=== PATIENT | female | born 1940 | race Caucasian/White ===

== ENCOUNTER 2016-07-08 16:58 | Emergency (ER) | payer MEDICARE, BC ==
[2016-07-08 18:43] LABS: Basophils # (A) 0.2 k/uL (0-0.2); Basophils % (A) 2 %; CH 32.5; CHCM 32.8; Eosinophils # (A) 0.1 k/uL (0-0.7); Eosinophils % (A) 1 %; HCT 39.7 % (34.0-46.0); HDW 2.32; Luc # (Auto) 0.27; Luc % (Auto) 2; Lymphocytes # (A) 1.9 k/uL (1.0-4.8); Lymphocytes % (A) 15 %; MCH 32.5 pg (25.0-35.0); MCHC 32.6 g/dL (31.0-37.0); MCV 99.7 fL (80.0-100.0); Mean Platelet Volume 8.4; Monocytes % (A) 7 %; Neutrophils # (A) 9.7 k/uL (1.3-7.7); Neutrophils % (A) 74 %; RBC 3.98 m/uL (3.80-5.40); WBC 13.2 k/uL (3.8-10.6); WBC (Perox) 13.94
[2016-07-08 18:53] LABS: ALT 42 U/L (9-52); AST 22 U/L (14-36); Alkaline Phosphatase 77 U/L (38-126); Anion Gap 4 mmol/L; Blood Urea Nitrogen 14 mg/dL (7-17); Calcium 8.6 mg/dL (8.4-10.2); Carbon Dioxide 32 mmol/L (22-30); Chloride 102 mmol/L (98-107); Glucose 116 mg/dL (74-99); Non-African American GFR(MDRD) >60 (>60 ml/min/1.73 sqM); Potassium 3.8 mmol/L (3.5-5.1); Sodium 138 mmol/L (137-145); Total Bilirubin 0.5 mg/dL (0.2-1.3); Total Protein 5.4 g/dL (6.3-8.2)
[2016-07-08 19:01] LABS: Partial Thromboplastin Time 59.9 sec (22.0-30.0); Prothrombin Time >130.0 sec (9.0-12.0)
[2016-07-08 19:05] LABS: INR >10.0 (<1.1)
[2016-07-08] MEDS ORDERED: PHYTONADIONE ORAL 5 MG/5 ML ORAL.SYRG PO STA (19:07)
[2016-07-08 19:34] VITALS: RESP 18
--- NOTE | 2016-07-08 20:03 | ED ---
Recheck HPI - General Chief Complaint: Recheck/Abnormal Lab/Rx Stated Complaint: Abnormal Labs-Sent By Time Seen by Provider: 07/08/16 18:37 Source: patient, RN notes reviewed Mode of arrival: wheelchair Limitations: no limitations - History of Present Illness Initial Comments: This patient is a 75-year-old woman who is taking Coumadin for having had a mechanical valve replacement. She presents to have her INR level rechecked. The patient states that she had seen her physician, Dr. Thomson earlier today to have her Coumadin level rechecked. She states she received a phone call that the level was above 8, and that she was take some vitamin K. The patient had prescription for this, she also had prescription provided to have her INR level rechecked. The patient states that she is due to travel tomorrow by airplane to [place] to see her son. The patient states that it is still her intention to travel, to have her INR rechecked in [place] and to have the Coumadin level adjusted there. The patient does have some ecchymosis to the right side of her trunk, but is denying any other symptoms of bleeding. She denies headache, epistaxis, hemoptysis, chest or abdominal pain, hematemesis or passing bloody or tarry stools. Complaint: abnormal lab -: hour(s) Returns Today for: Called Because of Abnormal Lab/Test Context: called for abnormal lab result Associated Symptoms: none - Related Data Home Medications Medication Instructions Recorded Confirmed Citalopram Hydrobromide [CeleXA] 30 mg PO QAM 05/20/14 07/08/16 Furosemide [Lasix] 20 mg PO Q48H 05/20/14 07/08/16 LORazepam [Ativan] 1 mg PO BID@1400,2100 05/20/14 07/08/16 Levothyroxine Sodium [Synthroid] 75 mcg PO QAM 05/20/14 07/08/16 Metolazone [Zaroxolyn] 2.5 mg PO TH 05/20/14 07/08/16 Nitroglycerin Sl Tabs [Nitrostat] 0.4 mg SUBLINGUAL Q5M PRN 05/20/14 07/08/16 Omeprazole [PriLOSEC] 20 mg PO HS 05/20/14 07/08/16 Simvastatin [Zocor] 40 mg PO TUFR 05/20/14 07/08/16 Warfarin [Coumadin] 5 mg PO SUTUTHSA 05/20/14 07/08/16 Ergocalciferol [Vitamin D2 50,000 unit PO SA 12/19/15 07/08/16 (DRISDOL)] Ferrous Sulfate [Iron (65 MG 325 mg PO PC-LUNCH 12/19/15 07/08/16 Elemental)] Furosemide 40 mg PO Q48H 12/19/15 07/08/16 Gabapentin 400 mg PO HS 12/19/15 07/08/16 Warfarin [Coumadin] 2.5 mg PO MOWEFR 12/19/15 07/08/16 Budesonide/Formoterol Fumarate 2 puff INHALATION RT-BID PRN 02/12/16 07/08/16 [Symbicort 160-4.5 Mcg Inhaler] HYDROcodone/APAP 7.5-325MG [[place] 1 tab PO Q6HR PRN 02/12/16 07/08/16 7.5-325] Potassium Chloride ER [K-Dur 20] 40 meq PO BID 02/12/16 07/08/16 Umeclidinium Dante [Incruse 62.5 mcg INHALATION RT-HS 02/12/16 07/08/16 Ellipta] Acetaminophen Tab [Tylenol Tab] 1,000 mg PO Q6HR PRN 07/08/16 07/08/16 Gabapentin [Neurontin] 300 mg PO DAILY 07/08/16 07/08/16 amLODIPine [Norvasc] 5 mg PO BID 07/08/16 07/08/16 predniSONE 10 mg PO DAILY 07/08/16 07/08/16 Allergies Allergy/AdvReac Type Severity Reaction Status Date / Time adhesive Allergy tears skin Verified 07/08/16 19:04 Iodinated Contrast Media - Allergy Unknown Verified 07/08/16 19:04 Oral and [Iodinated Contrast Media - IV Dye] iodine Allergy Unknown Verified 07/08/16 19:04 Latex, Natural Rubber Allergy Unknown Verified 07/08/16 19:04 venom-honey bee Allergy Anaphylaxis Verified 07/08/16 19:04 [bee venom (honey bee)] Review of Systems ROS Statement: Those systems with pertinent positive or pertinent negative responses have been documented in the HPI. ROS Other: All systems not noted in ROS Statement are negative. Constitutional: Denies: fever, chills, weakness Respiratory: Denies: cough, dyspnea, hemoptysis Cardiovascular: Denies: chest pain, palpitations, edema, syncope Gastrointestinal: Denies: abdominal pain, nausea, vomiting, melena, hematochezia Genitourinary: Denies: dysuria, hematuria Musculoskeletal: Denies: back pain Skin: Denies: rash Neurological: Denies: headache, weakness, numbness Hematological/Lymphatic: Reports: as per HPI, easy bruising Past Medical History Past Medical History: Heart Failure, Fibromyalgia, GERD/Reflux, Hyperlipidemia, Hypertension, Pneumonia, Thyroid Disorder Additional Past Medical History / Comment(s): osteoporosis, neuropathy, rheumatic fever as child, home o2 2 liters n/c at hs,diverticular disease,pt stated had some paralysis after neck sx -resolved,"occ nose bleeds" and "i take iron supplement that turns my stool black", cyst on one of her kidneys, shingles approx 2009. History of Any Multi-Drug Resistant Organisms: None Reported Past Surgical History: Back Surgery, Section, Orthopedic Surgery, Tonsillectomy Additional Past Surgical History / Comment(s): bruna mastectomy, bottom of right lung removed, breast implants then removed d/t "bad implants",mechanical aortic valve replacement.neck sx had titanium plate, lt carotid endarterectomy, rt lung nodule removed(benign), bruna cataracts. Past Anesthesia/Blood Transfusion Reactions: No Reported Reaction Additional Past Anesthesia/Blood Transfusion Reaction / Comment(s): clausterphobia. past blood transfusion-no reactions to it. Past Psychological History: No Psychological Hx Reported Smoking Status: Current every day smoker Past Alcohol Use History: None Reported, Rare Additional Past Alcohol Use History / Comment(s): started smoking at age 18- smokes 1 ppd. Past Drug Use History: None Reported - Past Family History Father Family Medical History: Unable to Obtain Additional Family Medical History / Comment(s): dad in accident when pt young -did'nt know his hx. Mother Family Medical History: COPD Additional Family Medical History / Comment(s): age 73 Sister(s) Family Medical History: Cancer Additional Family Medical History / Comment(s): 1 sister- thyroid & breast Ca, brain aneurysm-still alive, #2 breast ca,dementia- 83 age,#3 blood cancer- 50's age. General Exam Limitations: no limitations General appearance: alert, in no apparent distress Head exam: Present: atraumatic, normocephalic Eye exam: Present: normal appearance. Absent: scleral icterus, conjunctival injection Neck exam: Present: normal inspection, full ROM Respiratory exam: Present: wheezes (There is a trace expiratory wheeze.). Absent: respiratory distress, rales, rhonchi, stridor, chest wall tenderness Cardiovascular Exam: Present: regular rate, normal rhythm, systolic murmur ( Systolic ejection murmur), clicks (Mechanical click). Absent: diastolic murmur , rubs, gallop GI/Abdominal exam: Present: soft. Absent: distended, tenderness, guarding, rebound, mass, pulsatile mass, hernia Extremities exam: Present: normal inspection, normal capillary refill. Absent: pedal edema, calf tenderness Back exam: Absent: CVA tenderness (R), CVA tenderness (L) Neurological exam: Present: alert, oriented X3 Skin exam: Present: warm, dry, intact, other (Patient has some ecchymosis to the right side of the trunk) Course Vital Signs 07/08/16 07/08/16 17:10 19:33 Temperature 99.0 F 98.2 F Pulse Rate 90 77 Respiratory 20 18 Rate Blood Pressure 110/53 144/62 O2 Sat by Pulse 98 95 Oximetry Medical Decision Making - Medical Decision Making Patient is a 75-year-old woman with elevated INR level. She had been given prescription to obtain vitamin K but states she was unable to have the prescription filled as an outpatient due to it costing over $600. She is given a oral dose of vitamin K here, and I did discuss admission for observation. The patient is declining to have that. I did contact her physician Dr. Thomson who states that he has established a plan for her to follow up and also to be contacted with her INR results and manage her Coumadin level. The patient realizes that she is definitely at risk for having a bleeding episode, and it possibly resulting in or disability. It was recommended to her both by Dr. Thomson myself that travel is not ideal under this circumstance. The patient does express understanding of the risks and states that she is going anyways. - Lab Data Result diagrams: 07/08/16 18:09 02/20/17 18:09 Lab Results 07/08/16 07/08/16 07/08/16 Range/Units 18:09 18:09 18:09 WBC 13.2 H (3.8-10.6) k/uL RBC 3.98 (3.80-5.40) m/uL Hgb 13.0 (11.4-16.0) gm/dL Hct 39.7 (34.0-46.0) % MCV 99.7 (80.0-100.0) fL MCH 32.5 (25.0-35.0) pg MCHC 32.6 (31.0-37.0) g/dL RDW 14.0 (11.5-15.5) % Plt Count 208 (150-450) k/uL Neutrophils % 74 % Lymphocytes % 15 % Monocytes % 7 % Eosinophils % 1 % Basophils % 2 % Neutrophils # 9.7 H (1.3-7.7) k/uL Lymphocytes # 1.9 (1.0-4.8) k/uL Monocytes # 1.0 (0-1.0) k/uL Eosinophils # 0.1 (0-0.7) k/uL Basophils # 0.2 (0-0.2) k/uL PT >130.0 H (9.0-12.0) sec INR >10.0 H* (<1.1) APTT 59.9 H (22.0-30.0) sec Sodium 138 (137-145) mmol/L Potassium 3.8 (3.5-5.1) mmol/L Chloride 102 (98-107) mmol/L Carbon Dioxide 32 H (22-30) mmol/L Anion Gap 4 mmol/L BUN 14 (7-17) mg/dL Creatinine 0.71 (0.52-1.04) mg/dL Est GFR (MDRD) Af Amer >60 (>60 ml/min/1.73 sqM) Est GFR (MDRD) Non-Af >60 (>60 ml/min/1.73 sqM) Glucose 116 H (74-99) mg/dL Calcium 8.6 (8.4-10.2) mg/dL Total Bilirubin 0.5 (0.2-1.3) mg/dL AST 22 (14-36) U/L ALT 42 (9-52) U/L Alkaline Phosphatase 77 (38-126) U/L Total Protein 5.4 L (6.3-8.2) g/dL Albumin 3.1 L (3.5-5.0) g/dL Disposition Clinical Impression: Warfarin-induced coagulopathy Disposition: HOME SELF-CARE Condition: Fair Instructions: Warfarin Toxicity (ED) Referrals: Sandrita Thomson DO [Primary Care Provider] - 1-2 days
[2016-07-08 20:15] VITALS: BP 140/66; PULSE 69; TEMP 97.5
== END 2016-07-08 20:15 | disposition home or self-care (01) ==
LOC: EC 16:58
DX: D68.9 Coagulation defect, unspecified (principal); R23.3 Spontaneous ecchymoses; I11.0 Hypertensive heart disease with heart failure; I50.9 Heart failure, unspecified; M79.7 Fibromyalgia; K21.9 Gastro-esophageal reflux disease without esophagitis; E78.5 Hyperlipidemia, unspecified; M81.0 Age-related osteoporosis without current pathological fracture; F17.200 Nicotine dependence, unspecified, uncomplicated; Z79.01 Long term (current) use of anticoagulants; Z79.52 Long term (current) use of systemic steroids; Z79.899 Other long term (current) drug therapy; Z91.040 Latex allergy status; Z91.041 Radiographic dye allergy status; Z91.030 Bee allergy status; Z91.048 Other nonmedicinal substance allergy status
CPT/HCPCS: 36415; 80053; 85025; 85610; 85730; 99283

== ENCOUNTER → 2017-01-07 | Outpatient (CLI) | payer MEDICARE, BC ==
--- NOTE | 2017-01-07 15:54 | CT ---
EXAMINATION TYPE: CT abdomen pelvis wo con DATE OF EXAM: 01/07/2017 COMPARISON: NONE INDICATION: Lt flank pain DLP: 264.9 mGycm, Automated exposure control for dose reduction was used. CONTRAST: 0 mL of Omnipaque 300. Study performed without Oral Contrast TECHNIQUE: Axial images were obtained from above the diaphragm to the pubic rami in the axial plane a t 5 mm thick sections. Reconstructed images are reviewed on the computer in the coronal plane. FINDINGS: Limited CT sections are obtained the lung bases. Some compressive atelectasis is within the dependen t right lung base.. Coronary artery calcifications present. Vascular calcifications within the desce nding thoracic aorta. Borderline prominent lymph nodes in the retrocrural space measuring 0.5 cm in t ransverse dimension. CT ABDOMEN: Liver: Normal Spleen: Normal Pancreas: Normal Adrenal glands: Left adrenal gland is normal. There is some mild thickening which is stable within th e inferior lateral right adrenal gland measuring 0.9 cm. Gallbladder: Surgically absent Kidneys: No masses are evident. No hydronephrosis is present. No cysts are present. Vascular calci fications are noted on the left. Aorta: Vascular calcification is within the aorta. Inferior vena cava: Normal. CT PELVIS: Loops of bowel within the abdomen and pelvis are normal. Study is performed without oral contrast limiting the evaluation. Appendix: Normal as visualized. Urinary bladder: Decompressed with limited evaluation. Genitourinary structures: Uterus is normal. Adnexal regions are clear. Osseous structures: No suspicious lytic or sclerotic lesions. Degenerative changes are within the lum bar spine. IMPRESSIONS: 1. No suspicious abnormality to account for left flank pain. 2. Stable right adrenal thickening. 3. Borderline sized retrocrural lymph node
== END | disposition home or self-care (01) ==
LOC: RADCTMAIN 13:44
PROVIDERS: ATTEND Family Medicine
DX: E27.8 Other specified disorders of adrenal gland (principal); R10.9 Unspecified abdominal pain; R59.0 Localized enlarged lymph nodes
CPT/HCPCS: 74176

== ENCOUNTER → 2017-02-07 | Outpatient (CLI) | payer MEDICARE, BC ==
--- NOTE | 2017-02-07 12:55 | US ---
EXAMINATION TYPE: US venous doppler duplex LE LT DATE OF EXAM: 02/07/2017 12:21 PM COMPARISON: NONE CLINICAL HISTORY: I82.4Y2 Deep vein thrombosis. Left ankle swelling x few days, left lateral thigh pa in x 5 days; on Coumadin for heart mechanical valve SIDE PERFORMED: TECHNIQUE: The lower extremity deep venous system is examined utilizing real time linear array sonog jo with graded compression, doppler sonography and color-flow sonography. VESSELS IMAGED: Common Femoral Vein Deep Femoral Vein Greater Saphenous Vein * Femoral Vein Popliteal Vein Small Saphenous Vein * Proximal Calf Veins (* superficial vessels) Tech findings called to Irma at Dr Ramirez's Office at exam's end. Left Leg: Negative for DVT IMPRESSION: 1. No deep venous thrombosis by ultrasound left lower extremity.
== END | disposition home or self-care (01) ==
LOC: RADUSWWP 11:58
PROVIDERS: ATTEND Family Medicine
DX: I82.4Y2 Acute embolism and thrombosis of unspecified deep veins of left proximal lower extremity (principal)

== ENCOUNTER → 2017-11-24 | Outpatient (CLI) | payer MEDICARE, BC ==
[2017-11-24 08:36] LABS: INR 1.3 (<1.2); Partial Thromboplastin Time 24.9 sec (22.0-30.0); Prothrombin Time 12.4 sec (9.0-12.0)
== END | disposition home or self-care (01) ==
LOC: LABWHC1 07:41
PROVIDERS: ATTEND Physical Medicine & Rehabilitation
DX: Z01.812 Encounter for preprocedural laboratory examination (principal); Z79.01 Long term (current) use of anticoagulants
CPT/HCPCS: 36415; 85610; 85730

== ENCOUNTER → 2018-01-13 | Outpatient (CLI) | payer MEDICARE, BC ==
[2018-01-13 12:44] LABS: INR 1.8 (<1.2); Partial Thromboplastin Time 33.8 sec (22.0-30.0); Prothrombin Time 16.3 sec (9.0-12.0)
== END | disposition home or self-care (01) ==
LOC: LABWHC1 12:12
PROVIDERS: ATTEND Physical Medicine & Rehabilitation
DX: Z51.81 Encounter for therapeutic drug level monitoring (principal); Z79.01 Long term (current) use of anticoagulants
CPT/HCPCS: 36415; 85610; 85730

== ENCOUNTER → 2018-01-14 | Outpatient (CLI) | payer MEDICARE, BC ==
[2018-01-14 09:19] LABS: INR 1.3 (<1.2); Partial Thromboplastin Time 25.2 sec (22.0-30.0); Prothrombin Time 12.1 sec (9.0-12.0)
== END | disposition home or self-care (01) ==
LOC: LABWHC1 08:50
PROVIDERS: ATTEND Physical Medicine & Rehabilitation
DX: M19.041 Primary osteoarthritis, right hand (principal); M19.042 Primary osteoarthritis, left hand; M54.81 Occipital neuralgia; R51 Headache; R20.2 Paresthesia of skin; G89.29 Other chronic pain; R53.1 Weakness; M51.36 Other intervertebral disc degeneration, lumbar region; M47.816 Spondylosis without myelopathy or radiculopathy, lumbar region; M47.12 Other spondylosis with myelopathy, cervical region; F17.218 Nicotine dependence, cigarettes, with other nicotine-induced disorders
CPT/HCPCS: 36415; 85610; 85730

== ENCOUNTER → 2018-06-25 | Outpatient (CLI) | payer MEDICARE, BC ==
[~2018-06-25] MED LIST: DENOSUMAB 60 MG/ML 1 ML SYRINGE SQ ONE
== END ==
LOC: PROCWHC3 14:08
PROVIDERS: ATTEND Family Medicine
DX: M81.0 Age-related osteoporosis without current pathological fracture (principal)
CPT/HCPCS: 96372; J0897

== ENCOUNTER → 2019-03-11 | Outpatient (CLI) | payer MEDICARE, BC ==
[2019-03-11 14:05] VITALS: BP 145/75; PULSE 74; RESP 18; TEMP 98.8
== END | disposition home or self-care (01) ==
LOC: PROCWHC3 13:43
PROVIDERS: ATTEND Family Medicine
DX: M81.0 Age-related osteoporosis without current pathological fracture (principal)
CPT/HCPCS: 96372; J0897

== ENCOUNTER 2019-10-30 00:19 | Inpatient (IN) | payer MEDICARE, BC ==
--- NOTE | 2019-10-30 01:09 | ED ---
General Adult HPI - General Chief complaint: Weakness Stated complaint: Neuro systems, weakness Time Seen by Provider: 10/30/19 00:44 Source: patient, family Mode of arrival: wheelchair Limitations: physical limitation - History of Present Illness Initial comments: Julianne is a 78-year-old female who is brought to the ER today for further evaluation of worsening weakness, multiple falls over the past week. The patient has been seen by her primary care physician she did have a urinalysis to assess for urinary tract infection, those results are not returned. She also had head CT outpatient today and was told the results were fine and she was allowed to leave the hospital did not need to be seen in the ER. Hasn't reports that despite these tests the patient continues to be very weak and not herself. She is followed 3 times she does have some bruising on her buttocks but no other complaints or injuries. He is concerned about her weakness a brother ER for evaluation. - Related Data Home Medications Medication Instructions Recorded Confirmed Citalopram Hydrobromide [CeleXA] 20 mg PO QAM 05/20/14 03/11/19 LORazepam [Ativan] 1 mg PO BID@1400,2100 05/20/14 03/11/19 Levothyroxine Sodium [Synthroid] 75 mcg PO QAM 05/20/14 03/11/19 Metolazone [Zaroxolyn] 2.5 mg PO TH 05/20/14 03/11/19 Nitroglycerin Sl Tabs [Nitrostat] 0.4 mg SUBLINGUAL Q5M PRN 05/20/14 03/11/19 Omeprazole [PriLOSEC] 20 mg PO HS 05/20/14 03/11/19 Simvastatin [Zocor] 40 mg PO TUFR 05/20/14 03/11/19 Warfarin [Coumadin] 5 mg PO 05/20/14 06/25/18 Ergocalciferol [Vitamin D2 50,000 unit PO SA 12/19/15 03/11/19 (DRISDOL)] Furosemide 40 mg PO DAILY 12/19/15 03/11/19 Gabapentin 400 mg PO BID 12/19/15 03/11/19 Warfarin [Coumadin] 2.5 mg PO 12/19/15 06/25/18 Budesonide/Formoterol Fumarate 2 puff INHALATION RT-BID PRN 02/12/16 03/11/19 [Symbicort 160-4.5 Mcg Inhaler] Potassium Chloride ER [K-Dur 20] 40 meq PO TID 02/12/16 03/11/19 Acetaminophen Tab [Tylenol Tab] 1,000 mg PO Q6HR PRN 07/08/16 03/11/19 amLODIPine [Norvasc] 5 mg PO DAILY 07/08/16 03/11/19 Allergies Allergy/AdvReac Type Severity Reaction Status Date / Time adhesive Allergy tears skin Verified 10/30/19 00:33 Iodinated Contrast Media Allergy Unknown Verified 10/30/19 00:33 [Iodinated Contrast Media - IV Dye] iodine Allergy Unknown Verified 10/30/19 00:33 Latex, Natural Rubber Allergy Unknown Verified 10/30/19 00:33 venom-honey bee Allergy Anaphylaxis Verified 10/30/19 00:33 [bee venom (honey bee)] Review of Systems ROS Statement: Those systems with pertinent positive or pertinent negative responses have been documented in the HPI. ROS Other: All systems not noted in ROS Statement are negative. Past Medical History Past Medical History: Heart Failure, Fibromyalgia, GERD/Reflux, Hyperlipidemia, Hypertension, Pneumonia, Thyroid Disorder Additional Past Medical History / Comment(s): osteoporosis, neuropathy,rheumatic fever as child, home o2 2 liters n/c at hs,diverticular disease,pt stated had some paralysis after neck sx -resolved,"occ nose bleeds" and "i take iron supplement that turns my stool black", cyst on one of her kidneys, shingles approx 2009. History of Any Multi-Drug Resistant Organisms: None Reported Past Surgical History: Back Surgery, Section, Orthopedic Surgery, Tonsillectomy Additional Past Surgical History / Comment(s): burna mastectomy, bottom of right lung removed, breast implants then removed d/t "bad implants",mechanical aortic valve replacement.neck sx had titanium plate, lt carotid endarterectomy, rt lung nodule removed(benign), bruna cataracts. Past Anesthesia/Blood Transfusion Reactions: No Reported Reaction Additional Past Anesthesia/Blood Transfusion Reaction / Comment(s): clausterphobia. past blood transfusion-no reactions to it. Past Psychological History: No Psychological Hx Reported Smoking Status: Current every day smoker Past Alcohol Use History: None Reported, Rare Past Drug Use History: None Reported - Past Family History Father Family Medical History: Unable to Obtain Additional Family Medical History / Comment(s): dad in accident when pt young -did'nt know his hx. Mother Family Medical History: COPD Additional Family Medical History / Comment(s): age 73 Sister(s) Family Medical History: Cancer Additional Family Medical History / Comment(s): 1 sister- thyroid & breast Ca, brain aneurysm-still alive, #2 breast ca,dementia- 83 age,#3 blood cancer- 50's age. General Exam - General Exam Comments Initial Comments: Physical Exam GENERAL: Elderly, debilitated HENT: Normocephalic, Atraumatic. EYES: PERRL, EOMI PULMONARY: Unlabored respirations CARDIOVASCULAR: There is a regular rate and rhythm without any murmurs gallops or rubs. ABDOMEN: Soft and nontender with normal bowel sounds. SKIN: Bruising on buttocks, no sacral decub : Normal external genitalia NEUROLOGIC: Patient is alert and oriented x3. Moving all extremities spontaneously MUSCULOSKELETAL: Generalized weakness PSYCHIATRIC: Normal psychiatric evaluation. Limitations: physical limitation Course Vital Signs 10/30/19 10/30/19 10/30/19 00:23 00:32 02:00 Temperature 98.7 F 98.1 F Pulse Rate 83 82 Pulse Rate [ 75 Pulse Oximetery ] Respiratory 16 18 16 Rate Blood Pressure 186/73 189/87 Blood Pressure 191/69 [Left Arm] O2 Sat by Pulse 92 L 94 L 93 L Oximetry 10/30/19 10/30/19 10/30/19 03:00 03:37 03:43 Temperature 97.0 F L 97.0 F L Pulse Rate 82 82 Pulse Rate [ Pulse Oximetery ] Respiratory 16 16 16 Rate Blood Pressure 184/83 184/83 Blood Pressure [Left Arm] O2 Sat by Pulse 96 94 L 94 L Oximetry 10/30/19 04:00 Temperature Pulse Rate Pulse Rate [ 75 Pulse Oximetery ] Respiratory Rate Blood Pressure Blood Pressure [Left Arm] O2 Sat by Pulse Oximetry Medical Decision Making - Medical Decision Making The patient was seen and evaluated, history was obtained from and patient 78-year-old female multiple medical comorbidities worsening weakness over the past week Apparently a normal outpatient head CT, outpatient urinalysis pending Full workup was initiated - Lab Data Result diagrams: 10/30/19 01:26 10/30/19 01:26 Lab Results 10/30/19 10/30/19 10/30/19 Range/Units 01:26 01:26 01:26 WBC 18.3 H (3.8-10.6) k/uL RBC 4.88 (3.80-5.40) m/uL Hgb 14.8 (11.4-16.0) gm/dL Hct 46.5 H (34.0-46.0) % MCV 95.3 (80.0-100.0) fL MCH 30.4 (25.0-35.0) pg MCHC 31.9 (31.0-37.0) g/dL RDW 13.6 (11.5-15.5) % Plt Count 333 (150-450) k/uL Neutrophils % 82 % Lymphocytes % 9 % Monocytes % 7 % Eosinophils % 1 % Basophils % 0 % Neutrophils # 15.0 H (1.3-7.7) k/uL Lymphocytes # 1.7 (1.0-4.8) k/uL Monocytes # 1.2 H (0-1.0) k/uL Eosinophils # 0.2 (0-0.7) k/uL Basophils # 0.1 (0-0.2) k/uL PT 29.0 H (9.0-12.0) sec INR 3.0 H (<1.2) APTT 30.3 H (22.0-30.0) sec Sodium 134 L (137-145) mmol/L Potassium 3.2 L (3.5-5.1) mmol/L Chloride 97 L (98-107) mmol/L Carbon Dioxide 30 (22-30) mmol/L Anion Gap 7 mmol/L BUN 17 (7-17) mg/dL Creatinine 0.57 (0.52-1.04) mg/dL Est GFR (CKD-EPI)AfAm >90 (>60 ml/min/1.73 sqM) Est GFR (CKD-EPI)NonAf 90 (>60 ml/min/1.73 sqM) Glucose 158 H (74-99) mg/dL Plasma Lactic Acid Leonard (0.7-2.0) mmol/L Calcium 9.5 (8.4-10.2) mg/dL Magnesium 1.7 (1.6-2.3) mg/dL Total Bilirubin 0.5 (0.2-1.3) mg/dL AST 21 (14-36) U/L ALT 12 (4-34) U/L Alkaline Phosphatase 101 (38-126) U/L Total Protein 7.2 (6.3-8.2) g/dL Albumin 4.4 (3.5-5.0) g/dL TSH 0.017 L (0.465-4.680) mIU/L Free T4 2.19 (0.78-2.19) ng/dL Urine Color Urine Appearance (Clear) Urine pH (5.0-8.0) Ur Specific [place] (1.001-1.035) Urine Protein (Negative) Urine Glucose (UA) (Negative) Urine Ketones (Negative) Urine Blood (Negative) Urine Nitrite (Negative) Urine Bilirubin (Negative) Urine Urobilinogen (<2.0) mg/dL Ur Leukocyte Esterase (Negative) Urine RBC (0-5) /hpf Urine WBC (0-5) /hpf Hyaline Casts (0-2) /lpf Urine Mucus (None) /hpf 10/30/19 10/30/19 Range/Units 01:26 02:09 WBC (3.8-10.6) k/uL RBC (3.80-5.40) m/uL Hgb (11.4-16.0) gm/dL Hct (34.0-46.0) % MCV (80.0-100.0) fL MCH (25.0-35.0) pg MCHC (31.0-37.0) g/dL RDW (11.5-15.5) % Plt Count (150-450) k/uL Neutrophils % % Lymphocytes % % Monocytes % % Eosinophils % % Basophils % % Neutrophils # (1.3-7.7) k/uL Lymphocytes # (1.0-4.8) k/uL Monocytes # (0-1.0) k/uL Eosinophils # (0-0.7) k/uL Basophils # (0-0.2) k/uL PT (9.0-12.0) sec INR (<1.2) APTT (22.0-30.0) sec Sodium (137-145) mmol/L Potassium (3.5-5.1) mmol/L Chloride (98-107) mmol/L Carbon Dioxide (22-30) mmol/L Anion Gap mmol/L BUN (7-17) mg/dL Creatinine (0.52-1.04) mg/dL Est GFR (CKD-EPI)AfAm (>60 ml/min/1.73 sqM) Est GFR (CKD-EPI)NonAf (>60 ml/min/1.73 sqM) Glucose (74-99) mg/dL Plasma Lactic Acid [place] 1.1 (0.7-2.0) mmol/L Calcium (8.4-10.2) mg/dL Magnesium (1.6-2.3) mg/dL Total Bilirubin (0.2-1.3) mg/dL AST (14-36) U/L ALT (4-34) U/L Alkaline Phosphatase (38-126) U/L Total Protein (6.3-8.2) g/dL Albumin (3.5-5.0) g/dL TSH (0.465-4.680) mIU/L Free T4 (0.78-2.19) ng/dL Urine Color Yellow Urine Appearance Clear (Clear) Urine pH 6.0 (5.0-8.0) Ur Specific [place] 1.014 (1.001-1.035) Urine Protein 2+ H (Negative) Urine Glucose (UA) Negative (Negative) Urine Ketones Negative (Negative) Urine Blood Moderate H (Negative) Urine Nitrite Negative (Negative) Urine Bilirubin Negative (Negative) Urine Urobilinogen <2.0 (<2.0) mg/dL Ur Leukocyte Esterase Negative (Negative) Urine RBC 18 H (0-5) /hpf Urine WBC 2 (0-5) /hpf Hyaline Casts 10 H (0-2) /lpf Urine Mucus Rare H (None) /hpf Disposition Clinical Impression: Hypokalemia, Hyponatremia, Leukocytosis, Fall, Contusion, Low TSH level, Hypothyroid, Debility Disposition: ADMITTED IP TO THIS HOSP Condition: Stable Is patient prescribed a controlled substance at d/c from ED?: No
[2019-10-30 01:46] LABS: Basophils # (A) 0.1 k/uL (0-0.2); Basophils % (A) 0 %; Eosinophils # (A) 0.2 k/uL (0-0.7); Eosinophils % (A) 1 %; HCT 46.5 % (34.0-46.0); HGB 14.8 gm/dL (11.4-16.0); Lymphocytes # (A) 1.7 k/uL (1.0-4.8); Lymphocytes % (A) 9 %; MCH 30.4 pg (25.0-35.0); MCHC 31.9 g/dL (31.0-37.0); MCV 95.3 fL (80.0-100.0); Mean Platelet Volume 8.3; Monocytes # (A) 1.2 k/uL (0-1.0); Monocytes % (A) 7 %; Neutrophils % (A) 82 %; Platelet Count 333 k/uL (150-450); RBC 4.88 m/uL (3.80-5.40); RDW 13.6 % (11.5-15.5); WBC 18.3 k/uL (3.8-10.6)
[2019-10-30 01:57] LABS: Partial Thromboplastin Time 30.3 sec (22.0-30.0)
[2019-10-30 02:00] LABS: ALT 12 U/L (4-34); AST 21 U/L (14-36); African American GFR (CKD) >90 (>60 ml/min/1.73 sqM); Albumin 4.4 g/dL (3.5-5.0); Alkaline Phosphatase 101 U/L (38-126); Anion Gap 7 mmol/L; Blood Urea Nitrogen 17 mg/dL (7-17); Calcium 9.5 mg/dL (8.4-10.2); Carbon Dioxide 30 mmol/L (22-30); Chloride 97 mmol/L (98-107); Glucose 158 mg/dL (74-99); Magnesium 1.7 mg/dL (1.6-2.3); Non-African American GFR(CKD) 90 (>60 ml/min/1.73 sqM); Potassium 3.2 mmol/L (3.5-5.1); Sodium 134 mmol/L (137-145); Total Bilirubin 0.5 mg/dL (0.2-1.3); Total Protein 7.2 g/dL (6.3-8.2)
[2019-10-30] MEDS ORDERED: Potassium Replacement Protocol 1 EACH MISC MISCELLANE PRN (02:46)
[2019-10-30 02:51] LABS: Appearance,Urine Clear (Clear); Bilirubin,Urine Negative (Negative); Blood,Urine Moderate (Negative); Color,Urine Yellow; Glucose,Urine (UA) Negative (Negative); Hyaline Casts,Urine 10 /lpf (0-2); Ketones,Urine Negative (Negative); Leukocyte Esterase,Urine Negative (Negative); Mucus,Urine Rare /hpf; Nitrite,Urine Negative (Negative); Protein,Urine 2+ (Negative); RBC,Urine 18 /hpf (0-5); Specific Gravity,Urine 1.014 (1.001-1.035); Urobilinogen,Urine <2.0 mg/dL (<2.0); WBC,Urine 2 /hpf (0-5)
[2019-10-30] MEDS ORDERED: NALOXONE 0.4 MG/ML 1 ML VIAL IV PRN (03:03)
[2019-10-30] MEDS: POTASSIUM CHLORIDE 10 MEQ in WATER FOR INJECTION 1 100ML.BAG IVPB SCH ×6 (03:41→21:24)
[2019-10-30] MEDS ORDERED: ONDANSETRON 4 MG/2 ML VIAL IVP STA (04:04)
[2019-10-30 05:03] LABS: T4, Free (Free Thyroxine) 2.19 ng/dL (0.78-2.19)
[2019-10-30] MEDS ORDERED: hydrALAZINE HCL 20 MG/ML 1 ML VIAL IVP STA (05:22)
[2019-10-30] MEDS ORDERED: ONDANSETRON 4 MG/2 ML VIAL IVP PRN (07:09)
[2019-10-30 10:51] LABS: Glucose,Whole Blood 147 mg/dL (75-99)
[2019-10-30] MEDS ORDERED: ACETAMINOPHEN TAB 500 MG TAB PO PRN (11:12)
[2019-10-30 11:36] LABS: Basophils % (A) 0 %; Eosinophils # (A) 0.1 k/uL (0-0.7); Eosinophils % (A) 0 %; HCT 49.1 % (34.0-46.0); HGB 15.4 gm/dL (11.4-16.0); Lymphocytes # (A) 1.7 k/uL (1.0-4.8); Lymphocytes % (A) 6 %; MCH 30.2 pg (25.0-35.0); MCHC 31.4 g/dL (31.0-37.0); MCV 96.4 fL (80.0-100.0); Mean Platelet Volume 8.5; Monocytes # (A) 1.9 k/uL (0-1.0); Monocytes % (A) 7 %; Neutrophils # (A) 23.2 k/uL (1.3-7.7); Neutrophils % (A) 86 %; Platelet Count 354 k/uL (150-450); RDW 13.6 % (11.5-15.5); WBC 27.1 k/uL (3.8-10.6)
--- NOTE | 2019-10-30 11:44 | XR ---
EXAMINATION TYPE: XR chest 1V portable DATE OF EXAM: 10/30/2019 HISTORY: SOB. REFERENCE: Previous study dated 12/20/2015. FINDINGS: There has been a midline sternotomy. The lungs are overinflated. Heart size upper limits of normal. There is patchy, bilateral airspace di sease, slightly worse on the right than the left. There are atelectatic changes present at the left l abdirizak base. Pleural spaces appear clear. IMPRESSION: PATCHY BILATERAL AIRSPACE DISEASE, WORSE ON THE RIGHT THAN THE LEFT.
[2019-10-30 11:47] LABS: ALT 13 U/L (4-34); AST 21 U/L (14-36); African American GFR (CKD) >90 (>60 ml/min/1.73 sqM); Albumin 4.3 g/dL (3.5-5.0); Alkaline Phosphatase 100 U/L (38-126); Anion Gap 8 mmol/L; Blood Urea Nitrogen 17 mg/dL (7-17); Calcium 9.5 mg/dL (8.4-10.2); Carbon Dioxide 30 mmol/L (22-30); Chloride 97 mmol/L (98-107); Glucose 154 mg/dL (74-99); Non-African American GFR(CKD) >90 (>60 ml/min/1.73 sqM); Potassium 3.3 mmol/L (3.5-5.1); Sodium 135 mmol/L (137-145); Total Bilirubin 0.6 mg/dL (0.2-1.3); Total Protein 7.3 g/dL (6.3-8.2)
[2019-10-30] MEDS ORDERED: POTASSIUM CHLORIDE ER 20 MEQ TAB.ER PO STA ×2 (11:51→12:31)
[2019-10-30] MEDS: amLODIPine 5 MG TAB PO SCH (12:24)
[2019-10-30] MEDS: FUROSEMIDE 40 MG TAB PO SCH (12:24)
[2019-10-30] MEDS: LEVOTHYROXINE 75 MCG TAB PO SCH (12:24)
[2019-10-30] MEDS: CITALOPRAM HYDROBROMIDE 20 MG TAB PO SCH (12:24)
[2019-10-30] MEDS: SYMBICORT 160-4.5 MCG INHALER INHALATION SCH ×2 (12:27→19:46)
[2019-10-30] MEDS ORDERED: FUROSEMIDE 10 MG/ML 4 ML VIAL ONE (14:28)
[2019-10-30] MEDS ORDERED: FUROSEMIDE 10 MG/ML 2 ML VIAL IV STA (14:34)
[2019-10-30 15:14] LABS: ABG Base Excess 8.3 mmol/L; ABG HCO3 34 mmol/L (21-25); ABG PCO2 59 mmHg (35-45); ABG PH 7.36 (7.35-7.45); ABG PO2 66 mmHg (83-108); ABG TCO2 36 mmol/L (19-24); Allen Test Performed? Yes
[2019-10-30 15:22] LABS: ABG Oxygen Saturation 88.6 % (94-97)
[2019-10-30] MEDS ORDERED: POTASSIUM CHLORIDE ER 20 MEQ TAB.ER PO SCH (16:00)
[2019-10-30] MEDS ORDERED: VANCOMYCIN IV PER PHARMACY 1 EACH MISC MISCELLANE PRN (16:02)
[2019-10-30] MEDS ORDERED: HEPARIN SODIUM,PORCINE 5,000 UNIT/ML 1 ML VIAL SQ SCH (16:15)
--- NOTE | 2019-10-30 16:18 | P.HPIM ---
History of Present Illness H&P Date: 10/30/19 Chief Complaint: Weakness 78-year-old female who is brought to the ER today for further evaluation of worsening weakness, multiple falls over the past week. The patient has been seen by her primary care physician she did have a urinalysis to assess for urinary tract infection, those results are not returned. She also had head CT outpatient today and was told the results were fine and she was allowed to leave the hospital did not need to be seen in the ER. Hasn't reports that despite these tests the patient continues to be very weak and not herself. She is followed 3 times she does have some bruising on her buttocks but no other complaints or injuries. He is concerned about her weakness a brother ER for evaluation. On the medical floor patient became tachycardic; 18 was called and patient was started to be in atrial fibrillation with RVR; patient is transferred to selective care unit Sepsis workup and protocol has been initiated; we will ordering stat EKG with chest x-ray and BNP; plan is to consult cardiology if patient in fact is in atrial fibrillation; if chest x-ray and BNP is unremarkable for CHF patient will be given IV fluids per sepsis bundle Review of Systems REVIEW OF SYSTEMS: CONSTITUTIONAL: Weakness and fatigue. HEENT: No recent visual problems or hearing problems. Denied any sore throat. CARDIOVASCULAR: No chest pain, orthopnea, PND, no palpitations, no syncope. PULMONARY: No shortness of breath, no cough, no hemoptysis. GASTROINTESTINAL: No diarrhea, no nausea, no vomiting, no abdominal pain. NEUROLOGICAL: No headaches, no weakness, no numbness. HEMATOLOGICAL: Denies any bleeding or petechiae. GENITOURINARY: Denies any burning micturition, frequency, or urgency. MUSCULOSKELETAL/RHEUMATOLOGICAL: Denies any joint pain, swelling, or any muscle pain. ENDOCRINE: Denies any polyuria or polydipsia. The rest of the 14-point review of systems is negative. Past Medical History Past Medical History: Heart Failure, Fibromyalgia, GERD/Reflux, Hyperlipidemia, Hypertension, Pneumonia, Thyroid Disorder Additional Past Medical History / Comment(s): osteoporosis, neuropathy,rheumatic fever as child, home o2 2 liters n/c at hs,diverticular disease,pt stated had some paralysis after neck sx -resolved,"occ nose bleeds" and "i take iron supplement that turns my stool black", cyst on one of her kidneys, shingles approx 2009. History of Any Multi-Drug Resistant Organisms: None Reported Past Surgical History: Back Surgery, Section, Orthopedic Surgery, Tonsillectomy Additional Past Surgical History / Comment(s): bruna mastectomy, bottom of right lung removed, breast implants then removed d/t "bad implants",mechanical aortic valve replacement.neck sx had titanium plate, lt carotid endarterectomy, rt lung nodule removed(benign), bruna cataracts. Past Anesthesia/Blood Transfusion Reactions: No Reported Reaction Additional Past Anesthesia/Blood Transfusion Reaction / Comment(s): clausterphobia. past blood transfusion-no reactions to it. Past Psychological History: No Psychological Hx Reported Smoking Status: Current every day smoker Past Alcohol Use History: None Reported, Rare Past Drug Use History: None Reported - Past Family History Father Family Medical History: Unable to Obtain Additional Family Medical History / Comment(s): dad in accident when pt young -did'nt know his hx. Mother Family Medical History: COPD Additional Family Medical History / Comment(s): age 73 Sister(s) Family Medical History: Cancer Additional Family Medical History / Comment(s): 1 sister- thyroid & breast Ca, brain aneurysm-still alive, #2 breast ca,dementia- 83 age,#3 blood cancer- 50's age. Medications and Allergies Home Medications Medication Instructions Recorded Confirmed Type Citalopram Hydrobromide [CeleXA] 20 mg PO DAILY 05/20/14 10/30/19 History LORazepam [Ativan] 1 mg PO HS 05/20/14 10/30/19 History Levothyroxine Sodium [Synthroid] 75 mcg PO HS 05/20/14 10/30/19 History Metolazone [Zaroxolyn] 2.5 mg PO TH 05/20/14 10/30/19 History Nitroglycerin Sl Tabs [Nitrostat] 0.4 mg SUBLINGUAL Q5M PRN 05/20/14 10/30/19 History Omeprazole [PriLOSEC] 20 mg PO HS 05/20/14 10/30/19 History Simvastatin [Zocor] 40 mg PO SUTUFR 05/20/14 10/30/19 History Warfarin [Coumadin] 5 mg PO MOWEFR 05/20/14 10/30/19 History Ergocalciferol [Vitamin D2 50,000 unit PO SA 12/19/15 10/30/19 History (DRISDOL)] Furosemide 40 mg PO DAILY 12/19/15 10/30/19 History Gabapentin 400 mg PO TID 12/19/15 10/30/19 History Warfarin [Coumadin] 2.5 mg PO SUTUTHSA 12/19/15 10/30/19 History Potassium Chloride ER [K-Dur 20] 60 meq PO BID 02/12/16 10/30/19 History Acetaminophen Tab [Tylenol Tab] 1,000 mg PO Q6HR PRN 07/08/16 10/30/19 History amLODIPine [Norvasc] 5 mg PO DAILY 07/08/16 10/30/19 History LORazepam [Ativan] 0.5 mg PO DAILY 10/30/19 10/30/19 History Montelukast [Singulair] 10 mg PO HS 10/30/19 10/30/19 History Allergies Allergy/AdvReac Type Severity Reaction Status Date / Time adhesive Allergy tears skin Verified 10/30/19 00:33 Iodinated Contrast Media Allergy Unknown Verified 10/30/19 00:33 [Iodinated Contrast Media - IV Dye] iodine Allergy Unknown Verified 10/30/19 00:33 Latex, Natural Rubber Allergy Unknown Verified 10/30/19 00:33 venom-honey bee Allergy Anaphylaxis Verified 10/30/19 00:33 [bee venom (honey bee)] Physical Exam Vitals: Vital Signs Temp Pulse Pulse Resp BP BP Pulse Ox 10/30/19 07:00 98.0 F 85 14 173/74 94 L 10/30/19 06:42 173/93 10/30/19 04:00 75 10/30/19 03:43 97.0 F L 82 16 184/83 94 L 10/30/19 03:37 97.0 F L 82 16 184/83 94 L 10/30/19 03:00 16 96 10/30/19 02:00 82 16 189/87 93 L 10/30/19 00:32 98.1 F 75 18 191/69 94 L 10/30/19 00:23 98.7 F 83 16 186/73 92 L Intake and Output 10/29/19 10/30/19 10/30/19 22:59 06:59 14:59 Other: Voiding Method Diaper Weight 51.71 kg - Constitutional General appearance: Sleepy but arousable - EENT Eyes: Present: anicteric sclerae, EOMI, PERRLA, normal appearance ENT: Present: hearing grossly normal, normal oropharynx Ears: bilateral: normal - Neck Neck: Present: normal ROM. Absent: lymphadenopathy, rigidity, thyromegaly Carotids: negative: bruit present Thyroid: bilateral: normal size, negative: enlarged, nodule - Respiratory Respiratory: bilateral: CTA, negative: rales, rhonchi, wheezing - Cardiovascular Rhythm: regular Heart sounds: normal: S1, S2 Abnormal Heart Sounds: Absent: systolic murmur, diastolic murmur - Gastrointestinal General gastrointestinal: Present: normal bowel sounds, soft. Absent: distended, organomegaly, tenderness - Genitourinary Genitourinary Comment(s): deferred - Integumentary Integumentary: Present: normal turgor. Absent: jaundiced, rash, ulcer - Neurologic Neurologic: Present: CNII-XII intact. Absent: focal deficits - Musculoskeletal Musculoskeletal: Present: gait normal, strength equal bilaterally Results CBC & Chem 7: 10/30/19 10:53 10/30/19 13:49 Labs: Abnormal Lab Results - Last 24 Hours (Table) 10/30/19 10/30/19 10/30/19 Range/Units 01:26 01:26 01:26 WBC 18.3 H (3.8-10.6) k/uL Hct 46.5 H (34.0-46.0) % Neutrophils # 15.0 H (1.3-7.7) k/uL Monocytes # 1.2 H (0-1.0) k/uL PT 29.0 H (9.0-12.0) sec INR 3.0 H (<1.2) APTT 30.3 H (22.0-30.0) sec Sodium 134 L (137-145) mmol/L Potassium 3.2 L (3.5-5.1) mmol/L Chloride 97 L (98-107) mmol/L Creatinine (0.52-1.04) mg/dL Glucose 158 H (74-99) mg/dL POC Glucose (mg/dL) (75-99) mg/dL TSH 0.017 L (0.465-4.680) mIU/L Urine Protein (Negative) Urine Blood (Negative) Urine RBC (0-5) /hpf Hyaline Casts (0-2) /lpf Urine Mucus (None) /hpf 10/30/19 10/30/19 10/30/19 Range/Units 02:09 10:38 10:53 WBC 27.1 H (3.8-10.6) k/uL Hct 49.1 H (34.0-46.0) % Neutrophils # 23.2 H (1.3-7.7) k/uL Monocytes # 1.9 H (0-1.0) k/uL PT (9.0-12.0) sec INR (<1.2) APTT (22.0-30.0) sec Sodium (137-145) mmol/L Potassium (3.5-5.1) mmol/L Chloride (98-107) mmol/L Creatinine (0.52-1.04) mg/dL Glucose (74-99) mg/dL POC Glucose (mg/dL) 147 H (75-99) mg/dL TSH (0.465-4.680) mIU/L Urine Protein 2+ H (Negative) Urine Blood Moderate H (Negative) Urine RBC 18 H (0-5) /hpf Hyaline Casts 10 H (0-2) /lpf Urine Mucus Rare H (None) /hpf 10/30/19 Range/Units 10:53 WBC (3.8-10.6) k/uL Hct (34.0-46.0) % Neutrophils # (1.3-7.7) k/uL Monocytes # (0-1.0) k/uL PT (9.0-12.0) sec INR (<1.2) APTT (22.0-30.0) sec Sodium 135 L (137-145) mmol/L Potassium 3.3 L (3.5-5.1) mmol/L Chloride 97 L (98-107) mmol/L Creatinine 0.48 L (0.52-1.04) mg/dL Glucose 154 H (74-99) mg/dL POC Glucose (mg/dL) (75-99) mg/dL TSH (0.465-4.680) mIU/L Urine Protein (Negative) Urine Blood (Negative) Urine RBC (0-5) /hpf Hyaline Casts (0-2) /lpf Urine Mucus (None) /hpf Thrombosis Risk Factor Assmnt - Choose All That Apply Any of the Below Risk Factors Present?: No Assessment and Plan Assessment: 1. Sepsis; possibly secondary to pneumonia/UTI - Patient was started on IV Rocephin in ED; we will DC Rocephin and start patient on IV Zosyn and vancomycin; IDs consulted and recommendations are pending; we will trend pro-calcitonin, CRP and lactic acid levels - Patient has been pancultured in ED and results are pending 2. Possible atrial fibrillation with RVR; we will order stat EKG and trend troponin; we will consult cardiology if A. fib is confirmed; no history of atrial fibrillation indicated; patient is however taking warfarin with INR of 3.0 3. Hypertension; continue with home dose of amlodipine and Lasix 4. Hyperlipidemia; continue with home statin therapy 5. Hypothyroidism; levothyroxine 75 MCG daily 6. Asthma; not in exacerbation; continue with home inhaler therapy DVT prophylaxis; subcu heparin CODE STATUS; full code
[2019-10-30] MEDS ORDERED: VANCOMYCIN 1,000 MG in SODIUM CHLORIDE 0.9% 250 ML IVPB ONE (16:30)
[2019-10-30 17:04] LABS: ALT 19 U/L (4-34); AST 28 U/L (14-36); African American GFR (CKD) >90 (>60 ml/min/1.73 sqM); Albumin 4.5 g/dL (3.5-5.0); Alkaline Phosphatase 101 U/L (38-126); Anion Gap 12 mmol/L; Blood Urea Nitrogen 18 mg/dL (7-17); Calcium 9.5 mg/dL (8.4-10.2); Carbon Dioxide 30 mmol/L (22-30); Chloride 95 mmol/L (98-107); Glucose 202 mg/dL (74-99); Non-African American GFR(CKD) 84 (>60 ml/min/1.73 sqM); Potassium 2.9 mmol/L (3.5-5.1); Sodium 137 mmol/L (137-145); Total Bilirubin 0.5 mg/dL (0.2-1.3); Total Protein 7.5 g/dL (6.3-8.2)
[2019-10-30 17:05] LABS: HCT 51.3 % (34.0-46.0); HGB 16.3 gm/dL (11.4-16.0); MCH 31.2 pg (25.0-35.0); MCHC 31.7 g/dL (31.0-37.0); MCV 98.4 fL (80.0-100.0); Mean Platelet Volume 8.5; Platelet Count 369 k/uL (150-450); RBC 5.21 m/uL (3.80-5.40); RDW 13.5 % (11.5-15.5)
[2019-10-30 17:08] LABS: INR 2.9 (<1.2); Partial Thromboplastin Time 30.4 sec (22.0-30.0); Prothrombin Time 27.9 sec (9.0-12.0)
--- NOTE | 2019-10-30 17:36 | XR ---
EXAMINATION TYPE: XR chest 1V DATE OF EXAM: 10/30/2019 COMPARISON: 10/30/2019 HISTORY: Short of breath TECHNIQUE: Single view FINDINGS: There is some blunting of the right costophrenic angle. Heart size is normal. There is a mi ld infiltrate in the right lower lobe. Left lung is fairly clear. There are chest leads. Thoracic aor ta is atheromatous. There are sternal wires. I see no definite heart failure. IMPRESSION: Mild right lower lobe pneumonia and pleural fluid slightly increased compared to exam 6 h ours ago. No definite heart failure. Normal heart size. COPD.
[2019-10-30] MEDS: PIPERACILLIN-TAZOBACTAM 3.375 GM in SODIUM CHLORIDE 0.9% 100 ML IVPB SCH (18:40)
[2019-10-30 19:02] LABS: Lymphocytes # (M) 0.88 k/uL (1.0-4.8); Monocytes # (M) 3.96 k/uL (0-1.0); Neutrophils # (M) 39.16 k/uL (1.3-7.7); Neutrophils % (M) 89 %; Nucleated Red Blood Cells 0 /100 WBC (0-0); Total Cells Counted 100
[2019-10-30 19:09] LABS: Glucose,Whole Blood 152 mg/dL (75-99)
[2019-10-30] MEDS ORDERED: SUCCINYLCHOLINE CHLORIDE VIAL 200 MG/10 ML VIAL IV ONE (19:20)
[2019-10-30] MEDS ORDERED: PROPOFOL 10 MG/ML 20 ML VIAL IV ONE (19:20)
[2019-10-30] MEDS ORDERED: PROPOFOL 100 ML IV ONE (19:24)
[2019-10-30] MEDS ORDERED: IPRATROPIUM-ALBUTEROL 3 ML NEB INHALATION PRN (19:27)
--- NOTE | 2019-10-30 19:43 | XR ---
EXAMINATION TYPE: XR chest 1V portable DATE OF EXAM: 10/30/2019 COMPARISON: 10/30/2019 HISTORY: Short of breath TECHNIQUE: Single view FINDINGS: Endotracheal tube is 2.5 cm from the josué. There is no heart failure. There is some mild interstitial infiltrate right lower lobe. Thoracic aorta is atheromatous. There are sternal wires. Th ere are chest leads. IMPRESSION: Interstitial right lower lobe infiltrate improved compared to exam 2 hours ago. No heart failure seen. Endotracheal tube in fairly good position. Old right-sided healed rib fracture noted..
[2019-10-30] MEDS: IPRATROPIUM-ALBUTEROL 3 ML NEB INHALATION SCH ×2 (19:46→23:47)
[2019-10-30] MEDS: SODIUM CHLORIDE 0.9% 500 ML 500 ML IV SCH ×3 (20:10→20:37)
[2019-10-30] MEDS: PROPOFOL 1,000 MG in EMPTY BAG 1 BAG IV SCH (20:11)
[2019-10-30 20:24] LABS: ABG Base Excess -0.4 mmol/L; ABG HCO3 26 mmol/L (21-25); ABG Oxygen Saturation 99.1 % (94-97); ABG PCO2 53 mmHg (35-45); ABG PH 7.31 (7.35-7.45); Allen Test Performed? Yes
[2019-10-30 20:30] LABS: ABG PO2 >420 mmHg (83-108)
[2019-10-30] MEDS ORDERED: SODIUM CHLORIDE 0.9% 500 ML 500 ML IV ONE (20:37)
[2019-10-30] MEDS: SODIUM CHLORIDE 0.9% 1,000 ML IV SCH (20:45)
[2019-10-30] MEDS ORDERED: PANTOPRAZOLE 40 MG TABLET PO SCH (21:00)
[2019-10-30] MEDS: methylPREDNISolone SOD SUCCI 125 MG/2 ML VIAL IV SCH (21:23)
[2019-10-30] MEDS: CHLORHEXIDINE GLUCONATE 15 ML CUP MUCOUS MEM SCH (21:23)
[2019-10-30] MEDS: GABAPENTIN 400 MG CAP PO SCH (21:25)
[2019-10-30] MEDS: POTASSIUM BICARBONATE/CIT AC 20 MEQ TABLET.EFF NG-TUBE SCH (21:49)
[2019-10-30] MEDS ORDERED: SODIUM CHLORIDE 0.9% 1,000 ML IV ONE (22:52)
[2019-10-31] MEDS: POTASSIUM CHLORIDE 10 MEQ in WATER FOR INJECTION 1 100ML.BAG IVPB SCH ×2 (00:07→01:24)
[2019-10-31 00:12] LABS: Glucose,Whole Blood 184 mg/dL (75-99)
[2019-10-31] MEDS: PIPERACILLIN-TAZOBACTAM 3.375 GM in SODIUM CHLORIDE 0.9% 100 ML IVPB SCH ×2 (00:37→08:56)
[2019-10-31] MEDS: POTASSIUM BICARBONATE/CIT AC 20 MEQ TABLET.EFF NG-TUBE SCH ×2 (00:38→01:24)
[2019-10-31 01:13] LABS: Glucose,Whole Blood 206 mg/dL (75-99)
[2019-10-31] MEDS: INSULIN ASPART (NovoLOG) 100 UNIT/ML VIAL SQ SCH ×2 (01:23→07:09)
[2019-10-31] MEDS: methylPREDNISolone SOD SUCCI 125 MG/2 ML VIAL IV SCH ×3 (01:24→12:45)
[2019-10-31] MEDS: IPRATROPIUM-ALBUTEROL 3 ML NEB INHALATION SCH ×4 (03:51→12:12)
[2019-10-31 04:59] LABS: Basophils % (A) 0 %; Eosinophils # (A) 0.2 k/uL (0-0.7); Eosinophils % (A) 1 %; HCT 42.2 % (34.0-46.0); Hypochromasia Slight; Lymphocytes # (A) 1.1 k/uL (1.0-4.8); Lymphocytes % (A) 5 %; MCH 30.2 pg (25.0-35.0); MCHC 30.4 g/dL (31.0-37.0); MCV 99.4 fL (80.0-100.0); Mean Platelet Volume 8.7; Monocytes # (A) 0.7 k/uL (0-1.0); Monocytes % (A) 3 %; Neutrophils # (A) 20.7 k/uL (1.3-7.7); Neutrophils % (A) 91 %; Platelet Count 237 k/uL (150-450); RBC 4.24 m/uL (3.80-5.40); WBC 22.8 k/uL (3.8-10.6)
[2019-10-31 05:14] LABS: African American GFR (CKD) >90 (>60 ml/min/1.73 sqM); Anion Gap 7 mmol/L; Blood Urea Nitrogen 19 mg/dL (7-17); Calcium 7.8 mg/dL (8.4-10.2); Carbon Dioxide 22 mmol/L (22-30); Chloride 107 mmol/L (98-107); Glucose 144 mg/dL (74-99); Magnesium 1.6 mg/dL (1.6-2.3); Non-African American GFR(CKD) 85 (>60 ml/min/1.73 sqM); Phosphorus 1.7 mg/dL (2.5-4.5); Potassium 3.9 mmol/L (3.5-5.1); Sodium 136 mmol/L (137-145)
[2019-10-31 05:30] LABS: INR 3.1 (<1.2); Prothrombin Time 29.8 sec (9.0-12.0)
[2019-10-31 05:39] LABS: HGB 12.8 gm/dL (11.4-16.0)
[2019-10-31] MEDS ORDERED: Phosphorus Replacement Protoco 1 EACH MISC MISCELLANE PRN (05:44)
[2019-10-31] MEDS ORDERED: Magnesium Replacement Protocol 1 EACH MISC MISCELLANE PRN (05:45)
[2019-10-31] MEDS: MAGNESIUM SULFATE-D5W PMX 1 GM in DEXTROSE/WATER 1 100ML.BAG IVPB SCH ×2 (05:58→08:56)
[2019-10-31] MEDS: LEVOTHYROXINE 75 MCG TAB PO SCH (05:59)
[2019-10-31 06:01] LABS: Glucose,Whole Blood 166 mg/dL (75-99)
[2019-10-31] MEDS: PROPOFOL 1,000 MG in EMPTY BAG 1 BAG IV SCH (06:10)
--- NOTE | 2019-10-31 06:38 | XR ---
EXAMINATION TYPE: XR chest 1V portable DATE OF EXAM: 10/31/2019 HISTORY: Tube placement. REFERENCE: Previous study dated 10/30/2019 there has been a midline sternotomy. There has been a previ ous ACDF of the lower cervical spine. The patient is ET tube and NG tube remain in place, unchanged i n appearance. . There is worsening right basilar airspace disease. There is a small right effusion. The left lung i s clear. FINDINGS: 1. Developing right lower lobe pneumonia. 2. Small right-sided effusion. IMPRESSION:
[2019-10-31] MEDS: POTASSIUM PHOSPHATE 10 MMOL in SODIUM CHLORIDE 0.9% 250 ML IV SCH ×2 (07:05→09:02)
[2019-10-31 07:07] LABS: Glucose,Whole Blood 195 mg/dL (75-99)
[2019-10-31 08:44] LABS: ABG Base Excess 1.2 mmol/L; ABG HCO3 24 mmol/L (21-25); ABG Oxygen Saturation 98.4 % (94-97); ABG PCO2 31 mmHg (35-45); ABG PH 7.51 (7.35-7.45); ABG PO2 129 mmHg (83-108); ABG TCO2 25 mmol/L (19-24); Allen Test Performed? Yes
[2019-10-31] MEDS: SODIUM CHLORIDE 0.9% 1,000 ML IV SCH (08:45)
[2019-10-31] MEDS: CHLORHEXIDINE GLUCONATE 15 ML CUP MUCOUS MEM SCH (09:00)
[2019-10-31] MEDS: CITALOPRAM HYDROBROMIDE 20 MG TAB PO SCH (09:00)
[2019-10-31] MEDS: GABAPENTIN 400 MG CAP PO SCH (09:00)
[2019-10-31] MEDS ORDERED: PANTOPRAZOLE 40 MG/10 ML VIAL IV SCH (09:00)
[2019-10-31] MEDS ORDERED: VANCOMYCIN 750 MG in SODIUM CHLORIDE 0.9% 250 ML IVPB SCH ×2 (09:00→13:00)
[2019-10-31] MEDS: amLODIPine 5 MG TAB PO SCH (09:00)
[2019-10-31] MEDS: SYMBICORT 160-4.5 MCG INHALER INHALATION SCH (09:15)
[2019-10-31 09:23] LABS: Glucose,Whole Blood 150 mg/dL (75-99)
[2019-10-31] MEDS: FUROSEMIDE 40 MG TAB PO SCH (09:23)
[2019-10-31 09:38] VITALS: BMI 23.1
--- NOTE | 2019-10-31 09:41 | CONS ---
CONSULTATION Mrs. Duke is a 78-year-old female status post aortic valve replacement with stent to the valve, who presented with symptoms of progressive weakness, falls, progressive dyspnea. She was initially admitted to the floor but had progressive dyspnea and hypoxemia requiring transfer to the ICU and subsequently she is intubated. No further history could be obtained at this time, but reviewing the records, the patient apparently has been having progressive weakness and falls. She had possible urinary tract infection. On the floor, she became progressively tachycardic and appears to be predominantly sinus tachycardia with PACs on the rhythm strip reviewed and I will review the older EKG. Her medications prior to admission included Coumadin, Singulair, simvastatin 40 mg daily, omeprazole, metolazone 25 mg, furosemide 40 mg daily, amlodipine, and Celexa. PAST MEDICAL HISTORY: Her past history is remarkable for history of smoking. She has history of aortic valve replacement, history of hypertension, hyperlipidemia. REVIEW OF SYSTEMS: Could not be obtained. PHYSICAL EXAMINATION: 78-year-old female, intubated, sedated. Blood pressure in the 140s with a heart rate in 60s. HEAD: Normocephalic. EYES sclerae anicteric. NECK no bruit appreciated. LUNGS mild decrease in breath sounds anteriorly. No wheezes. HEART: Irregular rate and rhythm. S1, S2. No S3 with a metallic aortic sound and a systolic murmur. No diastolic murmur. ABDOMEN: Soft. No organomegaly. EXTREMITIES: No edema. Chest x-ray raised the possibility of infiltrate with pneumonia. LAB DATA: Revealed on presentation: BUN and creatinine 17 and 0.57. Hemoglobin of 14.8, white blood cell of 18.3, it was up to 44,000 yesterday. Her troponin are 0.069, 0.123 and 0.120. BUN and creatinine this morning 19 and 0.68, potassium 3.9, hemoglobin 12.8. Her troponin 0.1 this morning. IMPRESSION: 1. Respiratory failure with possible pneumonia in a patient with known history of chronic tobacco use and chronic obstructive lung disease. 2. Status post aortic valve replacement. 3. History of chronic tobacco use. 4. Hyperlipidemia. 5. Hypertension. RECOMMENDATIONS: I will obtain echocardiogram with Doppler. I see no evidence of atrial fibrillation on the rhythm strip available to me. I reviewed the older rhythm strip. At this time, patient is anticoagulated . We will continue present therapy. We will await the input of Dr. Rock. Depending on her progress, further recommendations will be made. The elevation of the troponin represents a type 2 myocardial infarction related to demand/supply mismatch. Thank you for this consult. Will follow with you. MMODL / IJN: [id number] /
--- NOTE | 2019-10-31 10:27 | CT ---
EXAMINATION TYPE: CT brain wo con DATE OF EXAM: 10/31/2019 COMPARISON: Previous study dated 05/20/2013 HISTORY: altered mental status CT DLP: 1099.4 mGycm Automated exposure control for dose reduction was used. FINDINGS: The patient is intubated. There is an ET tube in place. There are hematocrit centimeters simple horn of both lateral ventricles. There is ventricular dilatat ion. There is diffuse periventricular white matter lucency which may in part be due to chronic ischem ic change. I suspect some degree of transependymal resorption of CSF and normal pressure hydrocephalu s. There is no intraparenchymal blood at this time. No acute focal lesion, mass effect or midline silvia ft is seen. Visualized portions of the paranasal sinuses and mastoids are clear. The bony calvarium is intact. IMPRESSION: 1. EVIDENCE OF A BLOOD FLUID LEVEL WITHIN THE OCCIPITAL HORNS THE LATERAL VENTRICLES WITH DILATATION OF THE VENTRICLES AND DIFFUSE PERIVENTRICULAR WHITE MATTER LUCENCY WHICH MAY BE DUE TO TRANSEPENDYMAL RESORPTION OF CSF FROM NORMAL PRESSURE HYDROCEPHALUS. THIS REPORT WAS PHONED TO MARIBEL IN THE ICU AT THE TIME OF REPORTING.
[2019-10-31 11:48] LABS: Glucose,Whole Blood 147 mg/dL (75-99)
[2019-10-31] MEDS ORDERED: ATROPINE SULFATE 0.1 MG/ML 10ML SYRINGE ONE (12:23)
--- NOTE | 2019-10-31 12:54 | P.CNPUL ---
History of Present Illness Consult date: 10/31/19 Requesting physician: Jean Pierre Mo Reason for consult: other (Acute hypercapnic respiratory failure) Chief complaint: Progressive weakness, recurrent falling. History of present illness: This is a 78-year-old female with history of previous mechanical aortic valve replacement. Patient presented on 10/30/19 to the hospital with mostly progressive weakness and falls, and progressive shortness of breath. She was initially admitted to the medical floor, and early this morning the patient was noted to have increased shortness of breath, worsening obtundation. I was notified about this patient being obtunded, and noted to have shortness of breath. ABG was reviewed, and I recommended intubating the patient and transferred to the ICU. I evaluated the patient early this morning, and I rec ommended a CT of the head to be repeated. Because her obtundation could not be explained with a slight increase in the pCO2 in the high 50s. Even on mechanical ventilation, the patient was noted to be obtunded. CT of the head came back showing evidence of blood fluid level within the occipital horns, lateral ventricles were dilated and there is diffuse periventricular white matter lucency and evidence of normal pressure hydrocephalus. As soon as the report was called in to the ICU, I recommended statin neurological consultation and possibly transferring the patient to a tertiary care center. I have also recommended that the primary care physician is made aware of this finding. Arrangement will be made to transfer the patient especially since we have known urological coverage this weekend available. In the meantime I recommended that we continue mechanical ventilation, and no plans to consider weaning or extubation with a new findings noted on the CT of the head. Her ventilator settings were changed, and the patient is now on FiO2 of 40%, tidal volume is 400, and assist control rate is 22. ABG this morning showed a pO2 of 129 pCO2 of 31 and pH of 7.51. INR was noted to be 3.1, hence I recommended fresh frozen plasma to be given immediately . Apparently the patient was recently seen by her primary care physician and a CT of the head was done at [facility], and it showed mostly normal pressure hydrocephalus. Patient is maintained on anticoagulation. Review of Systems ROS unobtainable: due to endotracheal tube Past Medical History Past Medical History: Heart Failure, Fibromyalgia, GERD/Reflux, Hyperlipidemia, Hypertension, Pneumonia, Thyroid Disorder Additional Past Medical History / Comment(s): osteoporosis, neuropathy,rheumatic fever as child, home o2 2 liters n/c at hs,diverticular disease,pt stated had some paralysis after neck sx -resolved,"occ nose bleeds" and "i take iron supplement that turns my stool black", cyst on one of her kidneys, shingles approx 2009. History of Any Multi-Drug Resistant Organisms: None Reported Past Surgical History: Back Surgery, Section, Orthopedic Surgery, Tonsillectomy Additional Past Surgical History / Comment(s): bruna mastectomy, bottom of right lung removed, breast implants then removed d/t "bad implants",mechanical aortic valve replacement.neck sx had titanium plate, lt carotid endarterectomy, rt lung nodule removed(benign), bruna cataracts. Past Anesthesia/Blood Transfusion Reactions: No Reported Reaction Additional Past Anesthesia/Blood Transfusion Reaction / Comment(s): clausterphobia. past blood transfusion-no reactions to it. Past Psychological History: No Psychological Hx Reported Smoking Status: Current every day smoker Past Alcohol Use History: None Reported, Rare Past Drug Use History: None Reported - Past Family History Father Family Medical History: Unable to Obtain Additional Family Medical History / Comment(s): dad in accident when pt young -did'nt know his hx. Mother Family Medical History: COPD Additional Family Medical History / Comment(s): age 73 Sister(s) Family Medical History: Cancer Additional Family Medical History / Comment(s): 1 sister- thyroid & breast Ca, brain aneurysm-still alive, #2 breast ca,dementia- 83 age,#3 blood cancer- 50's age. Medications and Allergies Home Medications Medication Instructions Recorded Confirmed Type Citalopram Hydrobromide [CeleXA] 20 mg PO DAILY 05/20/14 10/30/19 History LORazepam [Ativan] 1 mg PO HS 05/20/14 10/30/19 History Levothyroxine Sodium [Synthroid] 75 mcg PO 05/20/14 10/30/19 History Metolazone [Zaroxolyn] 2.5 mg PO 05/20/14 10/30/19 History Nitroglycerin Sl Tabs [Nitrostat] 0.4 mg SUBLINGUAL Q5M PRN 05/20/14 10/30/19 History Omeprazole [PriLOSEC] 20 mg PO 05/20/14 10/30/19 History Simvastatin [Zocor] 40 mg PO SUTUFR 05/20/14 10/30/19 History Warfarin [Coumadin] 5 mg PO MOWEFR 05/20/14 10/30/19 History Ergocalciferol [Vitamin D2 50,000 unit PO SA 12/19/15 10/30/19 History (DRISDOL)] Furosemide 40 mg PO DAILY 12/19/15 10/30/19 History Gabapentin 400 mg PO TID 12/19/15 10/30/19 History Warfarin [Coumadin] 2.5 mg PO SUTUTHSA 12/19/15 10/30/19 History Potassium Chloride ER [K-Dur 20] 60 meq PO BID 02/12/16 10/30/19 History Acetaminophen Tab [Tylenol Tab] 1,000 mg PO Q6HR PRN 07/08/16 10/30/19 History amLODIPine [Norvasc] 5 mg PO DAILY 07/08/16 10/30/19 History LORazepam [Ativan] 0.5 mg PO DAILY 10/30/19 10/30/19 History Montelukast [Singulair] 10 mg PO HS 10/30/19 10/30/19 History Allergies Allergy/AdvReac Type Severity Reaction Status Date / Time adhesive Allergy tears skin Verified 10/30/19 00:33 Iodinated Contrast Media Allergy Unknown Verified 10/30/19 00:33 [Iodinated Contrast Media - IV Dye] iodine Allergy Unknown Verified 10/30/19 00:33 Latex, Natural Rubber Allergy Unknown Verified 10/30/19 00:33 venom-honey bee Allergy Anaphylaxis Verified 10/30/19 00:33 [bee venom (honey bee)] Physical Exam Vitals: Vital Signs Temp Pulse Pulse Pulse Resp BP BP 10/31/19 11:15 69 24 106/45 10/31/19 11:00 71 24 166/59 10/31/19 10:30 73 25 H 192/65 10/31/19 10:15 80 21 192/65 10/31/19 10:00 158/63 10/31/19 09:45 158/63 10/31/19 09:40 68 10/31/19 09:30 75 20 160/61 10/31/19 09:28 74 10/31/19 09:00 69 22 140/53 10/31/19 08:30 65 22 141/57 10/31/19 08:00 98.5 F 65 22 142/54 10/31/19 07:30 65 22 119/45 10/31/19 07:00 67 22 123/54 10/31/19 06:30 70 22 100/45 10/31/19 06:00 72 22 105/44 10/31/19 05:30 76 22 99/48 10/31/19 05:00 75 22 108/53 10/31/19 04:45 76 22 10/31/19 04:30 79 22 112/98 10/31/19 04:15 77 22 10/31/19 04:03 75 10/31/19 04:00 98.6 F 75 72 22 108/44 10/31/19 03:51 68 10/31/19 03:45 69 22 10/31/19 03:30 69 22 103/48 10/31/19 03:15 70 22 10/31/19 03:00 70 22 10/31/19 02:45 70 22 115/55 10/31/19 02:30 73 22 133/45 10/31/19 02:15 76 22 10/31/19 02:00 75 22 121/64 10/31/19 01:45 75 22 10/31/19 01:30 76 22 145/92 10/31/19 01:15 75 22 10/31/19 01:00 75 22 150/54 10/31/19 00:45 73 22 10/31/19 00:30 70 22 129/59 10/31/19 00:15 70 22 10/31/19 00:00 99.2 F 81 70 22 112/49 10/30/19 23:47 74 10/30/19 23:45 68 22 10/30/19 23:30 75 22 06 23:15 80 22 104/57 10/30/19 23:00 70 22 10/30/19 22:45 74 22 10/30/19 22:30 75 22 137/57 10/30/19 22:15 73 22 10/30/19 22:00 73 22 121/54 10/30/19 21:45 70 22 102/44 10/30/19 21:30 78 22 108/57 06/13/20 21:15 73 22 105/48 10/30/19 21:00 75 22 142/71 10/30/19 20:50 76 20 124/51 10/30/19 20:40 70 22 122/48 10/30/19 20:30 82 25 H 165/81 10/30/19 20:20 79 20 144/75 10/30/19 20:10 65 20 146/54 10/30/19 20:00 98.6 F 71 72 22 113/51 10/30/19 19:50 77 20 80/52 10/30/19 19:47 70 10/30/19 19:40 71 20 64/30 10/30/19 19:30 82 26 H 180/89 10/30/19 19:20 86 18 203/83 10/30/19 19:10 96 23 189/86 10/30/19 19:05 10/30/19 18:41 98.1 F 93 20 142/82 10/30/19 16:09 108 H 20 128/77 10/30/19 15:26 105 H 22 10/30/19 15:22 105 H 22 153/71 10/30/19 15:10 98.1 F 114 H 26 H 194/80 Pulse Ox 10/31/19 11:15 98 10/31/19 11:00 98 10/31/19 10:30 99 10/31/19 10:15 99 10/31/19 10:00 10/31/19 09:45 10/31/19 09:40 10/31/19 09:30 99 10/31/19 09:28 10/31/19 09:00 99 10/31/19 08:30 99 10/31/19 08:00 99 10/31/19 07:30 99 10/31/19 07:00 100 10/31/19 06:30 100 10/31/19 06:00 99 10/31/19 05:30 100 10/31/19 05:00 10/31/19 04:45 99 10/31/19 04:30 99 10/31/19 04:15 100 10/31/19 04:03 10/31/19 04:00 98 10/31/19 03:51 10/31/19 03:45 99 10/31/19 03:30 99 10/31/19 03:15 99 10/31/19 03:00 99 10/31/19 02:45 99 10/31/19 02:30 99 10/31/19 02:15 99 10/31/19 02:00 99 10/31/19 01:45 100 10/31/19 01:30 99 10/31/19 01:15 99 10/31/19 01:00 99 10/31/19 00:45 99 10/31/19 00:30 99 10/31/19 00:15 99 10/31/19 00:00 99 10/30/19 23:47 10/30/19 23:45 99 10/30/19 23:30 99 10/30/19 23:15 99 10/30/19 23:00 99 10/30/19 22:45 99 10/30/19 22:30 99 10/30/19 22:15 99 10/30/19 22:00 98 10/30/19 21:45 99 10/30/19 21:30 98 10/30/19 21:15 91 L 10/30/19 21:00 99 10/30/19 20:50 99 10/30/19 20:40 100 10/30/19 20:30 100 10/30/19 20:20 100 10/30/19 20:10 100 10/30/19 20:00 97 10/30/19 19:50 99 10/30/19 19:47 10/30/19 19:40 99 10/30/19 19:30 100 10/30/19 19:20 100 10/30/19 19:10 100 10/30/19 19:05 99 10/30/19 18:41 100 10/30/19 16:09 100 10/30/19 15:26 10/30/19 15:22 96 10/30/19 15:10 89 L Intake and Output 10/30/19 10/31/19 10/31/19 22:59 06:59 14:59 Intake Total 2006.135 1069.692 950 Output Total 220 478 120 Balance 1787.135 591.692 830 Intake: IV 2000 1000 950 Magnesium Sulfate-D5w Pmx 200 1 gm In Dextrose/Water 1 100ml.bag @ 100 mls/hr IVPB Q1H [facility] Rx#: [id number] Piperacillin-Tazobactam 3 100 200 .375 gm In Sodium Chloride 0.9% 100 ml @ 25 mls/hr IVPB Q8HR [facility] Rx# :[id number] Potassium Phosphate 10 250 mmol In Sodium Chloride 0 .9% 250 ml @ 125 mls/hr IV Q2H [facility] Rx#:[id number] Sodium Chloride 0.9% 1, 900 300 000 ml @ 100 mls/hr IV . Q10H [facility] Rx#:[id number] normal saline bolus 2000 Intake, IV Titration 7.135 69.692 Amount Propofol 1,000 mg In 7.135 69.692 Empty Bag 1 bag @ Titrate IV .Q0M [facility] Rx#: [id number] Output: Gastric Drainage 175 Urine 220 303 120 Other: Voiding Method Indwelling Catheter Indwelling Catheter Indwelling Catheter # Bowel Movements 1 Weight 53.6 kg 53.6 kg Physical Exam: Revealed 78-year-old female on mechanical ventilation, sedated, on propofol, in no distress. Head: Atraumatic, normocephalic. HEENT:[Neck is supple.] [No neck masses.] [No thyromegaly.] [No JVD.] Endotracheal tube and orogastric tube are intact. PERRLA, EOMI, no icterus. Chest: Diminished breath sounds at the bases no crackles or rhonchi or wheezes.] Cardiac Exam: Normal S1 and S2, no S3 gallop. Positive mechanical valve sound Abdomen: [Soft, nontender, no megaly, no rebound, no guarding, normal bowel sounds.] Extremities: [No clubbing, no edema, no cyanosis.] Neurological Exam: Could not be assessed, patient is sedated, on propofol. Patient was obtunded according to the nurses prior to intubation. Psychiatric: Could not be assessed. skin: No rashes. Results - Laboratory Findings CBC and BMP: 10/31/19 04:42 10/31/19 04:42 ABG ABG pH 7.51 (7.35-7.45) H 10/31/19 08:41 ABG pCO2 31 mmHg (35-45) L 10/31/19 08:41 ABG pO2 129 mmHg (83-108) H 10/31/19 08:41 ABG O2 Saturation 98.4 % (94-97) H 10/31/19 08:41 PT/INR, D-dimer PT 29.8 sec (9.0-12.0) H 10/31/19 04:42 INR 3.1 (<1.2) H 10/31/19 04:42 Abnormal lab findings: Abnormal Labs 10/30/19 10/30/19 10/30/19 01:26 01:26 01:26 WBC 18.3 H Hgb Hct 46.5 H MCHC Neutrophils # 15.0 H Neutrophils # (Manual) Lymphocytes # (Manual) Monocytes # 1.2 H Monocytes # (Manual) PT 29.0 H INR 3.0 H APTT 30.3 H ABG pH ABG pCO2 ABG pO2 ABG HCO3 ABG Total CO2 ABG O2 Saturation Sodium 134 L Potassium 3.2 L Chloride 97 L BUN Creatinine Glucose 158 H POC Glucose (mg/dL) Plasma Lactic Acid Leonard Calcium Phosphorus Troponin I C-Reactive Protein TSH 0.017 L Urine Protein Urine Blood Urine RBC Hyaline Casts Urine Mucus 10/30/19 10/30/19 10/30/19 02:09 10:38 10:53 WBC 27.1 H Hgb Hct 49.1 H MCHC Neutrophils # 23.2 H Neutrophils # (Manual) Lymphocytes # (Manual) Monocytes # 1.9 H Monocytes # (Manual) PT INR APTT ABG pH ABG pCO2 ABG pO2 ABG HCO3 ABG Total CO2 ABG O2 Saturation Sodium Potassium Chloride BUN Creatinine Glucose POC Glucose (mg/dL) 147 H Plasma Lactic Acid Leonard Calcium Phosphorus Troponin I C-Reactive Protein TSH Urine Protein 2+ H Urine Blood Moderate H Urine RBC 18 H Hyaline Casts 10 H Urine Mucus Rare H 10/30/19 10/30/19 10/30/19 10:53 13:49 13:49 WBC Hgb Hct MCHC Neutrophils # Neutrophils # (Manual) Lymphocytes # (Manual) Monocytes # Monocytes # (Manual) PT INR APTT ABG pH ABG pCO2 ABG pO2 ABG HCO3 ABG Total CO2 ABG O2 Saturation Sodium 135 L Potassium 3.3 L Chloride 97 L BUN Creatinine 0.48 L Glucose 154 H POC Glucose (mg/dL) Plasma Lactic Acid Leonard 2.3 H* Calcium Phosphorus Troponin I C-Reactive Protein 10.4 H TSH Urine Protein Urine Blood Urine RBC Hyaline Casts Urine Mucus 10/30/19 10/30/19 10/30/19 13:49 15:07 16:28 WBC Hgb Hct MCHC Neutrophils # Neutrophils # (Manual) Lymphocytes # (Manual) Monocytes # Monocytes # (Manual) PT 27.9 H INR 2.9 H APTT 30.4 H ABG pH ABG pCO2 59 H ABG pO2 66 L ABG HCO3 34 H ABG Total CO2 36 H ABG O2 Saturation 88.6 L Sodium Potassium 3.1 L Chloride BUN Creatinine Glucose POC Glucose (mg/dL) Plasma Lactic Acid Leonard Calcium Phosphorus Troponin I C-Reactive Protein TSH Urine Protein Urine Blood Urine RBC Hyaline Casts Urine Mucus 10/30/19 10/30/19 10/30/19 16:28 16:28 16:28 WBC Hgb Hct MCHC Neutrophils # Neutrophils # (Manual) Lymphocytes # (Manual) Monocytes # Monocytes # (Manual) PT INR APTT ABG pH ABG pCO2 ABG pO2 ABG HCO3 ABG Total CO2 ABG O2 Saturation Sodium Potassium 2.9 L Chloride 95 L BUN 18 H Creatinine Glucose 202 H POC Glucose (mg/dL) Plasma Lactic Acid Leonard 2.7 H* Calcium Phosphorus Troponin I 0.069 H* C-Reactive Protein TSH Urine Protein Urine Blood Urine RBC Hyaline Casts Urine Mucus 10/30/19 10/30/19 10/30/19 16:37 19:08 19:31 WBC 44.0 H Hgb 16.3 H Hct 51.3 H MCHC Neutrophils # Neutrophils # (Manual) 39.16 H Lymphocytes # (Manual) 0.88 L Monocytes # Monocytes # (Manual) 3.96 H PT INR APTT ABG pH ABG pCO2 ABG pO2 ABG HCO3 ABG Total CO2 ABG O2 Saturation Sodium Potassium Chloride BUN Creatinine Glucose POC Glucose (mg/dL) 152 H Plasma Lactic Acid Leonard 3.3 H* Calcium Phosphorus Troponin I C-Reactive Protein TSH Urine Protein Urine Blood Urine RBC Hyaline Casts Urine Mucus 10/30/19 10/30/19 10/30/19 20:08 22:38 22:38 WBC Hgb Hct MCHC Neutrophils # Neutrophils # (Manual) Lymphocytes # (Manual) Monocytes # Monocytes # (Manual) PT INR APTT ABG pH 7.31 L ABG pCO2 53 H ABG pO2 >420 H ABG HCO3 26 H ABG Total CO2 ABG O2 Saturation 99.1 H Sodium Potassium Chloride BUN Creatinine Glucose POC Glucose (mg/dL) Plasma Lactic Acid Leonard 3.2 H* Calcium Phosphorus Troponin I 0.123 H* C-Reactive Protein TSH Urine Protein Urine Blood Urine RBC Hyaline Casts Urine Mucus 10/31/19 10/31/19 10/31/19 00:09 01:11 01:48 WBC Hgb Hct MCHC Neutrophils # Neutrophils # (Manual) Lymphocytes # (Manual) Monocytes # Monocytes # (Manual) PT INR APTT ABG pH ABG pCO2 ABG pO2 ABG HCO3 ABG Total CO2 ABG O2 Saturation Sodium Potassium Chloride BUN Creatinine Glucose POC Glucose (mg/dL) 184 H 206 H Plasma Lactic Acid Leonard 2.8 H* Calcium Phosphorus Troponin I C-Reactive Protein TSH Urine Protein Urine Blood Urine RBC Hyaline Casts Urine Mucus 10/31/19 10/31/19 10/31/19 04:42 04:42 04:42 WBC 22.8 H Hgb Hct MCHC 30.4 L Neutrophils # 20.7 H Neutrophils # (Manual) Lymphocytes # (Manual) Monocytes # Monocytes # (Manual) PT INR APTT ABG pH ABG pCO2 ABG pO2 ABG HCO3 ABG Total CO2 ABG O2 Saturation Sodium 136 L Potassium Chloride BUN 19 H Creatinine Glucose 144 H POC Glucose (mg/dL) Plasma Lactic Acid Leonard Calcium 7.8 L Phosphorus 1.7 L Troponin I 0.100 H* C-Reactive Protein TSH Urine Protein Urine Blood Urine RBC Hyaline Casts Urine Mucus 10/31/19 10/31/19 10/31/19 04:42 04:42 06:00 WBC Hgb Hct MCHC Neutrophils # Neutrophils # (Manual) Lymphocytes # (Manual) Monocytes # Monocytes # (Manual) PT 29.8 H INR 3.1 H APTT ABG pH ABG pCO2 ABG pO2 ABG HCO3 ABG Total CO2 ABG O2 Saturation Sodium Potassium Chloride BUN Creatinine Glucose POC Glucose (mg/dL) 166 H Plasma Lactic Acid Leonard 3.7 H* Calcium Phosphorus Troponin I C-Reactive Protein TSH Urine Protein Urine Blood Urine RBC Hyaline Casts Urine Mucus 10/31/19 10/31/19 10/31/19 07:05 08:41 09:21 WBC Hgb Hct MCHC Neutrophils # Neutrophils # (Manual) Lymphocytes # (Manual) Monocytes # Monocytes # (Manual) PT INR APTT ABG pH 7.51 H ABG pCO2 31 L ABG pO2 129 H ABG HCO3 ABG Total CO2 25 H ABG O2 Saturation 98.4 H Sodium Potassium Chloride BUN Creatinine Glucose POC Glucose (mg/dL) 195 H 150 H Plasma Lactic Acid Leonard Calcium Phosphorus Troponin I C-Reactive Protein TSH Urine Protein Urine Blood Urine RBC Hyaline Casts Urine Mucus 10/31/19 11:47 WBC Hgb Hct MCHC Neutrophils # Neutrophils # (Manual) Lymphocytes # (Manual) Monocytes # Monocytes # (Manual) PT INR APTT ABG pH ABG pCO2 ABG pO2 ABG HCO3 ABG Total CO2 ABG O2 Saturation Sodium Potassium Chloride BUN Creatinine Glucose POC Glucose (mg/dL) 147 H Plasma Lactic Acid Leonard Calcium Phosphorus Troponin I C-Reactive Protein TSH Urine Protein Urine Blood Urine RBC Hyaline Casts Urine Mucus - Diagnostic Findings Chest x-ray: image reviewed (Chest x-ray suspicious for right basilar airspace disease, and she does have a small right-sided pleural effusion) Additional studies: CT of the brain as noted in HPI, quite concerning for blood fluid level within the occipital horns and evidence of normal pressure hydrocephalus. Assessment and Plan Assessment: Impression: Acute hypoxic and hypercapnic respiratory failure, mostly secondary to acute CVA with abnormal CT of the brain showing evidence of bleeding within the occipital horns and dilated ventricles. Recurrent falls and weakness secondary to above and secondary to normal pressure hydrocephalus. Possible right lower lobe pneumonia, however the patient did have previous surgery on her right lower lobe, and the findings could be chronic. Acute metabolic encephalopathy secondary to hypoxemia, hypercapnia, and secondary to intraventricular bleeding as noted on CT of the brain. History of mechanical aortic valve replacement. Patient is maintained on Coumadin, and her level on presentation was therapeutic. History of hypertension. History of chronic tobacco use. History of dyslipidemia. History of fibromyalgia. Recommendation: Continue ventilatory support. We will notify the primary care physician about transferring the patient to a tertiary care center. Patient is hemodynamically stable for transfer. Continue propofol. Continue empiric antibiotics. Transfer patient to a tertiary care center as soon as possible. Continue bronchodilators. Give the patient fresh frozen plasma since her INR is 3.0. Time with Patient: Greater than 30
[2019-10-31] MEDS ORDERED: PHYTONADIONE 10 MG in SODIUM CHLORIDE 0.9% 50 ML IVPB ONE (13:00)
[2019-10-31 13:28] LABS: Glucose,Whole Blood 172 mg/dL (75-99)
[2019-10-31 14:21] VITALS: BP 167/68; PULSE 76; RESP 22; TEMP 98.1
--- NOTE | 2019-10-31 14:57 | P.DS ---
Providers Date of admission: 10/31/19 08:39 Expected date of discharge: 10/31/19 Attending physician: Vianey Love Consults: 10/30/19 13:28 Consult Physician Urgent Consulting Provider: Wilner Montez Consult Reason/Comments: marked leukocytosis Do you want consulting provider notified?: Yes 10/30/19 18:21 Consult Physician Urgent Consulting Provider: Mala Rock Consult Reason/Comments: ICU management Do you want consulting provider notified?: Yes 10/31/19 02:41 Consult Physician Routine Consulting Provider: Shelton White Consult Reason/Comments: Elevated troponin Do you want consulting provider notified?: Yes 10/31/19 10:30 Consult Physician Stat Consulting Provider: Jak Barba Consult Reason/Comments: brain bleed Do you want consulting provider notified?: Yes Primary care physician: [facility] Course: 78-year-old female patient admitted to the hospital with recurrent falls and weakness; patient was seen by PCP where workup was done including CT of the head which was reported as negative; patient was evaluated in the ED and was admitted with right-sided pneumonia; right on the medical floor patient started having increasing shortness of breath and change in mental status; 18 was notified and patient was transferred to ICU; repeat CT of the head was recommended by ice skating coach which showed blood fluid level within occipital horns of lateral ventricles which showed dilatation and also diffuse periventricular white matter lucency and evidence of NPH Patient is currently continued on mechanical ventilation; 4 units of fresh f rozen plasma was ordered by ice skating coach service for an INR of 3.1 Due to lack of neurology coverage at our facility transfer to a tertiary center was requested; I did talk and gave a detailed report of patient's condition to Dr. Roberts, neuro- ice skating coach at [facility]; Dr. Roberts requested vitamin K 10 mg IV to be given stat; would start repeat of INR postinfusion of fresh frozen plasma; DRY WALL NAILER taking care of patient was endorsed Patient is transferred to [facility] for higher level of care Patient Condition at Discharge: Stable Plan - Discharge Summary Discharge Rx Participant: No New Discharge Prescriptions: No Action Metolazone [Zaroxolyn] 2.5 mg PO TH Simvastatin [Zocor] 40 mg PO SUTUFR LORazepam [Ativan] 1 mg PO HS Warfarin [Coumadin] 5 mg PO MOWEFR Omeprazole [PriLOSEC] 20 mg PO HS Levothyroxine Sodium [Synthroid] 75 mcg PO HS Citalopram Hydrobromide [CeleXA] 20 mg PO DAILY Nitroglycerin Sl Tabs [Nitrostat] 0.4 mg SUBLINGUAL Q5M PRN PRN Reason: Chest Pain Ergocalciferol [Vitamin D2 (DRISDOL)] 50,000 unit PO SA Furosemide 40 mg PO DAILY Gabapentin 400 mg PO TID Warfarin [Coumadin] 2.5 mg PO SUTUTHSA Potassium Chloride ER [K-Dur 20] 60 meq PO BID Acetaminophen Tab [Tylenol Tab] 1,000 mg PO Q6HR PRN PRN Reason: Pain Or Fever > 100.5 amLODIPine [Norvasc] 5 mg PO DAILY Montelukast [Singulair] 10 mg PO HS LORazepam [Ativan] 0.5 mg PO DAILY Discharge Medication List Citalopram Hydrobromide [CeleXA] 20 mg PO DAILY 05/20/14 [History] LORazepam [Ativan] 1 mg PO HS 05/20/14 [History] Levothyroxine Sodium [Synthroid] 75 mcg PO HS 05/20/14 [History] Metolazone [Zaroxolyn] 2.5 mg PO TH 05/20/14 [History] Nitroglycerin Sl Tabs [Nitrostat] 0.4 mg SUBLINGUAL Q5M PRN 05/20/14 [History] Omeprazole [PriLOSEC] 20 mg PO HS 05/20/14 [History] Simvastatin [Zocor] 40 mg PO SUTUFR 05/20/14 [History] Warfarin [Coumadin] 5 mg PO MOWEFR 05/20/14 [History] Ergocalciferol [Vitamin D2 (DRISDOL)] 50,000 unit PO SA 12/19/15 [History] Furosemide 40 mg PO DAILY 12/19/15 [History] Gabapentin 400 mg PO TID 12/19/15 [History] Warfarin [Coumadin] 2.5 mg PO SUTUTHSA 12/19/15 [History] Potassium Chloride ER [K-Dur 20] 60 meq PO BID 02/12/16 [History] Acetaminophen Tab [Tylenol Tab] 1,000 mg PO Q6HR PRN 07/08/16 [History] amLODIPine [Norvasc] 5 mg PO DAILY 07/08/16 [History] LORazepam [Ativan] 0.5 mg PO DAILY 10/30/19 [History] Montelukast [Singulair] 10 mg PO HS 10/30/19 [History] Follow up Appointment(s)/Referral(s): Sandrita Thomson DO [Primary Care Provider] - 1-2 days
--- NOTE | 2019-10-31 15:44 | P.PN ---
Subjective Progress Note Date: 10/31/19 Principal diagnosis: Acute hypoxic/hypercapnic respiratory failure/ mechanically intubated Acute CVA/intracerebral bleed Right lower lobe pneumonia Metabolic encephalopathy 78-year-old female patient admitted to the hospital with recurrent falls and weakness; patient was seen by PCP where workup was done including CT of the head which was reported as negative; patient was evaluated in the ED and was admitted with right-sided pneumonia; right on the medical floor patient started having increasing shortness of breath and change in mental status; 18 was notified and patient was transferred to ICU; repeat CT of the head was recommended by hot dog vender which showed blood fluid level within occipital horns of lateral ventricles which showed dilatation and also diffuse periventricular white matter lucency and evidence of NPH Patient is currently continued on mechanical ventilation; 4 units of fresh frozen plasma was ordered by hot dog vender service for an INR of 3.1 Due to lack of neurology coverage at our facility transfer to a tertiary center was requested; I did talk and gave a detailed report of patient's condition to Dr. Roberts, neuro- hot dog vender at [facility]; Dr. Roberts requested vitamin K 10 mg IV to be given stat; would start repeat of INR postinfusion of fresh frozen plasma; HOURLY MANAGER taking care of patient was endorsed Objective - Vital Signs Vital signs: Vital Signs Temp 98.6 F 10/31/19 12:39 Pulse 70 10/31/19 12:39 Resp 22 10/31/19 12:39 BP 136/53 10/31/19 12:39 Pulse Ox 98 10/31/19 12:39 Intake & Output 10/30/19 10/31/19 10/31/19 18:59 06:59 18:59 Intake Total 3076.827 970.368 Output Total 1100 698 120 Balance -1100 2378.827 850.368 Weight 53.6 kg 53.6 kg Intake: IV 3000 950 Magnesium Sulfate-D5w Pmx 200 1 gm In Dextrose/Water 1 100ml.bag @ 100 mls/hr IVPB Q1H RIAN Rx#: [id number] Piperacillin-Tazobactam 3 100 200 .375 gm In Sodium Chloride 0.9% 100 ml @ 25 mls/hr IVPB Q8HR RIAN Rx# :[id number] Potassium Phosphate 10 250 mmol In Sodium Chloride 0 .9% 250 ml @ 125 mls/hr IV Q2H RIAN Rx#:[id number] Sodium Chloride 0.9% 1, 900 300 000 ml @ 100 mls/hr IV . Q10H RIAN Rx#:[id number] normal saline bolus 2000 Intake, IV Titration 76.827 20.368 Amount Propofol 1,000 mg In 76.827 20.368 Empty Bag 1 bag @ Titrate IV .Q0M RIAN Rx#: [id number] Blood Product 0 Ffp 24 Cpd Unit 0 [id number] Output: Gastric Drainage 175 Urine 1100 523 120 Other: Voiding Method Indwelling Catheter Indwelling Catheter Indwelling Catheter # Bowel Movements 1 - Exam Patient is intubated Head: Atraumatic, normocephalic. HEENT: Endotracheal tube and orogastric tube are intact. Chest: Diminished breath sounds at the bases no crackles or rhonchi or wheezes. Cardiac Exam: Normal S1 and S2, no S3 gallop. Positive mechanical valve sound Abdomen: Soft, nontender, no megaly, no rebound, no guarding, normal bowel sounds. Extremities: No clubbing, no edema, no cyanosis. Neurological Exam: Could not be assessed, patient is sedated - Labs CBC & Chem 7: 10/31/19 04:42 10/31/19 04:42 Labs: Abnormal Lab Results - Last 24 Hours (Table) 10/30/19 10/30/19 10/30/19 Range/Units 13:49 13:49 13:49 WBC (3.8-10.6) k/uL Hgb (11.4-16.0) gm/dL Hct (34.0-46.0) % MCHC (31.0-37.0) g/dL Neutrophils # (1.3-7.7) k/uL Neutrophils # (Manual) (1.3-7.7) k/uL Lymphocytes # (Manual) (1.0-4.8) k/uL Monocytes # (Manual) (0-1.0) k/uL PT (9.0-12.0) sec INR (<1.2) APTT (22.0-30.0) sec ABG pH (7.35-7.45) ABG pCO2 (35-45) mmHg ABG pO2 (83-108) mmHg ABG HCO3 (21-25) mmol/L ABG Total CO2 (19-24) mmol/L ABG O2 Saturation (94-97) % Sodium (137-145) mmol/L Potassium 3.1 L (3.5-5.1) mmol/L Chloride (98-107) mmol/L BUN (7-17) mg/dL Glucose (74-99) mg/dL POC Glucose (mg/dL) (75-99) mg/dL Plasma Lactic Acid Leonard 2.3 H* (0.7-2.0) mmol/L Calcium (8.4-10.2) mg/dL Phosphorus (2.5-4.5) mg/dL Troponin I (0.000-0.034) ng/mL C-Reactive Protein 10.4 H (<10.0) mg/L 10/30/19 10/30/19 10/30/19 Range/Units 15:07 16:28 16:28 WBC (3.8-10.6) k/uL Hgb (11.4-16.0) gm/dL Hct (34.0-46.0) % MCHC (31.0-37.0) g/dL Neutrophils # (1.3-7.7) k/uL Neutrophils # (Manual) (1.3-7.7) k/uL Lymphocytes # (Manual) (1.0-4.8) k/uL Monocytes # (Manual) (0-1.0) k/uL PT 27.9 H (9.0-12.0) sec INR 2.9 H (<1.2) APTT 30.4 H (22.0-30.0) sec ABG pH (7.35-7.45) ABG pCO2 59 H (35-45) mmHg ABG pO2 66 L (83-108) mmHg ABG HCO3 34 H (21-25) mmol/L ABG Total CO2 36 H (19-24) mmol/L ABG O2 Saturation 88.6 L (94-97) % Sodium (137-145) mmol/L Potassium 2.9 L (3.5-5.1) mmol/L Chloride 95 L (98-107) mmol/L BUN 18 H (7-17) mg/dL Glucose 202 H (74-99) mg/dL POC Glucose (mg/dL) (75-99) mg/dL Plasma Lactic Acid Leonard (0.7-2.0) mmol/L Calcium (8.4-10.2) mg/dL Phosphorus (2.5-4.5) mg/dL Troponin I (0.000-0.034) ng/mL C-Reactive Protein (<10.0) mg/L 10/30/19 10/30/19 10/30/19 Range/Units 16:28 16:28 16:37 WBC 44.0 H (3.8-10.6) k/uL Hgb 16.3 H (11.4-16.0) gm/dL Hct 51.3 H (34.0-46.0) % MCHC (31.0-37.0) g/dL Neutrophils # (1.3-7.7) k/uL Neutrophils # (Manual) 39.16 H (1.3-7.7) k/uL Lymphocytes # (Manual) 0.88 L (1.0-4.8) k/uL Monocytes # (Manual) 3.96 H (0-1.0) k/uL PT (9.0-12.0) sec INR (<1.2) APTT (22.0-30.0) sec ABG pH (7.35-7.45) ABG pCO2 (35-45) mmHg ABG pO2 (83-108) mmHg ABG HCO3 (21-25) mmol/L ABG Total CO2 (19-24) mmol/L ABG O2 Saturation (94-97) % Sodium (137-145) mmol/L Potassium (3.5-5.1) mmol/L Chloride (98-107) mmol/L BUN (7-17) mg/dL Glucose (74-99) mg/dL POC Glucose (mg/dL) (75-99) mg/dL Plasma Lactic Acid Leonard 2.7 H* (0.7-2.0) mmol/L Calcium (8.4-10.2) mg/dL Phosphorus (2.5-4.5) mg/dL Troponin I 0.069 H* (0.000-0.034) ng/mL C-Reactive Protein (<10.0) mg/L 10/30/19 10/30/19 10/30/19 Range/Units 19:08 19:31 20:08 WBC (3.8-10.6) k/uL Hgb (11.4-16.0) gm/dL Hct (34.0-46.0) % MCHC (31.0-37.0) g/dL Neutrophils # (1.3-7.7) k/uL Neutrophils # (Manual) (1.3-7.7) k/uL Lymphocytes # (Manual) (1.0-4.8) k/uL Monocytes # (Manual) (0-1.0) k/uL PT (9.0-12.0) sec INR (<1.2) APTT (22.0-30.0) sec ABG pH 7.31 L (7.35-7.45) ABG pCO2 53 H (35-45) mmHg ABG pO2 >420 H (83-108) mmHg ABG HCO3 26 H (21-25) mmol/L ABG Total CO2 (19-24) mmol/L ABG O2 Saturation 99.1 H (94-97) % Sodium (137-145) mmol/L Potassium (3.5-5.1) mmol/L Chloride (98-107) mmol/L BUN (7-17) mg/dL Glucose (74-99) mg/dL POC Glucose (mg/dL) 152 H (75-99) mg/dL Plasma Lactic Acid Leonard 3.3 H* (0.7-2.0) mmol/L Calcium (8.4-10.2) mg/dL Phosphorus (2.5-4.5) mg/dL Troponin I (0.000-0.034) ng/mL C-Reactive Protein (<10.0) mg/L 10/30/19 10/30/19 10/31/19 Range/Units 22:38 22:38 00:09 WBC (3.8-10.6) k/uL Hgb (11.4-16.0) gm/dL Hct (34.0-46.0) % MCHC (31.0-37.0) g/dL Neutrophils # (1.3-7.7) k/uL Neutrophils # (Manual) (1.3-7.7) k/uL Lymphocytes # (Manual) (1.0-4.8) k/uL Monocytes # (Manual) (0-1.0) k/uL PT (9.0-12.0) sec INR (<1.2) APTT (22.0-30.0) sec ABG pH (7.35-7.45) ABG pCO2 (35-45) mmHg ABG pO2 (83-108) mmHg ABG HCO3 (21-25) mmol/L ABG Total CO2 (19-24) mmol/L ABG O2 Saturation (94-97) % Sodium (137-145) mmol/L Potassium (3.5-5.1) mmol/L Chloride (98-107) mmol/L BUN (7-17) mg/dL Glucose (74-99) mg/dL POC Glucose (mg/dL) 184 H (75-99) mg/dL Plasma Lactic Acid Leonard 3.2 H* (0.7-2.0) mmol/L Calcium (8.4-10.2) mg/dL Phosphorus (2.5-4.5) mg/dL Troponin I 0.123 H* (0.000-0.034) ng/mL C-Reactive Protein (<10.0) mg/L 10/31/19 10/31/19 10/31/19 Range/Units 01:11 01:48 04:42 WBC (3.8-10.6) k/uL Hgb (11.4-16.0) gm/dL Hct (34.0-46.0) % MCHC (31.0-37.0) g/dL Neutrophils # (1.3-7.7) k/uL Neutrophils # (Manual) (1.3-7.7) k/uL Lymphocytes # (Manual) (1.0-4.8) k/uL Monocytes # (Manual) (0-1.0) k/uL PT (9.0-12.0) sec INR (<1.2) APTT (22.0-30.0) sec ABG pH (7.35-7.45) ABG pCO2 (35-45) mmHg ABG pO2 (83-108) mmHg ABG HCO3 (21-25) mmol/L ABG Total CO2 (19-24) mmol/L ABG O2 Saturation (94-97) % Sodium (137-145) mmol/L Potassium (3.5-5.1) mmol/L Chloride (98-107) mmol/L BUN (7-17) mg/dL Glucose (74-99) mg/dL POC Glucose (mg/dL) 206 H (75-99) mg/dL Plasma Lactic Acid Leonard 2.8 H* (0.7-2.0) mmol/L Calcium (8.4-10.2) mg/dL Phosphorus (2.5-4.5) mg/dL Troponin I 0.100 H* (0.000-0.034) ng/mL C-Reactive Protein (<10.0) mg/L 10/31/19 10/31/19 10/31/19 Range/Units 04:42 04:42 04:42 WBC 22.8 H (3.8-10.6) k/uL Hgb (11.4-16.0) gm/dL Hct (34.0-46.0) % MCHC 30.4 L (31.0-37.0) g/dL Neutrophils # 20.7 H (1.3-7.7) k/uL Neutrophils # (Manual) (1.3-7.7) k/uL Lymphocytes # (Manual) (1.0-4.8) k/uL Monocytes # (Manual) (0-1.0) k/uL PT 29.8 H (9.0-12.0) sec INR 3.1 H (<1.2) APTT (22.0-30.0) sec ABG pH (7.35-7.45) ABG pCO2 (35-45) mmHg ABG pO2 (83-108) mmHg ABG HCO3 (21-25) mmol/L ABG Total CO2 (19-24) mmol/L ABG O2 Saturation (94-97) % Sodium 136 L (137-145) mmol/L Potassium (3.5-5.1) mmol/L Chloride (98-107) mmol/L BUN 19 H (7-17) mg/dL Glucose 144 H (74-99) mg/dL POC Glucose (mg/dL) (75-99) mg/dL Plasma Lactic Acid Leonard (0.7-2.0) mmol/L Calcium 7.8 L (8.4-10.2) mg/dL Phosphorus 1.7 L (2.5-4.5) mg/dL Troponin I (0.000-0.034) ng/mL C-Reactive Protein (<10.0) mg/L 10/31/19 10/31/19 10/31/19 Range/Units 04:42 06:00 07:05 WBC (3.8-10.6) k/uL Hgb (11.4-16.0) gm/dL Hct (34.0-46.0) % MCHC (31.0-37.0) g/dL Neutrophils # (1.3-7.7) k/uL Neutrophils # (Manual) (1.3-7.7) k/uL Lymphocytes # (Manual) (1.0-4.8) k/uL Monocytes # (Manual) (0-1.0) k/uL PT (9.0-12.0) sec INR (<1.2) APTT (22.0-30.0) sec ABG pH (7.35-7.45) ABG pCO2 (35-45) mmHg ABG pO2 (83-108) mmHg ABG HCO3 (21-25) mmol/L ABG Total CO2 (19-24) mmol/L ABG O2 Saturation (94-97) % Sodium (137-145) mmol/L Potassium (3.5-5.1) mmol/L Chloride (98-107) mmol/L BUN (7-17) mg/dL Glucose (74-99) mg/dL POC Glucose (mg/dL) 166 H 195 H (75-99) mg/dL Plasma Lactic Acid Leonard 3.7 H* (0.7-2.0) mmol/L Calcium (8.4-10.2) mg/dL Phosphorus (2.5-4.5) mg/dL Troponin I (0.000-0.034) ng/mL C-Reactive Protein (<10.0) mg/L 10/31/19 10/31/19 10/31/19 Range/Units 08:41 09:21 11:47 WBC (3.8-10.6) k/uL Hgb (11.4-16.0) gm/dL Hct (34.0-46.0) % MCHC (31.0-37.0) g/dL Neutrophils # (1.3-7.7) k/uL Neutrophils # (Manual) (1.3-7.7) k/uL Lymphocytes # (Manual) (1.0-4.8) k/uL Monocytes # (Manual) (0-1.0) k/uL PT (9.0-12.0) sec INR (<1.2) APTT (22.0-30.0) sec ABG pH 7.51 H (7.35-7.45) ABG pCO2 31 L (35-45) mmHg ABG pO2 129 H (83-108) mmHg ABG HCO3 (21-25) mmol/L ABG Total CO2 25 H (19-24) mmol/L ABG O2 Saturation 98.4 H (94-97) % Sodium (137-145) mmol/L Potassium (3.5-5.1) mmol/L Chloride (98-107) mmol/L BUN (7-17) mg/dL Glucose (74-99) mg/dL POC Glucose (mg/dL) 150 H 147 H (75-99) mg/dL Plasma Lactic Acid Leonard (0.7-2.0) mmol/L Calcium (8.4-10.2) mg/dL Phosphorus (2.5-4.5) mg/dL Troponin I (0.000-0.034) ng/mL C-Reactive Protein (<10.0) mg/L Microbiology - Last 24 Hours (Table) 10/30/19 23:53 Gram Stain - Preliminary Sputum Sputum Culture - Preliminary 10/30/19 01:26 Blood Culture - Preliminary Blood No Growth after 24 hours 10/30/19 12:10 Urine Culture - Preliminary Urine,Catheterized Assessment and Plan Assessment: 1. Acute hypoxic/hypercapnic respiratory failure/mechanical ventilation ; most likely secondary to acute CVA - Patient is sedated on mechanical ventilation; 4 units of fresh frozen plasma ordered on [employer] recommendation - Patient will receive 10 mg of IV vitamin K per recommendations from accepting physician at [facility], Dr. Robrets 2. Sepsis; possibly secondary to pneumonia/UTI - Patient was started on IV Rocephin in ED; we will DC Rocephin and start patient on IV Zosyn and vancomycin; IDs consulted and recommendations are pending; we will trend pro-calcitonin, CRP and lactic acid levels - Patient has been pancultured in ED and results are pending 3. Aortic valve replacement; patient is taking warfarin with INR of 3.0 which is reversed with 4 units of fresh frozen plasma and 10 mg of vitamin K IV 1 4. Hypertension; continue with home dose of amlodipine and Lasix 5. Hyperlipidemia; continue with home statin therapy 6. Hypothyroidism; levothyroxine 75 MCG daily 7. Asthma; not in exacerbation; continue with home inhaler therapy DVT prophylaxis; SCDs only due to intracerebral bleed CODE STATUS; full code Time with Patient: Greater than 30
[2019-10-31] MEDS ORDERED: WARFARIN 2.5 MG TAB PO SCH (21:00)
[2019-11-01] MEDS ORDERED: WARFARIN 5 MG TAB PO SCH (18:00)
[2019-11-02] MEDS ORDERED: ATORVASTATIN 20 MG TAB PO SCH (09:00)
== END 2019-10-31 15:25 | disposition short-term general hospital (02) | DRG 64 ==
LOC: EC 00:19 → 4SSUR 03:03 → 3SCARD 15:04 → 2SICU 19:14 → OBSVTOIN 10-31 08:39
PROVIDERS: ADMIT Hospitalist; ATTEND Hospitalist
PROC: 0BH17EZ Insertion of Endotracheal Airway into Trachea, Via Natural or Artificial Opening (ICD-10-PCS; principal; 2019-10-30)
PROC: 5A1935Z Respiratory Ventilation, Less than 24 Consecutive Hours (ICD-10-PCS; principal; 2019-10-30)
PROC: 5A09357 Assistance with Respiratory Ventilation, Less than 24 Consecutive Hours, Continuous Positive Airway Pressure (ICD-10-PCS; 2019-10-30)
PROC: 30233K1 Transfusion of Nonautologous Frozen Plasma into Peripheral Vein, Percutaneous Approach (ICD-10-PCS; 2019-10-31)
DX: I61.5 Nontraumatic intracerebral hemorrhage, intraventricular (principal); A41.9 Sepsis, unspecified organism; G93.41 Metabolic encephalopathy; J18.9 Pneumonia, unspecified organism; J96.01 Acute respiratory failure with hypoxia; J96.02 Acute respiratory failure with hypercapnia; I21.A1 Myocardial infarction type 2; E87.1 Hypo-osmolality and hyponatremia; G91.2 (Idiopathic) normal pressure hydrocephalus; J44.0 Chronic obstructive pulmonary disease with (acute) lower respiratory infection; N39.0 Urinary tract infection, site not specified; E87.2 Acidosis; E03.9 Hypothyroidism, unspecified; E78.5 Hyperlipidemia, unspecified; E87.6 Hypokalemia; F17.210 Nicotine dependence, cigarettes, uncomplicated; I11.0 Hypertensive heart disease with heart failure; F40.240 Claustrophobia; I50.9 Heart failure, unspecified; M79.7 Fibromyalgia; M81.0 Age-related osteoporosis without current pathological fracture; G62.9 Polyneuropathy, unspecified; Z20.828 Contact with and (suspected) exposure to other viral communicable diseases; R29.6 Repeated falls; Z79.01 Long term (current) use of anticoagulants; Z79.51 Long term (current) use of inhaled steroids; Z79.890 Hormone replacement therapy; Z79.899 Other long term (current) drug therapy; Z80.3 Family history of malignant neoplasm of breast; Z82.5 Family history of asthma and other chronic lower respiratory diseases; Z95.2 Presence of prosthetic heart valve; Z91.030 Bee allergy status; Z91.041 Radiographic dye allergy status; Z91.040 Latex allergy status; K57.90 Diverticulosis of intestine, part unspecified, without perforation or abscess without bleeding; Z99.81 Dependence on supplemental oxygen; N28.1 Cyst of kidney, acquired; Z87.01 Personal history of pneumonia (recurrent); Z98.42 Cataract extraction status, left eye; Z98.41 Cataract extraction status, right eye; Z90.13 Acquired absence of bilateral breasts and nipples; R53.81 Other malaise; Z82.3 Family history of stroke; Z81.8 Family history of other mental and behavioral disorders; Z90.2 Acquired absence of lung [part of]
CPT/HCPCS: 36415; 36600; 51701; 70450; 71045; 80048; 80053; 81001; 82533; 82805; 83605; 83735; 83880; 84100; 84132; 84145; 84439; 84443; 84484; 85025; 85610; 85730; 86140; 86850; 86900; 86901; 87040; 87070; 87086; 87205; 93005; 94002; 94003; 94640; 94660; 99285

== ENCOUNTER → 2020-02-16 | Outpatient (CLI) | payer MEDICARE, BC ==
--- NOTE | 2020-02-16 15:59 | XR ---
EXAMINATION TYPE: XR skull complete DATE OF EXAM: 02/16/2020 COMPARISON: CT brain October 31, 2019 HISTORY: Pre-MRI clearance. History of skull surgery October 2019. TECHNIQUE: Skull complete with both lateral along with PA and AP projections. FINDINGS: No suspicious intracranial metallic foreign body seen to prevent MRI study. Partial visuali zation of surgical change in the cervical spine noted. IMPRESSION: As above.
== END | disposition home or self-care (01) ==
LOC: RADXRMAIN 15:26
PROVIDERS: ATTEND Family Medicine
DX: I61.5 Nontraumatic intracerebral hemorrhage, intraventricular (principal)
CPT/HCPCS: 70260

== ENCOUNTER → 2020-10-12 | Outpatient (CLI) | payer MEDICARE, BC ==
--- NOTE | 2020-10-12 15:15 | NM ---
EXAMINATION TYPE: NM bone scan whole body DATE OF EXAM: 10/12/2020 COMPARISON: Whole body bone scan April 25, 2010 HISTORY: History of breast cancer with weight loss. Delayed whole-body scanning was performed following the injection of 23.1 mCi Tc 99m MDP. Images acq uired 3 hours post injection. Whole body images anterior posterior projection along with additional m ultiple projections of the thorax abdomen and pelvis. FINDINGS: Increasing scoliotic curvature is present. New increased radiotracer uptake horizontally at the L5 le jose miguel raises concern for possible compression fracture deformity. Additional focus of increased radiotr acer uptake roughly left L2-L3 level. Early osseous metastatic disease is in the differential. Furthe r investigation with CT and/or MRI correlation is advised. IMPRESSION: As above.
== END | disposition home or self-care (01) ==
LOC: RADNMMAIN 10:59
PROVIDERS: ATTEND Family Medicine
DX: R63.4 Abnormal weight loss (principal); Z85.3 Personal history of malignant neoplasm of breast
CPT/HCPCS: 78306; A9503

== ENCOUNTER → 2020-10-24 | Outpatient (CLI) | payer MEDICARE, BC ==
--- NOTE | 2020-10-25 06:41 | CT ---
EXAMINATION TYPE: CT chest wo con DATE OF EXAM: 10/24/2020 COMPARISON: Whole body bone scan October 12, 2020 HISTORY: abnormal bone scan, history of breast cancer. CT DLP: 153 mGycm. Automated Exposure Control for Dose Reduction was Utilized. TECHNIQUE: CT scan of the thorax is performed without IV contrast. FINDINGS: LUNGS: Moderate underlying emphysematous change is present. There is some posterior and right basilar scarring with tiny right pleural effusion and/or pleural thickening extending from the posterior hil ar level. Some right-sided volume loss is present. No pneumothorax seen bilaterally. No concerning ma sses. MEDIASTINUM: Post-CABG changes with mediastinal clips and sternal wires, BONDS harvesting. Prominent 1 .7 x 0.8 cm pericarinal lymph node. No cardiomegaly or pericardial effusion is seen. Severe periphe ral calcification at the root of aorta extends into ascending aorta and arch. Moderate calcification in descending aorta OTHER: Cholecystectomy clips. Bilateral breast surgically absent. No axillary adenopathy. Underlying scoliosis correlates with bone scan. Demineralization. No suspicious focal osseous lesions. IMPRESSION: No suspicious focal osseous uptake. Moderate emphysematous change. Right sided scarring a nd volume loss. No acute pulmonary process.
--- NOTE | 2020-10-25 06:53 | CT ---
EXAMINATION TYPE: CT lumbar spine wo con DATE OF EXAM: 10/24/2020 6:12 PM COMPARISON: MRI lumbar spine October 23, 2011. Whole-body bone scan October 12, 2020 HISTORY: abnormal bone scan CT DLP: 306 mGycm Automated exposure control for dose reduction was used. Unenhanced CT of the lumbar spine was performed. Bone and soft tissue window settings are submitted as well as coronal and sagittal reconstructions. There are 5 lumbar-type vertebra. Lumbar spine shows straightened alignment on sagittal images withou t acute fracture or dislocation. There is slight scoliotic curvature and coronal images. There is gra de 1 anterolisthesis L5 on S1. There is kotxrmbk-lz-owyryp disc space narrowing with vacuum disc phen omenon and endplate sclerosis lungs with subchondral cystic change at L5-S1 level. This likely corres ponds to the site of bone scan abnormality. Moderate disc space narrowing and spurring right L4-L5 le jose miguel. Posterior disc herniations efface the anterior thecal sac L2-L3 through L4-L5 levels on sagittal images. Ajac-nw-ufhxhppp disc space narrowing and spurring left L2-L3 level likely also corresponds to site of abnormal bone scan. No suspicious focal lytic or sclerotic lesion is present. Axial images confirm moderate facet arthropathy and moderate broad disc bulge at L2-L3 level with eff acement of the anterior and posterior lateral thecal sac. Likely moderate left-sided neural foraminal narrowing. Axial images at L3-L4 level show mild/moderate facet arthropathy and broad disc bulge effacing anteri or and posterior lateral thecal sac with mild bilateral anterior inferior neural foraminal narrowing. Axial images at L4-L5 level show moderate to advanced facet arthropathy bilaterally. There is moderat e broad disc bulge. There is effacement of the anterior and posterior lateral thecal sac. There is mo derate right and mild left left-sided neural foraminal narrowing. Axial images at L5-S1 level show advanced facet arthropathy and spondylolisthesis causing spinal beverly l stenosis axial image 55. There is moderate to severe bilateral neural foraminal narrowing. Moderate to severe calcified plaque of overlying abdominal aorta. Some cortical volume loss in both k idneys is present. IMPRESSION: Scoliosis and spondylolisthesis with multilevel degenerative changes as detailed above digna arenas accounting for abnormal bone scan findings. No acute or subacute fracture. No suspicious focal o sseous lesions.
== END | disposition home or self-care (01) ==
LOC: RADCTMAIN 17:33
PROVIDERS: ATTEND Family Medicine
DX: J43.9 Emphysema, unspecified (principal); M47.816 Spondylosis without myelopathy or radiculopathy, lumbar region; M51.26 Other intervertebral disc displacement, lumbar region; M43.17 Spondylolisthesis, lumbosacral region; M41.86 Other forms of scoliosis, lumbar region; M99.73 Connective tissue and disc stenosis of intervertebral foramina of lumbar region; M48.07 Spinal stenosis, lumbosacral region; Z85.3 Personal history of malignant neoplasm of breast
CPT/HCPCS: 71250; 72131

== ENCOUNTER → 2021-01-01 | Outpatient (CLI) | payer MEDICARE, BC ==
--- NOTE | 2021-01-01 12:14 | XR ---
EXAMINATION TYPE: XR chest 2V DATE OF EXAM: 01/01/2021 COMPARISON: 10/31/2019 HISTORY: Shortness of breath TECHNIQUE: Frontal and lateral views of the chest are obtained. FINDINGS: Scattered senescent parenchymal changes noted. Hyperinflation compatible with COPD. Increased density right infrahilar region may reflect developing infiltrate. Correlate clinically and consider progress studies. Heart size is stable. Mediastinal structures are stable and grossly unremarkable. No evidence for hilar prominence. Degenerative changes dorsal spine. IMPRESSION: 1. Increased density right infrahilar region may reflect developing infiltrate. Correlate clinically and consider progress studies.
== END | disposition home or self-care (01) ==
LOC: RADXRMAIN 11:55
PROVIDERS: ATTEND Physician Assistant
DX: J98.4 Other disorders of lung (principal)
CPT/HCPCS: 71046

== ENCOUNTER 2021-03-27 15:07 | Emergency (ER) | payer MEDICARE, BC ==
[2021-03-27 15:36] VITALS: TEMP 98
--- NOTE | 2021-03-27 16:09 | XR ---
EXAMINATION TYPE: XR chest 2V DATE OF EXAM: 03/27/2021 COMPARISON: 01/01/2021, 03/16/2021 HISTORY: 80-year-old female weakness, fall, pain TECHNIQUE: AP and lateral views FINDINGS: ACDF hardware partially visualized. Median sternotomy wires. Heart mildly enlarged. Hyperinflation wi th interstitial prominence. Old bilateral rib fracture deformities redemonstrated. There is some foca l patchy left basilar opacity not seen previously. Trace pleural effusion on the lateral view. Vascul ar prominence. IMPRESSION: 1. COPD, mild cardiomegaly, and the appearance of trace pleural effusions on the lateral view. Correl ate for possible mild pulmonary vascular congestion. 2. Patchy left basilar atelectasis versus developing infiltrate, new from prior.
--- NOTE | 2021-03-27 16:10 | XR ---
EXAMINATION TYPE: XR shoulder complete LT, 3 views DATE OF EXAM: 03/27/2021 Comparison: None Clinical History: [id number] female with pain after fall Findings: Partially visualized ACDF hardware. AC joint appears intact with mild degenerative spurring. Subacrom ial space is preserved. Vascular calcifications in the axillary artery. Mild bony irregularity at the greater tuberosity. No acute fracture, subluxation, dislocation. Impression: Mild AC joint OA. Some bony changes suggesting chronic rotator cuff tendinopathy. No acute osseous ab normality seen.
[2021-03-27] MEDS ORDERED: ONDANSETRON ODT 4 MG TAB PO STA (17:01)
[2021-03-27] MEDS ORDERED: MORPHINE SULFATE 2 MG/ML SYRINGE IM STA ×2 (17:02→18:11)
--- NOTE | 2021-03-27 18:12 | CT ---
EXAMINATION TYPE: CT chest wo con DATE OF EXAM: 03/27/2021 COMPARISON: 10/24/2020 HISTORY: Fall with left sided pain. CT DLP: 1345 mGycm Automated exposure control for dose reduction was used. Images obtained from the thoracic inlet to the diaphragm without contrast. There is some infiltrate and atelectasis at the posterior lung bases bilaterally. There is bronchial cartilage calcification. Thoracic aorta is atheromatous. There is dense coronary artery calcification . Heart size is fairly normal. There is no pericardial effusion. There is no pleural effusion. The thoracic spine is intact. There are sternal wires. There is no evidence of an acute rib fracture. IMPRESSION: Bilateral posterior lower lobe pulmonary airspace consolidation and atelectasis which is progressed c ompared to old exam. Extensive atherosclerotic vascular disease. Occlusion of left lower lobe bronchi in the area of infil trate and atelectasis. No evidence of an acute rib fracture in this patient with left side rib pain. There is probably old r ight posterior healed rib fractures.
--- NOTE | 2021-03-27 18:16 | CT ---
EXAMINATION TYPE: CT brain cspine wo con DATE OF EXAM: 03/27/2021 COMPARISON: CT brain 10/31/2019 HISTORY: Fall with left sided pain. CT DLP: 1345 mGycm Automated exposure control for dose reduction was used. There is cerebral atrophy. There is moderate hypodensity in the periventricular white matter. There i s old right occipital lobe 2.5 x 4 cm infarct. There is no mass effect nor midline shift. There is no sign of intracranial hemorrhage. Cervical vertebra have normal alignment. There is old anterior multilevel fusion surgery from C3 to C 7 level. The posterior elements are intact. There is no compression fracture. IMPRESSION: Cerebral atrophy and chronic small vessel ischemia. There is clearing of the subarachnoid hemorrhage compared to old exam. 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 Multilevel cervical fusion surgery with no evidence of an acute fracture. No significant change hunter red to 02/12/2013 exam.
--- NOTE | 2021-03-27 18:17 | ED ---
Fall HPI - General Chief Complaint: Fall Stated Complaint: fall, shoulder/arm pain Time Seen by Provider: 03/27/21 16:54 Source: patient, family Mode of arrival: wheelchair - History of Present Illness Initial Comments: 80 year-old female patient presents to the emergency department for evaluation of left rib pain and pain with breathing after a fall on Friday. States that she was sore Friday and Friday but woke up today having worse pain. She reports increased pain with movement and coughing. Denies any hemoptysis. States she has been coughing up a lot of phlegm. She is unsure if she hit her head in the fall. She does take coumadin has had traumatic intracranial hemorrhage in the past. No sustained skin tear to the right arm. States tetanus is up-to-date. Denies any other injuries or concerns. Patient denies any headache, neck pain, back pain, dizziness, weakness, abdominal pain, nausea, vomiting, or difficulties with bowel movements or urination. - Related Data Home Medications Medication Instructions Recorded Confirmed Citalopram Hydrobromide [CeleXA] 20 mg PO DAILY 05/20/14 10/30/19 LORazepam [Ativan] 1 mg PO HS 05/20/14 10/30/19 Levothyroxine Sodium [Synthroid] 75 mcg PO HS 05/20/14 10/30/19 Nitroglycerin Sl Tabs [Nitrostat] 0.4 mg SUBLINGUAL Q5M PRN 05/20/14 10/30/19 Omeprazole [PriLOSEC] 20 mg PO HS 05/20/14 10/30/19 Simvastatin [Zocor] 40 mg PO SUTUFR 05/20/14 10/30/19 Warfarin [Coumadin] 5 mg PO MOWEFR 05/20/14 10/30/19 metOLazone [Zaroxolyn] 2.5 mg PO TH 05/20/14 10/30/19 Ergocalciferol [Vitamin D2 50,000 unit PO SA 12/19/15 10/30/19 (DRISDOL)] Furosemide 40 mg PO DAILY 12/19/15 10/30/19 Gabapentin 400 mg PO TID 12/19/15 10/30/19 Warfarin [Coumadin] 2.5 mg PO SUTUTHSA 12/19/15 10/30/19 Potassium Chloride ER [K-Dur 20] 60 meq PO BID 02/12/16 10/30/19 Acetaminophen Tab [Tylenol Tab] 1,000 mg PO Q6HR PRN 07/08/16 10/30/19 amLODIPine [Norvasc] 5 mg PO DAILY 07/08/16 10/30/19 LORazepam [Ativan] 0.5 mg PO DAILY 10/30/19 10/30/19 Montelukast [Singulair] 10 mg PO HS 10/30/19 10/30/19 Previous Rx's Medication Instructions Recorded Doxycycline [Vibramycin] 100 mg PO BID #20 capsule 03/27/21 traMADol HCl [Ultram] 50 mg PO Q6H PRN #12 tab 03/27/21 Allergies Allergy/AdvReac Type Severity Reaction Status Date / Time adhesive Allergy tears skin Verified 10/30/19 00:33 Iodinated Contrast Media Allergy Unknown Verified 10/30/19 00:33 [Iodinated Contrast Media - IV Dye] iodine Allergy Unknown Verified 10/30/19 00:33 Latex, Natural Rubber Allergy Unknown Verified 10/30/19 00:33 venom-honey bee Allergy Anaphylaxis Verified 10/30/19 00:33 [bee venom (honey bee)] Review of Systems ROS Statement: Those systems with pertinent positive or pertinent negative responses have been documented in the HPI. ROS Other: All systems not noted in ROS Statement are negative. Past Medical History Past Medical History: Heart Failure, Fibromyalgia, GERD/Reflux, Hyperlipidemia, Hypertension, Pneumonia, Thyroid Disorder Additional Past Medical History / Comment(s): osteoporosis, neuropathy,rheumatic fever as child, home o2 2 liters n/c at hs,diverticular disease,pt stated had some paralysis after neck sx -resolved,"occ nose bleeds" and "i take iron supplement that turns my stool black", cyst on one of her kidneys, shingles approx 2009. History of Any Multi-Drug Resistant Organisms: None Reported Past Surgical History: Back Surgery, Section, Orthopedic Surgery, Tonsillectomy Additional Past Surgical History / Comment(s): bruna mastectomy, bottom of right lung removed, breast implants then removed d/t "bad implants",mechanical aortic valve replacement.neck sx had titanium plate, lt carotid endarterectomy, rt lung nodule removed(benign), bruna cataracts. Past Anesthesia/Blood Transfusion Reactions: No Reported Reaction Additional Past Anesthesia/Blood Transfusion Reaction / Comment(s): clausterphobia. past blood transfusion-no reactions to it. Past Psychological History: No Psychological Hx Reported Smoking Status: Current some day smoker Past Alcohol Use History: None Reported, Rare Past Drug Use History: None Reported - Past Family History Father Family Medical History: Unable to Obtain Additional Family Medical History / Comment(s): dad in accident when pt young -did'nt know his hx. Mother Family Medical History: COPD Additional Family Medical History / Comment(s): age 73 Sister(s) Family Medical History: Cancer Additional Family Medical History / Comment(s): 1 sister- thyroid & breast Ca, brain aneurysm-still alive, #2 breast ca,dementia- 83 age,#3 blood cancer- 50's age. General Exam Limitations: no limitations General appearance: alert, in no apparent distress, other (This is a well- developed, thin appearing elderly female patient in mild distress related to pain.) Eye exam: Present: normal appearance, PERRL, EOMI. Absent: scleral icterus, conjunctival injection, periorbital swelling ENT exam: Present: normal exam, normal oropharynx, mucous membranes moist Neck exam: Present: normal inspection, full ROM, other (Nontender, no step-off, no deformity to firm midline palpation of the posterior cervical spine. Full range of motion without pain or limitation.). Absent: tenderness, meningismus, lymphadenopathy Respiratory exam: Present: normal lung sounds bilaterally, chest wall tenderness (Left lateral). Absent: respiratory distress, wheezes, rales, rhonchi, stridor Cardiovascular Exam: Present: regular rate, normal rhythm, normal heart sounds. Absent: systolic murmur, diastolic murmur, rubs, gallop, clicks GI/Abdominal exam: Present: soft, normal bowel sounds. Absent: distended, tenderness, guarding, rebound, rigid Neurological exam: Present: alert, oriented X3, CN II-XII intact Psychiatric exam: Present: normal affect, normal mood Skin exam: Present: warm, dry, intact, normal color. Absent: rash Course Vital Signs 03/27/21 03/27/21 03/27/21 15:30 18:32 20:20 Temperature 98.0 F Pulse Rate 74 75 87 Respiratory 16 20 18 Rate Blood Pressure 196/67 175/72 174/75 O2 Sat by Pulse 94 L 90 L 90 L Oximetry Medical Decision Making - Medical Decision Making 80-year-old female patient presents to the emergency department for evaluation of left rib pain after a fall on Friday. Physical examination did reveal left lateral rib tenderness. Soft nontender abdomen She is unsure she had her head, denied any headache. Denied neck or back pain. She is neurologically intact, no focal deficits. Lungs clear to auscultation. X-ray negative. Left shoulder x- ray shows arthritis. CT chest was obtained and showed no evidence for rib fracture but there is evidence for bilateral lower lobe pneumonia. CT brain and C-spine was negative. She tested negative for COVID. I did discuss findings and results with the patient and her . Her oxygen saturations are between 90-91% here. This is her usual oxygen saturation she does have a history of COPD and does have supplemental oxygen at home. Her pain is improved, she does feel comfortable being discharged. She will be given prescription for doxycycline and pain medication. She is instructed to follow-up with her primary care physician for recheck in 1-2 days. Return parameters were discussed in detail. She verbalizes understanding and agrees with this plan. Case discussed with my attending Dr. Orosco. - Lab Data Lab Results 03/27/21 Range/Units 18:56 Coronavirus (PCR) Not Detected (Not Detectd) - Radiology Data Radiology results: report reviewed, image reviewed Two-view x-ray of the chest is obtained. Report was reviewed in its entirety. Impression by Dr. Hawkins shows COPD, mild cardiomegaly, and the appearance of trace pleural effusions on the lateral view. Correlate for possible mild pulmonary vascular congestion. Patchy left basilar atelectasis versus developing infiltrate, new from prior. 3 views of the left shoulder obtained. Report was reviewed in its entirety. Impression by Dr. Hawkins shows mild acromioclavicular joint osteoarthritis. Some bony changes suggesting chronic rotator cuff tendinopathy. No acute osseous abnormalities seen. CT chest without contrast was obtained. Report was reviewed in its entirety. Impression by Dr. Martinez shows bilateral posterior lower lobe pulmonary airspace consolidation and atelectasis which is progressed compared to old exam. Extensive atherosclerotic vascular disease. Occlusion of the left lower lobe rhonchi and area of infiltrate and atelectasis. No evidence of an acute rib fracture and this patient with left-sided rib pain. There is probably old right posterior healed rib fractures. CT brain and C-spine without contrast was obtained. Report was reviewed in its entirety. Impression by Dr. Martinez shows cerebral atrophy and chronic small vessel ischemia. There is clearing of subarachnoid hemorrhage compared to old exam. 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 Multilevel cervical fusion surgery no evidence of an acute fracture. No significant change compared to 02/12/2013 exam. Disposition Clinical Impression: Contusion of rib on left side, Bilateral pneumonia Disposition: HOME SELF-CARE Condition: Good Instructions (If sedation given, give patient instructions): Pneumonia (ED), Rib Contusion (ED) Additional Instructions: Take antibiotic prescription as directed. Start prednisone a few started to have worsening cough or shortness of breath. Do breathing treatments every 4-6 hours as needed. Return to the emergency department if you become short of breath, developed a fever, or cannot hold down your antibiotic. Return to the emergency department for any other new, worsening, or concerning symptoms. Prescriptions: traMADol HCl [Ultram] 50 mg PO Q6H PRN #12 tab PRN Reason: Pain Doxycycline [Vibramycin] 100 mg PO BID #20 capsule Is patient prescribed a controlled substance at d/c from ED?: No Referrals: Sandrita Thomson DO [Primary Care Provider] - 1-2 days Time of Disposition: 19:57
[2021-03-27] MEDS ORDERED: DOXYCYCLINE 100 MG CAP PO STA (19:41)
[2021-03-27] MEDS ORDERED: traMADol 50 MG STARTER PACK 3 TAB BTL PO STA (19:52)
[2021-03-27 20:38] VITALS: BP 174/75; PULSE 87; RESP 18
== END 2021-03-27 20:38 | disposition home or self-care (01) ==
LOC: EC 15:07
DX: S20.212A Contusion of left front wall of thorax, initial encounter (principal); J18.9 Pneumonia, unspecified organism; I11.0 Hypertensive heart disease with heart failure; I50.9 Heart failure, unspecified; K21.9 Gastro-esophageal reflux disease without esophagitis; E78.5 Hyperlipidemia, unspecified; E07.9 Disorder of thyroid, unspecified; F17.200 Nicotine dependence, unspecified, uncomplicated; M79.7 Fibromyalgia; Z79.01 Long term (current) use of anticoagulants; Z91.040 Latex allergy status; Z20.822 Contact with and (suspected) exposure to COVID-19; W19.XXXA Unspecified fall, initial encounter
CPT/HCPCS: 99285; 96372 ×2; 87635; 73030; 71046; 72125; 70450; 71250; J2270

== ENCOUNTER → 2021-05-14 | Outpatient (CLI) | payer MEDICARE, BC ==
--- NOTE | 2021-05-14 14:50 | CT ---
EXAMINATION TYPE: CT brain wo con DATE OF EXAM: 05/14/2021 COMPARISON: 03/27/2021 HISTORY: Fall x3 weeks ago, history of brain bleed and surgery. CT DLP: [address] of the brain was performed. The ventricles, basal cisterns and sulci overlying the cerebral convexities demonstrate mild enlargem ent. There is no evidence for intracranial hemorrhage or sulcal effacement. There is decreased attenuation about the periventricular white matter and deep white matter of both c erebral hemispheres, compatible with chronic small vessel ischemia. Differential diagnosis does inclu de demyelination. No mass effects are seen.No midline shift. Osseous calvarium is intact. If symptoms persist consider MRI. IMPRESSION: 1. Age related atrophic and chronic small vessel ischemic change without acute intracranial process s een at this time.
== END | disposition home or self-care (01) ==
LOC: RADCTMAIN 14:15
PROVIDERS: ATTEND Family Medicine
DX: I67.82 Cerebral ischemia (principal); G31.9 Degenerative disease of nervous system, unspecified; Z87.820 Personal history of traumatic brain injury
CPT/HCPCS: 70450

== ENCOUNTER 2021-09-28 15:33 | Inpatient (IN) | payer MEDICARE, BC ==
[2021-09-28] MEDS ORDERED: methylPREDNISolone SOD SUCCI 125 MG/2 ML VIAL IV STA (16:20)
[2021-09-28] MEDS ORDERED: diphenhydrAMINE 50 MG/ML 1 ML VIAL IVP STA (16:20)
[2021-09-28] MEDS ORDERED: FAMOTIDINE 20 MG/2 ML VIAL IV STA (16:20)
[2021-09-28] MEDS ORDERED: LORazepam 2 MG/ML INJ IV STA (16:21)
[2021-09-28 16:27] LABS: Basophils # (A) 0.1 k/uL (0-0.2); Basophils % (A) 1 %; Eosinophils # (A) 0.1 k/uL (0-0.7); Eosinophils % (A) 1 %; HCT 41.5 % (34.0-46.0); HGB 13.4 gm/dL (11.4-16.0); Lymphocytes # (A) 1.6 k/uL (1.0-4.8); Lymphocytes % (A) 12 %; MCH 32.3 pg (25.0-35.0); MCHC 32.4 g/dL (31.0-37.0); MCV 99.6 fL (80.0-100.0); Monocytes # (A) 0.5 k/uL (0-1.0); Monocytes % (A) 4 %; Neutrophils # (A) 10.9 k/uL (1.3-7.7); Neutrophils % (A) 82 %; Platelet Count 364 k/uL (150-450); RBC 4.17 m/uL (3.80-5.40); RDW 13.3 % (11.5-15.5); WBC 13.3 k/uL (3.8-10.6)
[2021-09-28 16:37] LABS: INR 1.8 (<1.2); Partial Thromboplastin Time 24.4 sec (22.0-30.0); Prothrombin Time 17.9 sec (9.0-12.0)
[2021-09-28 16:37] LABS: Albumin 4.3 g/dL (3.5-5.0); Calcium 9.7 mg/dL (8.4-10.2); Magnesium 1.6 mg/dL (1.6-2.3); Potassium 3.9 mmol/L (3.5-5.1); Total Bilirubin 0.4 mg/dL (0.2-1.3); Total Protein 6.5 g/dL (6.3-8.2)
--- NOTE | 2021-09-28 16:37 | ED ---
Chest Pain HPI - General Chief Complaint: Chest Pain Stated Complaint: Chest Pain Sent by PCP Time Seen by Provider: 09/28/21 15:40 Source: patient Mode of arrival: wheelchair Limitations: no limitations - History of Present Illness Initial Comments: 80-year-old female with past history of congestive heart failure, aortic valve replacement on Coumadin, hypertension presents emergency department for chest discomfort. She states that she went into her primary care office today in order to have a wound on her right thigh evaluated. Her dog jumped up on her 2 days ago and she sustained a laceration. She was concerned that it is getting infected and therefore went to the primary office today. She mentioned to them that she was having some chest discomfort which started earlier this morning around 10 AM. She describes it as a pressure sensation with associated shortness of breath. Denies history of DVT or PE. No lower extremity swelling. Denies cough, fevers or chills. No previous history of coronary disease. Follows with Dr. Rosario for her history of aortic valve replacement. Dose of Coumadin was recently increased. No other alleviating, precipitating or modifying factors - Related Data Home Medications Medication Instructions Recorded Confirmed Levothyroxine Sodium [Synthroid] 75 mcg PO DAILY 05/20/14 09/28/21 Simvastatin [Zocor] 40 mg PO SUWEFR@1400 05/20/14 09/28/21 Furosemide 40 mg PO DAILY 12/19/15 09/28/21 Potassium Chloride ER [K-Dur 20] 40 meq PO DAILY 02/12/16 09/28/21 Montelukast [Singulair] 10 mg PO DAILY@1400 10/30/19 09/28/21 Diltiazem HCl [Diltiazem HCl 12Hr 120 mg PO HS 09/28/21 09/28/21 ER] EPINEPHrine (Auto Inject) [Epipen] 0.3 mg IM ONCE PRN 09/28/21 09/28/21 Ergocalciferol (Vitamin D2) 1,250 mcg PO SA 09/28/21 09/28/21 [Drisdol (50,000 Iu)] LORazepam [Ativan] 0.5 mg PO TID 09/28/21 09/28/21 Megestrol [Megace] 40 mg PO DAILY 09/28/21 09/28/21 Metoprolol Succinate (ER) [Toprol 50 mg PO DAILY@1400 09/28/21 09/28/21 Xl] Omeprazole 40 mg PO HS 09/28/21 09/28/21 Tiotropium 2.5 Mcg/Puff [Spiriva 1 puff INHALATION RT-DAILY PRN 09/28/21 09/28/21 Respimat 2.5 Mcg] Warfarin [Coumadin] 2 mg PO MOTUSA 09/28/21 09/28/21 Warfarin [Coumadin] 4 mg PO SUWETHFR 09/28/21 09/28/21 Yupelri 175mcg/3ml 3 ml INHALATION RT-DAILY@1400 09/28/21 09/28/21 cloNIDine 0.3 MG/24HR PATCH 1 patch TRANSDERM TU 09/28/21 09/28/21 [Catapres-Tts 0.3MG Patch] hydrALAZINE HCL [Apresoline] 50 mg PO BID 09/28/21 09/28/21 lamoTRIgine [LaMICtal] 50 mg PO HS 09/28/21 09/28/21 metFORMIN HCL [Glucophage] 500 mg PO DAILY PRN 09/28/21 09/28/21 predniSONE 10 mg PO DAILY 09/28/21 09/28/21 Allergies Allergy/AdvReac Type Severity Reaction Status Date / Time Latex, Natural Rubber Allergy Rash/Hives Verified 09/28/21 19:05 venom-honey bee Allergy Anaphylaxis Verified 09/28/21 19:05 [bee venom (honey bee)] adhesive AdvReac tears skin Verified 09/28/21 19:05 Iodinated Contrast Media AdvReac Nausea & Verified 09/28/21 19:05 [Iodinated Contrast Media - Vomiting & IV Dye] Diarrhea iodine AdvReac Nausea & Verified 09/28/21 19:05 Vomiting & Diarrhea Review of Systems ROS Statement: Those systems with pertinent positive or pertinent negative responses have been documented in the HPI. ROS Other: All systems not noted in ROS Statement are negative. EKG Findings - EKG Comments: EKG Findings:: EKG demonstrates sinus rhythm with a rate of 96. MI interval 115. QRS 92. QTC 397. J-point elevation in V1 through V6 3. Inverted T waves with ST depression in 2, 3 and aVF Past Medical History Past Medical History: Heart Failure, Fibromyalgia, GERD/Reflux, Hyperlipidemia, Hypertension, Pneumonia, Thyroid Disorder Additional Past Medical History / Comment(s): osteoporosis, neuropathy,rheumatic fever as child, home o2 2 liters n/c at hs,diverticular disease,pt stated had some paralysis after neck sx -resolved,"occ nose bleeds" and "i take iron supplement that turns my stool black", cyst on one of her kidneys, shingles approx 2009. History of Any Multi-Drug Resistant Organisms: None Reported Past Surgical History: Back Surgery, Section, Orthopedic Surgery, Tonsillectomy Additional Past Surgical History / Comment(s): bruna mastectomy, bottom of right lung removed, breast implants then removed d/t "bad implants",mechanical aortic valve replacement.neck sx had titanium plate, lt carotid endarterectomy, rt lung nodule removed(benign), bruna cataracts. Past Anesthesia/Blood Transfusion Reactions: No Reported Reaction Additional Past Anesthesia/Blood Transfusion Reaction / Comment(s): clausterphobia. past blood transfusion-no reactions to it. Past Psychological History: No Psychological Hx Reported Smoking Status: Current some day smoker Past Alcohol Use History: None Reported, Rare Past Drug Use History: None Reported - Past Family History Father Family Medical History: Unable to Obtain Additional Family Medical History / Comment(s): dad in accident when pt young -did'nt know his hx. Mother Family Medical History: COPD Additional Family Medical History / Comment(s): age 73 Sister(s) Family Medical History: Cancer Additional Family Medical History / Comment(s): 1 sister- thyroid & breast Ca, brain aneurysm-still alive, #2 breast ca,dementia- 83 age,#3 blood cancer- 50's age. General Exam Limitations: no limitations General appearance: alert, in no apparent distress Head exam: Present: atraumatic, normocephalic, normal inspection Eye exam: Present: normal appearance, PERRL, EOMI. Absent: scleral icterus, conjunctival injection, periorbital swelling ENT exam: Present: normal exam, mucous membranes moist Neck exam: Present: normal inspection. Absent: tenderness, meningismus, lymphadenopathy Respiratory exam: Present: normal lung sounds bilaterally. Absent: respiratory distress, wheezes, rales, rhonchi, stridor Cardiovascular Exam: Present: regular rate, normal rhythm, normal heart sounds. Absent: systolic murmur, diastolic murmur, rubs, gallop, clicks GI/Abdominal exam: Present: soft, normal bowel sounds. Absent: distended, tenderness, guarding, rebound, rigid Extremities exam: Present: normal inspection, full ROM, normal capillary refill. Absent: tenderness, pedal edema, joint swelling, calf tenderness Back exam: Present: normal inspection Neurological exam: Present: alert, oriented X3, CN II-XII intact Psychiatric exam: Present: normal affect, normal mood Skin exam: Present: warm, dry, intact, normal color. Absent: rash Course Vital Signs 09/28/21 09/28/21 09/28/21 15:37 17:30 18:55 Temperature 98.2 F Pulse Rate 96 92 90 Respiratory 18 18 18 Rate Blood Pressure 124/64 201/122 156/72 O2 Sat by Pulse 98 96 94 L Oximetry 09/28/21 21:09 Temperature Pulse Rate 101 H Respiratory 18 Rate Blood Pressure 113/64 O2 Sat by Pulse 95 Oximetry Chest Pain MDM - MDM Upon arrival patient was placed in room 11. A thorough history and physical exam was performed. IV access was established and laboratory studies are conducted. Patient's INR is subtherapeutic at 1.8. Troponin is 0.019. She is sent for a CT of her chest with contrast as this was a test that it was going to be completed later this month by Dr. Garrison. CT demonstrates a single embolism in the right lower lobe. The patient is initiated on a heparin drip recommended admission for abnormal EKG. Cardiology and pulmonology will be consult at. Patient agreed to the treatment plan. Spoke with Hu from [facility] to agree to admit the patient. She is being transferred to floor in stable condition Critical Care Time Critical Care Time: Yes Critical Care Time: 35 minutes Disposition Clinical Impression: Chest pain, Abnormal EKG, Subtherapeutic anticoagulation, Aortic valve replaced, Pulmonary embolism Disposition: ADMITTED IP TO THIS [facility] Condition: Stable Is patient prescribed a controlled substance at d/c from ED?: No Decision to Admit Reason: Admit from EC Decision Date: 09/28/21 Decision Time: 18:49
[2021-09-28] MEDS ORDERED: hydrALAZINE HCL 20 MG/ML 1 ML VIAL IVP STA (17:40)
[2021-09-28] MEDS ORDERED: ASPIRIN 325 MG TAB PO STA (18:06)
[2021-09-28] MEDS ORDERED: HEPARIN SODIUM 1,000 UN/ML (10ML VL) IV PRN (18:26)
[2021-09-28] MEDS ORDERED: HEPARIN SODIUM 1,000 UN/ML (10ML VL) IV ONE (18:26)
--- NOTE | 2021-09-28 18:34 | CT ---
EXAMINATION TYPE: Renal view DATE OF EXAM: 09/28/2021 COMPARISON: None HISTORY: chest pain, SOB CT DLP: 191.9 mGycm Automated exposure control for dose reduction was used. CONTRAST: Performed with IV Contrast, patient injected with 72cc mL of Isovue 370. There are Three-D postprocessed images. There is mild coarsening of interstitial markings in both lung mcmanus. Thoracic aorta is atheromatous . The ascending aorta measures 3.7 cm. No dissection. There is no mediastinal adenopathy. There are n o hilar masses. There are large pulmonary arteries consistent with pulmonary hypertension. There is a single filling defect in the right lower lobe pulmonary artery and the posterior basal segment branc h. There is some infiltrate and atelectasis at the right lung base. Heart is top normal in size. No p ericardial effusion. The bony thorax is intact. The sternum shows no fracture. There are sternal wire s. IMPRESSION: There is a single embolism in the right lower lobe pulmonary artery. There is some infiltrate and ate lectasis right lower lobe. Atherosclerotic vascular disease. This exam was discussed with emergency room attending staff 6:30 PM.
[2021-09-28] MEDS ORDERED: NALOXONE 0.4 MG/ML 1 ML VIAL IV PRN (18:49)
[2021-09-28] MEDS: HEPARIN SOD,PORK IN 0.45% NACL 25,000 UNIT in 0.45% NACL 1 250ML.BAG IV SCH (19:24)
[2021-09-28] MEDS: lamoTRIgine 25 MG TAB PO SCH (23:05)
[2021-09-28] MEDS: POTASSIUM CHLORIDE ER 20 MEQ TAB.ER PO SCH (23:06)
[2021-09-28] MEDS: LORazepam 0.5 MG TAB PO SCH (23:06)
[2021-09-28] MEDS: DILTIAZEM CD 120 MG CAP.ER.24H PO SCH (23:06)
[2021-09-28] MEDS: PANTOPRAZOLE 40 MG TABLET PO SCH (23:06)
[2021-09-28] MEDS: MEGESTROL 40 MG TAB PO SCH (23:06)
--- NOTE | 2021-09-28 23:21 | US ---
EXAMINATION TYPE: US venous doppler duplex LE DATE OF EXAM: 09/28/2021 11:10 PM COMPARISON: NONE CLINICAL HISTORY: leg swelling. leg pain and edema, worse on the left. patient on coumadin for 20 yea rs, cardiac issues SIDE PERFORMED: Bilateral TECHNIQUE: The lower extremity deep venous system is examined utilizing real time linear array sonog jo with graded compression, doppler sonography and color-flow sonography. VESSELS IMAGED: Common Femoral Vein Deep Femoral Vein Greater Saphenous Vein * Femoral Vein Popliteal Vein Small Saphenous Vein * Proximal Calf Veins (* superficial vessels) Right Leg: no evidence of DVT as visualized Left Leg: no evidence of DVT as visualized IMPRESSION: No evidence of deep vein thrombosis in both legs.
[2021-09-29 02:26] LABS: Basophils % (A) 0 %; Eosinophils % (A) 0 %; HCT 39.6 % (34.0-46.0); HGB 12.7 gm/dL (11.4-16.0); Lymphocytes # (A) 1.4 k/uL (1.0-4.8); Lymphocytes % (A) 15 %; MCH 32.5 pg (25.0-35.0); MCHC 32.1 g/dL (31.0-37.0); MCV 101.2 fL (80.0-100.0); Macrocytosis Slight; Mean Platelet Volume 8.6; Monocytes # (A) 0.1 k/uL (0-1.0); Monocytes % (A) 2 %; Neutrophils # (A) 7.8 k/uL (1.3-7.7); Neutrophils % (A) 82 %; Platelet Count 346 k/uL (150-450); RBC 3.91 m/uL (3.80-5.40); RDW 13.4 % (11.5-15.5); WBC 9.5 k/uL (3.8-10.6)
[2021-09-29] MEDS: hydrALAZINE HCL 50 MG TAB PO SCH ×3 (04:32→21:13)
[2021-09-29] MEDS: LEVOTHYROXINE 75 MCG TAB PO SCH (06:31)
[2021-09-29] MEDS: IPRATROPIUM 0.5 MG/2.5 ML NEBU INHALATION PRN (07:24)
[2021-09-29] MEDS: predniSONE 10 MG TAB PO SCH (07:58)
[2021-09-29] MEDS: POTASSIUM CHLORIDE ER 20 MEQ TAB.ER PO SCH (07:58)
[2021-09-29] MEDS: FUROSEMIDE 40 MG TAB PO SCH (07:58)
[2021-09-29] MEDS: LORazepam 0.5 MG TAB PO SCH ×3 (07:58→21:13)
[2021-09-29] MEDS: MEGESTROL 40 MG TAB PO SCH (07:59)
--- NOTE | 2021-09-29 10:55 | P.CNPUL ---
History of Present Illness Consult date: 09/29/21 Requesting physician: Vianey Love Reason for consult: dyspnea, chest pain, pulmonary embolism, abnormal CXR/CT Chief complaint: Chest pain and shortness of breath. History of present illness: Pulmonary consult 09/29/2021. 80-year-old female with a history of multiple medical problems including congestive heart failure, previous aortic valve replacement with a biomechanical valve, on Coumadin chronically, and hypertension, who initially was directed to the ER because of the fact that her dog jumped on her, and scratched her right thigh. While she was in the emergency room, she apparently told the attending physician, that she was having shortness of breath and chest pressure. For that reason, the patient was further evaluated, and was found to have a right lower lobe pulmonary embolism. Interestingly, the patient is on Coumadin chronically, although her INR was 1.8. Currently, the patient appears to be relatively comfortable. She does use home oxygen at 2 L just at nighttime. She does continue to smoke. The patient is currently on IV heparin. She is on room air. She states that her health has been declining since last February. White count 9.5, hemoglobin 12.7, hematocrit 39.6, and platelet count 346,000. PTT is 132. PT 17.9 with an INR 1.8. Labs from yesterday are reviewed. Troponin was 0.019, 0.025, and 0.025. Dopplers of the lower extremities were negative for DVT. A chest CT showed a single pulmonary embolism, right lower lobe. Review of Systems REVIEW OF SYSTEMS: CONSTITUTIONAL: [Negative.] NEUROLOGIC: [ Negative.] HEENT: [ Negative.] CARDIAC: Chest heaviness. PULMONARY: Shortness of breath. GI: [Negative.] : [Negative.] RHEUMATOLOGIC: [ Negative.] IMMUNOLOGIC: [ Negative.] ENDOCRINE: [Negative. ] DERMATOLOGIC: Scratch on right thigh caused by a dog. Past Medical History Past Medical History: Heart Failure, Fibromyalgia, GERD/Reflux, Hyperlipidemia, Hypertension, Pneumonia, Thyroid Disorder Additional Past Medical History / Comment(s): osteoporosis, neuropathy,rheumatic fever as child, home o2 2 liters n/c at hs,diverticular disease,pt stated had some paralysis after neck sx -resolved,"occ nose bleeds" and "i take iron supplement that turns my stool black", cyst on one of her kidneys, shingles approx 2009. History of Any Multi-Drug Resistant Organisms: None Reported Past Surgical History: Back Surgery, Section, Orthopedic Surgery, Tonsillectomy Additional Past Surgical History / Comment(s): bruna mastectomy, bottom of right lung removed, breast implants then removed d/t "bad implants",mechanical aortic valve replacement.neck sx had titanium plate, lt carotid endarterectomy, rt lung nodule removed(benign), bruna cataracts. Past Anesthesia/Blood Transfusion Reactions: No Reported Reaction Additional Past Anesthesia/Blood Transfusion Reaction / Comment(s): clausterphobia. past blood transfusion-no reactions to it. Past Psychological History: No Psychological Hx Reported Smoking Status: Current some day smoker Past Alcohol Use History: None Reported, Rare Past Drug Use History: None Reported - Past Family History Father Family Medical History: Unable to Obtain Additional Family Medical History / Comment(s): dad in accident when pt young -did'nt know his hx. Mother Family Medical History: COPD Additional Family Medical History / Comment(s): age 73 Sister(s) Family Medical History: Cancer Additional Family Medical History / Comment(s): 1 sister- thyroid & breast Ca, brain aneurysm-still alive, #2 breast ca,dementia- 83 age,#3 blood cancer- 50's age. Medications and Allergies Home Medications Medication Instructions Recorded Confirmed Type Levothyroxine Sodium [Synthroid] 75 mcg PO DAILY 05/20/14 09/28/21 History Simvastatin [Zocor] 40 mg PO SUWEFR@1400 05/20/14 09/28/21 History Furosemide 40 mg PO DAILY 12/19/15 09/28/21 History Potassium Chloride ER [K-Dur 20] 40 meq PO DAILY 02/12/16 09/28/21 History Montelukast [Singulair] 10 mg PO DAILY@1400 10/30/19 09/28/21 History Diltiazem HCl [Diltiazem HCl 12Hr 120 mg PO HS 09/28/21 09/28/21 History ER] EPINEPHrine (Auto Inject) [Epipen] 0.3 mg IM ONCE PRN 09/28/21 09/28/21 History Ergocalciferol (Vitamin D2) 1,250 mcg PO SA 09/28/21 09/28/21 History [Drisdol (50,000 Iu)] LORazepam [Ativan] 0.5 mg PO TID 09/28/21 09/28/21 History Megestrol [Megace] 40 mg PO DAILY 09/28/21 09/28/21 History Metoprolol Succinate (ER) [Toprol 50 mg PO DAILY@1400 09/28/21 09/28/21 History Xl] Omeprazole 40 mg PO HS 09/28/21 09/28/21 History Tiotropium 2.5 Mcg/Puff [Spiriva 1 puff INHALATION RT-DAILY PRN 09/28/21 09/28/21 History Respimat 2.5 Mcg] Warfarin [Coumadin] 2 mg PO MOTUSA 09/28/21 09/28/21 History Warfarin [Coumadin] 4 mg PO SUWETHFR 09/28/21 09/28/21 History Yupelri 175mcg/3ml 3 ml INHALATION RT-DAILY@1400 09/28/21 09/28/21 History cloNIDine 0.3 MG/24HR PATCH 1 patch TRANSDERM TU 09/28/21 09/28/21 History [Catapres-Tts 0.3MG Patch] hydrALAZINE HCL [Apresoline] 50 mg PO BID 09/28/21 09/28/21 History lamoTRIgine [LaMICtal] 50 mg PO HS 09/28/21 09/28/21 History metFORMIN HCL [Glucophage] 500 mg PO DAILY PRN 09/28/21 09/28/21 History predniSONE 10 mg PO DAILY 09/28/21 09/28/21 History Allergies Allergy/AdvReac Type Severity Reaction Status Date / Time Latex, Natural Rubber Allergy Rash/Hives Verified 09/28/21 19:05 venom-honey bee Allergy Anaphylaxis Verified 09/28/21 19:05 [bee venom (honey bee)] adhesive AdvReac tears skin Verified 09/28/21 19:05 Iodinated Contrast Media AdvReac Nausea & Verified 09/28/21 19:05 [Iodinated Contrast Media - Vomiting & IV Dye] Diarrhea iodine AdvReac Nausea & Verified 09/28/21 19:05 Vomiting & Diarrhea Physical Exam Osteopathic Statement: *. No significant issues noted on an osteopathic structural exam other than those noted in the History and Physical/Consult. Vitals: Vital Signs Temp Pulse Pulse Resp BP BP Pulse Ox 09/29/21 08:00 98.5 F 96 18 128/75 100 09/29/21 07:34 98 09/29/21 07:25 98 99 09/29/21 04:00 97.8 F 85 17 135/63 99 09/29/21 02:00 82 16 09/29/21 00:00 98.0 F 108 H 17 109/68 97 09/28/21 21:09 101 H 18 113/64 95 09/28/21 18:55 90 18 156/72 94 L 09/28/21 17:30 92 18 201/122 96 09/28/21 15:37 98.2 F 96 18 124/64 98 Intake and Output 09/28/21 09/29/21 09/29/21 22:59 06:59 14:59 Intake Total 376.333 240 Output Total 250 Balance 126.333 240 Intake: Intake, IV Titration 56.333 Amount Heparin Sod,Pork in 0.45% 56.333 NaCl 25,000 unit In 0.45 % NaCl 1 250ml.bag @ 18 UNITS/KG/HR 7.511 mls/hr IV .Q24H [facility] Rx#: [id number] Oral 320 240 Output: Urine 250 Other: # Voids 1 Weight 41.73 kg No acute distress, oriented 3. Currently on room air. HEENT examination is grossly unremarkable. Neck supple. Full range of motion. No adenopathy thyromegaly or neck vein distention. Cardiovascular examination reveals regular rhythm rate. S1-S2 normal. No S3 or S4. No discernible murmur noted. Heart rate 96 bpm. Lungs mostly clear breath sounds. Minimal scattered rhonchi. No wheezes. No crackles. Room air saturation 100%. Abdomen soft bowel sounds are heard. No masses or tenderness. Extremities are intact. No cyanosis clubbing or edema. Skin reveals a skin tear on the right thigh. Also, there are multiple areas of ecchymoses. Neurologic examination is brief but nonfocal. Results - Laboratory Findings CBC and BMP: 09/29/21 01:52 09/28/21 15:49 PT/INR, D-dimer PT 17.9 sec (9.0-12.0) H 09/28/21 16:14 INR 1.8 (<1.2) H 09/28/21 16:14 Abnormal lab findings: Abnormal Labs 09/28/21 09/28/21 09/28/21 15:49 16:14 16:14 WBC 13.3 H MCV Neutrophils # 10.9 H PT 17.9 H INR 1.8 H APTT Sodium 136 L Carbon Dioxide 31 H BUN 18 H Glucose 131 H 09/29/21 09/29/21 01:52 01:52 WBC MCV 101.2 H Neutrophils # 7.8 H PT INR APTT 132.1 H* Sodium Carbon Dioxide BUN Glucose - Diagnostic Findings Chest x-ray: image reviewed CT scan - chest: image reviewed U/S of Legs: image reviewed Assessment and Plan Assessment: Acute pulmonary embolism, right lower lobe pulmonary artery. History of heart failure. Status post biomechanical aortic valve replacement. History of hyperlipidemia. History of hypertension. History of fibromyalgia. History of hypothyroidism. History of neuropathy. History of rheumatic fever. Chronic hypoxemic respiratory failure. Prior history of subdural hematoma. Multiple other medical problems and comorbidities. Plan: Plan dated 09/29/2021. Currently, the patient's on IV heparin. If the patient is to continue on Coumadin, her INR should be between 2-3. Follow make recommendations where appropriate. Labs, x-rays, and medications are all reviewed. Clinically, the patient's very stable. She is on room air with saturations of 100%. She does use oxygen at nighttime at home. She does continue to smoke and we counseled her about the importance of smoking cessation. Prognosis is certainly guarded. Time with Patient: Greater than 30
--- NOTE | 2021-09-29 11:01 | P.HPIM ---
History of Present Illness This is a pleasant 80 his female with past medical history of COPD, hypertension, hyperlipidemia, diabetes mellitus,Fibromyalgia, GERD, chronic hypoxic respiratory failure on 2 L/m of oxygen via nasal cannula, nicotine dependence. Patient is paraplegic for 8 years, she had surgery at that time at her neck consistent she cannot walk. Initialization went to see her PCP because she has some simple scratch wound and bruise in her left distal thigh, however when she went to the doctor she has some heaviness in her chest and left arm numbness, which is resolved within seconds but just heaviness Comment on and off so she got concerned and sent by her PCP to the emergency room. She denies abdominal pain or nausea vomiting or diarrhea. She has little dysuria and darker than usual, she denies headache or numbness, no weakness or dizziness. She denies smoking, alcohol or illicit drugs. She says that her dog is vaccinated and healthy. Patient is hemodynamically stable. Afebrile. showing mild leukocytosis of 13.3, rest of CBC is unremarkable. INR is 1.8. BMP and liver enzymes are unremarkable. Lipase normal. EKG: Normal sinus rhythm at 96, evidence of LVH CTA of the chest: There is single pulmonary embolism in the right lower lobe pulmonary artery and there is some infiltrate and atelectasis lower lobe. Patient was started on heparin drip and admitted with consultation to cardiology and pulmonary team's Past Medical History Past Medical History: Heart Failure, Fibromyalgia, GERD/Reflux, Hyperlipidemia, Hypertension, Pneumonia, Thyroid Disorder Additional Past Medical History / Comment(s): osteoporosis, neuropathy,rheumatic fever as child, home o2 2 liters n/c at hs,diverticular disease,pt stated had some paralysis after neck sx -resolved,"occ nose bleeds" and "i take iron supplement that turns my stool black", cyst on one of her kidneys, shingles approx 2009. History of Any Multi-Drug Resistant Organisms: None Reported Past Surgical History: Back Surgery, Section, Orthopedic Surgery, Tonsillectomy Additional Past Surgical History / Comment(s): bruna mastectomy, bottom of right lung removed, breast implants then removed d/t "bad implants",mechanical aortic valve replacement.neck sx had titanium plate, lt carotid endarterectomy, rt lung nodule removed(benign), bruna cataracts. Past Anesthesia/Blood Transfusion Reactions: No Reported Reaction Additional Past Anesthesia/Blood Transfusion Reaction / Comment(s): clausterphobia. past blood transfusion-no reactions to it. Past Psychological History: No Psychological Hx Reported Smoking Status: Current some day smoker Past Alcohol Use History: None Reported, Rare Past Drug Use History: None Reported - Past Family History Father Family Medical History: Unable to Obtain Additional Family Medical History / Comment(s): dad in accident when pt young -did'nt know his hx. Mother Family Medical History: COPD Additional Family Medical History / Comment(s): age 73 Sister(s) Family Medical History: Cancer Additional Family Medical History / Comment(s): 1 sister- thyroid & breast Ca, brain aneurysm-still alive, #2 breast ca,dementia- 83 age,#3 blood cancer- 50's age. Medications and Allergies Home Medications Medication Instructions Recorded Confirmed Type Levothyroxine Sodium [Synthroid] 75 mcg PO DAILY 05/20/14 09/28/21 History Simvastatin [Zocor] 40 mg PO SUWEFR@1400 05/20/14 09/28/21 History Furosemide 40 mg PO DAILY 12/19/15 09/28/21 History Potassium Chloride ER [K-Dur 20] 40 meq PO DAILY 02/12/16 09/28/21 History Montelukast [Singulair] 10 mg PO DAILY@1400 10/30/19 09/28/21 History Diltiazem HCl [Diltiazem HCl 12Hr 120 mg PO 09/28/21 09/28/21 History ER] EPINEPHrine (Auto Inject) [Epipen] 0.3 mg IM ONCE PRN 09/28/21 09/28/21 History Ergocalciferol (Vitamin D2) 1,250 mcg PO SA 09/28/21 09/28/21 History [Drisdol (50,000 Iu)] LORazepam [Ativan] 0.5 mg PO TID 09/28/21 09/28/21 History Megestrol [Megace] 40 mg PO DAILY 09/28/21 09/28/21 History Metoprolol Succinate (ER) [Toprol 50 mg PO DAILY@1400 09/28/21 09/28/21 History Xl] Omeprazole 40 mg PO 09/28/21 09/28/21 History Tiotropium 2.5 Mcg/Puff [Spiriva 1 puff INHALATION RT-DAILY PRN 09/28/21 09/28/21 History Respimat 2.5 Mcg] Warfarin [Coumadin] 2 mg PO MOTUSA 09/28/21 09/28/21 History Warfarin [Coumadin] 4 mg PO SUWETHFR 09/28/21 09/28/21 History Yupelri 175mcg/3ml 3 ml INHALATION RT-DAILY@1400 09/28/21 09/28/21 History cloNIDine 0.3 MG/24HR PATCH 1 patch TRANSDERM TU 09/28/21 09/28/21 History [Catapres-Tts 0.3MG Patch] hydrALAZINE HCL [Apresoline] 50 mg PO BID 09/28/21 09/28/21 History lamoTRIgine [LaMICtal] 50 mg PO HS 09/28/21 09/28/21 History metFORMIN HCL [Glucophage] 500 mg PO DAILY PRN 09/28/21 09/28/21 History predniSONE 10 mg PO DAILY 09/28/21 09/28/21 History Allergies Allergy/AdvReac Type Severity Reaction Status Date / Time Latex, Natural Rubber Allergy Rash/Hives Verified 09/28/21 19:05 venom-honey bee Allergy Anaphylaxis Verified 09/28/21 19:05 [bee venom (honey bee)] adhesive AdvReac tears skin Verified 09/28/21 19:05 Iodinated Contrast Media AdvReac Nausea & Verified 09/28/21 19:05 [Iodinated Contrast Media - Vomiting & IV Dye] Diarrhea iodine AdvReac Nausea & Verified 09/28/21 19:05 Vomiting & Diarrhea Physical Exam Vitals: Vital Signs Temp Pulse Pulse Resp BP BP Pulse Ox 09/29/21 04:00 97.8 F 85 17 135/63 99 09/29/21 02:00 82 16 09/29/21 00:00 98.0 F 108 H 17 109/68 97 09/28/21 21:09 101 H 18 113/64 95 09/28/21 18:55 90 18 156/72 94 L 09/28/21 17:30 92 18 201/122 96 09/28/21 15:37 98.2 F 96 18 124/64 98 Intake and Output 09/28/21 09/29/21 09/29/21 22:59 06:59 14:59 Intake Total 376.333 Output Total 250 Balance 126.333 Intake: Intake, IV Titration 56.333 Amount Heparin Sod,Pork in 0.45% 56.333 NaCl 25,000 unit In 0.45 % NaCl 1 250ml.bag @ 18 UNITS/KG/HR 7.511 mls/hr IV .Q24H [facility] Rx#: [id number] Oral 320 Output: Urine 250 Other: # Voids 1 Weight 41.73 kg Results CBC & Chem 7: 09/29/21 01:52 09/28/21 15:49 Labs: Abnormal Lab Results - Last 24 Hours (Table) 09/28/21 09/28/21 09/28/21 Range/Units 15:49 16:14 16:14 WBC 13.3 H (3.8-10.6) k/uL MCV (80.0-100.0) fL Neutrophils # 10.9 H (1.3-7.7) k/uL PT 17.9 H (9.0-12.0) sec INR 1.8 H (<1.2) APTT (22.0-30.0) sec Sodium 136 L (137-145) mmol/L Carbon Dioxide 31 H (22-30) mmol/L BUN 18 H (7-17) mg/dL Glucose 131 H (74-99) mg/dL 09/29/21 09/29/21 Range/Units 01:52 01:52 WBC (3.8-10.6) k/uL MCV 101.2 H (80.0-100.0) fL Neutrophils # 7.8 H (1.3-7.7) k/uL PT (9.0-12.0) sec INR (<1.2) APTT 132.1 H* (22.0-30.0) sec Sodium (137-145) mmol/L Carbon Dioxide (22-30) mmol/L BUN (7-17) mg/dL Glucose (74-99) mg/dL Thrombosis Risk Factor Assmnt - Choose All That Apply Any of the Below Risk Factors Present?: Yes Each Risk Factor Represents 3 Points: Age 75 years or older, History of DVT/PE Thrombosis Risk Factor Assessment Total Risk Factor Score: 6 Thrombosis Risk Factor Assessment Level: High Risk Assessment and Plan Assessment: Acute right lower lobe pulmonary embolism Chest pain, Secondary to above Right thigh wound secondary to a dog scratch with bruise Diabetes mellitus Hypertension Hyperlipidemia COPD, no acute exacerbation Chronic hypoxic respiratory failure into the adductor per minute History of fibromyalgia History of GERD Nicotine dependence Plan: This is a pleasant 80 years old female who presents with chest pain Continue with aspirin Continue Coumadin Cardiology consult Topical antibiotic for the right thigh wound Labs and medication were reviewed.. Continue same treatment. Continue with symptomatic treatment. Resume home medication. Monitor lytes and vitals. DVT and GI prophylaxis. Further recommendations as per clinical course of the patient DVT prophylaxis: Coumadine And heparin drip GI Prophylaxis: Pepcid Prognosis is guarded
[2021-09-29 11:34] VITALS: BMI 17.9
[2021-09-29 12:14] LABS: Basophils # (A) 0.1 k/uL (0-0.2); Basophils % (A) 0 %; Eosinophils # (A) 0.1 k/uL (0-0.7); Eosinophils % (A) 1 %; HCT 40.4 % (34.0-46.0); HGB 12.5 gm/dL (11.4-16.0); Lymphocytes # (A) 1.4 k/uL (1.0-4.8); Lymphocytes % (A) 10 %; MCH 31.6 pg (25.0-35.0); Mean Platelet Volume 8.7; Monocytes # (A) 0.7 k/uL (0-1.0); Monocytes % (A) 5 %; Neutrophils % (A) 84 %; Platelet Count 318 k/uL (150-450); RBC 3.96 m/uL (3.80-5.40); RDW 12.7 % (11.5-15.5); WBC 14.3 k/uL (3.8-10.6)
[2021-09-29] MEDS: METOPROLOL SUCCINATE (ER) 50 MG TAB.ER.24H PO SCH (12:54)
[2021-09-29] MEDS: MONTELUKAST 10 MG TAB PO SCH (12:54)
[2021-09-29] MEDS: BACITRACIN OINT 1 EACH PACKET TOPICAL SCH ×2 (12:55→21:14)
[2021-09-29 12:59] LABS: Calcium 9.2 mg/dL (8.4-10.2); Potassium 3.8 mmol/L (3.5-5.1)
--- NOTE | 2021-09-29 13:13 | P.CRDCN ---
History of Present Illness History of present illness: HISTORY OF PRESENTING ILLNESS This is a pleasant 80-year-old with past medical history significant for rheumatic fever, status post mechanical aortic valve replacement on long-term anticoagulation, hypertension, hyperlipidemia, carotid artery stenosis status post endarterectomy, fall with subarachnoid hemorrhage, recent pneumonia 1 month ago been placed on steroids, chronic O2 failure on home O2 at night, breast cancer status post mastectomy, status post partial lobectomy for benign nodule. She follows in the office with Dr Rosario. Patient states there is nothing other ordinary and then started having chest heaviness into her left arm with some numbness down her left arm with numbness improving after a few seconds however continue to have chest heaviness and "felt like it was a heart attack". She's never had a heart attack and prior to her valve replacement 2000 no mention of any significant coronary artery disease per patient. The pain/heaviness lasted for a few hours and was associated with some shortness breath. She came to the emergency department and the pressure has resolved however still feels somewhat fatigued. She is on chronic anticoagulation however her INR was noted to be mildly subtherapeutic at 1.8. CTA of the chest was performed with a readout of single pulmonary embolism in the right lower lobe as well as infiltrate and atelectasis of the right lower lobe. Lower extremity ultrasounds showed no DVT. Troponin 0.019, 0.025, 0.025, proBNP 256. Patient has noted to be in sinus tachycardia with heart rates in the 100-120 range this morning. Patient has been continued on her home metoprolol as well as diltiazem. DIAGNOSTICS EKG reveals normal sinus rhythm and LVH with nonspecific ST depressions REVIEW OF SYSTEMS At the time of my exam: CONSTITUTIONAL: Denies fever or chills. CARDIOVASCULAR: +chest pain, +shortness of breath, no orthopnea, PND or palpitations. RESPIRATORY: Denies cough. GASTROINTESTINAL: Denies abdominal pain, diarrhea, constipation, nausea or vomiting. MUSCULOSKELETAL: Denies myalgias. NEUROLOGIC: Denies numbness, tingling or weakness. ENDOCRINE: Denies fatigue, weight change, polydipsia or polyurina. GENITOURINARY: Denies burning, hematuria or urgency with micturation. HEMATOLOGIC: Denies history of anemia or bleeding. PHYSICAL EXAMINATION Vital signs reviewed. CONSTITUTIONAL: No apparent distress, chronically ill appearing HEENT: Head is normocephalic. Pupils are equal, round. Sclerae anicteric. Mucous membranes of the mouth are moist. No JVD. No carotid bruit. CHEST EXAMINATION: Decreased breath sounds bilaterally HEART EXAMINATION: Tachy rate and regular rhythm. S1, S2 heard. +2/6 murmur, no gallops or rub. ABDOMEN: Soft, nontender. Positive bowel sounds. EXTREMITIES: 2+ peripheral pulses, no lower extremity edema and no calf tenderness. NEUROLOGIC EXAMINATION: Patient is awake, alert and oriented x3. ASSESSMENT 1. Chest pressure and shortness of breath, troponin is normal 3 2. Right lower lobe small pulmonary embolism 3. Mildly subtherapeutic INR 4. History of Rheumatic fever 5. Status post mechanical aortic valve replacement 6. Carotid artery disease status post carotid endarterectomy 7. Hypertension, labile blood pressures believes related to anxiety 8. Hyperlipidemia 9. COPD 10. Chronic respiratory failure on home oxygen at night 11. Sinus tachycardia 12. Recent pneumonia and on antibiotics for last 1 month 13. Prior subarachnoid hemorrhage from fall a few years ago PLAN Patient with multiple complex medical problems. She presented with chest pain and shortness breath with troponins normal and EKG showing nonspecific LVH and ST depressions. Some of this may be related to pulmonary embolism however rare to have pulmonary embolism if she has been on Coumadin. Mildly subtherapeutic INR however states normally fairly therapeutic. Check 2-D echo. Patient will require stress testing possibly on Friday versus outpatient depending progress. Continue heparin drip with goal INR 2-3. Past Medical History Past Medical History: Heart Failure, Fibromyalgia, GERD/Reflux, Hyperlipidemia, Hypertension, Pneumonia, Thyroid Disorder Additional Past Medical History / Comment(s): osteoporosis, neuropathy,rheumatic fever as child, home o2 2 liters n/c at hs,diverticular disease,pt stated had some paralysis after neck sx -resolved,"occ nose bleeds" and "i take iron supplement that turns my stool black", cyst on one of her kidneys, shingles approx 2009. History of Any Multi-Drug Resistant Organisms: None Reported Past Surgical History: Back Surgery, Section, Orthopedic Surgery, Tonsillectomy Additional Past Surgical History / Comment(s): bruna mastectomy, bottom of right lung removed, breast implants then removed d/t "bad implants",mechanical aortic valve replacement.neck sx had titanium plate, lt carotid endarterectomy, rt lung nodule removed(benign), bruna cataracts. Past Anesthesia/Blood Transfusion Reactions: No Reported Reaction Additional Past Anesthesia/Blood Transfusion Reaction / Comment(s): clausterphobia. past blood transfusion-no reactions to it. Past Psychological History: No Psychological Hx Reported Smoking Status: Current some day smoker Past Alcohol Use History: None Reported, Rare Past Drug Use History: None Reported - Past Family History Father Family Medical History: Unable to Obtain Additional Family Medical History / Comment(s): dad in accident when pt young -did'nt know his hx. Mother Family Medical History: COPD Additional Family Medical History / Comment(s): age 73 Sister(s) Family Medical History: Cancer Additional Family Medical History / Comment(s): 1 sister- thyroid & breast Ca, brain aneurysm-still alive, #2 breast ca,dementia- 83 age,#3 blood cancer- 50's age. Medications and Allergies Home Medications Medication Instructions Recorded Confirmed Type Levothyroxine Sodium [Synthroid] 75 mcg PO DAILY 05/20/14 09/28/21 History Simvastatin [Zocor] 40 mg PO SUWEFR@1400 05/20/14 09/28/21 History Furosemide 40 mg PO DAILY 12/19/15 09/28/21 History Potassium Chloride ER [K-Dur 20] 40 meq PO DAILY 02/12/16 09/28/21 History Montelukast [Singulair] 10 mg PO DAILY@1400 10/30/19 09/28/21 History Diltiazem HCl [Diltiazem HCl 12Hr 120 mg PO 09/28/21 09/28/21 History ER] EPINEPHrine (Auto Inject) [Epipen] 0.3 mg IM ONCE PRN 09/28/21 09/28/21 History Ergocalciferol (Vitamin D2) 1,250 mcg PO SA 09/28/21 09/28/21 History [Drisdol (50,000 Iu)] LORazepam [Ativan] 0.5 mg PO TID 09/28/21 09/28/21 History Megestrol [Megace] 40 mg PO DAILY 09/28/21 09/28/21 History Metoprolol Succinate (ER) [Toprol 50 mg PO DAILY@1400 09/28/21 09/28/21 History Xl] Omeprazole 40 mg PO 09/28/21 09/28/21 History Tiotropium 2.5 Mcg/Puff [Spiriva 1 puff INHALATION RT-DAILY PRN 09/28/21 09/28/21 History Respimat 2.5 Mcg] Warfarin [Coumadin] 2 mg PO MOTUSA 09/28/21 09/28/21 History Warfarin [Coumadin] 4 mg PO SUWETHFR 09/28/21 09/28/21 History Yupelri 175mcg/3ml 3 ml INHALATION RT-DAILY@1400 09/28/21 09/28/21 History cloNIDine 0.3 MG/24HR PATCH 1 patch TRANSDERM TU 09/28/21 09/28/21 History [Catapres-Tts 0.3MG Patch] hydrALAZINE HCL [Apresoline] 50 mg PO BID 09/28/21 09/28/21 History lamoTRIgine [LaMICtal] 50 mg PO HS 09/28/21 09/28/21 History metFORMIN HCL [Glucophage] 500 mg PO DAILY PRN 09/28/21 09/28/21 History predniSONE 10 mg PO DAILY 09/28/21 09/28/21 History Allergies Allergy/AdvReac Type Severity Reaction Status Date / Time Latex, Natural Rubber Allergy Rash/Hives Verified 09/28/21 19:05 venom-honey bee Allergy Anaphylaxis Verified 09/28/21 19:05 [bee venom (honey bee)] adhesive AdvReac tears skin Verified 09/28/21 19:05 Iodinated Contrast Media AdvReac Nausea & Verified 09/28/21 19:05 [Iodinated Contrast Media - Vomiting & IV Dye] Diarrhea iodine AdvReac Nausea & Verified 09/28/21 19:05 Vomiting & Diarrhea Physical Exam Vitals: Vital Signs Temp Pulse Pulse Resp BP BP Pulse Ox 09/29/21 08:00 98.5 F 96 18 128/75 100 09/29/21 07:34 98 09/29/21 07:25 98 99 09/29/21 04:00 97.8 F 85 17 135/63 99 09/29/21 02:00 82 16 09/29/21 00:00 98.0 F 108 H 17 109/68 97 09/28/21 21:09 101 H 18 113/64 95 09/28/21 18:55 90 18 156/72 94 L 09/28/21 17:30 92 18 201/122 96 09/28/21 15:37 98.2 F 96 18 124/64 98 Intake and Output 09/28/21 09/29/21 09/29/21 22:59 06:59 14:59 Intake Total 376.333 240 Output Total 250 Balance 126.333 240 Intake: Intake, IV Titration 56.333 Amount Heparin Sod,Pork in 0.45% 56.333 NaCl 25,000 unit In 0.45 % NaCl 1 250ml.bag @ 18 UNITS/KG/HR 7.511 mls/hr IV .Q24H [facility] Rx#: [id number] Oral 320 240 Output: Urine 250 Other: # Voids 1 Weight 41.73 kg 41.73 kg Results 09/29/21 11:48 09/28/21 15:49 Cardiac Enzymes 09/28/21 09/28/21 09/28/21 Range/Units 15:49 15:49 22:30 AST 22 (14-36) U/L Troponin I 0.019 0.025 (0.000-0.034) ng/mL 09/29/21 Range/Units 01:52 AST (14-36) U/L Troponin I 0.025 (0.000-0.034) ng/mL Coagulation 09/28/21 09/29/21 09/29/21 Range/Units 16:14 01:52 11:48 PT 17.9 H (9.0-12.0) sec APTT 24.4 132.1 H* 70.6 H (22.0-30.0) sec CBC 09/28/21 09/29/21 09/29/21 Range/Units 16:14 01:52 11:48 WBC 13.3 H 9.5 14.3 H (3.8-10.6) k/uL RBC 4.17 3.91 3.96 (3.80-5.40) m/uL Hgb 13.4 12.7 12.5 (11.4-16.0) gm/dL Hct 41.5 39.6 40.4 (34.0-46.0) % Plt Count 364 346 318 (150-450) k/uL Comprehensive Metabolic Panel 09/28/21 Range/Units 15:49 Sodium 136 L (137-145) mmol/L Potassium 3.9 (3.5-5.1) mmol/L Chloride 98 (98-107) mmol/L Carbon Dioxide 31 H (22-30) mmol/L BUN 18 H (7-17) mg/dL Creatinine 0.84 (0.52-1.04) mg/dL Glucose 131 H (74-99) mg/dL Calcium 9.7 (8.4-10.2) mg/dL AST 22 (14-36) U/L ALT 14 (4-34) U/L Alkaline Phosphatase 72 (38-126) U/L Total Protein 6.5 (6.3-8.2) g/dL Albumin 4.3 (3.5-5.0) g/dL Current Medications Generic Name Dose Route Start Last Admin Trade Name Freq PRN Reason Stop Dose Admin Atorvastatin Calcium 20 mg 09/30/21 14:00 Atorvastatin 20 Mg Tab PO SUWEFR@1400 [facility] Bacitracin 1 each 09/29/21 11:15 Bacitracin Oint 1 Each Packet TOPICAL 10/02/21 11:16 BID [facility] Protocol Diltiazem HCl 120 mg 09/28/21 22:00 09/28/21 23:06 Diltiazem Cd 120 Mg Cap.Er.24h PO 120 mg HS [facility] Administration Furosemide 40 mg 09/29/21 09:00 09/29/21 07:58 Furosemide 40 Mg Tab PO 40 mg DAILY [facility] Administration Heparin Sodium (Porcine) 0 unit 09/28/21 18:26 Heparin Sodium 1,000 Un/Ml (10ml Vl) IV PER PROTOCOL PRN Low PTT Protocol Hydralazine HCl 50 mg 09/28/21 22:00 09/29/21 07:58 Hydralazine Hcl 50 Mg Tab PO 50 mg BID [facility] Administration Heparin Sodium/Sodium Chloride 250 mls @ 7.511 mls/hr 09/28/21 18:30 09/29/21 04:33 25,000 unit/ Sodium Chloride IV 15 units/kg/hr .Q24H [facility] 6.26 mls/hr Titration Protocol 18 UNITS/KG/HR Ipratropium [place] 0.5 mg 09/28/21 21:55 09/29/21 07:24 Ipratropium 0.5 Mg/2.5 Ml Nebu INHALATION 0.5 mg RT-QID PRN Administration Shortness Of Breath Lamotrigine 50 mg 09/28/21 22:00 09/28/21 23:05 Lamotrigine 25 Mg Tab PO 50 mg HS [facility] Administration Levothyroxine Sodium 75 mcg 09/29/21 06:30 09/29/21 06:31 Levothyroxine 75 Mcg Tab PO 75 mcg DAILY@0630 [facility] Administration Lorazepam 0.5 mg 09/28/21 22:00 09/29/21 07:58 Lorazepam 0.5 Mg Tab PO 0.5 mg TID [facility] Administration Megestrol Acetate 40 mg 09/28/21 22:00 09/29/21 07:59 Megestrol 40 Mg Tab PO 40 mg DAILY [facility] Administration Metoprolol Succinate 50 mg 09/29/21 14:00 Metoprolol Succinate (Er) 50 Mg Tab.Er.24h PO DAILY@1400 [facility] Montelukast Sodium 10 mg 09/29/21 14:00 Montelukast 10 Mg Tab PO DAILY@1400 [facility] Naloxone HCl 0.2 mg 09/28/21 18:49 Naloxone 0.4 Mg/Ml 1 Ml Vial IV Q2M PRN Opioid Reversal Non-Formulary Medication 3 ml 09/29/21 14:00 Yupelri 175mcg/3ml INHALATION RT-DAILY@1400 [facility] Pantoprazole Sodium 40 mg 09/28/21 22:00 09/28/21 23:06 Pantoprazole 40 Mg Tablet PO 40 mg HS [facility] Administration Potassium Chloride 40 meq 09/28/21 22:00 09/29/21 07:58 Potassium Chloride Er 20 Meq Tab.Er PO 40 meq DAILY [facility] Administration Prednisone 10 mg 09/29/21 09:00 09/29/21 07:58 Prednisone 10 Mg Tab PO 10 mg DAILY [facility] Administration Intake and Output 09/28/21 09/29/21 09/29/21 22:59 06:59 14:59 Intake Total 376.333 240 Output Total 250 Balance 126.333 240 Intake: Intake, IV Titration 56.333 Amount Heparin Sod,Pork in 0.45% 56.333 NaCl 25,000 unit In 0.45 % NaCl 1 250ml.bag @ 18 UNITS/KG/HR 7.511 mls/hr IV .Q24H [facility] Rx#: [id number] Oral 320 240 Output: Urine 250 Other: # Voids 1 Weight 41.73 kg 41.73 kg Patient Weight 09/30/21 06:59 Weight 41.73 kg 09/29/21 11:48 09/28/21 15:49
[2021-09-29] MEDS ORDERED: ACETAMINOPHEN TAB 500 MG TAB PO PRN (17:01)
[2021-09-29] MEDS: PANTOPRAZOLE 40 MG TABLET PO SCH (21:13)
[2021-09-29] MEDS: lamoTRIgine 25 MG TAB PO SCH (21:13)
[2021-09-29] MEDS: DILTIAZEM CD 120 MG CAP.ER.24H PO SCH (21:13)
[2021-09-29] MEDS: NICOTINE 21MG/24HR PATCH TRANSDERM SCH (21:19)
[2021-09-29] MEDS ORDERED: hydrALAZINE HCL 25 MG TAB PO PRN (23:19)
[2021-09-29] MEDS ORDERED: WARFARIN 2 MG TAB PO ONE (23:45)
[2021-09-30] MEDS: YUPELRI 175 MCG/3 ML INHALATION SCH ×2 (00:08→21:49)
[2021-09-30] MEDS: LEVOTHYROXINE 75 MCG TAB PO SCH (05:50)
[2021-09-30] MEDS: HEPARIN SOD,PORK IN 0.45% NACL 25,000 UNIT in 0.45% NACL 1 250ML.BAG IV SCH (05:53)
[2021-09-30 06:37] LABS: Glucose,Whole Blood 91 mg/dL (75-99)
[2021-09-30 06:46] LABS: Potassium 3.9 mmol/L (3.5-5.1)
[2021-09-30 06:47] LABS: Calcium 9.1 mg/dL (8.4-10.2)
[2021-09-30 06:50] LABS: Basophils # (A) 0.1 k/uL (0-0.2); Basophils % (A) 0 %; Eosinophils # (A) 0.1 k/uL (0-0.7); Eosinophils % (A) 1 %; HCT 36.3 % (34.0-46.0); Lymphocytes # (A) 3.1 k/uL (1.0-4.8); Lymphocytes % (A) 21 %; MCH 32.7 pg (25.0-35.0); MCHC 33.2 g/dL (31.0-37.0); MCV 98.6 fL (80.0-100.0); Mean Platelet Volume 9.5; Monocytes # (A) 1.2 k/uL (0-1.0); Monocytes % (A) 8 %; Neutrophils # (A) 9.9 k/uL (1.3-7.7); Neutrophils % (A) 68 %; Platelet Count 297 k/uL (150-450); RBC 3.68 m/uL (3.80-5.40); RDW 13.5 % (11.5-15.5); WBC 14.6 k/uL (3.8-10.6)
[2021-09-30 06:55] LABS: INR 1.5 (<1.2); Prothrombin Time 15.9 sec (9.0-12.0)
[2021-09-30] MEDS: NICOTINE 21MG/24HR PATCH TRANSDERM SCH (08:15)
[2021-09-30] MEDS: hydrALAZINE HCL 50 MG TAB PO SCH ×2 (08:15→19:49)
[2021-09-30] MEDS: predniSONE 10 MG TAB PO SCH (08:15)
[2021-09-30] MEDS: LORazepam 0.5 MG TAB PO SCH ×3 (08:15→21:48)
[2021-09-30] MEDS: MEGESTROL 40 MG TAB PO SCH (08:15)
[2021-09-30] MEDS: FUROSEMIDE 40 MG TAB PO SCH (08:15)
[2021-09-30] MEDS: POTASSIUM CHLORIDE ER 20 MEQ TAB.ER PO SCH (08:15)
[2021-09-30] MEDS: BACITRACIN OINT 1 EACH PACKET TOPICAL SCH ×2 (08:15→19:46)
--- NOTE | 2021-09-30 10:12 | P.PN ---
Subjective This is a pleasant 80 his female with past medical history of COPD, hypertension, hyperlipidemia, diabetes mellitus,Fibromyalgia, GERD, chronic hypo xic respiratory failure on 2 L/m of oxygen via nasal cannula, nicotine dependence. Patient is paraplegic for 8 years, she had surgery at that time at her neck consistent she cannot walk. Initialization went to see her PCP because she has some simple scratch wound and bruise in her left distal thigh, however when she went to the doctor she has some heaviness in her chest and left arm numbness, which is resolved within seconds but just heaviness Comment on and off so she got concerned and sent by her PCP to the emergency room. She denies abdominal pain or nausea vomiting or diarrhea. She has little dysuria and darker than usual, she denies headache or numbness, no weakness or dizziness. She denies smoking, alcohol or illicit drugs. She says that her dog is vaccinated and healthy. Patient is hemodynamically stable. Afebrile. showing mild leukocytosis of 13.3, rest of CBC is unremarkable. INR is 1.8. BMP and liver enzymes are unremarkable. Lipase normal. EKG: Normal sinus rhythm at 96, evidence of LVH CTA of the chest: There is single pulmonary embolism in the right lower lobe pulmonary artery and there is some infiltrate and atelectasis lower lobe. Patient was started on heparin drip and admitted with consultation to cardiology and pulmonary team's 09/30/2021 Patient breathing is quiet today, no dyspnea, she got some exertional dyspnea when she works to the bathroom. She has no chest pain today. Her right thigh wound is also improving She's hemodynamically stable and oxygen level is acceptable. Blood pressure 128/65. INR is 1.5 she got 6 mg of Coumadin lid last night so it might be not very accurate result. We will check INR again tomorrow. Jez is currently on heparin drip and Coumadin, she takes Coumadin for her. Also replacement disease. Chest mild leukocytosis but also she is on steroids. 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 they recommended a stress test as an outpatient or tomorrow on Friday Objective - Vital Signs Vital signs: Vital Signs Temp 99.4 F 09/30/21 08:00 Pulse 68 09/30/21 08:00 Resp 18 09/30/21 08:00 BP 128/65 09/30/21 08:00 Pulse Ox 96 09/30/21 08:00 Intake & Output 09/29/21 09/30/21 09/30/21 18:59 06:59 18:59 Intake Total 472.688 91.773 Output Total 400 Balance 472.688 -308.227 Weight 41.73 kg Intake: Intake, IV Titration 52.688 91.773 Amount Heparin Sod,Pork in 0.45% 52.688 91.773 NaCl 25,000 unit In 0.45 % NaCl 1 250ml.bag @ 18 UNITS/KG/HR 7.511 mls/hr IV .Q24H [facility] Rx#: [id number] Oral 420 Output: Urine 400 Other: # Voids 3 - Exam GENERAL: The patient is alert and oriented x3, not in any acute distress. Well developed, well nourished. HEENT: Pupils are round and equally reacting to light. EOMI. No scleral icterus. No conjunctival pallor. Normocephalic, atraumatic. No pharyngeal erythema. No thyromegaly. CARDIOVASCULAR: S1 and S2 present. No murmurs, rubs, or gallops. PULMONARY: Chest is clear to auscultation, no wheezing or crackles. ABDOMEN: Soft, nontender, nondistended, normoactive bowel sounds. No palpable organomegaly. MUSCULOSKELETAL: No joint swelling or deformity. EXTREMITIES: No cyanosis, clubbing, or pedal edema. NEUROLOGICAL: Gross neurological examination did not reveal any focal deficits. SKIN: No rashes. no petechiae. - Labs CBC & Chem 7: 09/30/21 06:18 09/30/21 06:18 Labs: Abnormal Lab Results - Last 24 Hours (Table) 09/29/21 09/29/21 09/29/21 Range/Units 11:48 11:48 11:48 WBC 14.3 H (3.8-10.6) k/uL RBC (3.80-5.40) m/uL MCV 102.0 H (80.0-100.0) fL Neutrophils # 12.0 H (1.3-7.7) k/uL Monocytes # (0-1.0) k/uL PT (9.0-12.0) sec INR (<1.2) APTT 70.6 H (22.0-30.0) sec Sodium 136 L (137-145) mmol/L BUN 22 H (7-17) mg/dL Glucose 258 H (74-99) mg/dL 09/29/21 09/30/21 09/30/21 Range/Units 19:49 06:18 06:18 WBC 14.6 H (3.8-10.6) k/uL RBC 3.68 L (3.80-5.40) m/uL MCV (80.0-100.0) fL Neutrophils # 9.9 H (1.3-7.7) k/uL Monocytes # 1.2 H (0-1.0) k/uL PT 15.9 H (9.0-12.0) sec INR 1.5 H (<1.2) APTT 46.4 H (22.0-30.0) sec Sodium (137-145) mmol/L BUN (7-17) mg/dL Glucose (74-99) mg/dL 09/30/21 Range/Units 06:18 WBC (3.8-10.6) k/uL RBC (3.80-5.40) m/uL MCV (80.0-100.0) fL Neutrophils # (1.3-7.7) k/uL Monocytes # (0-1.0) k/uL PT (9.0-12.0) sec INR (<1.2) APTT (22.0-30.0) sec Sodium 135 L (137-145) mmol/L BUN 32 H (7-17) mg/dL Glucose (74-99) mg/dL Assessment and Plan Assessment: Acute right lower lobe pulmonary embolism Chest pain, Secondary to above , 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 Right thigh wound secondary to a dog scratch with bruise History of aortic valve replacement, on Coumadin Diabetes mellitus Hypertension Hyperlipidemia COPD, no acute exacerbation Chronic hypoxic respiratory failure into the adductor per minute History of fibromyalgia History of GERD Nicotine dependence Plan: This is a pleasant 80 years old female who presents with chest pain Continue with aspirin Continue Coumadin, with bridging with heparin drip Cardiology consult, recommending a stress test tomorrow or as an outpatient Topical antibiotic for the right thigh wound Labs and medication were reviewed.. Continue same treatment. Continue with symptomatic treatment. Resume home medication. Monitor lytes and vitals. DVT and GI prophylaxis. Further recommendations as per clinical course of the patient DVT prophylaxis: Coumadine And heparin drip GI Prophylaxis: Pepcid Prognosis is guarded
--- NOTE | 2021-09-30 11:34 | P.PN ---
Subjective Progress Note Date: 09/30/21 Principal diagnosis: Pulmonary embolism. Pulmonary consult 09/29/2021. 80-year-old female with a history of multiple medical problems including congestive heart failure, previous aortic valve replacement with a biomechanical valve, on Coumadin chronically, and hypertension, who initially was directed to the ER because of the fact that her dog jumped on her, and scratched her right thigh. While she was in the emergency room, she apparently told the attending physician, that she was having shortness of breath and chest pressure. For that reason, the patient was further evaluated, and was found to have a right lower lobe pulmonary embolism. Interestingly, the patient is on Coumadin chronically, although her INR was 1.8. Currently, the patient appears to be relatively comfortable. She does use home oxygen at 2 L just at nighttime. She does continue to smoke. The patient is currently on IV heparin. She is on room air. She states that her health has been declining since last February. White count 9.5, hemoglobin 12.7, hematocrit 39.6, and platelet count 346,000. PTT is 132. PT 17.9 with an INR 1.8. Labs from yesterday are reviewed. Troponin was 0.019, 0.025, and 0.025. Dopplers of the lower extremities were negative for DVT. A chest CT showed a single pulmonary embolism, right lower lobe. Progress note dated 09/30/2021. This was a patient that we saw yesterday in consultation. She has a history of multiple medical problems including CHF, aortic valve replacement, hypertension, and was seen in the emergency room, for chest pressure and shortness of breath. She was found to have a pulmonary embolism in the right lower lobe. Her PT/INR was not therapeutic. She was previously on Coumadin. Currently, she is on IV heparin. White count 14.6, hemoglobin 12, hematocrit 36.3, and platelet count 297,000. Her INR today is 1.5. Sodium 135, potassium 3.9, chlorides 104, CO2 25, BUN 32, and creatinine 0.85. Objective - Vital Signs Vital signs: Vital Signs Temp 99.4 F 09/30/21 08:00 Pulse 68 09/30/21 08:00 Resp 18 09/30/21 08:00 BP 128/65 09/30/21 08:00 Pulse Ox 96 09/30/21 08:00 Intake & Output 09/29/21 09/30/21 09/30/21 18:59 06:59 18:59 Intake Total 472.688 91.773 240 Output Total 400 Balance 472.688 -308.227 240 Weight 41.73 kg Intake: Intake, IV Titration 52.688 91.773 Amount Heparin Sod,Pork in 0.45% 52.688 91.773 NaCl 25,000 unit In 0.45 % NaCl 1 250ml.bag @ 18 UNITS/KG/HR 7.511 mls/hr IV .Q24H [facility] Rx#: [id number] Oral 420 240 Output: Urine 400 Other: # Voids 3 - Exam No acute distress, oriented 3. Currently on room air. Saturations are 96%. HEENT examination is grossly unremarkable. Neck supple. Full range of motion. No adenopathy thyromegaly or neck vein d istention. Cardiovascular examination reveals regular rhythm rate. S1-S2 normal. No S3 or S4. No discernible murmur noted. Heart rate 68 bpm. Lungs mostly clear breath sounds. Minimal scattered rhonchi. No wheezes. No crackles. Room air saturation 96 %. Abdomen soft bowel sounds are heard. No masses or tenderness. Extremities are intact. No cyanosis clubbing or edema. Skin reveals a skin tear on the right thigh. Also, there are multiple areas of ecchymoses. Neurologic examination is brief but nonfocal. - Labs CBC & Chem 7: 09/30/21 06:18 09/30/21 06:18 Labs: Abnormal Lab Results - Last 24 Hours (Table) 09/29/21 09/29/21 09/29/21 Range/Units 11:48 11:48 11:48 WBC 14.3 H (3.8-10.6) k/uL RBC (3.80-5.40) m/uL MCV 102.0 H (80.0-100.0) fL Neutrophils # 12.0 H (1.3-7.7) k/uL Monocytes # (0-1.0) k/uL PT (9.0-12.0) sec INR (<1.2) APTT 70.6 H (22.0-30.0) sec Sodium 136 L (137-145) mmol/L BUN 22 H (7-17) mg/dL Glucose 258 H (74-99) mg/dL 09/29/21 09/30/21 09/30/21 Range/Units 19:49 06:18 06:18 WBC 14.6 H (3.8-10.6) k/uL RBC 3.68 L (3.80-5.40) m/uL MCV (80.0-100.0) fL Neutrophils # 9.9 H (1.3-7.7) k/uL Monocytes # 1.2 H (0-1.0) k/uL PT 15.9 H (9.0-12.0) sec INR 1.5 H (<1.2) APTT 46.4 H (22.0-30.0) sec Sodium (137-145) mmol/L BUN (7-17) mg/dL Glucose (74-99) mg/dL 09/30/21 Range/Units 06:18 WBC (3.8-10.6) k/uL RBC (3.80-5.40) m/uL MCV (80.0-100.0) fL Neutrophils # (1.3-7.7) k/uL Monocytes # (0-1.0) k/uL PT (9.0-12.0) sec INR (<1.2) APTT (22.0-30.0) sec Sodium 135 L (137-145) mmol/L BUN 32 H (7-17) mg/dL Glucose (74-99) mg/dL Assessment and Plan Assessment: Acute pulmonary embolism, right lower lobe pulmonary artery. History of heart failure. Status post biomechanical aortic valve replacement. History of hyperlipidemia. History of hypertension. History of fibromyalgia. History of hypothyroidism. History of neuropathy. History of rheumatic fever. Chronic hypoxemic respiratory failure. Prior history of subdural hematoma. Multiple other medical problems and comorbidities. Plan: Plan dated 09/29/2021. Currently, the patient's on IV heparin. If the patient is to continue on Coumadin, her INR should be between 2-3. Follow make recommendations where appropriate. Labs, x-rays, and medications are all reviewed. Clinically, the patient's very stable. She is on room air with saturations of 100%. She does use oxygen at nighttime at home. She does continue to smoke and we counseled her about the importance of smoking cessation. Prognosis is certainly guarded. Plan dated 09/30/2021. The patient denies any significant chest pressure or shortness of breath. The patient remains on IV heparin. She's on room air. Saturations are excellent. Today's INR is 1.1.5. We will continue to follow make recommendations where appropriate. The patient is counseled about the importance of smoking cessation. Additional recommendations and suggestions are forthcoming. Prognosis is certainly guarded. Time with Patient: Less than 30
[2021-09-30 12:11] LABS: Glucose,Whole Blood 119 mg/dL (75-99)
[2021-09-30] MEDS: IPRATROPIUM 0.5 MG/2.5 ML NEBU INHALATION SCH (12:19)
[2021-09-30] MEDS ORDERED: AMINOPHYLLINE 500 MG/20 ML VIAL IV PRN (13:38)
[2021-09-30] MEDS ORDERED: CAFFEINE CITRATE 60 MG/3 ML VIAL IV PRN (13:38)
--- NOTE | 2021-09-30 13:38 | P.PN ---
Subjective HISTORY OF PRESENTING ILLNESS This is a pleasant 80-year-old with past medical history significant for rheumatic fever, status post mechanical aortic valve replacement on long-term anticoagulation, hypertension, hyperlipidemia, carotid artery stenosis status post endarterectomy, fall with subarachnoid hemorrhage, recent pneumonia 1 month ago been placed on steroids, chronic O2 failure on home O2 at night, breast cancer status post mastectomy, status post partial lobectomy for benign nodule. She follows in the office with Dr Rosario. Patient states there is nothing other ordinary and then started having chest heaviness into her left arm with some numbness down her left arm with numbness improving after a few seconds however continue to have chest heaviness and "felt like it was a heart attack". She's never had a heart attack and prior to her valve replacement 2000 no mention of any significant coronary artery disease per patient. The pain/heaviness lasted for a few hours and was associated with some shortness breath. She came to the emergency department and the pressure has resolved however still feels somewhat fatigued. She is on chronic anticoagulation however her INR was noted to be mildly subtherapeutic at 1.8. CTA of the chest was performed with a readout of single pulmonary embolism in the right lower lobe as well as infiltrate and atelectasis of the right lower lobe. Lower extremity ultrasounds showed no DVT. Troponin 0.019, 0.025, 0.025, proBNP 256. Patient has noted to be in sinus tachycardia with heart rates in the 100-120 range this morning. Patient has been continued on her home metoprolol as well as diltiazem. DIAGNOSTICS EKG reveals normal sinus rhythm and LVH with nonspecific ST depressions 09/30 Patient seen and examined. Admits to continued episodes of chest pain however this was improved with inhalers. She denies any palpitations. She did not receive any Coumadin yesterday and INR today 1.5 on the heparin drip. PHYSICAL EXAMINATION Vital signs reviewed. CONSTITUTIONAL: No apparent distress, chronically ill appearing HEENT: Head is normocephalic. Pupils are equal, round. Sclerae anicteric. Mucous membranes of the mouth are moist. No JVD. No carotid bruit. CHEST EXAMINATION: Decreased breath sounds bilaterally HEART EXAMINATION: Tachy rate and regular rhythm. S1, S2 heard. +2/6 murmur, no gallops or rub. ABDOMEN: Soft, nontender. Positive bowel sounds. EXTREMITIES: 2+ peripheral pulses, no lower extremity edema and no calf tenderness. NEUROLOGIC EXAMINATION: Patient is awake, alert and oriented x3. ASSESSMENT 1. Chest pressure and shortness of breath, troponin is normal 3 2. Right lower lobe small pulmonary embolism 3. Mildly subtherapeutic INR 4. History of Rheumatic fever 5. Status post mechanical aortic valve replacement 6. Carotid artery disease status post carotid endarterectomy 7. Hypertension, labile blood pressures believes related to anxiety 8. Hyperlipidemia 9. COPD 10. Chronic respiratory failure on home oxygen at night 11. Sinus tachycardia 12. Recent pneumonia and on antibiotics for last 1 month 13. Prior subarachnoid hemorrhage from fall a few years ago PLAN She presented with chest pain and shortness breath with troponins normal and EKG showing nonspecific LVH and ST depressions. Some of this may be related to pulmonary embolism however rare to have pulmonary embolism if she has been on Coumadin. Mildly subtherapeutic INR however states normally fairly therapeutic. Await 2-D echo. Lexiscan stress test Friday. Continue heparin drip with goal INR 2-3. Further recommendations to follow. Objective - Vital Signs Vital signs: Vital Signs Temp 98.2 F 09/30/21 11:44 Pulse 84 09/30/21 12:28 Resp 18 09/30/21 11:44 BP 147/62 09/30/21 11:44 Pulse Ox 100 09/30/21 11:44 Intake & Output 09/29/21 09/30/21 09/30/21 18:59 06:59 18:59 Intake Total 472.688 91.773 240 Output Total 400 Balance 472.688 -308.227 240 Weight 41.73 kg Intake: Intake, IV Titration 52.688 91.773 Amount Heparin Sod,Pork in 0.45% 52.688 91.773 NaCl 25,000 unit In 0.45 % NaCl 1 250ml.bag @ 18 UNITS/KG/HR 7.511 mls/hr IV .Q24H RIAN Rx#: [id number] Oral 420 240 Output: Urine 400 Other: # Voids 3 - Labs CBC & Chem 7: 09/30/21 06:18 09/30/21 06:18 Labs: Abnormal Lab Results - Last 24 Hours (Table) 09/29/21 09/30/21 09/30/21 Range/Units 19:49 06:18 06:18 WBC 14.6 H (3.8-10.6) k/uL RBC 3.68 L (3.80-5.40) m/uL Neutrophils # 9.9 H (1.3-7.7) k/uL Monocytes # 1.2 H (0-1.0) k/uL PT 15.9 H (9.0-12.0) sec INR 1.5 H (<1.2) APTT 46.4 H (22.0-30.0) sec Sodium (137-145) mmol/L BUN (7-17) mg/dL POC Glucose (mg/dL) (75-99) mg/dL 09/30/21 09/30/21 Range/Units 06:18 11:59 WBC (3.8-10.6) k/uL RBC (3.80-5.40) m/uL Neutrophils # (1.3-7.7) k/uL Monocytes # (0-1.0) k/uL PT (9.0-12.0) sec INR (<1.2) APTT (22.0-30.0) sec Sodium 135 L (137-145) mmol/L BUN 32 H (7-17) mg/dL POC Glucose (mg/dL) 119 H (75-99) mg/dL
[2021-09-30] MEDS ORDERED: ATORVASTATIN 20 MG TAB PO SCH (14:00)
[2021-09-30] MEDS: MONTELUKAST 10 MG TAB PO SCH (15:35)
[2021-09-30] MEDS: METOPROLOL SUCCINATE (ER) 50 MG TAB.ER.24H PO SCH (15:35)
[2021-09-30 16:45] LABS: Glucose,Whole Blood 153 mg/dL (75-99)
[2021-09-30] MEDS ORDERED: WARFARIN 2 MG TAB PO SCH (18:00)
[2021-09-30] MEDS: PANTOPRAZOLE 40 MG TABLET PO SCH ×2 (19:49→19:50)
[2021-09-30] MEDS: lamoTRIgine 25 MG TAB PO SCH (19:49)
[2021-09-30] MEDS: DILTIAZEM CD 120 MG CAP.ER.24H PO SCH (19:50)
[2021-09-30] MEDS: IPRATROPIUM 0.5 MG/2.5 ML NEBU INHALATION PRN (20:15)
[2021-09-30 20:17] LABS: Glucose,Whole Blood 132 mg/dL (75-99)
[2021-10-01 05:15] LABS: Glucose,Whole Blood 101 mg/dL (75-99)
[2021-10-01] MEDS ORDERED: REGADENOSON 0.4 MG/5 ML SYRINGE IV PRN (06:00)
[2021-10-01] MEDS: LEVOTHYROXINE 75 MCG TAB PO SCH (06:20)
[2021-10-01] MEDS: HEPARIN SOD,PORK IN 0.45% NACL 25,000 UNIT in 0.45% NACL 1 250ML.BAG IV SCH (06:20)
[2021-10-01 07:38] LABS: Basophils % (A) 0 %; Eosinophils % (A) 0 %; HCT 34.3 % (34.0-46.0); Lymphocytes # (A) 3.2 k/uL (1.0-4.8); Lymphocytes % (A) 31 %; MCH 32.5 pg (25.0-35.0); MCHC 32.1 g/dL (31.0-37.0); MCV 101.3 fL (80.0-100.0); Macrocytosis Slight; Mean Platelet Volume 8.3; Monocytes # (A) 0.8 k/uL (0-1.0); Monocytes % (A) 8 %; Neutrophils # (A) 6.1 k/uL (1.3-7.7); Neutrophils % (A) 59 %; Platelet Count 274 k/uL (150-450); RBC 3.38 m/uL (3.80-5.40); RDW 13.5 % (11.5-15.5); WBC 10.4 k/uL (3.8-10.6)
[2021-10-01 07:52] LABS: INR 2.3 (<1.2); Prothrombin Time 22.9 sec (9.0-12.0)
[2021-10-01 08:03] LABS: African American GFR (CKD) >90 (>60 ml/min/1.73 sqM); Anion Gap 6 mmol/L; Blood Urea Nitrogen 27 mg/dL (7-17); Calcium 8.7 mg/dL (8.4-10.2); Carbon Dioxide 26 mmol/L (22-30); Chloride 106 mmol/L (98-107); Glucose 90 mg/dL (74-99); Non-African American GFR(CKD) 81 (>60 ml/min/1.73 sqM); Potassium 3.6 mmol/L (3.5-5.1); Sodium 138 mmol/L (137-145)
[2021-10-01] MEDS: IPRATROPIUM 0.5 MG/2.5 ML NEBU INHALATION SCH (08:45)
[2021-10-01] MEDS: LORazepam 0.5 MG TAB PO SCH ×2 (11:00→16:22)
[2021-10-01] MEDS: FUROSEMIDE 40 MG TAB PO SCH (11:00)
[2021-10-01] MEDS: predniSONE 10 MG TAB PO SCH (11:00)
[2021-10-01] MEDS: hydrALAZINE HCL 50 MG TAB PO SCH (11:00)
[2021-10-01] MEDS: POTASSIUM CHLORIDE ER 20 MEQ TAB.ER PO SCH (11:00)
--- NOTE | 2021-10-01 11:20 | P.PN ---
Subjective Progress Note Date: 10/01/21 This is a pleasant 80-year-old female admitted with mild subtherapeutic INR, acute right lower lobe PE, chest pain and multiple other medical issues. Evaluated by pulmonary and cardiology with recommendations noted and appreciated. Currently anticoagulated on heparin drip/coumadin. INR currently 2.3. Stress test scheduled for today, echo pending. Maintaining O2 sats in the 90s on room air. Currently denies chest tightness, shortness of breath. Reports anxiety attack yesterday, resolved with her Ativan. Objective - Vital Signs Vital signs: Vital Signs Temp 98.6 F 10/01/21 08:00 Pulse 71 10/01/21 08:00 Resp 17 10/01/21 08:00 BP 187/75 10/01/21 08:00 Pulse Ox 93 L 10/01/21 08:00 Intake & Output 09/30/21 10/01/21 10/01/21 18:59 06:59 18:59 Intake Total 532.532 92.439 Balance 532.532 92.439 Weight 41.9 kg Intake: Intake, IV Titration 52.532 92.439 Amount Heparin Sod,Pork in 0.45% 52.532 92.439 NaCl 25,000 unit In 0.45 % NaCl 1 250ml.bag @ 18 UNITS/KG/HR 7.511 mls/hr IV .Q24H RIAN Rx#: [id number] Oral 480 Other: Voiding Method Toilet # Voids 2 - Exam - Exam GENERAL: The patient is alert and oriented x3, NAD. HEENT: Pupils are round and equally reacting to light. EOMI. No scleral icterus. No conjunctival pallor. Normocephalic, atraumatic. Neck supple, no JVD. CARDIOVASCULAR: S1 and S2 present. No murmurs, rubs, or gallops. PULMONARY: Chest is clear to auscultation, no wheezing or crackles. ABDOMEN: Soft, nontender, nondistended, normoactive bowel sounds. No palpable organomegaly. EXTREMITIES: No cyanosis, clubbing, or pedal edema. NEUROLOGICAL: Gross neurological examination did not reveal any focal deficits. SKIN: No rashes. Small Right knee dressing/Tegaderm clean dry and intact. - Labs CBC & Chem 7: 10/01/21 07:05 10/01/21 07:05 Labs: Abnormal Lab Results - Last 24 Hours (Table) 09/30/21 09/30/21 09/30/21 Range/Units 11:59 14:31 16:26 RBC (3.80-5.40) m/uL Hgb (11.4-16.0) gm/dL MCV (80.0-100.0) fL PT (9.0-12.0) sec INR (<1.2) APTT 41.2 H (22.0-30.0) sec BUN (7-17) mg/dL POC Glucose (mg/dL) 119 H 153 H (75-99) mg/dL 09/30/21 09/30/21 10/01/21 Range/Units 20:15 22:06 05:13 RBC (3.80-5.40) m/uL Hgb (11.4-16.0) gm/dL MCV (80.0-100.0) fL PT (9.0-12.0) sec INR (<1.2) APTT 51.7 H (22.0-30.0) sec BUN (7-17) mg/dL POC Glucose (mg/dL) 132 H 101 H (75-99) mg/dL 10/01/21 10/01/21 10/01/21 Range/Units 07:05 07:05 07:05 RBC 3.38 L (3.80-5.40) m/uL Hgb 11.0 L (11.4-16.0) gm/dL MCV 101.3 H (80.0-100.0) fL PT 22.9 H (9.0-12.0) sec INR 2.3 H (<1.2) APTT 53.0 H (22.0-30.0) sec BUN 27 H (7-17) mg/dL POC Glucose (mg/dL) (75-99) mg/dL Assessment and Plan Assessment: Acute right lower lobe pulmonary embolism Chest pain, troponin is negative 3, stress test pending Right thigh wound secondary to a dog scratch with bruise History of mechanical aortic valve replacement, on Coumadin, subtherapeutic on admission CAD Status post carotid endarterectomy Recent pneumonia Diabetes mellitus Anxiety, panic attacks Hypertension Hyperlipidemia COPD, no acute exacerbation Chronic hypoxic respiratory failure, wears 2 L nasal cannula daily at bedtime History of subarachnoid hemorrhage History of rheumatic fever History of fibromyalgia History of GERD Nicotine dependence Plan: Continue current medication regime ,monitoring and symptomatic treatment. Scheduled for Lexiscan stress test/echo today. Continues on heparin drip/Coumadin with close monitoring of INR. Smoking cessation reinforced. Follow closely with both pulmonary and cardiology. The impression and plan of care has been dictated as directed. : I performed a history and examination of this patient, discussed the same with the dictator. I agree with the dictator's note ,documented as a scribe. Any additional findings or plans will be noted.
[2021-10-01] MEDS: YUPELRI 175 MCG/3 ML INHALATION SCH (13:10)
[2021-10-01] MEDS: NICOTINE 21MG/24HR PATCH TRANSDERM SCH (13:21)
[2021-10-01] MEDS: BACITRACIN OINT 1 EACH PACKET TOPICAL SCH (13:22)
[2021-10-01] MEDS: MEGESTROL 40 MG TAB PO SCH (13:22)
--- NOTE | 2021-10-01 13:49 | NM ---
EXAMINATION TYPE: NM stress lexiscan cardiolite DATE OF EXAM: 10/01/2021 COMPARISON: NONE HISTORY: 80-year-old female chest pain TECHNIQUE: After the intravenous administration of 9.9 mCi Tc 99m Sestamibi - Cardiolite resting SPE CT images acquired 90 minutes post injection. The patient received 0.4mg Lexiscan, 24.4 mCi Tc 99m Sestamibi - Stress images obtained [address] injection FINDINGS: Review of stress and rest SPECT images demonstrates no distinct perfusion abnormality. Gated analysi s shows normal wall motion both measurements indicating diminished LVEF of 38%. TID is normal at 0.85 . 100 mg aminophylline also administered. IMPRESSION: No scintigraphic evidence for reversible ischemia. However, measurements suggest diminished LVEF of 3 8%. Corroborate with cardiac echo for more accurate assessment.
--- NOTE | 2021-10-01 13:56 | P.PN ---
Subjective Progress Note Date: 10/01/21 HISTORY OF PRESENTING ILLNESS This is a pleasant 80-year-old with past medical history significant for rhe umatic fever, status post mechanical aortic valve replacement on long-term anticoagulation, hypertension, hyperlipidemia, carotid artery stenosis status post endarterectomy, fall with subarachnoid hemorrhage, recent pneumonia 1 month ago been placed on steroids, chronic O2 failure on home O2 at night, breast cancer status post mastectomy, status post partial lobectomy for benign nodule. She follows in the office with Dr Rosario. Patient states there is nothing other ordinary and then started having chest heaviness into her left arm with some numbness down her left arm with numbness improving after a few seconds however continue to have chest heaviness and "felt like it was a heart attack". She's never had a heart attack and prior to her valve replacement 2000 no mention of any significant coronary artery disease per patient. The pain/heaviness lasted for a few hours and was associated with some shortness breath. She came to the emergency department and the pressure has resolved however still feels somewhat fatigued. She is on chronic anticoagulation however her INR was noted to be mildly subtherapeutic at 1.8. CTA of the chest was performed with a readout of single pulmonary embolism in the right lower lobe as well as infiltrate and atelectasis of the right lower lobe. Lower extremity ultrasounds showed no DVT. Troponin 0.019, 0.025, 0.025, proBNP 256. Patient has noted to be in sinus tachycardia with heart rates in the 100-120 range this morning. Patient has been continued on her home metoprolol as well as diltiazem. DIAGNOSTICS EKG reveals normal sinus rhythm and LVH with nonspecific ST depressions 09/30 Patient seen and examined. Admits to continued episodes of chest pain however this was improved with inhalers. She denies any palpitations. She did not r eceive any Coumadin yesterday and INR today 1.5 on the heparin drip. 10/01/2021 Patient examined this morning at the bedside. She denies chest pain or pressure. She denies SOB. She remains on Coumadin and IV heparin. INR today is 2.3. PHYSICAL EXAMINATION Vital signs reviewed. CONSTITUTIONAL: No apparent distress, chronically ill appearing HEENT: Head is normocephalic. Pupils are equal, round. Sclerae anicteric. Mucous membranes of the mouth are moist. No JVD. No carotid bruit. CHEST EXAMINATION: Decreased breath sounds bilaterally HEART EXAMINATION: Rate and regular rhythm. S1, S2 heard. +2/6 murmur, no gallops or rub. ABDOMEN: Soft, nontender. Positive bowel sounds. EXTREMITIES: 2+ peripheral pulses, no lower extremity edema and no calf tenderness. NEUROLOGIC EXAMINATION: Patient is awake, alert and oriented x3. ASSESSMENT 1. Chest pressure and shortness of breath, troponin is normal 3 2. Right lower lobe small pulmonary embolism 3. Mildly subtherapeutic INR 4. History of Rheumatic fever 5. Status post mechanical aortic valve replacement 6. Carotid artery disease status post carotid endarterectomy 7. Hypertension, labile blood pressures believes related to anxiety 8. Hyperlipidemia 9. COPD 10. Chronic respiratory failure on home oxygen at night 11. Sinus tachycardia 12. Recent pneumonia and on antibiotics for last 1 month 13. Prior subarachnoid hemorrhage from fall a few years ago PLAN Patient underwent Lexiscan this morning which was negative for ischemia INR today 2.3 Discontinue IV heparin. Continue Coumadin. Patient may be discharged from a cardiac standpoint and follow up outpatient with Dr. Rosario Nurse practitioner note has been reviewed by physician. Signing provider agrees with the documented findings, assessment, and plan of care. Objective - Vital Signs Vital signs: Vital Signs Temp 98.6 F 10/01/21 08:00 Pulse 71 10/01/21 08:00 Resp 17 10/01/21 08:00 BP 187/75 10/01/21 08:00 Pulse Ox 93 L 10/01/21 08:00 Intake & Output 09/30/21 10/01/21 10/01/21 18:59 06:59 18:59 Intake Total 532.532 92.439 36.204 Balance 532.532 92.439 36.204 Weight 41.9 kg Intake: Intake, IV Titration 52.532 92.439 36.204 Amount Heparin Sod,Pork in 0.45% 52.532 92.439 36.204 NaCl 25,000 unit In 0.45 % NaCl 1 250ml.bag @ 18 UNITS/KG/HR 7.511 mls/hr IV .Q24H [facility] Rx#: [id number] Oral 480 Other: Voiding Method Toilet # Voids 2 - Labs CBC & Chem 7: 10/01/21 07:05 10/01/21 07:05 Labs: Abnormal Lab Results - Last 24 Hours (Table) 09/30/21 09/30/21 09/30/21 Range/Units 14:31 16:26 20:15 RBC (3.80-5.40) m/uL Hgb (11.4-16.0) gm/dL MCV (80.0-100.0) fL PT (9.0-12.0) sec INR (<1.2) APTT 41.2 H (22.0-30.0) sec BUN (7-17) mg/dL POC Glucose (mg/dL) 153 H 132 H (75-99) mg/dL 09/30/21 10/01/21 10/01/21 Range/Units 22:06 05:13 07:05 RBC (3.80-5.40) m/uL Hgb (11.4-16.0) gm/dL MCV (80.0-100.0) fL PT 22.9 H (9.0-12.0) sec INR 2.3 H (<1.2) APTT 51.7 H 53.0 H (22.0-30.0) sec BUN (7-17) mg/dL POC Glucose (mg/dL) 101 H (75-99) mg/dL 10/01/21 10/01/21 Range/Units 07:05 07:05 RBC 3.38 L (3.80-5.40) m/uL Hgb 11.0 L (11.4-16.0) gm/dL MCV 101.3 H (80.0-100.0) fL PT (9.0-12.0) sec INR (<1.2) APTT (22.0-30.0) sec BUN 27 H (7-17) mg/dL POC Glucose (mg/dL) (75-99) mg/dL
--- NOTE | 2021-10-01 15:19 | P.PN ---
Subjective Progress Note Date: 10/01/21 Principal diagnosis: Acute pulmonary embolism 80-year-old female with a history of multiple medical problems including congestive heart failure, previous aortic valve replacement with a biomechanical valve, on Coumadin chronically, and hypertension, who initially was directed to the ER because of the fact that her dog jumped on her, and scratched her right thigh. While she was in the emergency room, she apparently told the attending physician, that she was having shortness of breath and chest pressure. For that reason, the patient was further evaluated, and was found to have a right lower lobe pulmonary embolism. Interestingly, the patient is on Coumadin chronically, although her INR was 1.8. Currently, the patient appears to be relatively comfortable. She does use home oxygen at 2 L just at nighttime. She does continue to smoke. The patient is currently on IV heparin. She is on room air. She states that her health has been declining since last February. White count 9.5, hemoglobin 12.7, hematocrit 39.6, and platelet count 346,000. PTT is 132. PT 17.9 with an INR 1.8. Labs from yesterday are reviewed. Troponin was 0.019, 0.025, and 0.025. Dopplers of the lower extremities were negative for DVT. A chest CT showed a single pulmonary embolism, right lower lobe. Progress note dated 09/30/2021. This was a patient that we saw yesterday in consultation. She has a history of multiple medical problems including CHF, aortic valve replacement, hypertension, and was seen in the emergency room, for chest pressure and shortness of breath. She was found to have a pulmonary embolism in the right lower lobe. Her PT/INR was not therapeutic. She was previously on Coumadin. Currently, she is on IV heparin. White count 14.6, hemoglobin 12, hematocrit 36.3, and platelet count 297,000. Her INR today is 1.5. Sodium 135, potassium 3.9, chlorides 104, CO2 25, BUN 32, and creatinine 0.85. On 10/01/2021, I came into the LAD the patient and follow-up on the pulmonary status and pulmonary embolism, patient is not in the room, apparently the patien t was taken down for a stress test, and the answered few of the questions, patient is already on anticoagulations therapy, and her Coumadin is becoming therapeutic. Pulmonary-sesay, not much to be done other than continue anticoagulations therapy as recommended earlier by Dr. Cuevas yesterday Objective - Vital Signs Vital signs: Vital Signs Temp 98 F 10/01/21 13:30 Pulse 95 10/01/21 13:30 Resp 16 10/01/21 13:30 BP 137/90 10/01/21 13:30 Pulse Ox 94 L 10/01/21 13:30 Intake & Output 09/30/21 10/01/21 10/01/21 18:59 06:59 18:59 Intake Total 532.532 92.439 36.204 Balance 532.532 92.439 36.204 Weight 41.9 kg Intake: Intake, IV Titration 52.532 92.439 36.204 Amount Heparin Sod,Pork in 0.45% 52.532 92.439 36.204 NaCl 25,000 unit In 0.45 % NaCl 1 250ml.bag @ 18 UNITS/KG/HR 7.511 mls/hr IV .Q24H [facility]IAN Rx#: [id number] Oral 480 Other: Voiding Method Toilet # Voids 2 - Exam Patient was not examined, not in the room, discussed her status with the at bedside. - Labs CBC & Chem 7: 10/01/21 07:05 10/01/21 07:05 Labs: Abnormal Lab Results - Last 24 Hours (Table) 09/30/21 09/30/21 09/30/21 Range/Units 16:26 20:15 22:06 RBC (3.80-5.40) m/uL Hgb (11.4-16.0) gm/dL MCV (80.0-100.0) fL PT (9.0-12.0) sec INR (<1.2) APTT 51.7 H (22.0-30.0) sec BUN (7-17) mg/dL POC Glucose (mg/dL) 153 H 132 H (75-99) mg/dL 10/01/21 10/01/21 10/01/21 Range/Units 05:13 07:05 07:05 RBC 3.38 L (3.80-5.40) m/uL Hgb 11.0 L (11.4-16.0) gm/dL MCV 101.3 H (80.0-100.0) fL PT 22.9 H (9.0-12.0) sec INR 2.3 H (<1.2) APTT 53.0 H (22.0-30.0) sec BUN (7-17) mg/dL POC Glucose (mg/dL) 101 H (75-99) mg/dL 10/01/21 Range/Units 07:05 RBC (3.80-5.40) m/uL Hgb (11.4-16.0) gm/dL MCV (80.0-100.0) fL PT (9.0-12.0) sec INR (<1.2) APTT (22.0-30.0) sec BUN 27 H (7-17) mg/dL POC Glucose (mg/dL) (75-99) mg/dL Assessment and Plan Assessment: Impression: Acute pulmonary embolism History of biomechanical aortic valve replacement Dyslipidemia Benign essential hypertension Hypothyroidism Chronic hypoxic respiratory failure History of subdural hematoma Recommendation: Continue present treatment plan, Not much to be added from our perspective. Anticoagulation therapy to be monitored closely on outpatient basis. We will see the patient on when necessary basis. Time with Patient: Less than 30
[2021-10-01] MEDS: METOPROLOL SUCCINATE (ER) 50 MG TAB.ER.24H PO SCH (16:22)
[2021-10-01] MEDS: MONTELUKAST 10 MG TAB PO SCH (16:22)
[2021-10-01 16:25] LABS: Glucose,Whole Blood 202 mg/dL (75-99)
[2021-10-01 17:49] VITALS: BP 138/91; PULSE 94; RESP 17; TEMP 97.6
[2021-10-01] MEDS ORDERED: WARFARIN 2 MG TAB PO SCH (18:00)
--- NOTE | 2021-10-02 08:57 | CA ---
Lexiscan Nuclear Stress Test Report Name: Julianne Duke Exam Date: 10/01/2021 10:53 Exam Location: [facility] Stress Ht (in): 60 Wt (lb): 92 BSA: 1.34 Ordering Phys: Andre Dietrich DO Referring Phys: GAVIN,, Technologist: Cecil Fernandes Age: 80 Gender: F : 1940 Procedure CPT: Indications: Reflex order-Stress test ICD-10 Codes: Patient History: CHEST PAIN, HYPERTENSION, FAMILY HX, RHEUMATIC FEVER, COPD AND EMPHYSEMA, HX OF TOBACCO USE - 1 PPD X 60 YEARS Medications: Meds past 24 hrs: Pretest Chest Pain: STRESS TEST Lexiscan Protocol Exercise Duration (min:sec): 02:[address] Depressions (mm): Angina Score: [place] Score: Resting HR (bpm): 81 Peak HR (bpm): 105 Resting BP (mmHg): 165 / 79 Peak BP (mmHg): 218 / 71 MPHR: 141 Target HR: 120 % MPHR: 74 METS: 1.0 Total Dose: Peak Dose: Atropine: Double Product: 90949 BP Response: Stress Termination: Stress Symptoms: Stress Summary: ECG ANALYSIS Resting ECG: Stress ECG: CONCLUSIONS Nondiagnostic electrocardiogram stress testing and response to Lexiscan Please follow-up with the Cardiolite portion on a separate report from radiology department Dr. Spencer Hernandez MD (Electronically Signed) Final Date: 02 Oct 2021 08:56
== END 2021-10-01 17:50 | disposition home or self-care (01) | DRG 176 ==
LOC: EC 15:33 → 3SCARD 18:49 → OBSVTOIN 09-29 13:43
PROVIDERS: ADMIT Family Medicine; ATTEND Family Medicine
DX: I26.99 Other pulmonary embolism without acute cor pulmonale (principal); G82.20 Paraplegia, unspecified; J96.11 Chronic respiratory failure with hypoxia; J98.11 Atelectasis; D72.829 Elevated white blood cell count, unspecified; E03.9 Hypothyroidism, unspecified; E78.5 Hyperlipidemia, unspecified; F17.210 Nicotine dependence, cigarettes, uncomplicated; F41.0 Panic disorder [episodic paroxysmal anxiety]; I11.0 Hypertensive heart disease with heart failure; I25.10 Atherosclerotic heart disease of native coronary artery without angina pectoris; E11.40 Type 2 diabetes mellitus with diabetic neuropathy, unspecified; I50.9 Heart failure, unspecified; R00.0 Tachycardia, unspecified; J44.9 Chronic obstructive pulmonary disease, unspecified; M79.7 Fibromyalgia; I65.29 Occlusion and stenosis of unspecified carotid artery; N28.1 Cyst of kidney, acquired; M81.0 Age-related osteoporosis without current pathological fracture; R79.1 Abnormal coagulation profile; W54.1XXA Struck by dog, initial encounter; Z79.01 Long term (current) use of anticoagulants; Z79.84 Long term (current) use of oral hypoglycemic drugs; Z79.890 Hormone replacement therapy; Z79.899 Other long term (current) drug therapy; Z80.3 Family history of malignant neoplasm of breast; Z82.5 Family history of asthma and other chronic lower respiratory diseases; Z85.3 Personal history of malignant neoplasm of breast; Z87.01 Personal history of pneumonia (recurrent); Z90.10 Acquired absence of unspecified breast and nipple; Z90.2 Acquired absence of lung [part of]; Z95.2 Presence of prosthetic heart valve; Z98.82 Breast implant status; Z99.81 Dependence on supplemental oxygen; Z91.030 Bee allergy status; Z91.040 Latex allergy status; Z91.048 Other nonmedicinal substance allergy status; Z87.820 Personal history of traumatic brain injury; Z98.42 Cataract extraction status, left eye; Z98.41 Cataract extraction status, right eye; Z91.041 Radiographic dye allergy status; Z80.8 Family history of malignant neoplasm of other organs or systems; Z88.8 Allergy status to other drugs, medicaments and biological substances; Z95.4 Presence of other heart-valve replacement
CPT/HCPCS: 36415; 71275; 78452; 80048; 80053; 83690; 83735; 83880; 84443; 84484; 85025; 85610; 85730; 93005; 93017; 93970; 94640; 94760; 96374; 96375; 99291

== ENCOUNTER 2022-01-25 15:26 | Inpatient (IN) | payer MEDICARE, BC ==
--- NOTE | 2022-01-25 16:00 | ED ---
Chest Pain HPI - General Chief Complaint: Chest Pain Stated Complaint: poss heart attack per pcp, chest tightness Time Seen by Provider: 01/25/22 15:37 Source: patient, family, RN notes reviewed, old records reviewed Limitations: no limitations - History of Present Illness Initial Comments: 81-year-old female history of COPD history of heart disease history of bilateral mastectomies many years ago for cancer who states she was seen in her doctor's office today and sent here for further evaluation she had EKG changes palsy she also shortness of breath with some midsternal chest discomfort. She states last time she has some slight that she was diagnosed with a blood clot in the lung. She states she is currently on Coumadin. Currently she is pain-free and shortness of breath free MD Complaint: chest pain, other - Related Data Home Medications Medication Instructions Recorded Confirmed Levothyroxine Sodium [Synthroid] 75 mcg PO DAILY@0905/20/14 01/25/22 Simvastatin [Zocor] 40 mg PO SUTUFR@219905/20/14 01/25/22 Furosemide 40 mg PO DAILY 12/19/15 01/25/22 Montelukast [Singulair] 10 mg PO DAILY@159910/30/19 01/25/22 EPINEPHrine (Auto Inject) [Epipen] 0.3 mg IM ONCE PRN 09/28/21 01/25/22 Ergocalciferol (Vitamin D2) 1,250 mcg PO SA@159909/28/21 01/25/22 [Drisdol (50,000 Iu)] LORazepam [Ativan] 0.5 mg PO TID@1000,1600,0 09/28/21 01/25/22 Megestrol [Megace] 40 mg PO DAILY@159909/28/21 01/25/22 Metoprolol Succinate (ER) [Toprol 50 mg PO DAILY@159909/28/21 01/25/22 XL] Omeprazole 40 mg PO HS@219909/28/21 01/25/22 Yupelri 175mcg/3ml 3 ml INHALATION RT-DAILY 09/28/21 01/25/22 cloNIDine 0.3 MG/24HR PATCH 1 patch TRANSDERM WE@209909/28/21 01/25/22 [Catapres-TTS] dilTIAZem HCL [dilTIAZem HCL 12Hr 120 mg PO DAILY@1000 09/28/21 01/25/22 ER] hydrALAZINE HCL [Apresoline] 50 mg PO BID@1000,0 09/28/21 01/25/22 lamoTRIgine [LaMICtal] 75 mg PO HS@219909/28/21 01/25/22 metFORMIN HCL [Glucophage] 500 mg PO BID PRN 09/28/21 01/25/22 Ipratropium-Albuterol Nebulize 3 ml INHALATION RT-QID PRN 01/25/22 01/25/22 [Duoneb 0.5 mg-3 mg/3 ml Soln] Nitroglycerin Sl Tabs [Nitrostat] 0.4 mg SL Q5M PRN 01/25/22 01/25/22 Potassium Chloride [Potassium 20 meq PO TID@1000,1600,219901/25/22 01/25/22 Chloride ER] Warfarin Sodium 4 mg PO TUTH@219901/25/22 01/25/22 Warfarin Sodium [Jantoven] 2 mg PO SUMOWEFRSA@219901/25/22 01/25/22 predniSONE 5 mg PO DAILY@1000 01/25/22 01/25/22 Allergies Allergy/AdvReac Type Severity Reaction Status Date / Time Latex, Natural Rubber Allergy Rash/Hives Verified 01/25/22 21:02 venom-honey bee Allergy Anaphylaxis Verified 01/25/22 21:02 [bee venom (honey bee)] adhesive AdvReac tears skin Verified 01/25/22 21:02 Iodinated Contrast Media AdvReac Nausea & Verified 01/25/22 21:02 [Iodinated Contrast Media - Vomiting & IV Dye] Diarrhea iodine AdvReac Nausea & Verified 01/25/22 21:02 Vomiting & Diarrhea Review of Systems ROS Statement: Those systems with pertinent positive or pertinent negative responses have been documented in the HPI. ROS Other: All systems not noted in ROS Statement are negative. EKG Findings - EKG Results: EKG: interpreted by VIN, sinus rhythm (Sinus rhythm with short ME interval of 111 ventricular rate 87 QRS duration 92 QT since QTC 360/404 evidence of LVH. Nonspecific septal changes.) Past Medical History Past Medical History: Heart Failure, Fibromyalgia, GERD/Reflux, Hyperlipidemia, Hypertension, Pneumonia, Thyroid Disorder Additional Past Medical History / Comment(s): osteoporosis, neuropathy,rheumatic fever as child, home o2 2 liters n/c at hs,diverticular disease,pt stated had some paralysis after neck sx -resolved,"occ nose bleeds" and "i take iron supplement that turns my stool black", cyst on one of her kidneys, shingles approx 2009. History of Any Multi-Drug Resistant Organisms: None Reported Past Surgical History: Back Surgery, Section, Orthopedic Surgery, Tonsillectomy Additional Past Surgical History / Comment(s): bruna mastectomy, bottom of right lung removed, breast implants then removed d/t "bad implants",mechanical aortic valve replacement.neck sx had titanium plate, lt carotid endarterectomy, rt lung nodule removed(benign), bruna cataracts. Past Anesthesia/Blood Transfusion Reactions: No Reported Reaction Additional Past Anesthesia/Blood Transfusion Reaction / Comment(s): clausterphobia. past blood transfusion-no reactions to it. Past Psychological History: No Psychological Hx Reported Smoking Status: Current some day smoker Past Alcohol Use History: None Reported, Rare Past Drug Use History: None Reported - Past Family History Father Family Medical History: Unable to Obtain Additional Family Medical History / Comment(s): dad in accident when pt young -did'nt know his hx. Mother Family Medical History: COPD Additional Family Medical History / Comment(s): age 73 Sister(s) Family Medical History: Cancer Additional Family Medical History / Comment(s): 1 sister- thyroid & breast Ca, brain aneurysm-still alive, #2 breast ca,dementia- 83 age,#3 blood cancer- 50's age. General Exam - General Exam Comments Initial Comments: This a well-developed frail-appearing female who is awake alert oriented 4 Limitations: no limitations General appearance: alert, in no apparent distress Head exam: Present: atraumatic, normocephalic, normal inspection Eye exam: Present: normal appearance, PERRL, EOMI. Absent: scleral icterus, conjunctival injection, periorbital swelling ENT exam: Present: normal exam, mucous membranes moist Neck exam: Present: normal inspection, full ROM, other (No stridor JVD or bruits). Absent: tenderness, meningismus, lymphadenopathy Respiratory exam: Present: decreased breath sounds. Absent: respiratory distress, wheezes, rales, rhonchi, stridor Cardiovascular Exam: Present: regular rate, normal rhythm, normal heart sounds, other (Prominent valvular heart sounds). Absent: systolic murmur, diastolic m urmur, rubs, gallop, clicks GI/Abdominal exam: Present: soft, normal bowel sounds. Absent: distended, tenderness, guarding, rebound, rigid Rectal exam: Present: deferred Extremities exam: Present: normal inspection, full ROM, normal capillary refill, pedal edema (Edema seen to the left lower extremity mild Tenderness palpation). Absent: tenderness, joint swelling, calf tenderness Back exam: Present: normal inspection Neurological exam: Present: alert, oriented X3, CN II-XII intact Psychiatric exam: Present: normal affect, normal mood Skin exam: Present: warm, dry, intact, normal color. Absent: rash Course Vital Signs 01/25/22 01/25/22 01/25/22 15:29 19:07 21:24 Temperature 98.5 F Pulse Rate 66 80 79 Respiratory 22 18 16 Rate Blood Pressure 106/44 151/97 O2 Sat by Pulse 96 93 L 93 L Oximetry Chest Pain MDM - MDM Imaging reviewed as well as report evidence of consolidation right lower lobe infiltrate masses his a possibility also. I did discuss findings with the patient and her patient does have elevated white blood cell count evidence of pneumonia she will be treated as such pulmonary will consultation will be obtained for further evaluation. I did discuss case with Carmen Goodman who is covering for Dr. Gordon. Disposition Clinical Impression: Pneumonia, Dyspnea, Leukocytosis, Elevated d-dimer Disposition: ADMITTED IP TO THIS [facility] Condition: Stable Referrals: Sandrita Thomson DO [Primary Care Provider] - 1-2 days Decision Date: 01/25/22 Decision Time: 22:00
--- NOTE | 2022-01-25 17:00 | XR ---
EXAMINATION TYPE: XR chest 2V DATE OF EXAM: 01/25/2022 4:53 PM COMPARISON: Chest radiographs from 03/27/2021. TECHNIQUE: XR chest 2V Frontal and lateral views of the chest. CLINICAL INDICATION:Female, 81 years old with history of Chest Pain; FINDINGS: Lungs/Pleura: Increased right lower lobe airspace opacities There is flattening of the diaphragm with increased lucency of the lungs. No evidence of pneumothorax, or pleural effusion Pulmonary vascularity: Unremarkable. Heart/mediastinum: Cardiomediastinal silhouette is unremarkable. Atherosclerosis of the aorta. Musculoskeletal: No acute osseous pathology. There is fixation hardware in the lower cervical spine. Midline sternotomy wires are noted. IMPRESSION: 1. Increased right lower lobe airspace opacities correlate for pneumonia. 2. COPD changes.
--- NOTE | 2022-01-25 18:11 | US ---
EXAMINATION TYPE: US venous doppler duplex LE LT DATE OF EXAM: 01/25/2022 4:01 PM COMPARISON: US 2021 CLINICAL HISTORY: Left calf Pain history of DVT. SIDE PERFORMED: Left TECHNIQUE: The lower extremity deep venous system is examined utilizing real time linear array sonog jo with graded compression, doppler sonography and color-flow sonography. VESSELS IMAGED: Common Femoral Vein Deep Femoral Vein Greater Saphenous Vein * Femoral Vein Popliteal Vein Small Saphenous Vein * Proximal Calf Veins (* superficial vessels) Left Leg: Appears negative for DVT Grayscale, color doppler, spectral doppler imaging performed of the deep veins of the lower extremiti es. There is normal flow, compressibility, vascular waveforms. IMPRESSION: No evidence of left lower extremity deep vein thrombosis..
[2022-01-25 19:10] LABS: Basophils # (A) 0.1 k/uL (0-0.2); Basophils % (A) 1 %; Eosinophils # (A) 0.1 k/uL (0-0.7); Eosinophils % (A) 1 %; HCT 39.7 % (34.0-46.0); HGB 12.4 gm/dL (11.4-16.0); Lymphocytes # (A) 1.6 k/uL (1.0-4.8); Lymphocytes % (A) 9 %; MCH 31.2 pg (25.0-35.0); MCHC 31.3 g/dL (31.0-37.0); MCV 99.7 fL (80.0-100.0); Mean Platelet Volume 9.2; Monocytes # (A) 1.2 k/uL (0-1.0); Monocytes % (A) 6 %; Neutrophils # (A) 15.2 k/uL (1.3-7.7); Neutrophils % (A) 82 %; Platelet Count 336 k/uL (150-450); RBC 3.98 m/uL (3.80-5.40); RDW 12.9 % (11.5-15.5); WBC 18.4 k/uL (3.8-10.6)
[2022-01-25 19:23] LABS: Albumin 3.9 g/dL (3.5-5.0); Calcium 9.3 mg/dL (8.4-10.2); Magnesium 1.6 mg/dL (1.6-2.3); Potassium 4.1 mmol/L (3.5-5.1); Total Bilirubin 0.2 mg/dL (0.2-1.3); Total Protein 6.1 g/dL (6.3-8.2)
[2022-01-25 19:25] LABS: INR 1.2 (<1.2); Partial Thromboplastin Time 22.4 sec (22.0-30.0); Prothrombin Time 12.6 sec (9.0-12.0)
[2022-01-25] MEDS ORDERED: methylPREDNISolone SOD SUCCI 125 MG/2 ML VIAL IV STA (21:00)
[2022-01-25] MEDS ORDERED: FAMOTIDINE 20 MG/2 ML VIAL IV STA (21:00)
[2022-01-25] MEDS ORDERED: diphenhydrAMINE 50 MG/ML 1 ML VIAL IVP STA (21:00)
[2022-01-25] MEDS ORDERED: cefTRIAXone IN SWFI 1,000 MG/10 ML SYRINGE IVP STA (21:04)
--- NOTE | 2022-01-25 22:11 | CT ---
EXAMINATION TYPE: CT angio chest DATE OF EXAM: 01/25/2022 COMPARISON: 03/27/2021 HISTORY: PE suspected CT DLP: 208.9 mGycm Automated exposure control for dose reduction was used. CONTRAST: Performed with IV Contrast, patient injected with 70cc mL of Isovue 370. There are Three-D postprocessed images. There is some mild pulmonary emphysema. There is some reticular infiltrate in the right lower lobe wi th atelectasis at the right posterior lung base. There is some 4 x 2 cm area of consolidation in the anterior segment of the right lower lobe. The left lung is fairly clear. There are markedly enlarged mediastinal lymph nodes that measure up to 3 cm. There is no evidence of filling defect in the pulmonary arteries. Heart is mildly enlarged. No pericardial effusion. No adren al mass. There is 2 cm cyst posterior left kidney. There is 1.5 cm cortical cyst lateral right kidney . Thoracic aorta is atheromatous. No dissection. The ascending aorta measures 3.3 cm. The thoracic spine is intact. There are sternal wires. No compression fracture. Sternum is intact. Th ere is evidence of old right posterior healed rib fracture. IMPRESSION: No evidence of pulmonary embolism. Atheromatous aorta. There is patchy infiltrate and atelectasis right lower lobe. There is clearing of the consolidation a nd atelectasis in the left lower lobe compared to old exam. Significant mediastinal adenopathy which is mostly new compared to old exam. There is some masslike c onsolidation in the right lower lobe which is new compared to the old exam. Follow-up is recommended. Tumor is possible.
[2022-01-25] MEDS ORDERED: PNEUMONIA PROTOCOL UTILIZED 1 EACH MISC PO PRN (22:20)
[2022-01-25] MEDS ORDERED: AZITHROMYCIN 500 MG in SODIUM CHLORIDE 0.9% 250 ML IVPB STA (22:20)
[2022-01-25] MEDS ORDERED: IPRATROPIUM-ALBUTEROL 3 ML NEB INHALATION PRN (22:22)
[2022-01-25] MEDS ORDERED: metFORMIN 500 MG TAB PO PRN (22:22)
[2022-01-25] MEDS ORDERED: NON FORMULARY DRUG (Epinephrine (Auto Inject) 0.3 MG/0.3 ML Each) IM PRN (22:22)
[2022-01-25] MEDS ORDERED: NITROGLYCERIN SL TABS 0.4 MG TAB SUBLINGUAL PRN (22:22)
[2022-01-25] MEDS ORDERED: WARFARIN 5 MG TAB PO ONE (23:00)
[2022-01-25] MEDS: SODIUM CHLORIDE 0.9% 1,000 ML IV SCH (23:45)
[2022-01-26] MEDS: LEVOTHYROXINE 75 MCG TAB PO SCH (06:19)
--- NOTE | 2022-01-26 07:18 | XR ---
EXAMINATION TYPE: XR chest 1V portable DATE OF EXAM: 01/26/2022 5:57 AM COMPARISON: Chest radiograph from two days prior. TECHNIQUE: XR chest 1V portable Portable AP radiograph of the chest. CLINICAL INDICATION:Female, 81 years old with history of pneumonia; FINDINGS: Lungs/Pleura: Increased opacities within the right lower lobe when comparing to prior. There is no ev idence of pleural effusion, or pneumothorax. Findings the diaphragm with increased lucency in the shane g apices. Pulmonary vascularity: Unremarkable. Heart/mediastinum: Cardiomediastinal silhouette is unremarkable. Musculoskeletal: No acute osseous pathology. There is fixation hardware in the lower cervical spine. Midline sternotomy wires are noted. IMPRESSION: 1. Increased opacity within the right lower lobe which may be partially due to phase of inspiration. 2. COPD.
[2022-01-26] MEDS: YUPELRI 175 MCG/3 ML INHALATION SCH (07:51)
[2022-01-26 08:34] LABS: INR 1.4 (<1.2); Prothrombin Time 14.8 sec (9.0-12.0)
[2022-01-26] MEDS: LORazepam 0.5 MG TAB PO SCH ×3 (08:57→21:13)
[2022-01-26] MEDS: FUROSEMIDE 40 MG TAB PO SCH (08:57)
[2022-01-26] MEDS: DILTIAZEM CD 120 MG CAP.ER.24H PO SCH (08:57)
[2022-01-26] MEDS: POTASSIUM BICARBONATE/CIT AC 20 MEQ TABLET.EFF PO SCH ×3 (08:57→23:17)
[2022-01-26] MEDS ORDERED: hydrALAZINE HCL 50 MG TAB PO SCH (09:00)
[2022-01-26] MEDS: SODIUM CHLORIDE 0.9% 1,000 ML IV SCH ×2 (09:00→21:14)
[2022-01-26] MEDS ORDERED: POTASSIUM CHLORIDE ER 20 MEQ TAB.ER PO SCH (09:00)
[2022-01-26] MEDS: predniSONE 5 MG TAB PO SCH (09:57)
[2022-01-26] MEDS: AZITHROMYCIN 500 MG TAB PO SCH (11:58)
[2022-01-26] MEDS ORDERED: METOPROLOL SUCCINATE (ER) 50 MG TAB.ER.24H PO STA (12:19)
--- NOTE | 2022-01-26 13:15 | P.CNPUL ---
History of Present Illness Consult date: 01/26/22 Requesting physician: Arabella Gordon Reason for consult: dyspnea, abnormal CXR/CT Chief complaint: Shortness of breath, chest discomfort History of present illness: This is a very pleasant 81-year-old female patient with a known history of scoliosis, right-sided breast cancer status post bilateral mastectomy, rheumatic fever with rheumatic heart disease and subsequent aortic valve replacement with mechanical valve maintained on warfarin, chronic hypoxemic respiratory failure maintained on home oxygen mainly at night, history of a right lower lobectomy 20 years ago for a benign pulmonary nodule, severe chronic obstructive pulmonary disease with an FEV1 1 value of 42% of predicted. She also has ongoing shortness of breath secondary to debility. She had been wheelchair bound for quite some time following surgical intervention for subdural hematoma. She also had spine surgery with fusion and insertion of a metal plates. Congestive heart failure. She had been hospitalized here in September 2021 for shortness of breath and was found to have subsegmental pulmonary embolism in the right lower lung and her warfarin is adjusted. Stress echocardiogram had revealed no reversible ischemia however her ejection fraction was found to be at 38%. She had been following with Dr. Garrison in our office as it was last seen in October 2021. The she presented here to the emergency room yesterday with increasing shortness of breath or chest discomfort. Chest x-ray revealed evidence of COPD with increased right lower lobe airspace opacities. Doppler of the left lower extremity revealed no evidence of DVT. CT angiogram revealed no evidence of pulmonary embolism. There is patchy infiltrate and atelectasis of the right lower lobe. She is now found to have significant mediastinal adenopathy which is new compared to September 2021. There is some masslike consolidation of the right lower lung which is also new. White count 18.4. Hemoglobin 12.4. INR 1.4. D- dimer 0.83. Sodium 136. Potassium 4.1. BUN 19. Creatinine 0.83. Glucose 117. ProBNP 404. Troponin negative 1. Murguia virus by PCR not detected. The patient is seen today in consultation in the emergency department. She is currently sitting up on the stretcher. Awake and alert in no acute distress. She is feeling better today compared to yesterday. No worsening shortness of breath. No cough. No hemoptysis. Denies any significant weight loss. She is maintaining O2 saturations in the high 90s on 2 L/m per nasal cannula. Somewhat hypertensive. Review of Systems REVIEW OF SYSTEMS: CONSTITUTIONAL: Denies any recent significant weight loss or weight gain. EYES: Denies change in vision. EARS, NOSE, MOUTH, THROAT: Denies headaches, denies sore throat. CARDIOVASCULAR: Chest discomfort, no palpitations or syncopal episodes. RESPIRATORY: Positive for shortness of breath, cough, congestion no hemoptysis. GASTROINTESTINAL: Denies change in appetite, denies abdominal pain GENITOURINARY: Denies hematuria, denies infections. MUSKULOSKELETAL: Denies pain, denies swelling. INTEGUMENTARY: Denies rash, denies eczema. NEUROLOGICAL: Denies recent memory loss, no recent seizure activity. PSYCHIATRIC: Denies anxiety, denies depression. HEMATOLOGIC/LYMPHATIC: Denies anemia, denies enlarged lymph nodes. Past Medical History Past Medical History: Heart Failure, Fibromyalgia, GERD/Reflux, Hyperlipidemia, Hypertension, Pneumonia, Thyroid Disorder Additional Past Medical History / Comment(s): osteoporosis, neuropathy,rheumatic fever as child, home o2 2 liters n/c at hs,diverticular disease,pt stated had some paralysis after neck sx -resolved,"occ nose bleeds" and "i take iron supplement that turns my stool black", cyst on one of her kidneys, shingles approx 2009. History of Any Multi-Drug Resistant Organisms: None Reported Past Surgical History: Back Surgery, Section, Orthopedic Surgery, Tonsillectomy Additional Past Surgical History / Comment(s): bruna mastectomy, bottom of right lung removed, breast implants then removed d/t "bad implants",mechanical aortic valve replacement.neck sx had titanium plate, lt carotid endarterectomy, rt lung nodule removed(benign), bruna cataracts. Past Anesthesia/Blood Transfusion Reactions: No Reported Reaction Additional Past Anesthesia/Blood Transfusion Reaction / Comment(s): clausterphobia. past blood transfusion-no reactions to it. Past Psychological History: No Psychological Hx Reported Smoking Status: Current some day smoker Past Alcohol Use History: None Reported, Rare Past Drug Use History: None Reported - Past Family History Father Family Medical History: Unable to Obtain Additional Family Medical History / Comment(s): dad in accident when pt young -did'nt know his hx. Mother Family Medical History: COPD Additional Family Medical History / Comment(s): age 73 Sister(s) Family Medical History: Cancer Additional Family Medical History / Comment(s): 1 sister- thyroid & breast Ca, brain aneurysm-still alive, #2 breast ca,dementia- 83 age,#3 blood cancer- 50's age. Medications and Allergies Home Medications Medication Instructions Recorded Confirmed Type Levothyroxine Sodium [Synthroid] 75 mcg PO DAILY@0900 05/20/14 01/25/22 History Simvastatin [Zocor] 40 mg PO SUTUFR@219905/20/14 01/25/22 History Furosemide 40 mg PO DAILY 12/19/15 01/25/22 History Montelukast [Singulair] 10 mg PO DAILY@1600 10/30/19 01/25/22 History EPINEPHrine (Auto Inject) [Epipen] 0.3 mg IM ONCE PRN 09/28/21 01/25/22 History Ergocalciferol (Vitamin D2) 1,250 mcg PO SA@159909/28/21 01/25/22 History [Drisdol (50,000 Iu)] LORazepam [Ativan] 0.5 mg PO TID@1000,1600,219909/28/21 01/25/22 History Megestrol [Megace] 40 mg PO DAILY@1600 09/28/21 01/25/22 History Metoprolol Succinate (ER) [Toprol 50 mg PO DAILY@159909/28/21 01/25/22 History XL] Omeprazole 40 mg PO HS@219909/28/21 01/25/22 History Yupelri 175mcg/3ml 3 ml INHALATION RT-DAILY 09/28/21 01/25/22 History cloNIDine 0.3 MG/24HR PATCH 1 patch TRANSDERM WE@2100 09/28/21 01/25/22 History [Catapres-TTS] dilTIAZem HCL [dilTIAZem HCL 12Hr 120 mg PO DAILY@1000 09/28/21 01/25/22 History ER] hydrALAZINE HCL [Apresoline] 50 mg PO BID@1000,0 09/28/21 01/25/22 History lamoTRIgine [LaMICtal] 75 mg PO HS@219909/28/21 01/25/22 History metFORMIN HCL [Glucophage] 500 mg PO BID PRN 09/28/21 01/25/22 History Ipratropium-Albuterol Nebulize 3 ml INHALATION RT-QID PRN 01/25/22 01/25/22 History [Duoneb 0.5 mg-3 mg/3 ml Soln] Nitroglycerin Sl Tabs [Nitrostat] 0.4 mg SL Q5M PRN 01/25/22 01/25/22 History Potassium Chloride [Potassium 20 meq PO TID@1000,1600,0 01/25/22 01/25/22 History Chloride ER] Warfarin Sodium 4 mg PO TUTH@219901/25/22 01/25/22 History Warfarin Sodium [Jantoven] 2 mg PO SUMOWEFRSA@219901/25/22 01/25/22 History predniSONE 5 mg PO DAILY@1000 01/25/22 01/25/22 History Allergies Allergy/AdvReac Type Severity Reaction Status Date / Time Latex, Natural Rubber Allergy Rash/Hives Verified 01/25/22 21:02 venom-honey bee Allergy Anaphylaxis Verified 01/25/22 21:02 [bee venom (honey bee)] adhesive AdvReac tears skin Verified 01/25/22 21:02 Iodinated Contrast Media AdvReac Nausea & Verified 01/25/22 21:02 [Iodinated Contrast Media - Vomiting & IV Dye] Diarrhea iodine AdvReac Nausea & Verified 01/25/22 21:02 Vomiting & Diarrhea Physical Exam Vitals: Vital Signs Temp Pulse Pulse Resp BP Pulse Ox 01/26/22 11:53 96 18 192/86 100 01/26/22 08:54 89 18 203/88 99 01/26/22 07:44 79 79 18 218/92 99 01/26/22 04:29 98.4 F 80 16 161/73 100 01/25/22 23:42 98.4 F 85 16 176/71 94 L 01/25/22 21:24 79 16 93 L 01/25/22 19:07 80 18 151/97 93 L 01/25/22 15:29 98.5 F 66 22 106/44 96 Intake and Output 01/25/22 01/26/22 01/26/22 22:59 06:59 14:59 Other: Weight 43.998 kg GENERAL EXAM: Alert, very pleasant 81-year-old female patient, on 2 L nasal cannula, comfortable in no apparent distress. HEAD: Normocephalic. EYES: Normal reaction of pupils, equal size. NOSE: Clear with pink turbinates. THROAT: No erythema or exudates. NECK: No masses, no JVD. CHEST: No chest wall deformity. LUNGS: Equal air entry with crackles in the right lung base. CVS: S1 and S2 normal with no audible murmur, regular rhythm. ABDOMEN: No hepatosplenomegaly, normal bowel sounds, no guarding or rigidity. SPINE: No scoliosis or deformity SKIN: No rashes CENTRAL NERVOUS SYSTEM: No focal deficits, tone is normal in all 4 extremities. EXTREMITIES: There is no peripheral edema. No clubbing, no cyanosis. Thelma pheral pulses are intact. Results - Laboratory Findings CBC and BMP: 01/25/22 16:00 01/25/22 16:00 PT/INR, D-dimer PT 14.8 sec (9.0-12.0) H 01/26/22 06:59 INR 1.4 (<1.2) H 01/26/22 06:59 D-Dimer 0.83 mg/L FEU (<0.60) H 01/25/22 16:00 Abnormal lab findings: Abnormal Labs 01/25/22 01/25/22 01/25/22 16:00 16:00 16:00 WBC 18.4 H Neutrophils # 15.2 H Monocytes # 1.2 H PT 12.6 H INR 1.2 H D-Dimer 0.83 H Sodium 136 L BUN 19 H Glucose 117 H Total Protein 6.1 L 01/26/22 06:59 WBC Neutrophils # Monocytes # PT 14.8 H INR 1.4 H D-Dimer Sodium BUN Glucose Total Protein - Diagnostic Findings Chest x-ray: image reviewed CT scan - chest: image reviewed Assessment and Plan Assessment: Dyspnea and chest discomfort secondary to an acute exacerbation of chronic obstructive pulmonary disease complicated by a new patchy infiltrate of the right lower lung Significant mediastinal adenopathy with some masslike consolidation of the right lower lung new compared to computed tomography scan of September 2021 Severe oxygen dependent chronic obstructive pulmonary disease with an FEV1 value of 42% of predicted History of right lower lobectomy for benign pulmonary nodule approximately 20 years ago Previous history of subdural hematoma requiring surgical intervention and evacuation in October 2019 with prolonged debility and recovery History of rheumatic heart disease, status post aortic valve replacement with mechanical valve, maintained on warfarin, currently subtherapeutic History of pulmonary embolism to the right lower lung in September 2021 History of malignant tumor of the right breast status post bilateral mastectomy Scoliosis of the thoracic spine History of anxiety History of congestive heart failure Osteoporosis Plan: The patient was seen and evaluated Chest x-ray, CAT scan and labs reviewed The patient does have mediastinal adenopathy and right lung consolidation Possibly reactive but suspect lung cancer Will most likely require navigational bronchoscopy/EBUS procedure for diagnosis The patient verbalizes understanding and is agreeable to the plan Outpatient evaluation and PET scan, will follow up with Dr. Garrison Continue the antibiotics, bronchodilators, warfarin Titrate the FiO2 as tolerated Increase activity as tolerated We will continue to follow and make further recommendations based on her clinical status I have personally seen and examined the patient, performed the documentation and the assessment and plan as written. Number of minutes spent on the visit: 20.
[2022-01-26] MEDS ORDERED: METOPROLOL SUCCINATE (ER) 50 MG TAB.ER.24H PO SCH (16:00)
[2022-01-26] MEDS ORDERED: ERGOCALCIFEROL 1,250 MCG (50,000 IU) CAPSULE PO SCH (16:00)
[2022-01-26] MEDS: MONTELUKAST 10 MG TAB PO SCH (16:52)
[2022-01-26] MEDS: METOPROLOL SUCCINATE (ER) 100 MG TAB.ER.24H PO SCH (16:52)
[2022-01-26] MEDS: hydrALAZINE HCL 50 MG TAB PO SCH ×2 (16:52→21:13)
[2022-01-26] MEDS ORDERED: WARFARIN 2 MG TAB PO ONE (18:00)
[2022-01-26] MEDS ORDERED: amLODIPine 5 MG TAB PO STA (18:33)
--- NOTE | 2022-01-26 19:58 | P.HPIM ---
History of Present Illness This is a pleasant 9 years old female with past medical history of hypertension, hyperlipidemia, type 2 diabetes mellitus, hyperthyroidism, GERD, fibromyalgia. She is patient of Dr. Thomson patient was sent to the hospital by her primary doctor. Patient did not feel good. She has been feeling short of breath for the last few days. Also she has coughing with white creamy phlegm but this is a chronic problem. She feels her chest is tight rather than chest pain Denies other urinary or gastrointestinal symptoms. No headache or weakness or numbness or dizziness. She smokes about 1 pack per day and counseled to quit but she declines. However she was nicotine patch while she hospital. No alcohol or illicit drug. At baseline she uses a walker. Vitals are stable and patient is a provided Showing leukocytosis 18.4, rest of the CBC is unremarkable. INR is 1.4. D- dimer is elevated at 0.8 Sodium 136, rest of CBC BMP and liver enzymes are unremarkable CT of the chest: Negative for pulmonary embolism, patchy infiltrate at the right lower lobe mediastinal adenopathy which is mostly new compared to old exam there is some masslike consolidation in the right lower lobe which is a new compared to old exam Venous Doppler is negative for DVT. Patient is started on ceftriaxone and Zithromax Review of Systems Review of systems CONSTITUTIONAL: No fever, no malaise, no fatigue. HEENT: No recent visual problems or hearing problems. Denied any sore throat. CARDIOVASCULAR: No orthopnea, PND, no palpitations, no syncope. PULMONARY: No shortness of breath, no cough, no hemoptysis. GASTROINTESTINAL: No diarrhea, no nausea, no vomiting, no abdominal pain. Normoactive bowel sounds. NEUROLOGICAL: No headaches, no weakness, no numbness. HEMATOLOGICAL: Denies any bleeding or petechiae. GENITOURINARY: Denies any burning micturition, frequency, or urgency. MUSCULOSKELETAL/RHEUMATOLOGICAL: Denies any joint pain, swelling, or any muscle pain. ENDOCRINE: Denies any polyuria or polydipsia. Past Medical History Past Medical History: Heart Failure, Fibromyalgia, GERD/Reflux, Hyperlipidemia, Hypertension, Pneumonia, Thyroid Disorder Additional Past Medical History / Comment(s): osteoporosis, neuropathy,rheumatic fever as child, home o2 2 liters n/c at hs,diverticular disease,pt stated had some paralysis after neck sx -resolved,"occ nose bleeds" and "i take iron supplement that turns my stool black", cyst on one of her kidneys, shingles approx 2009. History of Any Multi-Drug Resistant Organisms: None Reported Past Surgical History: Back Surgery, Section, Orthopedic Surgery, Tonsillectomy Additional Past Surgical History / Comment(s): bruna mastectomy, bottom of right lung removed, breast implants then removed d/t "bad implants",mechanical aortic valve replacement.neck sx had titanium plate, lt carotid endarterectomy, rt lung nodule removed(benign), bruna cataracts. Past Anesthesia/Blood Transfusion Reactions: No Reported Reaction Additional Past Anesthesia/Blood Transfusion Reaction / Comment(s): clausterphobia. past blood transfusion-no reactions to it. Past Psychological History: No Psychological Hx Reported Smoking Status: Current some day smoker Past Alcohol Use History: None Reported, Rare Past Drug Use History: None Reported - Past Family History Father Family Medical History: Unable to Obtain Additional Family Medical History / Comment(s): dad in accident when pt young -did'nt know his hx. Mother Family Medical History: COPD Additional Family Medical History / Comment(s): age 73 Sister(s) Family Medical History: Cancer Additional Family Medical History / Comment(s): 1 sister- thyroid & breast Ca, brain aneurysm-still alive, #2 breast ca,dementia- 83 age,#3 blood cancer- 50's age. Medications and Allergies Home Medications Medication Instructions Recorded Confirmed Type Levothyroxine Sodium [Synthroid] 75 mcg PO DAILY@0900 05/20/14 01/25/22 History Simvastatin [Zocor] 40 mg PO SUTUFR@219905/20/14 01/25/22 History Furosemide 40 mg PO DAILY 12/19/15 01/25/22 History Montelukast [Singulair] 10 mg PO DAILY@1600 10/30/19 01/25/22 History EPINEPHrine (Auto Inject) [Epipen] 0.3 mg IM ONCE PRN 09/28/21 01/25/22 History Ergocalciferol (Vitamin D2) 1,250 mcg PO SA@1600 09/28/21 01/25/22 History [Drisdol (50,000 Iu)] LORazepam [Ativan] 0.5 mg PO TID@1000,1600,219909/28/21 01/25/22 History Megestrol [Megace] 40 mg PO DAILY@1600 09/28/21 01/25/22 History Metoprolol Succinate (ER) [Toprol 50 mg PO DAILY@159909/28/21 01/25/22 History XL] Omeprazole 40 mg PO HS@219909/28/21 01/25/22 History Yupelri 175mcg/3ml 3 ml INHALATION RT-DAILY 09/28/21 01/25/22 History cloNIDine 0.3 MG/24HR PATCH 1 patch TRANSDERM WE@209909/28/21 01/25/22 History [Catapres-TTS] dilTIAZem HCL [dilTIAZem HCL 12Hr 120 mg PO DAILY@1000 09/28/21 01/25/22 History ER] hydrALAZINE HCL [Apresoline] 50 mg PO BID@1000,219909/28/21 01/25/22 History lamoTRIgine [LaMICtal] 75 mg PO HS@219909/28/21 01/25/22 History metFORMIN HCL [Glucophage] 500 mg PO BID PRN 09/28/21 01/25/22 History Ipratropium-Albuterol Nebulize 3 ml INHALATION RT-QID PRN 01/25/22 01/25/22 History [Duoneb 0.5 mg-3 mg/3 ml Soln] Nitroglycerin Sl Tabs [Nitrostat] 0.4 mg SL Q5M PRN 01/25/22 01/25/22 History Potassium Chloride [Potassium 20 meq PO TID@1000,1600,219901/25/22 01/25/22 History Chloride ER] Warfarin Sodium 4 mg PO TUTH@219901/25/22 01/25/22 History Warfarin Sodium [Jantoven] 2 mg PO SUMOWEFRSA@219901/25/22 01/25/22 History predniSONE 5 mg PO DAILY@99901/25/22 01/25/22 History Allergies Allergy/AdvReac Type Severity Reaction Status Date / Time Latex, Natural Rubber Allergy Rash/Hives Verified 01/25/22 21:02 venom-honey bee Allergy Anaphylaxis Verified 01/25/22 21:02 [bee venom (honey bee)] adhesive AdvReac tears skin Verified 01/25/22 21:02 Iodinated Contrast Media AdvReac Nausea & Verified 01/25/22 21:02 [Iodinated Contrast Media - Vomiting & IV Dye] Diarrhea iodine AdvReac Nausea & Verified 01/25/22 21:02 Vomiting & Diarrhea Physical Exam Vitals: Vital Signs Temp Pulse Pulse Resp BP Pulse Ox 01/26/22 11:53 96 18 192/86 100 01/26/22 08:54 89 18 203/88 99 01/26/22 07:44 79 79 18 218/92 99 01/26/22 04:29 98.4 F 80 16 161/73 100 01/25/22 23:42 98.4 F 85 16 176/71 94 L 01/25/22 21:24 79 16 93 L 01/25/22 19:07 80 18 151/97 93 L 01/25/22 15:29 98.5 F 66 22 106/44 96 Intake and Output 01/25/22 01/26/22 01/26/22 22:59 06:59 14:59 Other: Weight 43.998 kg GENERAL: The patient is alert and oriented x3, not in any acute distress. Well developed, well nourished. HEENT: Pupils are round and equally reacting to light. EOMI. No scleral icterus. No conjunctival pallor. Normocephalic, atraumatic. No pharyngeal erythema. No thyromegaly. CARDIOVASCULAR: S1 and S2 present. No murmurs, rubs, or gallops. PULMONARY: Chest is clear to auscultation, no wheezing or crackles. ABDOMEN: Soft, nontender, nondistended, normoactive bowel sounds. No palpable organomegaly. MUSCULOSKELETAL: No joint swelling or deformity. EXTREMITIES: No cyanosis, clubbing, or pedal edema. NEUROLOGICAL: Gross neurological examination did not reveal any focal deficits. SKIN: No rashes. no petechiae. Results CBC & Chem 7: 01/25/22 16:00 01/25/22 16:00 Labs: Abnormal Lab Results - Last 24 Hours (Table) 01/25/22 01/25/22 01/25/22 Range/Units 16:00 16:00 16:00 WBC 18.4 H (3.8-10.6) k/uL Neutrophils # 15.2 H (1.3-7.7) k/uL Monocytes # 1.2 H (0-1.0) k/uL PT 12.6 H (9.0-12.0) sec INR 1.2 H (<1.2) D-Dimer 0.83 H (<0.60) mg/L FEU Sodium 136 L (137-145) mmol/L BUN 19 H (7-17) mg/dL Glucose 117 H (74-99) mg/dL Total Protein 6.1 L (6.3-8.2) g/dL 01/26/22 Range/Units 06:59 WBC (3.8-10.6) k/uL Neutrophils # (1.3-7.7) k/uL Monocytes # (0-1.0) k/uL PT 14.8 H (9.0-12.0) sec INR 1.4 H (<1.2) D-Dimer (<0.60) mg/L FEU Sodium (137-145) mmol/L BUN (7-17) mg/dL Glucose (74-99) mg/dL Total Protein (6.3-8.2) g/dL Assessment and Plan Assessment: Acute COPD exacerbation Right total Community acquired pneumonia, with masslike consolidation and mediastinal lymphadenopathy. History of rheumatic heart disease, s/p aortic valve replacement with mechanical valve, on warfarin History of PE Hypertension Hyperlipidemia Diabetes mellitus Hyperthyroidism. History of GERD history of fibromyalgia Plan: This is a pleasant 81 years old female with pneumonia Continue with antibiotic,on ceftriaxone and Zithromax Follow-up sputum culture Pulmonary consult to follow the patient also for the pneumonia and the masslike effect and lymphadenopathy as well. Patient will require outpatient PET scan and follow-up with visitor services associate as an outpatient as well Labs and medication were reviewed.. Continue same treatment. Continue with symptomatic treatment. Resume home medication. Monitor lytes and vitals. DVT and GI prophylaxis. Further recommendations as per clinical course of the patient DVT prophylaxis: Subcutaneous Lovenox bridging, warfarin GI Prophylaxis: Ppi PT/OT: Pending Prognosis is guarded
[2022-01-26] MEDS: MEGESTROL 40 MG TAB PO SCH (20:35)
[2022-01-26] MEDS ORDERED: lamoTRIgine 25 MG TAB PO SCH (21:00)
[2022-01-26] MEDS: PANTOPRAZOLE 40 MG TABLET PO SCH (21:13)
[2022-01-26] MEDS ORDERED: WARFARIN SODIUM 4 MG PO SCH (22:00)
[2022-01-27] MEDS: hydrALAZINE HCL 50 MG TAB PO SCH ×5 (05:22→22:57)
[2022-01-27] MEDS: LEVOTHYROXINE 75 MCG TAB PO SCH (07:09)
[2022-01-27] MEDS: YUPELRI 175 MCG/3 ML INHALATION SCH (08:24)
[2022-01-27] MEDS ORDERED: ENOXAPARIN 40 MG/0.4 ML SYRINGE SQ SCH (09:00)
[2022-01-27] MEDS ORDERED: amLODIPine 5 MG TAB PO SCH (09:00)
[2022-01-27] MEDS: AZITHROMYCIN 500 MG TAB PO SCH (09:16)
[2022-01-27] MEDS: amLODIPine 10 MG TAB PO SCH (09:16)
[2022-01-27] MEDS: predniSONE 5 MG TAB PO SCH (09:16)
[2022-01-27] MEDS: LORazepam 0.5 MG TAB PO SCH ×3 (09:16→22:57)
[2022-01-27] MEDS: DILTIAZEM CD 120 MG CAP.ER.24H PO SCH (09:16)
[2022-01-27] MEDS: FUROSEMIDE 40 MG TAB PO SCH (09:16)
[2022-01-27] MEDS: POTASSIUM BICARBONATE/CIT AC 20 MEQ TABLET.EFF PO SCH ×2 (09:17→17:34)
[2022-01-27 09:24] LABS: Basophils % (A) 0 %; Eosinophils # (A) 0.1 k/uL (0-0.7); Eosinophils % (A) 1 %; HCT 36.8 % (34.0-46.0); HGB 11.9 gm/dL (11.4-16.0); Lymphocytes # (A) 1.8 k/uL (1.0-4.8); Lymphocytes % (A) 13 %; MCH 32.8 pg (25.0-35.0); MCHC 32.4 g/dL (31.0-37.0); MCV 101.3 fL (80.0-100.0); Macrocytosis Slight; Mean Platelet Volume 8.1; Monocytes # (A) 0.9 k/uL (0-1.0); Monocytes % (A) 7 %; Neutrophils # (A) 10.7 k/uL (1.3-7.7); Neutrophils % (A) 78 %; Platelet Count 345 k/uL (150-450); RBC 3.63 m/uL (3.80-5.40); RDW 13.2 % (11.5-15.5); WBC 13.8 k/uL (3.8-10.6)
[2022-01-27 09:30] LABS: INR 2.2 (<1.2); Prothrombin Time 22.2 sec (9.0-12.0)
[2022-01-27 10:00] LABS: African American GFR (CKD) >90 (>60 ml/min/1.73 sqM); Anion Gap 8 mmol/L; Blood Urea Nitrogen 18 mg/dL (7-17); Calcium 8.7 mg/dL (8.4-10.2); Carbon Dioxide 28 mmol/L (22-30); Chloride 100 mmol/L (98-107); Glucose 200 mg/dL (74-99); Magnesium 1.8 mg/dL (1.6-2.3); Non-African American GFR(CKD) 86 (>60 ml/min/1.73 sqM); Potassium 3.6 mmol/L (3.5-5.1); Sodium 136 mmol/L (137-145)
[2022-01-27] MEDS ORDERED: hydrALAZINE HCL 25 MG TAB PO PRN (10:26)
--- NOTE | 2022-01-27 10:35 | P.PN ---
Subjective This is a pleasant 9 years old female with past medical history of hypertension, hyperlipidemia, type 2 diabetes mellitus, hyperthyroidism, GERD, fibromyalgia. She is patient of Dr. Thomson patient was sent to the hospital by her primary doctor. Patient did not feel good. She has been feeling short of breath for the last few days. Also she has coughing with white creamy phlegm but this is a chronic problem. She feels her chest is tight rather than chest pain Denies other urinary or gastrointestinal symptoms. No headache or weakness or numbness or dizziness. She smokes about 1 pack per day and counseled to quit but she declines. However she was nicotine patch while she hospital. No alcohol or illicit drug. At baseline she uses a walker. Vitals are stable and patient is a provided Showing leukocytosis 18.4, rest of the CBC is unremarkable. INR is 1.4. D- dimer is elevated at 0.8 Sodium 136, rest of CBC BMP and liver enzymes are unremarkable CT of the chest: Negative for pulmonary embolism, patchy infiltrate at the right lower lobe mediastinal adenopathy which is mostly new compared to old exam there is some masslike consolidation in the right lower lobe which is a new compared to old exam Venous Doppler is negative for DVT. Patient is started on ceftriaxone and Zithromax 01/27/2022 Patient feels much better today, she has minimal dyspnea at rest and even with exertion, however she works little bit at baseline and when she walked to the bathroom this morning she did not have much dyspnea. Probably patient can switch her to oral prednisone today. Blood pressure still uncontrolled. We'll increase hydralazine to 50 mg 4 times a day instead of 3. Also she is on Norvasc 10 mg, clonidine 0.3 mg patch, Cardizem 120 mg and metoprolol dose increased to 100 mg Zohra the patient today about the right lower lobe consolidation and large lymph nodes in the chest, also I told her the possibility of diagnosis of cancer, she verbalized understanding and acceptance. Pulmonary recommended bronchoscopy, but this Can Be Done As an Outpatient and Follow up with Dr. rangel patient with no fever or leukocytosis. She is received 2 g of ceftriaxone last night, we will lower the dose to 1 g Her warfarin today is 2.2. Still less than 2.5, she is taken for her history of aortic valve replacement. She got one-time dose of Lovenox this morning which we will discontinue as this trend INR is expected to be her tomorrow. Her leukocytosis is improving down to 13.8. Objective - Vital Signs Vital signs: Vital Signs Temp 97.8 F 01/27/22 04:00 Pulse 67 01/27/22 04:00 Resp 18 01/27/22 04:00 BP 185/61 01/27/22 07:11 Pulse Ox 96 01/27/22 08:25 FiO2 Intake & Output 01/26/22 01/27/22 01/27/22 18:59 06:59 18:59 Weight 43.998 kg Other: Voiding Method Toilet # Voids 1 - Exam GENERAL: The patient is alert and oriented x3, not in any acute distress. Well developed, well nourished. HEENT: Pupils are round and equally reacting to light. EOMI. No scleral icterus. No conjunctival pallor. Normocephalic, atraumatic. No pharyngeal erythema. No thyromegaly. CARDIOVASCULAR: S1 and S2 present. No murmurs, rubs, or gallops. PULMONARY: Chest is clear to auscultation, no wheezing or crackles. ABDOMEN: Soft, nontender, nondistended, normoactive bowel sounds. No palpable organomegaly. MUSCULOSKELETAL: No joint swelling or deformity. EXTREMITIES: No cyanosis, clubbing, or pedal edema. NEUROLOGICAL: Gross neurological examination did not reveal any focal deficits. SKIN: No rashes. no petechiae. - Labs CBC & Chem 7: 01/27/22 09:03 01/27/22 09:03 Labs: Microbiology - Last 24 Hours (Table) 01/25/22 22:15 Blood Culture - Final Blood 01/25/22 22:00 Blood Culture - Final Blood Assessment and Plan Assessment: Acute COPD exacerbation Right lower lobe consolidation which is with masslike consolidation and medias tinal lymphadenopathy. Pneumonia as possibility but felt less leg. History of rheumatic heart disease, s/p aortic valve replacement with mechanical valve, on warfarin History of PE Hypertension Hyperlipidemia Diabetes mellitus Hyperthyroidism. History of GERD history of fibromyalgia Plan: This is a pleasant 81 years old female with pneumonia Continue with antibiotic,on ceftriaxone Follow-up sputum culture Pulmonary consult to follow the patient also for the pneumonia and the masslike effect and lymphadenopathy as well. Patient will require outpatient PET scan and follow-up with wrapping machine helper as an outpatient as well. Patient is aware about this problem and the need to check it and to rule out possibility of cancer versus others Labs and medication were reviewed.. Continue same treatment. Continue with symptomatic treatment. Resume home medication. Monitor lytes and vitals. DVT and GI prophylaxis. Further recommendations as per clinical course of the patient DVT prophylaxis: Subcutaneous Lovenox bridging, warfarin GI Prophylaxis: Ppi PT/OT: Pending Prognosis is guarded Patient is educated about the importance of monitoring her INR and she agrees
[2022-01-27 12:03] LABS: Glucose,Whole Blood 113 mg/dL (70-110)
--- NOTE | 2022-01-27 13:19 | P.PN ---
Subjective Progress Note Date: 01/27/22 This is a very pleasant 81-year-old female patient with a known history of scoliosis, right-sided breast cancer status post bilateral mastectomy, rheumatic fever with rheumatic heart disease and subsequent aortic valve replacement with mechanical valve maintained on warfarin, chronic hypoxemic respiratory failure maintained on home oxygen mainly at night, history of a right lower lobectomy 20 years ago for a benign pulmonary nodule, severe chronic obstructive pulmonary disease with an FEV1 1 value of 42% of predicted. She also has ongoing shortness of breath secondary to debility. She had been wheelchair bound for quite some time following surgical intervention for subdural hematoma. She also had spine surgery with fusion and insertion of a metal plates. Congestive heart failure. She had been hospitalized here in September 2021 for shortness of breath and was found to have subsegmental pulmonary embolism in the right lower lung and her warfarin is adjusted. Stress echocardiogram had revealed no reversible ischemia however her ejection fraction was found to be at 38%. She had been following with Dr. Garrison in our office as it was last seen in October 2021. The she presented here to the emergency room yesterday with increasing shortness of breath or chest discomfort. Chest x-ray revealed evidence of COPD with increased right lower lobe airspace opacities. Doppler of the left lower e xtremity revealed no evidence of DVT. CT angiogram revealed no evidence of pulmonary embolism. There is patchy infiltrate and atelectasis of the right lower lobe. She is now found to have significant mediastinal adenopathy which is new compared to September 2021. There is some masslike consolidation of the right lower lung which is also new. White count 18.4. Hemoglobin 12.4. INR 1.4. D- dimer 0.83. Sodium 136. Potassium 4.1. BUN 19. Creatinine 0.83. Glucose 117. ProBNP 404. Troponin negative 1. Murguia virus by PCR not detected. The patient is seen today in consultation in the emergency department. She is currently sitting up on the stretcher. Awake and alert in no acute distress. She is feeling better today compared to yesterday. No worsening shortness of breath. No cough. No hemoptysis. Denies any significant weight loss. She is maintaining O2 saturations in the high 90s on 2 L/m per nasal cannula. Somewhat hypertensive. The patient is seen today 01/27/2022 in follow-up on the selective care unit. She is currently resting comfortably in bed. Awake and alert in no acute distress. 1 blood culture positive for coag negative staph. white count 13.8. Hemoglobin 11.9. Sodium 136. Potassium 3.6. BUN 18. Creatinine 0.62. Glucose 113. Pro Calcitonin 0.04. She is currently on ceftriaxone, bronchodilators. Objective - Vital Signs Vital signs: Vital Signs Temp 98 F 01/27/22 12:00 Pulse 71 01/27/22 12:00 Resp 18 01/27/22 12:00 BP 128/71 01/27/22 12:00 Pulse Ox 95 01/27/22 12:00 FiO2 Intake & Output 01/26/22 01/27/22 01/27/22 18:59 06:59 18:59 Intake Total 180 Balance 180 Weight 43.998 kg Intake: Oral 180 Other: Voiding Method Toilet # Voids 1 - Exam GENERAL EXAM: Alert, very pleasant 81-year-old female patient, on room air, comfortable in no apparent distress. HEAD: Normocephalic. EYES: Normal reaction of pupils, equal size. NOSE: Clear with pink turbinates. THROAT: No erythema or exudates. NECK: No masses, no JVD. CHEST: No chest wall deformity. LUNGS: Equal air entry with crackles in the right lung base. CVS: S1 and S2 normal with no audible murmur, regular rhythm. ABDOMEN: No hepatosplenomegaly, normal bowel sounds, no guarding or rigidity. SPINE: No scoliosis or deformity SKIN: No rashes CENTRAL NERVOUS SYSTEM: No focal deficits, tone is normal in all 4 extremities. EXTREMITIES: There is no peripheral edema. No clubbing, no cyanosis. Peripheral pulses are intact. - Labs CBC & Chem 7: 01/27/22 09:03 01/27/22 09:03 Labs: Abnormal Lab Results - Last 24 Hours (Table) 01/27/22 01/27/22 01/27/22 Range/Units 09:03 09:03 09:03 WBC 13.8 H (3.8-10.6) k/uL RBC 3.63 L (3.80-5.40) m/uL MCV 101.3 H (80.0-100.0) fL Neutrophils # 10.7 H (1.3-7.7) k/uL PT 22.2 H (9.0-12.0) sec INR 2.2 H (<1.2) Sodium 136 L (137-145) mmol/L BUN 18 H (7-17) mg/dL Glucose 200 H (74-99) mg/dL POC Glucose (mg/dL) (70-110) mg/dL 01/27/22 Range/Units 12:02 WBC (3.8-10.6) k/uL RBC (3.80-5.40) m/uL MCV (80.0-100.0) fL Neutrophils # (1.3-7.7) k/uL PT (9.0-12.0) sec INR (<1.2) Sodium (137-145) mmol/L BUN (7-17) mg/dL Glucose (74-99) mg/dL POC Glucose (mg/dL) 113 H (70-110) mg/dL Microbiology - Last 24 Hours (Table) 01/25/22 22:15 Blood Culture Gram Stain - Preliminary Blood Blood Culture - Preliminary Coagulase Negative Staph 01/25/22 22:00 Blood Culture - Final Blood 01/25/22 22:00 Blood Culture Gram Stain - Preliminary Blood 01/25/22 22:15 Blood Culture - Final Blood Assessment and Plan Assessment: Dyspnea and chest discomfort secondary to an acute exacerbation of chronic obstructive pulmonary disease complicated by a new patchy infiltrate of the right lower lung. Pro calcitonin 0.04 Significant mediastinal adenopathy with some masslike consolidation of the right lower lung, new compared to computed tomography scan of September 2021 Severe oxygen dependent chronic obstructive pulmonary disease with an FEV1 value of 42% of predicted History of right lower lobectomy for benign pulmonary nodule approximately 20 years ago Previous history of subdural hematoma requiring surgical intervention and evacuation in October 2019 with prolonged debility and recovery History of rheumatic heart disease, status post aortic valve replacement with mechanical valve, maintained on warfarin, currently subtherapeutic History of pulmonary embolism to the right lower lung in September 2021. Currently on warfarin. INR 2.2 History of malignant tumor of the right breast status post bilateral mastectomy Scoliosis of the thoracic spine History of anxiety History of congestive heart failure Osteoporosis Plan: The patient was seen and evaluated Improved and on room air Procalcitonin 0.04 Outpatient evaluation and PET scan, will follow up with Dr. Garrison Continue the antibiotics, bronchodilators, warfarin for now Probable discharge in the a.m. We will continue to follow I have personally seen and examined the patient, performed the documentation and the assessment and plan as written. Number of minutes spent on the visit: 10.
[2022-01-27] MEDS: METOPROLOL SUCCINATE (ER) 100 MG TAB.ER.24H PO SCH (17:34)
[2022-01-27] MEDS: MONTELUKAST 10 MG TAB PO SCH (17:34)
[2022-01-27] MEDS: MEGESTROL 40 MG TAB PO SCH (17:34)
[2022-01-27] MEDS ORDERED: WARFARIN 2 MG TAB PO ONE (18:00)
[2022-01-27] MEDS: lamoTRIgine 25 MG TAB PO SCH ×2 (20:09→20:10)
[2022-01-27] MEDS: PANTOPRAZOLE 40 MG TABLET PO SCH (20:11)
[2022-01-27] MEDS ORDERED: ATORVASTATIN 20 MG TAB PO SCH (21:00)
[2022-01-28] MEDS: POTASSIUM BICARBONATE/CIT AC 20 MEQ TABLET.EFF PO SCH ×2 (02:50→09:42)
[2022-01-28] MEDS ORDERED: TEMAZEPAM 15 MG CAP PO PRN (03:04)
[2022-01-28] MEDS: LEVOTHYROXINE 75 MCG TAB PO SCH (03:16)
[2022-01-28 06:29] LABS: Glucose,Whole Blood 99 mg/dL (70-110)
[2022-01-28 07:34] LABS: INR 2.4 (<1.2)
[2022-01-28 07:35] LABS: Prothrombin Time 24.2 sec (9.0-12.0)
[2022-01-28 07:46] LABS: Basophils # (A) 0.1 k/uL (0-0.2); Basophils % (A) 1 %; Eosinophils # (A) 0.1 k/uL (0-0.7); Eosinophils % (A) 1 %; HCT 36.4 % (34.0-46.0); HGB 11.9 gm/dL (11.4-16.0); Lymphocytes # (A) 2.8 k/uL (1.0-4.8); Lymphocytes % (A) 28 %; MCH 32.7 pg (25.0-35.0); MCHC 32.6 g/dL (31.0-37.0); MCV 100.3 fL (80.0-100.0); Mean Platelet Volume 8.7; Monocytes % (A) 10 %; Neutrophils % (A) 60 %; Platelet Count 324 k/uL (150-450); RBC 3.63 m/uL (3.80-5.40); RDW 13.3 % (11.5-15.5); WBC 9.9 k/uL (3.8-10.6)
[2022-01-28 08:00] VITALS: RESP 17; TEMP 98.8
[2022-01-28] MEDS: YUPELRI 175 MCG/3 ML INHALATION SCH (08:42)
[2022-01-28] MEDS: LORazepam 0.5 MG TAB PO SCH (09:42)
[2022-01-28] MEDS: hydrALAZINE HCL 50 MG TAB PO SCH ×2 (09:42→12:01)
[2022-01-28] MEDS: DILTIAZEM CD 120 MG CAP.ER.24H PO SCH (09:42)
[2022-01-28] MEDS: FUROSEMIDE 40 MG TAB PO SCH (09:42)
[2022-01-28] MEDS: amLODIPine 10 MG TAB PO SCH (09:42)
[2022-01-28] MEDS: predniSONE 5 MG TAB PO SCH (09:43)
[2022-01-28] MEDS ORDERED: AMOXIC-POT CLAV 875-125MG 1 EACH TAB PO SCH (11:30)
[2022-01-28 12:00] VITALS: BP 145/63; PULSE 50
[2022-01-28 12:15] LABS: Glucose,Whole Blood 119 mg/dL (70-110)
--- NOTE | 2022-01-28 15:10 | P.DS ---
Providers Date of admission: 01/25/22 22:21 Expected date of discharge: 01/28/22 Attending physician: Joseph Thomson MD Consults: 01/25/22 22:20 Consult Physician Routine Consulting Provider: Mala Rock Consult Reason/Comments: Pneumonia, dyspnea, possible lung mass Do you want consulting provider notified?: Yes, Notify in am Primary care physician: Sandrita Thomson Hospital Course: Final Diagnoses: Acute COPD exacerbation, new right lower lobe patchy infiltrate, pro-calcitonin 0.04. Right lower lobe consolidation which is with masslike consolidation and mediastinal lymphadenopathy. Further workup outpatient Chronic hypoxic respiratory failure, wears 2 L nasal cannula at at bedtime History of rheumatic heart disease, s/p aortic valve replacement with mechanical valve, on warfarin. INR 2.4 History of right lower lobectomy for benign pulmonary nodule, 20 years ago History of subdural hematoma, status post surgical intervention 2019 with prolonged debility and recovery History of PE, right lower lung, September 2021. Anticoagulated on warfarin. History of bilateral mastectomy secondary to malignant tumor Hypertension Hyperlipidemia Diabetes mellitus Hyperthyroidism. History of GERD history of fibromyalgia Hospital course: This is an 81-year-old gentleman admitted with dyspnea, chest discomfort, acute COPD exacerbation, new significant mediastinal adenopathy with masslike consolidation of the right lower lung and multiple other medical issues. Maintained on nebulized bronchodilators, ceftriaxone with significant clinical improvement. Denies chest pain, palpitations or shortness of breath. Maintaining O2 sats in the 90s on 2 L nasal cannula. Patient will be discharged home in a stable condition today pending final DC recommendations and clearance per pulmonary. The impression and plan of care has been dictated as directed. : I performed a history and examination of this patient, discussed the same with the dictator. I agree with the dictator's note ,documented as a scribe. Any additional findings or plans will be noted. Patient Condition at Discharge: Stable Plan - Discharge Summary Discharge Rx Participant: No New Discharge Prescriptions: New amLODIPine [Norvasc] 10 mg PO DAILY #30 tab Amoxic-Pot Clav 875-125Mg [Augmentin 875-125] 1 each PO Q12HR 3 Days #6 tab Continue Simvastatin [Zocor] 40 mg PO SUTUFR@2200 Levothyroxine Sodium [Synthroid] 75 mcg PO DAILY@0900 Furosemide 40 mg PO DAILY Montelukast [Singulair] 10 mg PO DAILY@1600 Metoprolol Succinate (ER) [Toprol XL] 50 mg PO DAILY@1600 Megestrol [Megace] 40 mg PO DAILY@1600 lamoTRIgine [LaMICtal] 75 mg PO HS@2200 cloNIDine 0.3 MG/24HR PATCH [Catapres-TTS] 1 patch TRANSDERM WE@2100 dilTIAZem HCL [dilTIAZem HCL 12Hr ER] 120 mg PO DAILY@1000 EPINEPHrine (Auto Inject) [Epipen] 0.3 mg IM ONCE PRN PRN Reason: Anaphylaxis Potassium Chloride [Potassium Chloride ER] 20 meq PO TID@1000,1600,2200 Ipratropium-Albuterol Nebulize [Duoneb 0.5 mg-3 mg/3 ml Soln] 3 ml INHALATION RT-QID PRN PRN Reason: Shortness Of Breath Ergocalciferol (Vitamin D2) [Drisdol (50,000 Iu)] 1,250 mcg PO SA@1600 Omeprazole 40 mg PO HS@2200 metFORMIN HCL [Glucophage] 500 mg PO BID PRN PRN Reason: high BS while on prednisone LORazepam [Ativan] 0.5 mg PO TID@1000,1600,2200 hydrALAZINE HCL [Apresoline] 50 mg PO BID@1000,2200 Yupelri 175mcg/3ml 3 ml INHALATION RT-DAILY Nitroglycerin Sl Tabs [Nitrostat] 0.4 mg SL Q5M PRN PRN Reason: Chest Pain Warfarin Sodium 4 mg PO TUTH@2200 Warfarin Sodium [Jantoven] 2 mg PO SUMOWEFRSA@220 predniSONE 5 mg PO DAILY@1000 #0 Discharge Medication List Levothyroxine Sodium [Synthroid] 75 mcg PO DAILY@0900 05/20/14 [History] Simvastatin [Zocor] 40 mg PO SUTUFR@0 05/20/14 [History] Furosemide 40 mg PO DAILY 12/19/15 [History] Montelukast [Singulair] 10 mg PO DAILY@1600 10/30/19 [History] EPINEPHrine (Auto Inject) [Epipen] 0.3 mg IM ONCE PRN 09/28/21 [History] Ergocalciferol (Vitamin D2) [Drisdol (50,000 Iu)] 1,250 mcg PO SA@1600 05/13/22 [History] LORazepam [Ativan] 0.5 mg PO TID@1000,1599,219909/28/21 [History] Megestrol [Megace] 40 mg PO DAILY@159909/28/21 [History] Metoprolol Succinate (ER) [Toprol XL] 50 mg PO DAILY@159909/28/21 [History] Omeprazole 40 mg PO HS@219909/28/21 [History] Yupelri 175mcg/3ml 3 ml INHALATION RT-DAILY 09/28/21 [History] cloNIDine 0.3 MG/24HR PATCH [Catapres-TTS] 1 patch TRANSDERM WE@209909/28/21 [History] dilTIAZem HCL [dilTIAZem HCL 12Hr ER] 120 mg PO DAILY@99909/28/21 [History] hydrALAZINE HCL [Apresoline] 50 mg PO BID@999,219909/28/21 [History] lamoTRIgine [LaMICtal] 75 mg PO HS@219909/28/21 [History] metFORMIN HCL [Glucophage] 500 mg PO BID PRN 09/28/21 [History] Ipratropium-Albuterol Nebulize [Duoneb 0.5 mg-3 mg/3 ml Soln] 3 ml INHALATION RT-QID PRN 01/25/22 [History] Nitroglycerin Sl Tabs [Nitrostat] 0.4 mg SL Q5M PRN 01/25/22 [History] Potassium Chloride [Potassium Chloride ER] 20 meq PO TID@1000,1599,219901/25/22 [History] Warfarin Sodium 4 mg PO TUTH@219901/25/22 [History] Warfarin Sodium [Jantoven] 2 mg PO SUMOWEFRSA@219901/25/22 [History] Amoxic-Pot Clav 875-125Mg [Augmentin 875-125] 1 each PO Q12HR 3 Days #6 tab 01/28/22 [Rx] amLODIPine [Norvasc] 10 mg PO DAILY #30 tab 01/28/22 [Rx] predniSONE 5 mg PO DAILY@1000 #0 01/28/22 [Rx] Follow up Appointment(s)/Referral(s): Sandrita Thomson DO [Primary Care Provider] - 01/30/22 10:00 am (Appointment is at the [place] office. You will be seen by Dr. Joseph Thomson.) Lillie Garrison MD [STAFF PHYSICIAN] - 01/30/22 1:15 pm Ambulatory/Diagnostic Orders: Prothrombin Time INR [LAB.AMB] Time Frame: 01/30/22, Location: None Selected Patient Instructions/Handouts: COPD (Chronic Obstructive Pulmonary Disease) (DC), Chronic Lung Disease and Infection Prevention (DC) Discharge Disposition: HOME SELF-CARE
--- NOTE | 2022-01-28 15:17 | P.PN ---
Subjective Progress Note Date: 01/28/22 This is a very pleasant 81-year-old female patient with a known history of scoliosis, right-sided breast cancer status post bilateral mastectomy, rheumatic fever with rheumatic heart disease and subsequent aortic valve replacement with mechanical valve maintained on warfarin, chronic hypoxemic respiratory failure maintained on home oxygen mainly at night, history of a right lower lobectomy 20 years ago for a benign pulmonary nodule, severe chronic obstructive pulmonary disease with an FEV1 1 value of 42% of predicted. She also has ongoing shortness of breath secondary to debility. She had been wheelchair bound for quite some time following surgical intervention for subdural hematoma. She also had spine surgery with fusion and insertion of a metal plates. Congestive heart failure. She had been hospitalized here in September 2021 for shortness of breath and was found to have subsegmental pulmonary embolism in the right lower lung and her warfarin is adjusted. Stress echocardiogram had revealed no reversible ischemia however her ejection fraction was found to be at 38%. She had been following with Dr. Garrison in our office as it was last seen in October 2021. The she presented here to the emergency room yesterday with increasing shortness of breath or chest discomfort. Chest x-ray revealed evidence of COPD with increased right lower lobe airspace opacities. Doppler of the left lower e xtremity revealed no evidence of DVT. CT angiogram revealed no evidence of pulmonary embolism. There is patchy infiltrate and atelectasis of the right lower lobe. She is now found to have significant mediastinal adenopathy which is new compared to September 2021. There is some masslike consolidation of the right lower lung which is also new. White count 18.4. Hemoglobin 12.4. INR 1.4. D- dimer 0.83. Sodium 136. Potassium 4.1. BUN 19. Creatinine 0.83. Glucose 117. ProBNP 404. Troponin negative 1. Murguia virus by PCR not detected. The patient is seen today in consultation in the emergency department. She is currently sitting up on the stretcher. Awake and alert in no acute distress. She is feeling better today compared to yesterday. No worsening shortness of breath. No cough. No hemoptysis. Denies any significant weight loss. She is maintaining O2 saturations in the high 90s on 2 L/m per nasal cannula. Somewhat hypertensive. The patient is seen today 01/27/2022 in follow-up on the selective care unit. She is currently resting comfortably in bed. Awake and alert in no acute distress. 1 blood culture positive for coag negative staph. white count 13.8. Hemoglobin 11.9. Sodium 136. Potassium 3.6. BUN 18. Creatinine 0.62. Glucose 113. Pro Calcitonin 0.04. She is currently on ceftriaxone, bronchodilators. The patient is seen today 11/27/2001 in follow-up on the selective care unit. She is awake and alert in no acute distress. Currently resting comfortably in bed. Denies any worsening shortness of breath, cough or congestion. She is currently maintaining good O2 saturations in the 90s on 2 L/m per nasal cannula. She's been afebrile. White count 9.9. Hemoglobin 11.9. INR 2.4. Glucose 119. She is continued on Augmentin. Objective - Vital Signs Vital signs: Vital Signs Temp 98.8 F 01/28/22 07:59 Pulse 50 L 01/28/22 11:59 Resp 17 01/28/22 07:59 BP 145/63 01/28/22 11:59 Pulse Ox 98 01/28/22 11:59 FiO2 Intake & Output 01/27/22 01/28/22 01/28/22 18:59 06:59 18:59 Intake Total 180 240 Balance 180 240 Intake: Oral 180 240 Other: Voiding Method Toilet Toilet # Voids 1 1 - Exam GENERAL EXAM: Alert, very pleasant 81-year-old female patient, on 2 L nasal cannula, comfortable in no apparent distress. HEAD: Normocephalic. EYES: Normal reaction of pupils, equal size. NOSE: Clear with pink turbinates. THROAT: No erythema or exudates. NECK: No masses, no JVD. CHEST: No chest wall deformity. LUNGS: Equal air entry with crackles in the right lung base. CVS: S1 and S2 normal with no audible murmur, regular rhythm. ABDOMEN: No hepatosplenomegaly, normal bowel sounds, no guarding or rigidity. SPINE: No scoliosis or deformity SKIN: No rashes CENTRAL NERVOUS SYSTEM: No focal deficits, tone is normal in all 4 extremities. EXTREMITIES: There is no peripheral edema. No clubbing, no cyanosis. Peripheral pulses are intact. - Labs CBC & Chem 7: 01/28/22 06:48 01/27/22 09:03 Labs: Abnormal Lab Results - Last 24 Hours (Table) 01/28/22 01/28/22 01/28/22 Range/Units 06:48 06:48 11:52 RBC 3.63 L (3.80-5.40) m/uL MCV 100.3 H (80.0-100.0) fL PT 24.2 H (9.0-12.0) sec INR 2.4 H (<1.2) POC Glucose (mg/dL) 119 H (70-110) mg/dL Microbiology - Last 24 Hours (Table) 01/25/22 22:00 Blood Culture Gram Stain - Preliminary Blood Blood Culture - Preliminary Bacillus species Not Anthracis 01/25/22 22:15 Blood Culture Gram Stain - Preliminary Blood Blood Culture - Preliminary Coagulase Negative Staph Assessment and Plan Assessment: Dyspnea and chest discomfort secondary to an acute exacerbation of chronic obstructive pulmonary disease complicated by a new patchy infiltrate of the right lower lung. Pro calcitonin 0.04 Significant mediastinal adenopathy with some masslike consolidation of the right lower lung, new compared to computed tomography scan of September 2021 Severe oxygen dependent chronic obstructive pulmonary disease with an FEV1 value of 42% of predicted History of right lower lobectomy for benign pulmonary nodule approximately 20 years ago Previous history of subdural hematoma requiring surgical intervention and evacuation in October 2019 with prolonged debility and recovery History of rheumatic heart disease, status post aortic valve replacement with m echanical valve, maintained on warfarin, currently subtherapeutic History of pulmonary embolism to the right lower lung in September 2021. Currently on warfarin. INR 2.2 History of malignant tumor of the right breast status post bilateral mastectomy Scoliosis of the thoracic spine History of anxiety History of congestive heart failure Osteoporosis Plan: The patient was seen and evaluated Medications and labs reviewed Outpatient evaluation and PET scan May need bronchoscopy/EBUS Has an appointment with Dr. Garrison on 01/30/2022 I have personally seen and examined the patient, performed the documentation and the assessment and plan as written. Number of minutes spent on the visit: 10.
[2022-01-28] MEDS ORDERED: WARFARIN 5 MG TAB PO ONE (18:00)
[2022-01-29] MEDS ORDERED: NON FORMULARY DRUG (Warfarin Sodium [Warfarin Sodium] 4 MG Tablet) PO SCH (22:00)
[2022-01-30] MEDS ORDERED: cloNIDine 0.3 MG/24HR PATCH TRANSDERM SCH (21:00)
== END 2022-01-28 14:15 | disposition home or self-care (01) | DRG 191 ==
LOC: EC 15:26 → 3SCARD 22:21
PROVIDERS: ADMIT Family Medicine; ATTEND Family Medicine
DX: J44.1 Chronic obstructive pulmonary disease with (acute) exacerbation (principal); J96.11 Chronic respiratory failure with hypoxia; J98.11 Atelectasis; I11.0 Hypertensive heart disease with heart failure; E11.42 Type 2 diabetes mellitus with diabetic polyneuropathy; I50.9 Heart failure, unspecified; M41.9 Scoliosis, unspecified; M79.7 Fibromyalgia; B96.89 Other specified bacterial agents as the cause of diseases classified elsewhere; Z71.6 Tobacco abuse counseling; E05.90 Thyrotoxicosis, unspecified without thyrotoxic crisis or storm; R59.1 Generalized enlarged lymph nodes; M41.84 Other forms of scoliosis, thoracic region; K21.9 Gastro-esophageal reflux disease without esophagitis; E78.5 Hyperlipidemia, unspecified; F17.210 Nicotine dependence, cigarettes, uncomplicated; M81.0 Age-related osteoporosis without current pathological fracture; Z79.01 Long term (current) use of anticoagulants; Z79.84 Long term (current) use of oral hypoglycemic drugs; Z79.890 Hormone replacement therapy; Z79.899 Other long term (current) drug therapy; Z85.3 Personal history of malignant neoplasm of breast; Z80.3 Family history of malignant neoplasm of breast; Z82.5 Family history of asthma and other chronic lower respiratory diseases; Z86.711 Personal history of pulmonary embolism; Z90.13 Acquired absence of bilateral breasts and nipples; Z90.2 Acquired absence of lung [part of]; Z95.2 Presence of prosthetic heart valve; Z98.82 Breast implant status; Z99.3 Dependence on wheelchair; Z99.81 Dependence on supplemental oxygen; Z91.040 Latex allergy status; Z91.048 Other nonmedicinal substance allergy status; Z98.42 Cataract extraction status, left eye; Z98.41 Cataract extraction status, right eye; Z91.041 Radiographic dye allergy status
CPT/HCPCS: 36415; 71045; 71046; 71275; 80048; 80053; 83690; 83735; 83880; 84145; 84484; 85025; 85379; 85610; 85730; 87040; 87635; 94760; 96361; 96365; 96366; 96375; 99285

== ENCOUNTER → 2022-02-15 | Outpatient (CLI) | payer MEDICARE, BC ==
--- NOTE | 2022-02-15 15:21 | CT ---
EXAMINATION TYPE: CT chest w con DATE OF EXAM: 02/15/2022 COMPARISON: CTA chest 3 weeks ago beyond older studies HISTORY: Abnormal finding of lung mcmanus CT DLP: 317 mGycm. Automated Exposure Control for Dose Reduction was Utilized. TECHNIQUE: CT scan of the thorax is performed following with IV Contrast, patient injected with 70 m L of Isovue 300. FINDINGS: LUNGS: Mild underlying emphysematous change in the upper lungs is redemonstrated. Trace right-sided p leural effusion redemonstrated. Persistent abnormal area right lower lobe measuring 6.3 x 2.7 cm axia l image 38 extending towards the right hilum. Spiculated mass or neoplasm is suspected over infectiou s etiology given without improvement of findings over short interval. Left lung remains clear. MEDIASTINUM: Persistent enlarged thoracic lymph nodes including large paratracheal lymph node measuri ng 4.1 cm long axis coronal image 36. Enlarged lymph nodes anterior to the left brachiocephalic vein axial image 20 are redemonstrated. Enlarged subcarinal lymph node axial image 27 again seen. Prominent peripheral calcification or possible stent in the ascending aorta is redemonstrated. Severe plaque extends into the 3 great vessels possible significant stenosis origin of the left common loredo tid artery thought present near axial image 15. Prominent pulmonary arteries redemonstrated suggesting underlying pulmonary artery hypertension. Surg ical change of level of the aortic valve redemonstrated. Heart size normal. Post-CABG changes with st ernal wires and mediastinal clips redemonstrated. No pericardial effusion. OTHER: Nonspecific 1.1 cm right adrenal mass axial image 57 is favored benign given stability since J [facility] [address]. Cholecystectomy clips are redemonstrated. Some simple appearing thin-walled cysts sca ttered throughout both kidneys again seen. There is S-shaped scoliosis present. Surgical changes of t he lower cervical spine is partially imaged. 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 F urther details as discussed above.
== END | disposition home or self-care (01) ==
LOC: RADCTMAIN 10:46
PROVIDERS: ATTEND Internal Medicine Critical Care Medicine
DX: R91.8 Other nonspecific abnormal finding of lung field (principal)
CPT/HCPCS: 82565; 84520; 71260; 36415; Q9967

== ENCOUNTER 2022-02-21 12:14 | Day surgery (SDC) | payer MEDICARE, BC ==
[2022-02-20 09:24] VITALS: BMI 18.6
[~2022-02-21 12:14] MED LIST changes: +ALBUTEROL NEB (CONC) 2.5 MG/0.5 ML INHALATION ONE; -DENOSUMAB 60 MG/ML 1 ML SYRINGE SQ ONE; +LACTATED RINGERS 1,000 ML IV SCH; +LIDOCAINE 2% (PF) 20 MG/ML 5 ML VIAL INHALATION ONE; +LIDOCAINE VISCOUS 300 MG/15 ML CUP MUCOUS MEM ONE; +SODIUM CHLORIDE 0.9% 1,000 ML IV SCH
[2022-02-21 13:09] LABS: Glucose,Whole Blood 117 mg/dL (70-110)
--- NOTE | 2022-02-21 14:26 | CT ---
EXAMINATION TYPE: CT Chest gloria Bob Protocol DATE OF EXAM: 02/21/2022 COMPARISON: CT chest February 15, 2022. HISTORY: Abnormal CT. Possible lung neoplasm. CT DLP: [address] thorax without contrast. Automated exposure control for dose reduction was used. FINDINGS: Exam for bronchoscopy planning and not for diagnostic purposes. Moderate underlying emphysematous ernesto nge is redemonstrated with spiculated mass in the right lower lobe again seen. There is mild to moder ate right lower lung linear scarring and/or atelectasis redemonstrated. Overlying sternal wires and m ediastinal clips along with stent in the ascending aorta are redemonstrated. Persistent suspicious en larged right paratracheal lymph node series 8 image 24. Cardiomegaly again seen. Cholecystectomy clip s are redemonstrated IMPRESSION: As above.
[2022-02-21] MEDS ORDERED: fentaNYL (PF) 50 MCG/ML 2 ML AMP ONE (14:30)
[2022-02-21] MEDS ORDERED: LIDOCAINE 2% INJ 20 MG/ML (2 ML VIAL) ONE (14:30)
[2022-02-21] MEDS ORDERED: PHENYLEPHRINE-0.9% NACL SYG 1,000 MCG/10 ML SYRINGE ONE (14:30)
[2022-02-21] MEDS ORDERED: PROPOFOL 10 MG/ML 20 ML VIAL IV ONE (14:30)
[2022-02-21] MEDS ORDERED: SUCCINYLCHOLINE CHLORIDE 200 MG/10 ML VIAL IV ONE (14:30)
--- NOTE | 2022-02-21 15:26 | P.PCN ---
Date of Procedure: 02/21/22 Preoperative Diagnosis: Right lung mass, mediastinal lymphadenopathy Postoperative Diagnosis: Right lung mass, mediastinal lymphadenopathy Extensive extrinsic compression of the right lower lobe bronchus and the various segments of the right lower lobe were compressed although not adequately visualized and this included the medial basilar, anterior lateral and posterior segments. Procedure(s) Performed: Flexible bronchoscopy EBUS bronchoscopy EBUS guided transbronchial needle aspirate of mediastinal lymph nodes, station 4R and station 7 Navigation bronchoscopy Transbronchial biopsy of the right lower lobe bronchus, bronchial lavage of the right lower lobe Anesthesia: GETA Surgeon: Lillie Garrison Estimated Blood Loss (ml): 0 Pathology: other Condition: stable Disposition: same day Operative Findings: After obtaining the consent the patient was taken to the OR suite he was intubated and put on mechanical ventilation by anesthesia then the scope was advanced to the ET tube until the Trachea was seen and it was normal and then the josué appears normal then the scope advanced to the left main and PEARL LB1- LB3 were seen and no endobronchial lesions were seen then the scope advanced to the lingula and the LB4 and LB5 were seen and no endobronchial lesions were seen the scope retracted and advanced to the left lower lobes LB6 to LB12 were seen one by one and no endobronchial lesions, then the scope was retracted back to the josué and advanced to the Right main and RUL RB1 and RB2 and RB3 were seen one by one and no endobronchial lesions were seen the scope. The bronchoscope was then retracted and advanced to the BI and RML RB4 and RB5 were seen and no endobronchial lesions were seen and then the bronchoscope was pulled to the right lower lobe and right lower lobes bronchus was extrinsically compressed in its midportion with elevated segmented lower lobe were not seen and I was unable to visualize the anterior method in the posterior segment. The medial basal segment was not visualized. The severe segment was initially patent. Nevertheless, there is subsegments were extensively compressed. Navigation bronchoscopy was performed. The main josué and the secondary josué on the left were used as the reference points and appropriate calibration was done. Following that, using a navigation guidance , the bronchoscope was advanced to the right lower lobe . The right lower bronchus was extrinsically compressed and I was unable to pass the forceps into the basilar segments of the right lower. In fact I was unable to visualize the anterior, lateral and posterior segments of the right lower lobe. I was unable to visualize the medial basal segment of the right lower lobe. The severe segment was also extrinsically compressed where I was unable to advance the forceps. I was able to obtain some limited transbronchial biopsies from the right lower lobe bronchus. Following that, a bronchial lavage of the right lower lobe was done. A total of 60 mL of fluid was infused in approximately 30 mL was aspirated. This will be sent for cytology and pathologic evaluation. Then EBUS was used and the lymph nodes were examined. Direct measurement of the mediastinal lymph nodes revealed a 15x15 cm station 4R lymph node, [id number] st ation 7 lymph node I performed transbronchial needle aspirate of station 7 and a total of 3 passes FNA without major bleeding station 4 R lymph nodes were a total of 5 passes were obtained. No major bleeding and the scope was removed and taken out in total the patient was send to the floor in stable condition
[2022-02-21] MEDS ORDERED: LABETALOL 5 MG/ML VIAL MDV IVP ONE (15:52)
[2022-02-21 16:17] VITALS: TEMP 96.8
[2022-02-21] MEDS ORDERED: hydrALAZINE HCL 20 MG/ML 1 ML VIAL IVP ONE (16:24)
[2022-02-21 17:02] VITALS: RESP 18
[2022-02-21 17:28] VITALS: PULSE 78
[2022-02-21 17:56] VITALS: BP 148/75
== END 2022-02-21 18:11 | disposition home or self-care (01) ==
LOC: ORWHC2ENDO 12:14
PROVIDERS: ATTEND Internal Medicine Critical Care Medicine
DX: R91.1 Solitary pulmonary nodule (principal); R59.0 Localized enlarged lymph nodes; J44.9 Chronic obstructive pulmonary disease, unspecified; I11.0 Hypertensive heart disease with heart failure; I50.9 Heart failure, unspecified; F17.200 Nicotine dependence, unspecified, uncomplicated; E07.9 Disorder of thyroid, unspecified; E78.5 Hyperlipidemia, unspecified; M19.90 Unspecified osteoarthritis, unspecified site; M79.7 Fibromyalgia; Z91.041 Radiographic dye allergy status; Z90.89 Acquired absence of other organs; Z90.49 Acquired absence of other specified parts of digestive tract; Z91.040 Latex allergy status; Z79.899 Other long term (current) drug therapy
CPT/HCPCS: 31627; 71250; 31629; 31625; 31624; 31652; J0330; J0360; J3010; J2370; J2704; J2001

== ENCOUNTER → 2022-03-15 | Outpatient (CLI) | payer MEDICARE, BC ==
--- NOTE | 2022-03-18 10:19 | PE ---
EXAMINATION TYPE: PET CT fusion skull to thigh DATE OF EXAM: 03/15/2022 CLINICAL INDICATION:Female, 81 years old with history of C50.11 MALIGNANT NEOPLASM OF UNSP SITE OF UN SPECIF; breast cancer initial. TECHNIQUE: Following the intravenous administration of 10.5 mCi of F-18 FDG, whole body images are performed from the skull base to the midthigh. Images are reviewed on the computer in the coronal, a xial, and sagittal planes. Reconstructed rotating images are created on independent workstation and reviewed on the computer. A non-contrast CT is performed in conjunction with the PET scan. Glucose level 107 mg/dL COMPARISON: CT 02/21/2022, 02/15/2022, PET/CT None, FINDINGS: Mediastinal SUV mean is 1.7. Hepatic parenchyma SUV mean is 2.1. SKULL BASE AND NECK: Right supraclavicular lymph node max SUV 6.8 measuring 14 mm in short axis. Additional small rounded lymph nodes with mild uptake are identified including a 6 mm nodule with max SUV 1.9. CHEST, MEDIASTINUM, AND HILAR REGION: Mediastinal lymphadenopathy: * Prevascular space lymphadenopathy with max SUV 9.2 measuring up to 2.1 x 2.5 cm. * Right low paratracheal max SUV 8.3 measuring 1.9 x 3.1 cm. * Subcarinal max SUV 8.0 measuring 1.6 x 2.9 cm. Additional areas of abnormal FDG uptake: * Pulmonary hilum lymph node max SUV 5.7, this is difficult to measure without IV contrast. * Right lower lobe consolidation changes with max SUV 9.4 which has slightly increased in size from 01/25/2022 study. * Right epicardial fat lymph nodes just anterior to the diaphragm max SUV 2.8 measuring 7 mm in shor t axis. * Right internal mammary lymph node max SUV 1.4 measuring 5 mm. ABDOMEN AND PELVIS: * Scattered foci of increased FDG activity within the liver max SUV 5.8 in the right hepatic lobe. A t least 10 other lesions identified within the liver some of which are very small. * Right upper abdomen lymph nodes which show increased FDG activity in the gastrohepatic ligament ma x SUV 3.6 measuring 8 mm in short axis. * Lymph nodes near the right adrenal gland medially measuring up to 7 mm Max SUV 4.5 OSSEOUS STRUCTURES: No suspicious FDG activity. OTHER CT: Bilateral aphakia. Extensive atherosclerosis of the arterial vasculature including the terell nary arteries and the carotid bifurcations. There is streaky consolidation like changes in the right lung base as described above with increased FDG activity. There is trace right pleural effusion. The gallbladder surgically absent. There is right renal cyst. Sternotomy wires are present. The breasts a ppear surgically absent. IMPRESSION: * Scattered abnormal FDG activity including mediastinal lymph nodes, right internal mammary, right s upraclavicular lymph nodes, intrahepatic lesions, intra-abdominal lymph nodes and within the right nikita ng base. Findings concerning for metastatic disease given history of cancer. * Pulmonary consolidation is superimposed on areas of abnormal FDG activity in the right lung base c orrelate for signs and symptoms of infection.
== END | disposition home or self-care (01) ==
LOC: RADPETMAIN 14:52
PROVIDERS: ATTEND Internal Medicine Critical Care Medicine
DX: C50.111 Malignant neoplasm of central portion of right female breast (principal)
CPT/HCPCS: 78815; A9552

== ENCOUNTER → 2022-03-22 | Outpatient (CLI) | payer MEDICARE, BC ==
--- NOTE | 2022-03-22 17:52 | CT ---
EXAMINATION TYPE: CT brain w con CT DLP: 1129 mGycm, Automated exposure control for dose reduction was used. DATE OF EXAM: 03/22/2022 5:20 PM COMPARISON: PET/CT 03/07/2022.. CLINICAL INDICATION:Female, 81 years old with history of C34.90, cancer diagnosis TECHNIQUE: Axial CT images of the brain were obtained with coronal and sagittal reformats created and reviewed. Contrast used:100ml mL of Isovue 300 with IV Contrast, Oral contrast used: none. FINDINGS: Extra-axial spaces: No abnormal extra-axial fluid collections. Ventricular system: Within normal limits Cerebral parenchyma: No acute intraparenchymal hemorrhage or mass effect. The nunez-white junction is well differentiated. No abnormal enhancement is seen after the administration of intravenous contras t. Extensive deep white matter changes are seen throughout the cerebrum. Suspected postintervention c hanges of the right frontal lobe with calcification extending to the right frontal lobe remote injury of the right parietal/occipital lobe noted. Cerebellum: Unremarkable. Mass effect: No evidence of midline shift. Intracranial vasculature: unremarkable Soft tissues: Normal. Calvarium/osseous structures: No depressed skull fracture. Paranasal sinuses and mastoid air cells: Clear. Visualized orbits: Orbital contents are intact. IMPRESSION: 1. No evidence for abnormal enhancement. MRI would be more sensitive for evaluation for metastatic d isease. 2. Extensive deep white matter changes likely secondary to chronic small vessel ischemic disease. 3. Subtle malacia of the right parietal/occipital lobe from remote injury.
== END | disposition home or self-care (01) ==
LOC: RADCTMAIN 15:43
PROVIDERS: ATTEND Internal Medicine
DX: G93.89 Other specified disorders of brain (principal); I67.82 Cerebral ischemia
CPT/HCPCS: 82565; 84520; 70460; 36415; Q9967

== ENCOUNTER 2022-04-20 16:24 | Inpatient (IN) | payer MEDICARE, BC ==
[2022-04-20] MEDS ORDERED: diphenhydrAMINE 50 MG/ML 1 ML VIAL IVP STA (16:45)
[2022-04-20] MEDS ORDERED: FUROSEMIDE 10 MG/ML 4 ML VIAL IV STA (16:45)
[2022-04-20] MEDS ORDERED: methylPREDNISolone SOD SUCCIN 125 MG in SODIUM CHLORIDE 0.9% 100 ML IVPB STA (16:45)
[2022-04-20] MEDS ORDERED: methylPREDNISolone SOD SUCCI 125 MG/2 ML VIAL IV STA (16:50)
[2022-04-20 17:03] LABS: VBG PH 7.39 (7.31-7.41)
[2022-04-20 17:04] LABS: Basophils # (A) 0.1 k/uL (0-0.2); Basophils % (A) 1 %; Eosinophils # (A) 0.1 k/uL (0-0.7); Eosinophils % (A) 0 %; HCT 38.1 % (34.0-46.0); HGB 12.3 gm/dL (11.4-16.0); Lymphocytes # (A) 0.8 k/uL (1.0-4.8); Lymphocytes % (A) 4 %; MCH 31.1 pg (25.0-35.0); MCHC 32.3 g/dL (31.0-37.0); MCV 96.3 fL (80.0-100.0); Monocytes # (A) 0.6 k/uL (0-1.0); Monocytes % (A) 3 %; Neutrophils # (A) 17.1 k/uL (1.3-7.7); Neutrophils % (A) 91 %; Platelet Count 381 k/uL (150-450); RBC 3.96 m/uL (3.80-5.40); RDW 14.2 % (11.5-15.5); WBC 18.7 k/uL (3.8-10.6)
--- NOTE | 2022-04-20 17:09 | ED ---
General Adult HPI - General Chief complaint: Shortness of Breath Stated complaint: samson Time Seen by Provider: 04/20/22 16:28 Source: EMS Mode of arrival: EMS Limitations: no limitations - History of Present Illness Initial comments: This is an 81-year-old female with an extensive past medical history including CHF, COPD, previous pulmonary emboli on blood thinners, lung cancer status post medical therapy and hypertension presented to the emergency department via EMS for increasing soreness of breath. The patient stated that she did have a therapy for lung cancer yesterday but was noted to be dehydrated so she did receive approximately 2 hours of hydration therapy prior to being sent home yesterday. The patient stated that she woke up today is of breath requiring increasing oxygen. The patient stated that she does use 2 L of oxygen at home at night however she did need oxygen all day today. The patient stated "I felt like it was going to take my last breath today" when she woke up. The patient was tachypnea And did have moderate respiratory distress on my evaluation. The patient denied having any chest pain or lightheadedness or shortness of breath. The patient stated that she had a decreased appetite and decreased by mouth intake over the last 24 hours as well. The patient denied any fevers, chills as well as any nausea and vomiting. - Related Data Home Medications Medication Instructions Recorded Confirmed Levothyroxine Sodium [Synthroid] 75 mcg PO DAILY 05/20/14 04/20/22 Simvastatin [Zocor] 40 mg PO SUTUFR@2200 05/20/14 04/20/22 Furosemide 40 mg PO DAILY 12/19/15 04/20/22 Montelukast [Singulair] 10 mg PO DAILY@119910/30/19 04/20/22 Ergocalciferol (Vitamin D2) 1,250 mcg PO SA 09/28/21 04/20/22 [Drisdol (50,000 Iu)] LORazepam [Ativan] 0.5 - 1 mg PO TID PRN 09/28/21 04/20/22 Megestrol [Megace] 40 mg PO DAILY@1200 09/28/21 04/20/22 Metoprolol Succinate (ER) [Toprol 50 mg PO DAILY@119909/28/21 04/20/22 XL] Omeprazole 40 mg PO 09/28/21 04/20/22 Yupelri 175mcg/3ml 3 ml INHALATION DAILY PRN 09/28/21 04/20/22 cloNIDine 0.3 MG/24HR PATCH 1 patch TRANSDERM WE 09/28/21 04/20/22 [Catapres-TTS] dilTIAZem HCL [dilTIAZem HCL 12Hr 120 mg PO DAILY 09/28/21 04/20/22 ER] hydrALAZINE HCL [Apresoline] 50 mg PO BID 09/28/21 04/20/22 lamoTRIgine [LaMICtal] 50 mg PO HS 09/28/21 04/20/22 metFORMIN HCL [Glucophage] 500 mg PO BID PRN 09/28/21 04/20/22 Nitroglycerin Sl Tabs [Nitrostat] 0.4 mg SL Q5M PRN 01/25/22 04/20/22 Potassium Chloride [Potassium 20 meq PO TID 01/25/22 04/20/22 Chloride ER] Warfarin Sodium 4 mg PO TUTH@219901/25/22 04/20/22 Warfarin Sodium [Jantoven] 2 mg PO SUMOWEFRSA@219901/25/22 04/20/22 Tiotropium 18 Mcg/Puff [Spiriva] 1 puff INHALATION DAILY PRN 02/20/22 04/20/22 predniSONE 10 mg PO DAILY 02/20/22 04/20/22 Acetaminophen [Tylenol Extra 100 mg PO Q8H PRN 04/20/22 04/20/22 Strength] Ondansetron Odt [Zofran Odt] 8 mg PO Q12HR PRN 04/20/22 04/20/22 traMADol HCL 50 mg PO Q8H PRN 04/20/22 04/20/22 Allergies Allergy/AdvReac Type Severity Reaction Status Date / Time Latex, Natural Rubber Allergy Rash/Hives Verified 04/20/22 19:02 venom-honey bee Allergy Anaphylaxis Verified 04/20/22 19:02 [bee venom (honey bee)] adhesive AdvReac tears skin Verified 04/20/22 19:02 Iodinated Contrast Media AdvReac Nausea & Verified 04/20/22 19:02 [Iodinated Contrast Media - Vomiting & IV Dye] Diarrhea iodine AdvReac Nausea & Verified 04/20/22 19:02 Vomiting & Diarrhea Review of Systems ROS Statement: Those systems with pertinent positive or pertinent negative responses have been documented in the HPI. ROS Other: All systems not noted in ROS Statement are negative. Past Medical History Past Medical History: Cancer, Heart Failure, COPD, Fibromyalgia, GERD/Reflux, Hearing Disorder / Deafness, Hyperlipidemia, Hypertension, Musculoskeletal Disorder, Neurologic Disorder, Osteoarthritis (OA), Pneumonia, Pulmonary Embolus (PE), Thyroid Disorder Additional Past Medical History / Comment(s): Osteoporosis, neuropathy, hx rheumatic fever as child. Home O2, 2 liters per N/C at night. Diverticular Disease. pt stated Hx some paralysis after neck surgery - resolved. Cyst on one kidney. Hx Shingles in 2009. Hx PE September 2021. Poor hearing. History of Any Multi-Drug Resistant Organisms: None Reported Past Surgical History: Cardiac Valve Replacement, Section, Orthopedic Surgery, Tonsillectomy Additional Past Surgical History / Comment(s): Bilateral mastectomy for suspicious lumps, lower lobe of right lung removed, breast implants, later removed, mechanical aortic valve replacement, neck surgery, had titanium plate placed, left carotid endarterectomy, right lung nodule removed(benign), bilateral cataracts removed. Past Anesthesia/Blood Transfusion Reactions: Previous Problems w/ Anesthesia Additional Past Anesthesia/Blood Transfusion Reaction / Comment(s): "Hard time coming out sometimes". Clausterphobia. Past Psychological History: No Psychological Hx Reported Smoking Status: Current some day smoker Past Alcohol Use History: None Reported Past Drug Use History: None Reported - Past Family History Father History Unknown: Yes Family Medical History: Unable to Obtain Additional Family Medical History / Comment(s): in accident when patient was young. Mother Family Medical History: COPD Additional Family Medical History / Comment(s): at age 73. Sister(s) Family Medical History: Cancer Additional Family Medical History / Comment(s): #1 sister - thyroid and breast cancer, brain aneurysm, #2 sister - breast cancer, dementia, at age 83, #3 sister - blood cancer, in her 50's. General Exam Limitations: no limitations General appearance: alert, in no apparent distress, cachectic Head exam: Present: atraumatic, normocephalic, normal inspection Eye exam: Present: normal appearance, PERRL Pupils: Present: normal accommodation ENT exam: Present: normal exam, normal oropharynx, mucous membranes moist Neck exam: Present: normal inspection, full ROM Respiratory exam: Present: wheezes, rhonchi Cardiovascular Exam: Present: regular rate, normal rhythm, normal heart sounds GI/Abdominal exam: Present: soft, normal bowel sounds Extremities exam: Present: normal inspection, full ROM Back exam: Present: normal inspection, full ROM Neurological exam: Present: alert, oriented X3, CN II-XII intact Psychiatric exam: Present: normal affect, normal mood Skin exam: Present: warm, dry Course Vital Signs 04/20/22 04/20/22 04/20/22 16:28 16:29 16:32 Temperature 98.2 F Pulse Rate 94 Respiratory 22 Rate Blood Pressure 163/72 O2 Sat by Pulse 89 L 91 L 95 Oximetry 04/20/22 04/20/22 04/20/22 16:42 17:37 18:52 Temperature Pulse Rate 108 H 89 Respiratory 20 22 18 Rate Blood Pressure 124/65 116/51 O2 Sat by Pulse 95 96 Oximetry EKG Findings - EKG Comments: EKG Findings:: An EKG was obtained and was read by myself. EKG showed a rate of 94, TX interval 104, QRS duration 96 and QTC of 417. This EKG showed a normal sinus rhythm with short TX interval however there were no ST segment elevations or depressions noted. Medical Decision Making - Medical Decision Making The patient was seen and evaluated in emergency department. Physical exam, the patient was having moderate respiratory distress and did have vital signs including an oxygen saturation of 89% on room air. Due to the nature of the patient's shortness of breath the setting of previous lung cancer, laboratory workup was obtained however a CTA of the chest was ordered initially regardless of d-dimer secondary to the patient's past medical history and present things symptoms. The patient did have an ALLERGY to iodine and was pretreated with Solu-Medrol and Benadryl. The patient was also given 40 mg of Lasix IV. The patient continued to remain stable and reevaluation was resting in bed comfortably. CTA of the chest was obtained and was interpreted by myself. CTA of the chest showed no evidence of pulmonary embolus and there was massive mediastinal and right bronchial adenopathy. There is extensive consolidation in the right lower lobe. There is progression of disease compared to the old exam. The mediastinal lymph nodes are increased at this time. Due to these findings, the patient's primary care physician was being covered by . He was contacted regarding the patient and did accept the patient for admission at 1908. He did recommend 2-D echocardiogram as well as cardiology consult at this time. The patient was likely suffering from a CHF exacerbation, fluid overload and hypoxia secondary to worsening lung cancer and pleural effusion. The patient was told of the plan for admission and was agreeable. The patient was admitted in stable condition. - Lab Data Result diagrams: 04/20/22 16:55 04/20/22 16:55 Lab Results 04/20/22 04/20/22 04/20/22 Range/Units 16:55 16:55 16:55 WBC 18.7 H (3.8-10.6) k/uL RBC 3.96 (3.80-5.40) m/uL Hgb 12.3 (11.4-16.0) gm/dL Hct 38.1 (34.0-46.0) % MCV 96.3 (80.0-100.0) fL MCH 31.1 (25.0-35.0) pg MCHC 32.3 (31.0-37.0) g/dL RDW 14.2 (11.5-15.5) % Plt Count 381 (150-450) k/uL MPV 9.0 Neutrophils % 91 % Lymphocytes % 4 % Monocytes % 3 % Eosinophils % 0 % Basophils % 1 % Neutrophils # 17.1 H (1.3-7.7) k/uL Lymphocytes # 0.8 L (1.0-4.8) k/uL Monocytes # 0.6 (0-1.0) k/uL Eosinophils # 0.1 (0-0.7) k/uL Basophils # 0.1 (0-0.2) k/uL VBG pH (7.31-7.41) VBG pCO2 (37-51) mmHg VBG HCO3 (24-28) mmol/L Sodium (137-145) mmol/L Potassium (3.5-5.1) mmol/L Chloride (98-107) mmol/L Carbon Dioxide (22-30) mmol/L Anion Gap mmol/L BUN (7-17) mg/dL Creatinine (0.52-1.04) mg/dL Est GFR (CKD-EPI)AfAm (>60 ml/min/1.73 sqM) Est GFR (CKD-EPI)NonAf (>60 ml/min/1.73 sqM) Glucose (74-99) mg/dL Calcium (8.4-10.2) mg/dL Total Bilirubin (0.2-1.3) mg/dL AST (14-36) U/L ALT (4-34) U/L Alkaline Phosphatase (38-126) U/L Troponin I 0.025 (0.000-0.034) ng/mL NT-Pro-B Natriuret Pep 1170 pg/mL Total Protein (6.3-8.2) g/dL Albumin (3.5-5.0) g/dL 04/20/22 04/20/22 Range/Units 16:55 16:55 WBC (3.8-10.6) k/uL RBC (3.80-5.40) m/uL Hgb (11.4-16.0) gm/dL Hct (34.0-46.0) % MCV (80.0-100.0) fL MCH (25.0-35.0) pg MCHC (31.0-37.0) g/dL RDW (11.5-15.5) % Plt Count (150-450) k/uL MPV Neutrophils % % Lymphocytes % % Monocytes % % Eosinophils % % Basophils % % Neutrophils # (1.3-7.7) k/uL Lymphocytes # (1.0-4.8) k/uL Monocytes # (0-1.0) k/uL Eosinophils # (0-0.7) k/uL Basophils # (0-0.2) k/uL VBG pH 7.39 (7.31-7.41) VBG pCO2 45 (37-51) mmHg VBG HCO3 26 (24-28) mmol/L Sodium 132 L (137-145) mmol/L Potassium 3.8 (3.5-5.1) mmol/L Chloride 98 (98-107) mmol/L Carbon Dioxide 28 (22-30) mmol/L Anion Gap 6 mmol/L BUN 18 H (7-17) mg/dL Creatinine 0.65 (0.52-1.04) mg/dL Est GFR (CKD-EPI)AfAm >90 (>60 ml/min/1.73 sqM) Est GFR (CKD-EPI)NonAf 84 (>60 ml/min/1.73 sqM) Glucose 107 H (74-99) mg/dL Calcium 8.3 L (8.4-10.2) mg/dL Total Bilirubin 0.4 (0.2-1.3) mg/dL AST 62 H (14-36) U/L ALT 33 (4-34) U/L Alkaline Phosphatase 231 H (38-126) U/L Troponin I (0.000-0.034) ng/mL NT-Pro-B Natriuret Pep pg/mL Total Protein 5.5 L (6.3-8.2) g/dL Albumin 3.3 L (3.5-5.0) g/dL Critical Care Time Critical Care Time: Yes Total Critical Care Time: 32 Disposition Clinical Impression: Pleural effusion, Congestive heart failure, Lung cancer Disposition: ADMITTED IP TO THIS HOSP Condition: Stable Is patient prescribed a controlled substance at d/c from ED?: No Referrals: Sandrita Thomson DO [Primary Care Provider] - 1-2 days Time of Disposition: 19:08 Decision to Admit Reason: Admit from EC Decision Date: 04/20/22 Decision Time: 19:08
[2022-04-20 17:22] LABS: Albumin 3.3 g/dL (3.5-5.0); Glucose 107 mg/dL (74-99); Total Protein 5.5 g/dL (6.3-8.2)
[2022-04-20 17:23] LABS: ALT 33 U/L (4-34); AST 62 U/L (14-36); African American GFR (CKD) >90 (>60 ml/min/1.73 sqM); Alkaline Phosphatase 231 U/L (38-126); Anion Gap 6 mmol/L; Blood Urea Nitrogen 18 mg/dL (7-17); Calcium 8.3 mg/dL (8.4-10.2); Carbon Dioxide 28 mmol/L (22-30); Chloride 98 mmol/L (98-107); Non-African American GFR(CKD) 84 (>60 ml/min/1.73 sqM); Potassium 3.8 mmol/L (3.5-5.1); Sodium 132 mmol/L (137-145); Total Bilirubin 0.4 mg/dL (0.2-1.3)
--- NOTE | 2022-04-20 18:36 | CT ---
EXAMINATION TYPE: CT angio chest DATE OF EXAM: 04/20/2022 COMPARISON: 02/21/2022 HISTORY: SOB, rule out PE CT DLP: 185.1 mGycm Automated exposure control for dose reduction was used. CONTRAST: Performed with IV Contrast, patient injected with 100 mL of Isovue 370. Images obtained from the thoracic inlet to the diaphragm with the IV contrast. There are Three-D post processed images. There is pulmonary emphysema. There is extensive airspace consolidation in the right lower lobe. Hear t size is fairly normal. There is normal contrast opacification of the pulmonary arteries. No filling defect. There are markedly enlarged mediastinal lymph nodes that measure up to 3.5 cm. There is mass geno right bronchial adenopathy. There is increased density in the right lower lobe bronchus in the po sterior basal segment and medial basal segment branches that could be tumor or mucus plugging. The thoracic spine is intact. There are sternal wires. No evidence of rib fracture. Upper abdominal s oft tissues show no definite adrenal mass. There is left posterior renal cortical cyst. IMPRESSION: No evidence of pulmonary embolism. Massive mediastinal and right bronchial adenopathy. Extensive cons olidation right lower lobe. There is progression of disease compared to old exam. Mediastinal lymph n odes are increased.
[2022-04-20] MEDS ORDERED: NALOXONE 0.4 MG/ML 1 ML VIAL IV PRN (19:24)
[2022-04-21] MEDS ORDERED: IPRATROPIUM-ALBUTEROL 3 ML NEB INHALATION PRN (01:23)
[2022-04-21] MEDS ORDERED: LORazepam 0.5 MG TAB PO PRN (04:02)
[2022-04-21] MEDS ORDERED: LORazepam 1 MG TAB PO PRN (04:02)
--- NOTE | 2022-04-21 05:37 | XR ---
EXAMINATION TYPE: XR chest 1V DATE OF EXAM: 04/21/2022 COMPARISON: 01/30/2022 HISTORY: Short of breath TECHNIQUE: FINDINGS: There is airspace consolidation in the right lower lobe. There is blunting right costophren ic angle. Left lung is clear. No heart failure. There are chest leads. There are sternal wires. IMPRESSION: Increasing pulmonary consolidation and pleural fluid in the right lung field compared to old exam. No obvious heart failure.
[2022-04-21] MEDS: IPRATROPIUM-ALBUTEROL 3 ML NEB INHALATION SCH ×4 (08:13→20:47)
--- NOTE | 2022-04-21 08:47 | US ---
EXAMINATION TYPE: US chest DATE OF EXAM: 04/21/2022 COMPARISON: NONE CLINICAL HISTORY: Markings for thoracentesis by pulmonary staff. TECHNIQUE: Targeted ultrasound of the posterior lower bilateral hemithoraces EXAM MEASUREMENTS: Right Pleural Effusion pocket size: None *Hypoechoic area lateral inferior near diaphragm, not drainable fluid, possible mass vs highly comple x fluid. Left Pleural Effusion pocket size: None cm No location marked Pulmonologists are able to review the images in the patient?s EMR. IMPRESSIONS: Consolidation changes within the right lower lobe with trace right pleural effusion as s een on CT 04/20/2022. No drainable fluid.
[2022-04-21] MEDS ORDERED: traMADol 50 MG TAB PO PRN (10:16)
[2022-04-21] MEDS ORDERED: ONDANSETRON ODT 8 MG TAB.RAPDIS PO PRN (10:16)
[2022-04-21] MEDS ORDERED: NITROGLYCERIN SL TABS 0.4 MG TAB SUBLINGUAL PRN (10:16)
[2022-04-21] MEDS ORDERED: metFORMIN 500 MG TAB PO PRN (10:16)
[2022-04-21] MEDS ORDERED: NON FORMULARY DRUG (Tiotropium 18 Mcg/Puff 1 PUFF Each) INHALATION PRN (10:16)
[2022-04-21] MEDS: MONTELUKAST 10 MG TAB PO SCH (10:51)
[2022-04-21] MEDS: hydrALAZINE HCL 50 MG TAB PO SCH ×2 (10:51→21:14)
[2022-04-21] MEDS: METOPROLOL SUCCINATE (ER) 50 MG TAB.ER.24H PO SCH (10:52)
[2022-04-21] MEDS: FUROSEMIDE 40 MG TAB PO SCH (10:52)
[2022-04-21] MEDS: DILTIAZEM CD 120 MG CAP.ER.24H PO SCH (10:58)
[2022-04-21] MEDS: MEGESTROL 40 MG TAB PO SCH (10:58)
[2022-04-21] MEDS: methylPREDNISolone SOD SUCCI 40 MG/ML 1 ML VIAL IV SCH ×2 (10:58→17:29)
[2022-04-21] MEDS: ACETAMINOPHEN TAB 500 MG TAB PO PRN ×2 (11:08→19:41)
[2022-04-21] MEDS: LEVOTHYROXINE 75 MCG TAB PO SCH (11:09)
--- NOTE | 2022-04-21 11:41 | CONS ---
CONSULTATION HISTORY OF PRESENT ILLNESS: This is an 81-year-old lady with history of hypertension, dyslipidemia, type 2 diabetes, rheumatic heart disease, status post aortic valve replacement, history of breast cancer status post implants, who presents to hospital complaining of pain, this seems musculoskeletal. Cardiology had been consulted because of the chest discomfort that she had. EKG shows sinus tachycardia with extensive ST-T wave changes and PVCs. Her BNP is elevated, troponin is normal. Coronavirus test is negative. White cell count is elevated. An ultrasound of the chest shows changes of consolidation on the right lower lobe. The patient had a stress test done in July of 2021 that revealed LV systolic dysfunction without any evidence of ischemia. We do not have any recent echocardiograms to evaluate the prosthetic valve. PAST MEDICAL HISTORY: Significant for rheumatic heart disease, status post mechanical aortic valve replacement; history of breast cancer, status post bilateral mastectomy; severe COPD, on home O2; history of spine surgery who has recently been diagnosed with lung cancer with mediastinal lymphadenopathy. MEDICATIONS AT HOME: 1. Zofran. 2. Zocor. 3. Toprol. 4. Singulair. 5. Megace. 6. Glucophage. 7. Coumadin. 8. Inhalers. 9. Apresoline. 10.Synthroid. REVIEW OF SYSTEMS: A review of systems has been performed, pertinents are as documented. PHYSICAL EXAMINATION: GENERAL: She is comfortable at rest. VITAL SIGNS: Stable. CHEST: Reveals diminished air entry with occasional rhonchi. HEART: Reveals first and second heart sounds, mechanical valve sound is heard. ABDOMEN: Soft. EXTREMITIES: Did not reveal any edema. Peripheral pulses are palpable. LABS: Show hemoglobin of 12.3, platelet count is 380. ASSESSMENT: 1. Atypical chest pain, probably musculoskeletal. 2. History of mechanical aortic valve replacement. 3. History of lung cancer. PLAN: Continue current medications including Coumadin to maintain a therapeutic INR. I will obtain a 2D echo on her to evaluate the mechanical mitral valve. Prognosis is guarded. Please resume Coumadin. The patient's BNP is elevated, but I do not believe she is in congestive heart failure. Her clinical presentation seems purely related to her underlying massive consolidation of the right over lobe, massive mediastinal and bronchial adenopathy. MMODL / IJN: [id number] /
[2022-04-21] MEDS: LORazepam 0.5 MG TAB PO PRN ×2 (12:22→21:14)
[2022-04-21 14:46] LABS: Prothrombin Time 120.2 sec (9.0-12.0)
[2022-04-21 15:17] LABS: INR >10.0 (<1.2)
[2022-04-21] MEDS ORDERED: PHYTONADIONE ORAL 5 MG/5 ML ORAL.SYRG PO STA (15:21)
[2022-04-21] MEDS: POTASSIUM CHLORIDE ER 20 MEQ TAB.ER PO SCH ×2 (15:50→21:14)
[2022-04-21] MEDS: YUPELRI 175 MCG/3 ML INHALATION PRN (16:10)
--- NOTE | 2022-04-21 16:16 | P.CNPUL ---
History of Present Illness Consult date: 04/21/22 Requesting physician: Leonardo Medeiros Reason for consult: dyspnea, pleural effusion Chief complaint: Shortness of breath History of present illness: This is an 81-year-old female with history of small cell lung cancer, diagnosed a few months ago by Dr. Garrison, patient has been receiving immunotherapy by Dr. Mortensen, she is also known to have history of congestive heart failure, COPD, previous history of pulmonary embolism maintained on anticoagulation therapy, patient received therapy for lung cancer just the day prior to admission, and she was noted to have dehydration patient received about 2 hours of IV hydration while in the oncology clinic. Patient presented to the ER with mostly symptoms of shortness of breath, has been going on for the last 1 day. Chest x-ray question the pleural effusion, however I felt the findings on the chest x-ray and stat CT of the chest are mostly related to her underlying malignancy, possible consolidation in the right lower lobe, but ultrasound failed to show any pleural effusion to consider thoracentesis. I explained to the patient that it is best to continue present supportive care measures, no need for thoracentesis. Actually I was asked to see the patient mostly for possible thoracentesis. Patient seemed to be quite comfortable, she is on 3 L nasal cannula and her O2 sats is 97%. She is not in any form of distress. Her labs on admission showed leukocytosis with WBC count of 18.7 and electrolytes are normal, and the patient tested negative for COVID-19 Review of Systems Constitutional: Negative HEENT: Negative Pulmonary: As noted in HPI Cardiac: As noted in HPI GI: Negative Genitourinary: Negative Muscular skeletal: Negative Psychiatric: Negative Hematologic: Negative Endocrine: Negative Skin: Negative Past Medical History Past Medical History: Cancer, Heart Failure, COPD, Fibromyalgia, GERD/Reflux, Hearing Disorder / Deafness, Hyperlipidemia, Hypertension, Musculoskeletal Disorder, Neurologic Disorder, Osteoarthritis (OA), Pneumonia, Pulmonary Embolus (PE), Thyroid Disorder Additional Past Medical History / Comment(s): Osteoporosis, neuropathy, hx rheumatic fever as child. Home O2, 2 liters per N/C at night. Diverticular Dise ase. pt stated Hx some paralysis after neck surgery - resolved. Cyst on one kidney. Hx Shingles in 2009. Hx PE September 2021. Poor hearing. History of Any Multi-Drug Resistant Organisms: None Reported Past Surgical History: Cardiac Valve Replacement, Section, Orthopedic Surgery, Tonsillectomy Additional Past Surgical History / Comment(s): Bilateral mastectomy for suspicious lumps, lower lobe of right lung removed, breast implants, later removed, mechanical aortic valve replacement, neck surgery, had titanium plate p laced, left carotid endarterectomy, right lung nodule removed(benign), bilateral cataracts removed. Past Anesthesia/Blood Transfusion Reactions: Previous Problems w/ Anesthesia Additional Past Anesthesia/Blood Transfusion Reaction / Comment(s): "Hard time coming out sometimes". Clausterphobia. Past Psychological History: No Psychological Hx Reported Smoking Status: Current some day smoker Past Alcohol Use History: None Reported Additional Past Alcohol Use History / Comment(s): Started smoking at age 18, 1 ppd. Past Drug Use History: None Reported - Past Family History Father History Unknown: Yes Family Medical History: Unable to Obtain Additional Family Medical History / Comment(s): in accident when patient was young. Mother Family Medical History: COPD Additional Family Medical History / Comment(s): at age 73. Sister(s) Family Medical History: Cancer Additional Family Medical History / Comment(s): #1 sister - thyroid and breast cancer, brain aneurysm, #2 sister - breast cancer, dementia, at age 83, #3 sister - blood cancer, in her 50's. Medications and Allergies Home Medications Medication Instructions Recorded Confirmed Type Levothyroxine Sodium [Synthroid] 75 mcg PO DAILY 05/20/14 04/20/22 History Simvastatin [Zocor] 40 mg PO SUTUFR@2200 05/20/14 04/20/22 History Furosemide 40 mg PO DAILY 12/19/15 04/20/22 History Montelukast [Singulair] 10 mg PO DAILY@1200 10/30/19 04/20/22 History Ergocalciferol (Vitamin D2) 1,250 mcg PO SA 09/28/21 04/20/22 History [Drisdol (50,000 Iu)] LORazepam [Ativan] 0.5 - 1 mg PO TID PRN 09/28/21 04/20/22 History Megestrol [Megace] 40 mg PO DAILY@1200 09/28/21 04/20/22 History Metoprolol Succinate (ER) [Toprol 50 mg PO DAILY@119909/28/21 04/20/22 History XL] Omeprazole 40 mg PO HS 09/28/21 04/20/22 History Yupelri 175mcg/3ml 3 ml INHALATION DAILY PRN 09/28/21 04/20/22 History cloNIDine 0.3 MG/24HR PATCH 1 patch TRANSDERM WE 09/28/21 04/20/22 History [Catapres-TTS] dilTIAZem HCL [dilTIAZem HCL 12Hr 120 mg PO DAILY 09/28/21 04/20/22 History ER] hydrALAZINE HCL [Apresoline] 50 mg PO BID 09/28/21 04/20/22 History lamoTRIgine [LaMICtal] 50 mg PO HS 09/28/21 04/20/22 History metFORMIN HCL [Glucophage] 500 mg PO BID PRN 09/28/21 04/20/22 History Nitroglycerin Sl Tabs [Nitrostat] 0.4 mg SL Q5M PRN 01/25/22 04/20/22 History Potassium Chloride [Potassium 20 meq PO TID 01/25/22 04/20/22 History Chloride ER] Warfarin Sodium 4 mg PO TUTH@2200 01/25/22 04/20/22 History Warfarin Sodium [Jantoven] 2 mg PO SUMOWEFRSA@2200 01/25/22 04/20/22 History Tiotropium 18 Mcg/Puff [Spiriva] 1 puff INHALATION DAILY PRN 02/20/22 04/20/22 History predniSONE 10 mg PO DAILY 02/20/22 04/20/22 History Acetaminophen [Tylenol Extra 1,000 mg PO Q8H PRN 04/20/22 04/21/22 History Strength] Ondansetron Odt [Zofran Odt] 8 mg PO Q12HR PRN 04/20/22 04/20/22 History traMADol HCL 50 mg PO Q8H PRN 04/20/22 04/20/22 History Allergies Allergy/AdvReac Type Severity Reaction Status Date / Time Latex, Natural Rubber Allergy Rash/Hives Verified 04/20/22 19:02 venom-honey bee Allergy Anaphylaxis Verified 04/20/22 19:02 [bee venom (honey bee)] adhesive AdvReac tears skin Verified 04/20/22 19:02 Iodinated Contrast Media AdvReac Nausea & Verified 04/20/22 19:02 [Iodinated Contrast Media - Vomiting & IV Dye] Diarrhea iodine AdvReac Nausea & Verified 04/20/22 19:02 Vomiting & Diarrhea Physical Exam Vitals: Vital Signs Temp Pulse Pulse Resp BP BP Pulse Ox 04/21/22 12:06 107 H 04/21/22 11:54 105 H 04/21/22 11:12 98 F 77 18 154/70 97 04/21/22 10:50 120 H 164/71 97 04/21/22 08:24 111 H 04/21/22 08:16 98 04/21/22 08:13 112 H 04/21/22 03:41 98.3 F 109 H 20 118/64 97 04/21/22 02:15 105 H 04/21/22 02:06 104 H 04/20/22 23:05 98.2 F 100 16 154/69 95 04/20/22 21:00 96 16 129/85 97 04/20/22 20:00 104 H 16 128/61 96 04/20/22 19:26 90 16 118/58 97 04/20/22 18:52 89 18 116/51 96 04/20/22 17:37 108 H 22 124/65 95 04/20/22 16:42 20 04/20/22 16:32 95 04/20/22 16:29 98.2 F 94 22 163/72 91 L 04/20/22 16:28 89 L Intake and Output 04/21/22 04/21/22 04/21/22 06:59 14:59 22:59 Other: # Voids 2 1 # Bowel Movements 1 Weight 38 kg 38 kg Physical Exam: Revealed 81-year-old female in no distress looks frail and chronically ill. Head: Atraumatic, normocephalic HEENT:[Neck is supple.] [No neck masses.] [No thyromegaly.] [No JVD.] Chest: Diminished breath sounds at the right base no crackles or rhonchi or wheezes Cardiac Exam: [Normal S1 and S2, no S3 gallop, no murmur.] Abdomen: [Soft, nontender, no megaly, no rebound, no guarding, normal bowel sounds.] Extremities: [No clubbing, no edema, no cyanosis.] Neurological Exam: [No focal neurologic deficit.] Psychiatric: Normal mood, affect and normal mental status examination. Skin: No rashes. Results - Laboratory Findings CBC and BMP: 04/20/22 16:55 04/20/22 16:55 PT/INR, D-dimer PT 120.2 sec (9.0-12.0) H 04/21/22 14:14 INR >10.0 (<1.2) H* 04/21/22 14:14 Abnormal lab findings: Abnormal Labs 04/20/22 04/20/22 04/21/22 16:55 16:55 14:14 WBC 18.7 H Neutrophils # 17.1 H Lymphocytes # 0.8 L PT 120.2 H INR >10.0 H* Sodium 132 L BUN 18 H Glucose 107 H Calcium 8.3 L AST 62 H Alkaline Phosphatase 231 H Total Protein 5.5 L Albumin 3.3 L - Diagnostic Findings CT scan - chest: image reviewed (CT angiogram showed no evidence of pulmonary embolism, massive mediastinal and right bronchial adenopathy with extensive consolidation in the right lower lobe most likely related to her underlying malignancy, or possible postobstructive pneumonitis) Assessment and Plan Assessment: Impression: Shortness of breath secondary to underlying COPD and underlying bronchogenic carcinoma/small cell carcinoma with significant mediastinal adenopathy, bronchial adenopathy and right lower lobe mass/consolidation No evidence of significant pleural effusion to consider thoracentesis Small cell lung cancer Chronic atrial fibrillation History of pulmonary embolism Recommendation: Continue present bronchodilators Continue Coumadin Resume home meds Check pro calcitonin, if negative discontinue ceftriaxone No need for thoracentesis Continue present supportive care measures Consider discharge planning in the next 24 hours and follow up on outpatient basis with Dr. Garrison. Time with Patient: Greater than 30
[2022-04-21] MEDS: SYMBICORT 160-4.5 MCG INHALER INHALATION SCH (20:48)
--- NOTE | 2022-04-21 21:02 | HP ---
HISTORY AND PHYSICAL CHIEF COMPLAINT: Shortness of breath. HISTORY OF PRESENT ILLNESS: This is an 81-year-old woman with a past medical history of multiple medical problems including breast cancer, who was complaining of significant chest pain and the patient is also complaining of some shortness of breath. The patient was extensively evaluated in the ER, including chest CTA, which was reviewed personally by me. It showed no evidence of pulmonary embolism, but massive mediastinum and the right bronchial adenopathy and an extensively consolidated right lower lobe was also noted with some pleural effusion. It was not enough to be tapped according to Dr. Rock, and the patient will be closely monitored. There is no history of any fever, rigors, or chills. PAST MEDICAL HISTORY: Reviewed and include metastatic malignancy, history of CHF, COPD, hypertension, and hyperlipidemia. HOME MEDICATIONS: Reviewed. Include Zocor and dose and rest of medications noted. ALLERGIES: Reviewed and include latex. FAMILY HISTORY: No history of heart disease or strokes in the family. SOCIAL HISTORY: History of smoking, continued and ongoing. REVIEW OF SYSTEMS: A 14-point review is negative except as mentioned earlier. PHYSICAL EXAMINATION: VITAL SIGNS: Pulse is 77, blood pressure 155/70, respiration 18. HEENT: Conjunctivae are normal. NECK: No jugular venous distention. No carotid bruit. CARDIOVASCULAR: S1, S2 muffled. RESPIRATIONS: Diminished at the bases. Scattered rhonchi and crackles. ABDOMEN: Soft, nontender. LEGS: No edema. NERVOUS SYSTEM: No focal deficits. LABORATORY DATA: WBC 18. Rest of the labs noted. ASSESSMENT: 1. Chest pain, possible right lower lobe pneumonia, possible metastatic malignancy. 2. Right pleural effusion. 3. Chest pain, possibly musculoskeletal versus secondary to malignancy. 4. Chronic obstructive pulmonary disease. 5. Hyperlipidemia. 6. Multiple medical issues. RECOMMENDATIONS: This 81-year-old woman presents with multiple complex medical issues. We will monitor the patient closely. Continue the current medications and symptomatic treatment. I recommend intensive bronchodilator treatment and empiric antibiotics also. Otherwise, DVT prophylaxis. Resume the home medications. Overall prognosis guarded because of multiple complex medical issues. Further recommendations to follow. See orders for further details. MMODL / IJN: [id number] /
[2022-04-21] MEDS: PANTOPRAZOLE 40 MG TABLET PO SCH (21:14)
[2022-04-21] MEDS: ATORVASTATIN 20 MG TAB PO SCH (21:14)
[2022-04-21] MEDS: lamoTRIgine 25 MG TAB PO SCH (21:14)
[2022-04-21] MEDS ORDERED: WARFARIN SODIUM 4 MG PO SCH (22:00)
[2022-04-22] MEDS: methylPREDNISolone SOD SUCCI 40 MG/ML 1 ML VIAL IV SCH ×4 (00:31→23:17)
[2022-04-22] MEDS: ACETAMINOPHEN TAB 500 MG TAB PO PRN ×3 (02:42→23:15)
[2022-04-22] MEDS: LEVOTHYROXINE 75 MCG TAB PO SCH (05:45)
[2022-04-22] MEDS: LORazepam 0.5 MG TAB PO PRN ×2 (05:45→20:00)
[2022-04-22] MEDS: YUPELRI 175 MCG/3 ML INHALATION PRN (08:33)
[2022-04-22] MEDS: SYMBICORT 160-4.5 MCG INHALER INHALATION SCH ×2 (08:34→20:33)
--- NOTE | 2022-04-22 08:42 | P.PN ---
Subjective Progress Note Date: 04/22/22 This is an 81-year-old female with history of small cell lung cancer, diagnosed a few months ago by Dr. Garrison, patient has been receiving immunotherapy by Dr. Mortensen, she is also known to have history of congestive heart failure, COPD, previous history of pulmonary embolism maintained on anticoagulation therapy, patient received therapy for lung cancer just the day prior to admission, and she was noted to have dehydration patient received about 2 hours of IV hydration while in the oncology clinic. Patient presented to the ER with mostly symptoms of shortness of breath, has been going on for the last 1 day. Chest x-ray question the pleural effusion, however I felt the findings on the chest x-ray and stat CT of the chest are mostly related to her underlying malignancy, possible consolidation in the right lower lobe, but ultrasound failed to show any pleural effusion to consider thoracentesis. I explained to the patient that it is best to continue present supportive care measures, no nee d for thoracentesis. Actually I was asked to see the patient mostly for possible thoracentesis. Patient seemed to be quite comfortable, she is on 3 L nasal cannula and her O2 sats is 97%. She is not in any form of distress. Her labs on admission showed leukocytosis with WBC count of 18.7 and electrolytes are normal, and the patient tested negative for COVID-19 The patient is seen today 04/22/2022 in follow-up on the regular medical floor. She is currently sitting up in a chair at the bedside. Awake and alert in no acute distress. She is quite frail and cachectic. She is maintaining O2 saturations in the mid 90s on 3 L/m per nasal cannula. Afebrile. She does have a history of chronic atrial fibrillation. She was maintained on warfarin in the outpatient setting. Her INR is greater than 10. She did receive vitamin K yesterday. She had recently undergone treatment for her small cell lung cancer with significant mediastinal adenopathy however she is unsure of what the medication was. She states it was not chemotherapy but a different medication. Possibly immunotherapy. No radiation treatments. She is breathing a bit better today compared to yesterday. She is maintained on Symbicort, Solu-Medrol on the Singulair, antibiotics in the form of ceftriaxone. Objective - Vital Signs Vital signs: Vital Signs Temp 98.3 F 04/22/22 05:00 Pulse 106 H 04/22/22 05:00 Resp 16 04/22/22 05:00 BP 165/84 04/22/22 05:00 Pulse Ox 98 04/22/22 05:00 FiO2 Intake & Output 04/21/22 04/22/22 04/22/22 18:59 06:59 18:59 Weight 38 kg 40.4 kg Other: Voiding Method Bedside Commode # Voids 1 2 1 - Exam GENERAL EXAM: Alert, frail, cachectic 81-year-old female, on 3 L nasal cannula, comfortable in no apparent distress. HEAD: Normocephalic. EYES: Normal reaction of pupils, equal size. NOSE: Clear with pink turbinates. THROAT: No erythema or exudates. NECK: No masses, no JVD. CHEST: No chest wall deformity. LUNGS: Equal air entry with scattered rhonchi in the right lung, diminished in the bases. CVS: S1 and S2 normal with no audible murmur, regular rhythm. ABDOMEN: No hepatosplenomegaly, normal bowel sounds, no guarding or rigidity. SPINE: No scoliosis or deformity SKIN: No rashes CENTRAL NERVOUS SYSTEM: No focal deficits, tone is normal in all 4 extremities. EXTREMITIES: There is no peripheral edema. No clubbing, no cyanosis. Peripheral pulses are intact. - Labs CBC & Chem 7: 04/20/22 16:55 04/20/22 16:55 Labs: Abnormal Lab Results - Last 24 Hours (Table) 04/21/22 Range/Units 14:14 PT 120.2 H (9.0-12.0) sec INR >10.0 H* (<1.2) Assessment and Plan Assessment: Acute on chronic hypoxemic respiratory failure secondary to underlying COPD and underlying bronchogenic carcinoma/small cell carcinoma with significant mediastinal adenopathy, bronchial adenopathy and right lower lobe mas s/consolidation Small cell lung cancer Chronic atrial fibrillation anticoagulated with warfarin, supra therapeutic History of pulmonary embolism Plan: The patient was seen and evaluated Medications and labs reviewed Pro calcitonin pending Continue ceftriaxone for now Continue bronchodilators, steroids Continue to hold warfarin We will continue to follow I have personally seen and examined the patient, performed the documentation and the assessment and plan as written. Number of minutes spent on the visit: 10.
[2022-04-22 08:57] LABS: Basophils # (A) 0.05 X 10*3/uL (0.00-0.10); Basophils % (A) 0.3 %; Eosinophils # (A) 0.04 X 10*3/uL (0.04-0.35); Eosinophils % (A) 0.2 %; HGB 10.9 g/dL (12.0-15.0); Lymphocytes # (A) 0.65 X 10*3/uL (0.90-5.00); Lymphocytes % (A) 3.6 %; MCH 30.2 pg (27.0-32.0); MCHC 31.1 g/dL (32.0-37.0); Monocytes # (A) 0.85 X 10*3/uL (0.20-1.00); Monocytes % (A) 4.7 %; NRBC Per 100 WBC 0 /100 WBCS (0.0-0.0); Neutrophils # (A) 16.28 X 10*3/uL (1.80-7.70); Neutrophils % (A) 89.2 %; Platelet Count 401 X 10*3/uL (140-440); RBC 3.61 X 10*6/uL (4.10-5.20); RDW 14.5 % (11.5-14.5); WBC 18.23 X 10*3/uL (4.50-10.00)
[2022-04-22] MEDS: POTASSIUM CHLORIDE ER 20 MEQ TAB.ER PO SCH ×3 (08:57→20:00)
[2022-04-22] MEDS: hydrALAZINE HCL 50 MG TAB PO SCH ×2 (08:57→20:00)
[2022-04-22] MEDS: FUROSEMIDE 40 MG TAB PO SCH (08:57)
[2022-04-22] MEDS: DILTIAZEM CD 120 MG CAP.ER.24H PO SCH (08:59)
[2022-04-22 09:53] LABS: INR 2.18 (0.90-1.11); Prothrombin Time 23.9 sec (9.9-11.9)
[2022-04-22 10:19] LABS: African American GFR (CKD) 91.8 (60.0-200.0); Anion Gap 15.3 mmol/L (10.00-18.00); BUN/Creat Ratio 30.88 Ratio (12.00-20.00); Blood Urea Nitrogen 22.2 mg/dL (9.0-27.0); Carbon Dioxide 25.9 mmol/L (20.0-27.5); Non-African American GFR(CKD) 79.2 (60.0-200.0); Potassium 4.1 mmol/L (3.5-5.5)
[2022-04-22] MEDS: MEGESTROL 40 MG TAB PO SCH (11:19)
[2022-04-22] MEDS: METOPROLOL SUCCINATE (ER) 50 MG TAB.ER.24H PO SCH (11:19)
[2022-04-22] MEDS: MONTELUKAST 10 MG TAB PO SCH (11:19)
[2022-04-22] MEDS ORDERED: IPRATROPIUM-ALBUTEROL 3 ML NEB INHALATION SCH (12:00)
[2022-04-22] MEDS: traMADol 50 MG TAB PO PRN (15:21)
--- NOTE | 2022-04-22 17:35 | CA ---
Transthoracic Echo Report Name: Julianne Duke Age: 81 Gender: F : 1940 Exam Date: 04/22/2022 14:41 Exam Location: [place] [facility] Ht (in): 58 Wt (lb): 89 Ordering Physician: Mariella Lyn Attending/Referring Phys: Motion Study Engineer Diana Cardozo RDCS Procedure CPT: Indications: chf Cardiac Hx: Technical Quality: Fair Contrast 1: Total Dose (mL): Contrast 2: Total Dose (mL): MEASUREMENTS (Male / Female) Normal Values 2D ECHO LV Diastolic Diameter PLAX 2.7 cm 4.2 - 5.9 / 3.9 - 5.3 cm LV Systolic Diameter PLAX 2.1 cm IVS Diastolic Thickness 1.6 cm 0.6 - 1.0 / 0.6 - 0.9 cm LVPW Diastolic Thickness 1.4 cm 0.6 - 1.0 / 0.6 - 0.9 cm LV Relative Wall Thickness 1.1 LA Volume 32.3 cm??? 18 - 58 / 22 - 52 cm??? DOPPLER AV Peak Velocity 293.1 cm/s AV Peak Gradient 34.4 mmHg AV Mean Velocity 174.4 cm/s AV Mean Gradient 14.8 mmHg AV Velocity Time Integral 41.8 cm LVOT Peak Velocity 96.6 cm/s LVOT Peak Gradient 3.7 mmHg LVOT Velocity Time Integral 21.5 cm MV Area PHT 4.5 cm??? Mitral E Point Velocity 77.9 cm/s Mitral A Point Velocity 118.6 cm/s Mitral E to A Ratio 0.7 MV Deceleration Time 170.4 ms TR Peak Velocity 312.9 cm/s TR Peak Gradient 39.2 mmHg Right Ventricular Systolic Press 44.2 mmHg FINDINGS Left Ventricle Severely increased left ventricular wall thickness. Normal left ventricular systolic function with no obvious regional wall motion abnormalities. Left ventricular ejection fraction is estimated at 55 %. Abnormal (paradoxical) septal motion consistent with postoperative state. Right Ventricle Normal right ventricular size. Right Atrium Normal right atrial size. Left Atrium Normal left atrial size. Mitral Valve Mitral valve thickened. Mild mitral annular calcification. Mild mitral regurgitation. Aortic Valve Mechanical prosthetic aortic valve. Gradient recorded across the prosthetic aortic valve within the expected range. Tricuspid Valve Structurally normal tricuspid valve. Mild tricuspid regurgitation. Pulmonic Valve Trace pulmonic regurgitation. Pericardium No pericardial effusion. Aorta Normal size aortic root and proximal ascending aorta. CONCLUSIONS Severe LVH with preserved systolic function Mechanical aortic valve is difficult to visualize line taking been difficult study with suboptimal acoustic windows Previewed by: Dr. Esvin Arias MD (Electronically Signed) Final Date: 22 April 2022 17:34
[2022-04-22] MEDS ORDERED: WARFARIN 2 MG TAB PO ONE (18:00)
[2022-04-22] MEDS: ATORVASTATIN 20 MG TAB PO SCH (19:59)
[2022-04-22] MEDS: PANTOPRAZOLE 40 MG TABLET PO SCH (19:59)
[2022-04-22] MEDS: lamoTRIgine 25 MG TAB PO SCH (19:59)
--- NOTE | 2022-04-22 22:56 | P.PN ---
Subjective Progress Note Date: 04/22/22 Pt states she is feeling much better today and that her breathing is returning to her normal. She continues on O2 at 3 LMP and rocephin. INR 2.2 after vit K yesterday. Objective - Vital Signs Vital signs: Vital Signs Temp 98.5 F 04/22/22 19:54 Pulse 89 04/22/22 19:54 Resp 16 04/22/22 19:54 BP 186/81 04/22/22 19:54 Pulse Ox 97 04/22/22 19:54 FiO2 Intake & Output 04/22/22 04/22/22 04/23/22 06:59 18:59 06:59 Weight 40.4 kg Other: Voiding Method Bedside Commode Bedside Commode # Voids 2 2 - Exam Gen: frail, elderly female in NAD CV: Normal S1 S2, no murmur Lungs: Normal effort, expiratory wheezing - Labs CBC & Chem 7: 04/22/22 05:00 04/22/22 05:00 Labs: Abnormal Lab Results - Last 24 Hours (Table) 04/22/22 04/22/22 04/22/22 Range/Units 05:00 05:00 05:00 WBC 18.23 H (4.50-10.00) X 10*3/uL RBC 3.61 L (4.10-5.20) X 10*6/uL Hgb 10.9 L (12.0-15.0) g/dL Hct 35.0 L (37.2-46.3) % MCHC 31.1 L (32.0-37.0) g/dL Immature Gran # 0.36 H (0.00-0.04) X 10*3/uL Neutrophils # 16.28 H (1.80-7.70) X 10*3/uL Lymphocytes # 0.65 L (0.90-5.00) X 10*3/uL PT 23.9 H (9.9-11.9) sec INR 2.18 H (0.90-1.11) BUN/Creatinine Ratio (12.00-20.00) Ratio Glucose (70-110) mg/dL Procalcitonin 0.27 H (0.02-0.09) ng/mL 04/22/22 Range/Units 05:00 WBC (4.50-10.00) X 10*3/uL RBC (4.10-5.20) X 10*6/uL Hgb (12.0-15.0) g/dL Hct (37.2-46.3) % MCHC (32.0-37.0) g/dL Immature Gran # (0.00-0.04) X 10*3/uL Neutrophils # (1.80-7.70) X 10*3/uL Lymphocytes # (0.90-5.00) X 10*3/uL PT (9.9-11.9) sec INR (0.90-1.11) BUN/Creatinine Ratio 30.88 H (12.00-20.00) Ratio Glucose 171 H (70-110) mg/dL Procalcitonin (0.02-0.09) ng/mL Assessment and Plan Plan: Continue with rocephin, solumedrol, home inhalers. Coumadin per pharmacy.
[2022-04-23] MEDS: LORazepam 0.5 MG TAB PO PRN ×3 (02:24→18:01)
[2022-04-23] MEDS: traMADol 50 MG TAB PO PRN (06:41)
[2022-04-23] MEDS: LEVOTHYROXINE 75 MCG TAB PO SCH (06:44)
[2022-04-23] MEDS: FUROSEMIDE 40 MG TAB PO SCH (07:56)
[2022-04-23] MEDS: DILTIAZEM CD 120 MG CAP.ER.24H PO SCH (07:56)
[2022-04-23] MEDS: hydrALAZINE HCL 50 MG TAB PO SCH ×2 (07:56→21:14)
[2022-04-23] MEDS: POTASSIUM CHLORIDE ER 20 MEQ TAB.ER PO SCH ×3 (07:56→21:14)
--- NOTE | 2022-04-23 08:07 | P.PN ---
Subjective Progress Note Date: 04/23/22 This is an 81-year-old female with history of small cell lung cancer, diagnosed a few months ago by Dr. Garrison, patient has been receiving immunotherapy by Dr. Mortensen, she is also known to have history of congestive heart failure, COPD, previous history of pulmonary embolism maintained on anticoagulation therapy, patient received therapy for lung cancer just the day prior to admission, and she was noted to have dehydration patient received about 2 hours of IV hydration while in the oncology clinic. Patient presented to the ER with mostly symptoms of shortness of breath, has been going on for the last 1 day. Chest x-ray question the pleural effusion, however I felt the findings on the chest x-ray and stat CT of the chest are mostly related to her underlying malignancy, possible consolidation in the right lower lobe, but ultrasound failed to show any pleural effusion to consider thoracentesis. I explained to the patient that it is best to continue present supportive care measures, no nee d for thoracentesis. Actually I was asked to see the patient mostly for possible thoracentesis. Patient seemed to be quite comfortable, she is on 3 L nasal cannula and her O2 sats is 97%. She is not in any form of distress. Her labs on admission showed leukocytosis with WBC count of 18.7 and electrolytes are normal, and the patient tested negative for COVID-19 The patient is seen today 04/22/2022 in follow-up on the regular medical floor. She is currently sitting up in a chair at the bedside. Awake and alert in no acute distress. She is quite frail and cachectic. She is maintaining O2 saturations in the mid 90s on 3 L/m per nasal cannula. Afebrile. She does have a history of chronic atrial fibrillation. She was maintained on warfarin in the outpatient setting. Her INR is greater than 10. She did receive vitamin K yesterday. She had recently undergone treatment for her small cell lung cancer with significant mediastinal adenopathy however she is unsure of what the medication was. She states it was not chemotherapy but a different medication. Possibly immunotherapy. No radiation treatments. She is breathing a bit better today compared to yesterday. She is maintained on Symbicort, Solu-Medrol on the Singulair, antibiotics in the form of ceftriaxone. The patient is seen today 04/23/2022 in follow-up on the regular medical floor. She is currently resting comfortably in bed. Awake and alert in no acute distress. her INR was corrected to 2.18. White count 18.2. Humulin 10.9. Sodium 140. Potassium 4.1. BUN 22. Creatinine 0.7. Glucose 171. She is kiki nued on ceftriaxone, IV solu medrol, Symbicort, Yupelri. She declined any treatments with albuterol. Echocardiogram revealed preserved left ventricular systolic function with ejection fraction of 55% however there is severely increased left ventricular wall thickness. Paradoxical septal motion noted. She does have a mechanical prosthetic aortic valve. Objective - Vital Signs Vital signs: Vital Signs Temp 98.3 F 04/23/22 03:45 Pulse 94 04/23/22 07:28 Resp 16 04/23/22 03:45 BP 187/74 04/23/22 07:28 Pulse Ox 96 04/23/22 03:45 FiO2 Intake & Output 04/22/22 04/23/22 04/23/22 18:59 06:59 18:59 Weight 40.5 kg Other: Voiding Method Bedside Commode Bedside Commode # Voids 2 0 2 # Bowel Movements 0 - Exam GENERAL EXAM: Alert, frail, cachectic 81-year-old female, on 2 L nasal cannula, comfortable in no apparent distress. HEAD: Normocephalic. EYES: Normal reaction of pupils, equal size. NOSE: Clear with pink turbinates. THROAT: No erythema or exudates. NECK: No masses, no JVD. CHEST: No chest wall deformity. LUNGS: Equal air entry with scattered rhonchi in the right lung, diminished in the bases. CVS: S1 and S2 normal with no audible murmur, regular rhythm. ABDOMEN: No hepatosplenomegaly, normal bowel sounds, no guarding or rigidity. SPINE: No scoliosis or deformity SKIN: No rashes CENTRAL NERVOUS SYSTEM: No focal deficits, tone is normal in all 4 extremities. EXTREMITIES: There is no peripheral edema. No clubbing, no cyanosis. Peripheral pulses are intact. - Labs CBC & Chem 7: 04/22/22 05:00 04/22/22 05:00 Labs: Abnormal Lab Results - Last 24 Hours (Table) 04/22/22 04/22/22 04/22/22 Range/Units 05:00 05:00 05:00 WBC 18.23 H (4.50-10.00) X 10*3/uL RBC 3.61 L (4.10-5.20) X 10*6/uL Hgb 10.9 L (12.0-15.0) g/dL Hct 35.0 L (37.2-46.3) % MCHC 31.1 L (32.0-37.0) g/dL Immature Gran # 0.36 H (0.00-0.04) X 10*3/uL Neutrophils # 16.28 H (1.80-7.70) X 10*3/uL Lymphocytes # 0.65 L (0.90-5.00) X 10*3/uL PT 23.9 H (9.9-11.9) sec INR 2.18 H (0.90-1.11) BUN/Creatinine Ratio (12.00-20.00) Ratio Glucose (70-110) mg/dL Procalcitonin 0.27 H (0.02-0.09) ng/mL 04/22/22 Range/Units 05:00 WBC (4.50-10.00) X 10*3/uL RBC (4.10-5.20) X 10*6/uL Hgb (12.0-15.0) g/dL Hct (37.2-46.3) % MCHC (32.0-37.0) g/dL Immature Gran # (0.00-0.04) X 10*3/uL Neutrophils # (1.80-7.70) X 10*3/uL Lymphocytes # (0.90-5.00) X 10*3/uL PT (9.9-11.9) sec INR (0.90-1.11) BUN/Creatinine Ratio 30.88 H (12.00-20.00) Ratio Glucose 171 H (70-110) mg/dL Procalcitonin (0.02-0.09) ng/mL Assessment and Plan Assessment: Acute on chronic hypoxemic respiratory failure secondary to underlying COPD and underlying bronchogenic carcinoma/small cell carcinoma with significant mediastinal adenopathy, bronchial adenopathy and right lower lobe mass/consolidation Small cell lung cancer Chronic atrial fibrillation anticoagulated with warfarin, supra therapeutic, corrected and currently 2.1 History of pulmonary embolism Plan: The patient was seen and evaluated Medications, echocardiogram and labs reviewed Pro calcitonin 0.27 Discontinue ceftriaxone, add Omnicef Discontinue Solu-Medrol, and prednisone taper Continue bronchodilators Home once cleared by medicine I have personally seen and examined the patient, performed the documentation and the assessment and plan as written. Number of minutes spent on the visit: 10.
[2022-04-23 10:24] LABS: INR 1.39 (0.90-1.11); Prothrombin Time 15.5 sec (9.9-11.9)
[2022-04-23] MEDS: CEFDINIR 300 MG CAP PO SCH ×2 (10:25→21:14)
[2022-04-23] MEDS: predniSONE 20 MG TAB PO SCH (10:25)
[2022-04-23] MEDS: YUPELRI 175 MCG/3 ML INHALATION PRN (10:47)
[2022-04-23] MEDS: SYMBICORT 160-4.5 MCG INHALER INHALATION SCH ×2 (10:47→21:29)
[2022-04-23] MEDS: MONTELUKAST 10 MG TAB PO SCH (13:10)
[2022-04-23] MEDS: METOPROLOL SUCCINATE (ER) 50 MG TAB.ER.24H PO SCH (13:10)
[2022-04-23] MEDS: MEGESTROL 40 MG TAB PO SCH (13:11)
[2022-04-23] MEDS: ACETAMINOPHEN TAB 500 MG TAB PO PRN (13:20)
[2022-04-23] MEDS ORDERED: polyethylene glycoL 3350 17 GM POWD.PACK PO STA (13:50)
[2022-04-23] MEDS ORDERED: hydrALAZINE HCL 25 MG TAB PO STA ×2 (13:55→15:48)
[2022-04-23] MEDS ORDERED: WARFARIN 3 MG TAB PO ONE (18:00)
[2022-04-23] MEDS: PANTOPRAZOLE 40 MG TABLET PO SCH (21:14)
[2022-04-23] MEDS: lamoTRIgine 25 MG TAB PO SCH (21:14)
[2022-04-23] MEDS ORDERED: hydrALAZINE HCL 50 MG TAB PO SCH (22:00)
[2022-04-23] MEDS ORDERED: NON FORMULARY DRUG (Warfarin Sodium [Warfarin Sodium] 4 MG Tablet) PO SCH (22:00)
[2022-04-24] MEDS: LORazepam 0.5 MG TAB PO PRN ×3 (03:26→16:33)
[2022-04-24] MEDS: LEVOTHYROXINE 75 MCG TAB PO SCH (04:55)
[2022-04-24] MEDS: hydrALAZINE HCL 50 MG TAB PO SCH ×4 (04:55→20:52)
[2022-04-24] MEDS: traMADol 50 MG TAB PO PRN ×2 (05:01→20:53)
[2022-04-24] MEDS: SYMBICORT 160-4.5 MCG INHALER INHALATION SCH ×2 (08:31→20:03)
[2022-04-24] MEDS: YUPELRI 175 MCG/3 ML INHALATION PRN (08:32)
[2022-04-24] MEDS ORDERED: cloNIDine 0.3 MG/24HR PATCH TRANSDERM SCH (09:00)
--- NOTE | 2022-04-24 09:12 | XR ---
EXAMINATION TYPE: XR chest 1V portable DATE OF EXAM: 04/24/2022 CLINICAL HISTORY: Difficulty breathing an congestion progress study. TECHNIQUE: Single AP portable upright view of the chest is obtained. COMPARISON: Chest x-ray from 3 days earlier. CTA chest 4 days earlier. FINDINGS: [place] osseous structures redemonstrated demineralized. Surgical changes to the cervical s pine is redemonstrated. Underlying scoliosis redemonstrated. Overlying sternal wires and mediastinal clips are again seen. Cardiac silhouette size is stable and w ithin normal limits with atherosclerotic thoracic aorta. Background chronic emphysematous change with persistent right mid to lower lung consolidation and/or atelectasis. Abnormal adenopathy is seen better on recent CT versus chest x-ray. Left lung remains cl ear. Roughly 1.0 cm left upper lung nodule current study presumed external to patient has not clearly seen on recent CT within the lungs. IMPRESSION: Chronic changes with stable right mid to lower lung consolidation and/or atelectasis. Und erlying neoplasm and/or metastatic disease suspected on recent PET/CT is noted. Left lung remains kyra ar. No significant change from most recent x-ray.
[2022-04-24] MEDS: POTASSIUM CHLORIDE ER 20 MEQ TAB.ER PO SCH ×3 (09:21→20:53)
[2022-04-24] MEDS: FUROSEMIDE 40 MG TAB PO SCH (09:21)
[2022-04-24] MEDS: ACETAMINOPHEN TAB 500 MG TAB PO PRN ×2 (09:21→18:55)
[2022-04-24] MEDS: CEFDINIR 300 MG CAP PO SCH ×2 (09:21→20:52)
[2022-04-24] MEDS: predniSONE 20 MG TAB PO SCH (09:21)
[2022-04-24] MEDS: DILTIAZEM CD 120 MG CAP.ER.24H PO SCH (09:21)
[2022-04-24 10:01] LABS: INR 1.44 (0.90-1.11)
--- NOTE | 2022-04-24 11:31 | P.PN ---
Subjective Progress Note Date: 04/24/22 This is an 81-year-old female with history of small cell lung cancer, diagnosed a few months ago by Dr. Garrison, patient has been receiving immunotherapy by Dr. Mortensen, she is also known to have history of congestive heart failure, COPD, previous history of pulmonary embolism maintained on anticoagulation therapy, patient received therapy for lung cancer just the day prior to admission, and she was noted to have dehydration patient received about 2 hours of IV hydration while in the oncology clinic. Patient presented to the ER with mostly symptoms of shortness of breath, has been going on for the last 1 day. Chest x-ray question the pleural effusion, however I felt the findings on the chest x-ray and stat CT of the chest are mostly related to her underlying malignancy, possible consolidation in the right lower lobe, but ultrasound failed to show any pleural effusion to consider thoracentesis. I explained to the patient that it is best to continue present supportive care measures, no nee d for thoracentesis. Actually I was asked to see the patient mostly for possible thoracentesis. Patient seemed to be quite comfortable, she is on 3 L nasal cannula and her O2 sats is 97%. She is not in any form of distress. Her labs on admission showed leukocytosis with WBC count of 18.7 and electrolytes are normal, and the patient tested negative for COVID-19 The patient is seen today 04/22/2022 in follow-up on the regular medical floor. She is currently sitting up in a chair at the bedside. Awake and alert in no acute distress. She is quite frail and cachectic. She is maintaining O2 saturations in the mid 90s on 3 L/m per nasal cannula. Afebrile. She does have a history of chronic atrial fibrillation. She was maintained on warfarin in the outpatient setting. Her INR is greater than 10. She did receive vitamin K yesterday. She had recently undergone treatment for her small cell lung cancer with significant mediastinal adenopathy however she is unsure of what the medication was. She states it was not chemotherapy but a different medication. Possibly immunotherapy. No radiation treatments. She is breathing a bit better today compared to yesterday. She is maintained on Symbicort, Solu-Medrol on the Singulair, antibiotics in the form of ceftriaxone. The patient is seen today 04/23/2022 in follow-up on the regular medical floor. She is currently resting comfortably in bed. Awake and alert in no acute distress. her INR was corrected to 2.18. White count 18.2. Humulin 10.9. Sodium 140. Potassium 4.1. BUN 22. Creatinine 0.7. Glucose 171. She is kiki nued on ceftriaxone, IV solu medrol, Symbicort, Yupelri. She declined any treatments with albuterol. Echocardiogram revealed preserved left ventricular systolic function with ejection fraction of 55% however there is severely increased left ventricular wall thickness. Paradoxical septal motion noted. She does have a mechanical prosthetic aortic valve. The patient is seen today 04/24/2022 in follow-up on the regular medical floor. She is awake and alert in no acute distress. She is maintaining O2 saturations in the 90s on 3 L/m per nasal cannula. Follow-up chest x-ray reveals chronic changes with stable right mid to lower lung consolidation and/or atelectasis. Underlying neoplasm noted on recent PET scan. Left lung remains clear. No significant change. INR 1.44. She is continued on warfarin. Remains on antibiotics in the form of Omnicef. Continued on bronchodilators. Objective - Vital Signs Vital signs: Vital Signs Temp 98.5 F 04/24/22 07:59 Pulse 96 04/24/22 08:45 Resp 20 04/24/22 05:00 BP 157/81 04/24/22 07:59 Pulse Ox 94 L 04/24/22 07:59 FiO2 Intake & Output 04/23/22 04/24/22 04/24/22 18:59 06:59 18:59 Intake Total 300 Balance 300 Intake: Oral 300 Other: Voiding Method Bedside Commode Bedside Commode Bedside Commode Diaper Diaper # Voids 1 1 - Exam GENERAL EXAM: Alert, frail, cachectic 81-year-old female, on 3 L nasal cannula, comfortable in no apparent distress. HEAD: Normocephalic. EYES: Normal reaction of pupils, equal size. NOSE: Clear with pink turbinates. THROAT: No erythema or exudates. NECK: No masses, no JVD. CHEST: No chest wall deformity. LUNGS: Equal air entry with scattered rhonchi in the right lung, diminished in the bases. CVS: S1 and S2 normal with no audible murmur, regular rhythm. ABDOMEN: No hepatosplenomegaly, normal bowel sounds, no guarding or rigidity. SPINE: No scoliosis or deformity SKIN: No rashes CENTRAL NERVOUS SYSTEM: No focal deficits, tone is normal in all 4 extremities. EXTREMITIES: There is no peripheral edema. No clubbing, no cyanosis. Thelma pheral pulses are intact. - Labs CBC & Chem 7: 04/22/22 05:00 04/22/22 05:00 Labs: Abnormal Lab Results - Last 24 Hours (Table) 04/24/22 Range/Units 04:56 PT 16.0 H (9.9-11.9) sec INR 1.44 H (0.90-1.11) Assessment and Plan Assessment: Acute on chronic hypoxemic respiratory failure secondary to underlying COPD and underlying bronchogenic carcinoma/small cell carcinoma with significant mediastinal adenopathy, bronchial adenopathy and right lower lobe mass/consoli dation Small cell lung cancer Chronic atrial fibrillation anticoagulated with warfarin, supra therapeutic, corrected and currently 2.1 History of pulmonary embolism Plan: The patient was seen and evaluated Chest x-ray, medications and labs reviewed Remains on Omnicef Continue bronchodilators, prednisone taper Overall prognosis remains guarded Home once cleared by medicine I have personally seen and examined the patient, performed the documentation and the assessment and plan as written. Number of minutes spent on the visit: 10.
[2022-04-24] MEDS: MONTELUKAST 10 MG TAB PO SCH (13:00)
[2022-04-24] MEDS: MEGESTROL 40 MG TAB PO SCH (13:00)
[2022-04-24] MEDS: METOPROLOL SUCCINATE (ER) 50 MG TAB.ER.24H PO SCH (13:01)
--- NOTE | 2022-04-24 14:12 | P.PN ---
Subjective Progress Note Date: 04/23/22 04/23/2022 Complaining of chronic back pain, did not sleep well. Continues on IV antibiotics of ceftriaxone, IV steroids, Symbicort and patient's own Yupelri; declines albuterol-state unable to tolerate as it causes her significant tachycardia. Maintaining O2 sats in the high 90s on 3 L nasal cannula. Afebrile. Echo suboptimal, completed yesterday reporting severe LVH with preserved systolic function, paradoxical septal motion. Coumadin dosing as per pharmacy with INR decreased to 1.39. Objective - Vital Signs Vital signs: Vital Signs Temp 98.3 F 04/23/22 03:45 Pulse 94 04/23/22 07:28 Resp 16 04/23/22 03:45 BP 187/74 04/23/22 07:28 Pulse Ox 96 04/23/22 03:45 FiO2 Intake & Output 04/22/22 04/23/22 04/23/22 18:59 06:59 18:59 Weight 40.5 kg Other: Voiding Method Bedside Commode Bedside Commode # Voids 2 0 2 # Bowel Movements 0 - Exam - Exam Gen: Alert and oriented 3, frail, cachectic elderly female in NAD CV: Normal S1 S2, no murmur Lungs: Normal effort, scattered rhonchi, mild expiratory wheeze - Labs CBC & Chem 7: 04/22/22 05:00 04/22/22 05:00 Labs: Abnormal Lab Results - Last 24 Hours (Table) 04/24/22 Range/Units 04:56 PT 16.0 H (9.9-11.9) sec INR 1.44 H (0.90-1.11) Assessment and Plan Assessment: Acute on chronic hypoxic respiratory failure, multifactorial, secondary to bronchogenic carcinoma, small cell carcinoma, mediastinal adenopathy, bronchial adenopathy, right lower lobe mass, consolidation and underlying COPD Small cell lung CA Chronic atrial fibrillation, anticoagulated with warfarin, supratherapeutic, decrease dose at DC with close monitoring in a patient with history of mechanical valve History of PE Plan: Continue on current medication regime ,monitoring and symptomatic treatment. Cleared by pulmonary for discharge.Discharge planning in progress. Hypertensive this morning, repeat vital signs pending. The impression and plan of care has been dictated as directed. : I performed a history and examination of this patient, discussed the same with the dictator. I agree with the dictator's note ,documented as a scribe. Any additional findings or plans will be noted.
--- NOTE | 2022-04-24 15:12 | CDI ---
Documentation Clarification Form Date: 04/24/2022 02:55:47 PM From: Carmen Serra CCS, CCDS Admit Date: 04/20/2022 07:24:00 PM Patient Name: Julianne Duke Visit Number: [id number] Discharge Date: ATTENTION: The Clinical Documentation Specialists (CDI) and [facility] Coding Staff appreciate your assistance in clarifying documentation. Please respond to the clarification below the line at the bottom and electronically sign. The CDI & [facility] Coding staff will review the response and follow-up if needed. Please note: Queries are made part of the Legal Health Record. If you have any questions, please contact the author of this message via ITS. Dr. Joseph Thomson: Possible Right Lower Lobe Pneumonia is documented in the 04/21 H/P. The diagnosis may lack sufficient clinical evidence/support in the medical record. Additional clarification is requested. History/Risk Factors per the 04/21 H/P: Breast Cancer, Lung Cancer in treatment, CHF, COPD, PE on blood thinners, Hypertension, Hyperlipidemia, Smoker. Clinical Indicators: Presented to the ED on 04/20 with SOB and in respiratory distress via EMS from home. Had therapy for lung cancer yesterday and was noted to be dehydrated, received 2 hours of hydration prior to being sent to the hospital. Admit with Pleural Effusion, Congestive Heart Failure and Lung Cancer. 04/20 VS: T 98.2, P 94, R 22 (sob, cough), BP 163/72, PO 89 RA - 91 RA - 95 3Lnc, BMI: 18.7. 04/20 LAB: WBC 18.7, Neutrophils 17.1, Lymphocytes 0.8; Na 132, BUN 18, Glucose 107, Calcium 8.3, AST 62, Alk Phos 231, Total Protein 5.5, Albumin 3.3. 04/20 CT Chest: No evidence of pulmonary embolism. Massive mediastinal and right bronchial adenopathy. Extensive consolidation right lower lobe. There is progression of disease compared to old exam. Mediastinal lymph nodes are increased. 04/21 CXR: Increasing pulmonary consolidation and pleural fluid in the right lung field. No obvious heart failure. Treatment 04/20: Telemetry, IV Benadryl 50 mg x1, IV Lasix 40 mg x1, IV Solumedrol 100 mls @ 200 mls/hr x1. 04/21: INH Duoneb 3 ml q2H/prn, INH Duoneb 3 ml QID, IV Solumedrol 40 mg q8H, IV Rocephin 50 mls @ 100 mls/hr q24H, INH Yupelri 3ml Daily/prn. 04/24: Remained on antibiotics: Omnicef po 300 mg BID. Please clarify if Pneumonia is a valid diagnosis? [ ] Yes, Pneumonia (please specify type) is present as evidence by (additional clinical support): [ ] No, Pneumonia is ruled out [ ] Other (please specify diagnosis) [ ] Unable to determine (Template Last Revised: July 2020) Yes, Pneumonia (please specify type) is present as evidence by (additional clinical support) elevated procalcitonin MTDD
--- NOTE | 2022-04-24 15:26 | CDI ---
Documentation Clarification Form Date: 04/24/2022 03:16:00 PM From: Carmen Serra CCS, CCDS Admit Date: 04/20/2022 07:24:00 PM Patient Name: Julianne Duke Visit Number: [id number] Discharge Date: ATTENTION: The Clinical Documentation Specialists (CDI) and [facility] Coding Staff appreciate your assistance in clarifying documentation. Please respond to the clarification below the line at the bottom and electronically sign. The CDI & [facility] Coding staff will review the response and follow-up if needed. Please note: Queries are made part of the Legal Health Record. If you have any questions, please contact the author of this message via ITS. Dr. Joseph Thomson: Per the 04/20 ED Note and subsequent Progress Notes throughout the record, the patient is described as Frail and Cachectic without further specificity. Per the patient she has had a decreased appetite and decreased oral intake for 24 hours. The patient has known Small Cell Lung Cancer currently in treatment. Based on this information and the findings below, is there an additional diagnosis that is clinically appropriate for this patient? History/Risk Factors per the 04/21 H/P: Breast Cancer, Lung Cancer in treatment, CHF, COPD, PE on blood thinners, Hypertension, Hyperlipidemia, Smoker. Clinical Indicators: Presented to the ED on 04/20 with SOB and in respiratory distress via EMS from home. Had therapy for lung cancer yesterday and was noted to be dehydrated, received 2 hours of hydration prior to being sent to the hospital. Admit with Pleural Effusion, Congestive Heart Failure and Lung Cancer. 04/20 VS: T 98.2, P 94, R 22 (sob, cough), BP 163/72, PO 89 RA - 91 RA - 95 3Lnc, BMI: 18.7. 04/20 LAB: WBC 18.7, Neutrophils 17.1, Lymphocytes 0.8; Na 132, BUN 18, Glucose 107, Calcium 8.3, AST 62, Alk Phos 231, Total Protein 5.5, Albumin 3.3. 04/20 CT Chest: No evidence of pulmonary embolism. Massive mediastinal and right bronchial adenopathy. Extensive consolidation right lower lobe. There is progression of disease compared to old exam. Mediastinal lymph nodes are increased. 04/21 CXR: Increasing pulmonary consolidation and pleural fluid in the right lung field. No obvious heart failure. Dietitian not consulted. Per the Nursing Assessment: Consuming 25% of meals. Height 4 ft 10 in. Weight 41.73 kg. Treatment 04/20: Telemetry, IV Benadryl 50 mg x1, IV Lasix 40 mg x1, IV Solumedrol 100 mls @ 200 mls/hr x1. 04/21: INH Duoneb 3 ml q2H/prn, INH Duoneb 3 ml QID, IV Solumedrol 40 mg q8H, IV Rocephin 50 mls @ 100 mls/hr q24H, INH Yupelri 3ml Daily/prn. 04/24: Remained on antibiotics: Omnicef po 300 mg BID. Is there an additional diagnosis that is clinically appropriate for this patient? [ ] Mild Protein-Calorie Malnutrition [ ] Moderate Protein-Calorie Malnutrition [ ] Other condition, please specify [ ] Unable to Determine (Template Last Revised: July 2020) Moderate Protein-Calorie Malnutrition MTDD
[2022-04-24] MEDS ORDERED: WARFARIN 3 MG TAB PO ONE (18:00)
[2022-04-24] MEDS: lamoTRIgine 25 MG TAB PO SCH (20:52)
[2022-04-24] MEDS: PANTOPRAZOLE 40 MG TABLET PO SCH (20:52)
[2022-04-25] MEDS: LORazepam 0.5 MG TAB PO PRN ×5 (05:11→21:03)
[2022-04-25] MEDS: LEVOTHYROXINE 75 MCG TAB PO SCH (05:11)
--- NOTE | 2022-04-25 06:50 | P.PN ---
Subjective Progress Note Date: 04/25/22 Principal diagnosis: Lung cancer. The patient is seen today 04/22/2022 in follow-up on the regular medical floor. She is currently sitting up in a chair at the bedside. Awake and alert in no acute distress. She is quite frail and cachectic. She is maintaining O2 saturations in the mid 90s on 3 L/m per nasal cannula. Afebrile. She does have a history of chronic atrial fibrillation. She was maintained on warfarin in the outpatient setting. Her INR is greater than 10. She did receive vitamin K yesterday. She had recently undergone treatment for her small cell lung cancer with significant mediastinal adenopathy however she is unsure of what the medication was. She states it was not chemotherapy but a different medication. Possibly immunotherapy. No radiation treatments. She is breathing a bit better today compared to yesterday. She is maintained on Symbicort, Solu-Medrol on the [facility], antibiotics in the form of ceftriaxone. The patient is seen today 04/23/2022 in follow-up on the regular medical floor. She is currently resting comfortably in bed. Awake and alert in no acute distress. her INR was corrected to 2.18. White count 18.2. Humulin 10.9. Sodium 140. Potassium 4.1. BUN 22. Creatinine 0.7. Glucose 171. She is continued on ceftriaxone, IV solu medrol, Symbicort, Yupelri. She declined any treatments with albuterol. Echocardiogram revealed preserved left ventricular systolic function with ejection fraction of 55% however there is severely increased left ventricular wall thickness. Paradoxical septal motion noted. She does have a mechanical prosthetic aortic valve. The patient is seen today 04/24/2022 in follow-up on the regular medical floor. She is awake and alert in no acute distress. She is maintaining O2 saturations in the 90s on 3 L/m per nasal cannula. Follow-up chest x-ray reveals chronic changes with stable right mid to lower lung consolidation and/or atelectasis. Underlying neoplasm noted on recent PET scan. Left lung remains clear. No significant change. INR 1.44. She is continued on warfarin. Remains on antibiotics in the form of Omnicef. Continued on bronchodilators. Progress note dated 04/25/2022. The patient is again seen in room 534. She's awake. She is on 3 L of oxygen. No IV fluids. Saturations are in the mid to high 90s. The most recent x-rays revealed chronic changes and consolidation to the right mid and lower lung sounds. Underlying neoplasm noted on recent PET scan. Left lung is clear. No recent laboratory data other than a PT of 16 and INR 1.44, on April 24. The patient remains on Symbicort, Omnicef, Singulair, and has refused short acting beta agonist. The patient also continues on prednisone 20 mg a day. Objective - Vital Signs Vital signs: Vital Signs Temp 98.0 F 04/25/22 05:00 Pulse 97 04/25/22 05:56 Resp 19 04/25/22 05:56 BP 168/81 04/25/22 05:56 Pulse Ox 97 04/25/22 05:56 FiO2 Intake & Output 04/24/22 04/24/22 04/25/22 06:59 18:59 06:59 Intake Total 300 200 Balance 300 200 Intake: Oral 300 200 Other: Voiding Method Bedside Commode Bedside Commode Bedside Commode Diaper Diaper Diaper # Voids 1 2 2 - Exam No acute distress, oriented 3. No respiratory distress. Currently on 3 L. HEENT examination is grossly unremarkable. Neck supple. Full range of motion. No adenopathy thyromegaly or neck vein distention. Cardiovascular examination reveals regular rhythm rate. S1-S2 normal. No S3 or S4. No discernible murmur noted. Heart sounds are distant. Heart rate 95 bpm. Lungs reveal clear but diminished breath sounds particularly at the bases. Minimal rhonchi. No wheezes or crackles. Saturations are 97%. Abdomen soft bowel sounds are heard. No masses or tenderness. Extremities are intact. No cyanosis clubbing or edema. Skin is without rash or lesion. Neurologic examination is brief but nonfocal. - Labs CBC & Chem 7: 04/22/22 05:00 04/22/22 05:00 Labs: Abnormal Lab Results - Last 24 Hours (Table) 04/24/22 Range/Units 04:56 PT 16.0 H (9.9-11.9) sec INR 1.44 H (0.90-1.11) Assessment and Plan Assessment: Acute on chronic hypoxemic respiratory failure secondary to COPD, and small cell lung cancer, with significant mediastinal adenopathy and right lower lobe mass/ consolidation. Small cell lung cancer. Chronic atrial fibrillation. History of pulmonary embolism. Plan: Plan dated 04/25/2022. Repeat testing for coronavirus was negative. Most recent pro-calcitonin level was 0.27 which is mildly elevated. The patient continues on appropriate me dications including corticosteroids, and bronchodilators. The patient's current clinical situation is stable. In my opinion, she could be considered for possible discharge. She continues on oxygen at 3 L. That could be titrated downward. She also continues on antibiotics. Would consider discharge soon. Overall prognosis is very poor. Time with Patient: Less than 30
[2022-04-25] MEDS: POTASSIUM CHLORIDE ER 20 MEQ TAB.ER PO SCH ×3 (09:02→21:01)
[2022-04-25] MEDS: hydrALAZINE HCL 50 MG TAB PO SCH ×4 (09:03→21:01)
[2022-04-25] MEDS: CEFDINIR 300 MG CAP PO SCH ×2 (09:04→21:01)
[2022-04-25] MEDS: FUROSEMIDE 40 MG TAB PO SCH (09:04)
[2022-04-25] MEDS: predniSONE 20 MG TAB PO SCH (09:04)
[2022-04-25] MEDS: DILTIAZEM CD 120 MG CAP.ER.24H PO SCH (09:04)
[2022-04-25] MEDS: MONTELUKAST 10 MG TAB PO SCH (09:04)
[2022-04-25] MEDS: METOPROLOL SUCCINATE (ER) 50 MG TAB.ER.24H PO SCH (09:04)
[2022-04-25] MEDS: MEGESTROL 40 MG TAB PO SCH (09:05)
[2022-04-25] MEDS: SYMBICORT 160-4.5 MCG INHALER INHALATION SCH ×2 (09:07→20:39)
[2022-04-25 11:47] LABS: INR 2.21 (0.90-1.11); Prothrombin Time 24.2 sec (9.9-11.9)
--- NOTE | 2022-04-25 12:39 | P.PN ---
Subjective Progress Note Date: 04/24/22 04/23/2022 Complaining of chronic back pain, did not sleep well. Continues on IV antibiotics of ceftriaxone, IV steroids, Symbicort and patient's own Yupelri; declines albuterol-state unable to tolerate as it causes her significant tachycardia. Maintaining O2 sats in the high 90s on 3 L nasal cannula. Afebrile. Echo suboptimal, completed yesterday reporting severe LVH with preserved systolic function, paradoxical septal motion. Coumadin dosing as per pharmacy with INR decreased to 1.39. 04/24/2022 initially had planned for discharge yesterday, patient's hypertensive throughout the day and discharge was held. Hydralazine increased the blood pressure better controlled this morning. Maintained on nebulized bronchodilators, Omnicef and prednisone. This morning complains of increased shortness of breath, congested cough, ongoing blood tinged sputum-chronic. Maintaining O2 sats in the 90s on 3 L nasal cannula. Anticoagulated on warfarin, INR 1.44. Objective - Vital Signs Vital signs: Vital Signs Temp 98.1 F 04/24/22 11:12 Pulse 91 04/24/22 11:12 Resp 15 04/24/22 11:12 BP 172/78 04/24/22 11:12 Pulse Ox 96 04/24/22 11:12 FiO2 Intake & Output 04/23/22 04/24/22 04/24/22 18:59 06:59 18:59 Intake Total 300 Balance 300 Intake: Oral 300 Other: Voiding Method Bedside Commode Bedside Commode Bedside Commode Diaper Diaper # Voids 1 1 - Exam - Exam Gen: Alert and oriented 3, frail, cachectic elderly female in NAD CV: Normal S1 S2, no murmur Lungs: Increased respiratory effort, scattered rhonchi, mild expiratory wheeze - Labs CBC & Chem 7: 04/22/22 05:00 04/22/22 05:00 Labs: Abnormal Lab Results - Last 24 Hours (Table) 04/24/22 Range/Units 04:56 PT 16.0 H (9.9-11.9) sec INR 1.44 H (0.90-1.11) Assessment and Plan Assessment: Acute on chronic hypoxic respiratory failure, multifactorial, secondary to bronchogenic carcinoma, small cell carcinoma, mediastinal adenopathy, bronchial adenopathy, right lower lobe mass, consolidation and underlying COPD Small cell lung CA Chronic atrial fibrillation, anticoagulated with warfarin, supratherapeutic, decrease dose at DC with close monitoring in a patient with history of mechanical valve History of PE Plan: Continue on current medication regime ,monitoring and symptomatic treatment. Options of hospice/palliative care/comfort care discussed including informational hospice consult-patient declined at this time. Maintain aggressive pulmonary toileting and nebulized bronchodilators, steroids, antibiotics. Chest x-ray ordered.Discharge planning in progress. The impression and plan of care has been dictated as directed. : I performed a history and examination of this patient, discussed the same with the dictator. I agree with the dictator's note ,documented as a scribe. Any additional findings or plans will be noted.
--- NOTE | 2022-04-25 12:53 | P.PN ---
Subjective Progress Note Date: 04/25/22 04/23/2022 Complaining of chronic back pain, did not sleep well. Continues on IV antibiotics of ceftriaxone, IV steroids, Symbicort and patient's own Yupelri; declines albuterol-state unable to tolerate as it causes her significant tachycardia. Maintaining O2 sats in the high 90s on 3 L nasal cannula. Afebrile. Echo suboptimal, completed yesterday reporting severe LVH with preserved systolic function, paradoxical septal motion. Coumadin dosing as per pharmacy with INR decreased to 1.39. 04/24/2022 initially had planned for discharge yesterday, patient's hypertensive throughout the day and discharge was held. Hydralazine increased the blood pressure better controlled this morning. Maintained on nebulized bronchodilators, Omnicef and prednisone. This morning complains of increased shortness of breath, congested cough, ongoing blood tinged sputum-chronic. Maintaining O2 sats in the 90s on 3 L nasal cannula. Anticoagulated on warfarin, INR 1.44. 04/25/2022 this morning complaining of generalized body pain reports has pain medication at home that relieves it. Reports hurts to be lifted, turned, positioned. Ongoing shortness of breath. Maintaining O2 sats in the 90s on 3 L nasal cannula. Chest x-ray yesterday reported chronic changes, stable consolidation/atelectasis in the right mid and lower lung, underlying neoplasm and/or metastatic disease suspected on recent PET CT noted, left lung remains clear, no significant change from most recent x-ray. Patient requesting to go home. Objective - Vital Signs Vital signs: Vital Signs Temp 98.4 F 04/25/22 11:43 Pulse 102 H 04/25/22 11:43 Resp 18 04/25/22 11:43 BP 152/85 04/25/22 11:43 Pulse Ox 95 04/25/22 11:43 FiO2 Intake & Output 04/24/22 04/25/22 04/25/22 18:59 06:59 18:59 Intake Total 200 Balance 200 Intake: Oral 200 Other: Voiding Method Bedside Commode Bedside Commode Bedside Commode Diaper Diaper Diaper # Voids 2 2 5 - Exam - Exam Gen: Alert and oriented 3, frail, cachectic elderly female in NAD CV: Normal S1 S2, no murmur Lungs: Increased respiratory effort, scattered rhonchi, mild expiratory wheeze - Labs CBC & Chem 7: 04/22/22 05:00 04/22/22 05:00 Labs: Abnormal Lab Results - Last 24 Hours (Table) 04/25/22 Range/Units 07:12 PT 24.2 H (9.9-11.9) sec INR 2.21 H (0.90-1.11) Assessment and Plan Assessment: Acute on chronic hypoxic respiratory failure, multifactorial, secondary to bronchogenic carcinoma, small cell carcinoma, mediastinal adenopathy, bronchial adenopathy, right lower lobe mass, consolidation and underlying COPD Small cell lung CA Chronic atrial fibrillation, anticoagulated with warfarin, supratherapeutic, decrease dose at DC with close monitoring in a patient with history of mechanical valve History of PE Plan: Continue on current medication regime ,monitoring and symptomatic treatment. Options of hospice/palliative care/comfort care re-discussed including informational hospice consult-patient declined and wishes to proceed home. Family calling in requesting oncology consult prior to discharge. PCP attempted to call family on 3 different phone numbers, unsuccessful. discharge placed on hold, oncology consult initiated.aggressive pulmonary toileting and nebulized bronchodilators, steroids, antibiotics. Discharge planning in prog ress. Prognosis poor given multiple complex medical issues. The impression and plan of care has been dictated as directed. : I performed a history and examination of this patient, discussed the same with the dictator. I agree with the dictator's note ,documented as a scribe. Any additional findings or plans will be noted.
--- NOTE | 2022-04-25 13:11 | P.CONS ---
History of Present Illness - Reason for Consult Consult date: 04/25/22 History of small cell lung cancer - Chief Complaint Increased weakness, shortness of breath - History of Present Illness Ms. Duke is an 81-year-old woman with a past medical history significant for extensive stage small cell lung cancer who is received 2 cycles of palliative nivolumab with cycle 2 on 04/19/2022 who presented to the hospital on 04/21/2022 with increased shortness of breath and weakness. Chest x-ray noted known lesions of malignancy along with possible pneumonia. In addition there was concern for pulmonary edema. She was treated with broad-spectrum antibiotics and diuretics. She notes continued weakness and dyspnea despite these interventions. She is now having diffuse pain, which she cannot clearly localize. Labs were not concerning for any acute metabolic abnormalities such as adrenal insufficiency secondary to immunotherapy and does not have clinical evidence of pneumonitis secondary to immunotherapy. Review of Systems 14 point review of systems was conducted with pertinent positives negatives as noted per HPI Past Medical History Past Medical History: Cancer, Heart Failure, COPD, Fibromyalgia, GERD/Reflux, Hearing Disorder / Deafness, Hyperlipidemia, Hypertension, Musculoskeletal Disorder, Neurologic Disorder, Osteoarthritis (OA), Pneumonia, Pulmonary Embolus (PE), Thyroid Disorder Additional Past Medical History / Comment(s): Osteoporosis, neuropathy, hx rhe umatic fever as child. Home O2, 2 liters per N/C at night. Diverticular Disease. pt stated Hx some paralysis after neck surgery - resolved. Cyst on one kidney. Hx Shingles in 2009. Hx PE September 2021. Poor hearing. History of Any Multi-Drug Resistant Organisms: None Reported Past Surgical History: Cardiac Valve Replacement, Section, Orthopedic Surgery, Tonsillectomy Additional Past Surgical History / Comment(s): Bilateral mastectomy for suspicious lumps, lower lobe of right lung removed, breast implants, later evelin jaimie, mechanical aortic valve replacement, neck surgery, had titanium plate placed, left carotid endarterectomy, right lung nodule removed(benign), bilateral cataracts removed. Past Anesthesia/Blood Transfusion Reactions: Previous Problems w/ Anesthesia Additional Past Anesthesia/Blood Transfusion Reaction / Comm: "Hard time coming out sometimes". Clausterphobia. Past Psychological History: No Psychological Hx Reported Smoking Status: Current some day smoker Past Alcohol Use History: None Reported Additional Past Alcohol Use History / Comment(s): Started smoking at age 18, 1 ppd. Past Drug Use History: None Reported - Past Family History Father History Unknown: Yes Family Medical History: Unable to Obtain Additional Family Medical History / Comment(s): in accident when patient was young. Mother Family Medical History: COPD Additional Family Medical History / Comment(s): at age 73. Sister(s) Family Medical History: Cancer Additional Family Medical History / Comment(s): #1 sister - thyroid and breast cancer, brain aneurysm, #2 sister - breast cancer, dementia, at age 83, #3 sister - blood cancer, in her 50's. Medications and Allergies Home Medications Medication Instructions Recorded Confirmed Type Levothyroxine Sodium [Synthroid] 75 mcg PO DAILY 05/20/14 04/20/22 History Simvastatin [Zocor] 40 mg PO SUTUFR@2200 05/20/14 04/20/22 History Furosemide 40 mg PO DAILY 12/19/15 04/20/22 History Montelukast [Singulair] 10 mg PO DAILY@1200 10/30/19 04/20/22 History Ergocalciferol (Vitamin D2) 1,250 mcg PO SA 09/28/21 04/20/22 History [Drisdol (50,000 Iu)] LORazepam [Ativan] 0.5 - 1 mg PO TID PRN 09/28/21 04/20/22 History Megestrol [Megace] 40 mg PO DAILY@1200 09/28/21 04/20/22 History Metoprolol Succinate (ER) [Toprol 50 mg PO DAILY@1200 09/28/21 04/20/22 History XL] Omeprazole 40 mg PO HS 09/28/21 04/20/22 History Yupelri 175mcg/3ml 3 ml INHALATION DAILY PRN 09/28/21 04/20/22 History cloNIDine 0.3 MG/24HR PATCH 1 patch TRANSDERM WE 09/28/21 04/20/22 History [Catapres-TTS] dilTIAZem HCL [dilTIAZem HCL 12Hr 120 mg PO DAILY 09/28/21 04/20/22 History ER] hydrALAZINE HCL [Apresoline] 50 mg PO BID 09/28/21 04/20/22 History lamoTRIgine [LaMICtal] 50 mg PO HS 09/28/21 04/20/22 History metFORMIN HCL [Glucophage] 500 mg PO BID PRN 09/28/21 04/20/22 History Nitroglycerin Sl Tabs [Nitrostat] 0.4 mg SL Q5M PRN 01/25/22 04/20/22 History Potassium Chloride [Potassium 20 meq PO TID 01/25/22 04/20/22 History Chloride ER] Tiotropium 18 Mcg/Puff [Spiriva] 1 puff INHALATION DAILY PRN 02/20/22 04/20/22 History Acetaminophen [Tylenol Extra 1,000 mg PO Q8H PRN 04/20/22 04/21/22 History Strength] Ondansetron Odt [Zofran ODT] 8 mg PO Q12HR PRN 04/20/22 04/20/22 History traMADol HCL 50 mg PO Q8H PRN 04/20/22 04/20/22 History Budesonide-Formot 160-4.5 Mcg 2 puff INHALATION RT-BID #1 each 04/23/22 Rx [Symbicort 160-4.5 Mcg Inhaler] Cefdinir [Omnicef] 300 mg PO BID 5 Days #10 cap 04/23/22 Rx Warfarin [Coumadin] 1 mg PO DAILY #10 tablet 04/23/22 Rx predniSONE See Rx Instructions .ROUTE 04/23/22 04/20/22 Rx .COMPLEX #0 Allergies Allergy/AdvReac Type Severity Reaction Status Date / Time Latex, Natural Rubber Allergy Rash/Hives Verified 04/20/22 19:02 venom-honey bee Allergy Anaphylaxis Verified 04/20/22 19:02 [bee venom (honey bee)] adhesive AdvReac tears skin Verified 04/20/22 19:02 Iodinated Contrast Media AdvReac Nausea & Verified 04/20/22 19:02 [Iodinated Contrast Media - Vomiting & IV Dye] Diarrhea iodine AdvReac Nausea & Verified 04/20/22 19:02 Vomiting & Diarrhea Physical Exam Vitals: Vital Signs Temp Pulse Resp BP Pulse Ox 04/25/22 11:43 98.4 F 102 H 18 152/85 95 04/25/22 09:00 90 19 154/60 04/25/22 08:11 98 04/25/22 05:56 97 19 168/81 97 04/25/22 05:00 98.0 F 98 20 186/90 93 L 04/24/22 20:41 97.0 F L 99 20 159/78 91 L Intake and Output 04/24/22 04/25/22 04/25/22 22:59 06:59 14:59 Intake Total 200 Balance 200 Intake: Oral 200 Other: Voiding Method Bedside Commode Bedside Commode Diaper Diaper # Voids 2 2 5 - Constitutional Appears weaker than on prior examinations outpatient General appearance: no acute distress, thin - EENT Eyes: EOMI - Respiratory Respiratory: bilateral: other (Inspiratory crackles at the bases bilaterally) - Cardiovascular Rhythm: regular - Gastrointestinal General gastrointestinal: no distended, normal bowel sounds, soft, no tenderness - Integumentary Integumentary: pale - Neurologic Neurologic: CNII-XII intact Results CBC & Chem 7: 04/22/22 05:00 04/22/22 05:00 Labs: Abnormal Lab Results - Last 24 Hours (Table) 04/25/22 Range/Units 07:12 PT 24.2 H (9.9-11.9) sec INR 2.21 H (0.90-1.11) Assessment and Plan Assessment: Ms. Duke is an 81-year-old woman with multiple medical comorbidities and recently diagnosed with extensive stage small cell lung cancer status post 2 cycles of nivolumab presenting with increasing weakness and shortness of breath concerning for disease progression. (1) Small cell malignant neoplasm of lung in adult Current Visit: Yes Status: Acute Code(s): C34.90 - MALIGNANT NEOPLASM OF UNSP PART OF UNSP BRONCHUS OR LUNG SNOMED Code(s): 230520972 Plan: -I reviewed clinical course to date with Ms. Duke and her at bedside -She notes that she has had progressive weakness and shortness of breath even before starting treatment and this has only gotten worse -We discussed how she is not a candidate for first-line chemotherapy given her other medical comorbidities along with her age, which had been discussed previously as well -Based on work-up obtained today along with her progressive clinical presentati on, I believe that her current clinical picture is due to disease progression of her underlying malignancy as opposed to a complication of immunotherapy given how she has not had any improvement with antibiotics or diuretics -We discussed that treatment instead could be more focused on palliation and improving quality of life. Ms. Duke stated to me how she no longer wishes to undergo repeated visits to the clinic and hospital and would like to focus on maintaining quality of life at home -I agree that this was a very reasonable approach and did recommend transition to hospice. I did provide reassurance to her at bedside that this is an appropriate medical decision. He expressed to me that he felt relieved that he was not making a decision that he thought was potentially not correct. At the end of our discussion, both Ms. Duke and her were comfortable with transitioning to hospice -We will consult hospice team to arrange for hospice to be arranged at home -We will remain available if there are any additional questions or concerns Time with Patient: Greater than 30
[2022-04-25] MEDS: traMADol 50 MG TAB PO PRN (13:36)
[2022-04-25 14:40] VITALS: BMI 18.6
[2022-04-25] MEDS: ACETAMINOPHEN TAB 500 MG TAB PO PRN (17:28)
[2022-04-25] MEDS ORDERED: WARFARIN 2 MG TAB PO ONE (18:00)
[2022-04-25] MEDS: HYDROcodone/APAP 5-325MG 1 EACH TAB PO PRN (19:52)
[2022-04-25 20:35] VITALS: TEMP 97.6
[2022-04-25] MEDS: PANTOPRAZOLE 40 MG TABLET PO SCH (21:01)
[2022-04-25] MEDS: lamoTRIgine 25 MG TAB PO SCH (21:01)
[2022-04-26] MEDS: LORazepam 0.5 MG TAB PO PRN ×3 (02:27→12:30)
[2022-04-26] MEDS: HYDROcodone/APAP 5-325MG 1 EACH TAB PO PRN ×2 (02:40→10:14)
[2022-04-26] MEDS: LEVOTHYROXINE 75 MCG TAB PO SCH (05:43)
[2022-04-26] MEDS: hydrALAZINE HCL 50 MG TAB PO SCH (05:43)
[2022-04-26] MEDS: traMADol 50 MG TAB PO PRN (05:45)
[2022-04-26 05:46] VITALS: RESP 18
--- NOTE | 2022-04-26 06:47 | P.PN ---
Subjective Progress Note Date: 04/26/22 Principal diagnosis: Lung cancer. The patient is seen today 04/22/2022 in follow-up on the regular medical floor. She is currently sitting up in a chair at the bedside. Awake and alert in no acute distress. She is quite frail and cachectic. She is maintaining O2 saturations in the mid 90s on 3 L/m per nasal cannula. Afebrile. She does have a history of chronic atrial fibrillation. She was maintained on warfarin in the outpatient setting. Her INR is greater than 10. She did receive vitamin K yesterday. She had recently undergone treatment for her small cell lung cancer with significant mediastinal adenopathy however she is unsure of what the medication was. She states it was not chemotherapy but a different medication. Possibly immunotherapy. No radiation treatments. She is breathing a bit better today compared to yesterday. She is maintained on Symbicort, Solu-Medrol on the [facility], antibiotics in the form of ceftriaxone. The patient is seen today 04/23/2022 in follow-up on the regular medical floor. She is currently resting comfortably in bed. Awake and alert in no acute distress. her INR was corrected to 2.18. White count 18.2. Humulin 10.9. Sodium 140. Potassium 4.1. BUN 22. Creatinine 0.7. Glucose 171. She is continued on ceftriaxone, IV solu medrol, Symbicort, Yupelri. She declined any treatments with albuterol. Echocardiogram revealed preserved left ventricular systolic function with ejection fraction of 55% however there is severely increased left ventricular wall thickness. Paradoxical septal motion noted. She does have a mechanical prosthetic aortic valve. The patient is seen today 04/24/2022 in follow-up on the regular medical floor. She is awake and alert in no acute distress. She is maintaining O2 saturations in the 90s on 3 L/m per nasal cannula. Follow-up chest x-ray reveals chronic changes with stable right mid to lower lung consolidation and/or atelectasis. Underlying neoplasm noted on recent PET scan. Left lung remains clear. No significant change. INR 1.44. She is continued on warfarin. Remains on antibiotics in the form of Omnicef. Continued on bronchodilators. Progress note dated 04/25/2022. The patient is again seen in room 534. She's awake. She is on 3 L of oxygen. No IV fluids. Saturations are in the mid to high 90s. The most recent x-rays revealed chronic changes and consolidation to the right mid and lower lung sounds. Underlying neoplasm noted on recent PET scan. Left lung is clear. No recent laboratory data other than a PT of 16 and INR 1.44, on April 24. The patient remains on Symbicort, Omnicef, Singulair, and has refused short acting beta agonist. The patient also continues on prednisone 20 mg a day. Progress note dated 04/26/2022. The patient is again seen in room 534. She's currently on 3 L of oxygen. She's awake. No new complaints today. Vital signs are stable. Elaine 97.6. Respiratory rate 18. Blood pressure bit high. No new labs today as you. From yesterday, the PTT was 24.2 with an INR 2.21. Hence, she is therapeutic. Objective - Vital Signs Vital signs: Vital Signs Temp 97.6 F 04/26/22 05:22 Pulse 110 H 04/26/22 05:22 Resp 18 04/26/22 05:22 BP 173/110 04/26/22 05:22 Pulse Ox 93 L 04/26/22 05:22 FiO2 Intake & Output 04/25/22 04/25/22 04/26/22 06:59 18:59 06:59 Intake Total 200 Balance 200 Weight 40.5 kg Intake: Oral 200 Other: Voiding Method Bedside Commode Bedside Commode Bedside Commode Diaper Diaper Diaper # Voids 2 5 1 - Exam No acute distress, oriented 3. No respiratory distress. Currently on 3 L. HEENT examination is grossly unremarkable. Neck supple. Full range of motion. No adenopathy thyromegaly or neck vein distention. Cardiovascular examination reveals regular rhythm rate. S1-S2 normal. No S3 or S4. No discernible murmur noted. Heart sounds are distant. Heart rate 100 bpm. Lungs reveal clear but diminished breath sounds particularly at the bases. Minimal rhonchi. No wheezes or crackles. Saturations are 94 %. Abdomen soft bowel sounds are heard. No masses or tenderness. Extremities are intact. No cyanosis clubbing or edema. Skin is without rash or lesion. Neurologic examination is brief but nonfocal. - Labs CBC & Chem 7: 04/22/22 05:00 04/22/22 05:00 Labs: Abnormal Lab Results - Last 24 Hours (Table) 04/25/22 Range/Units 07:12 PT 24.2 H (9.9-11.9) sec INR 2.21 H (0.90-1.11) Assessment and Plan Assessment: Acute on chronic hypoxemic respiratory failure secondary to COPD, and small cell lung cancer, with significant mediastinal adenopathy and right lower lobe mass/consolidation. Small cell lung cancer. Chronic atrial fibrillation. History of pulmonary embolism. Plan: Plan dated 04/25/2022. Repeat testing for coronavirus was negative. Most recent pro-calcitonin level was 0.27 which is mildly elevated. The patient continues on appropriate medications including corticosteroids, and bronchodilators. The patient's current clinical situation is stable. In my opinion, she could be considered for possible discharge. She continues on oxygen at 3 L. That could be titrated downward. She also continues on antibiotics. Would consider discharge soon. Overall prognosis is very poor. Plan dated 04/26/2022. The patient was seen by medical oncology yesterday. They believe the treatment should be more focused on palliation and improving quality of life. The patient apparently is not a candidate for first-line chemotherapy. Also, a recommendation was made for possible hospice involvement. We will continue to follow moving forward as needed. The patient could be considered for discharge. Time with Patient: Less than 30
[2022-04-26] MEDS: SYMBICORT 160-4.5 MCG INHALER INHALATION SCH (08:43)
[2022-04-26 10:06] LABS: INR 2.74 (0.90-1.11); Prothrombin Time 29.8 sec (9.9-11.9)
[2022-04-26] MEDS: CEFDINIR 300 MG CAP PO SCH (10:14)
[2022-04-26] MEDS: FUROSEMIDE 40 MG TAB PO SCH (10:14)
[2022-04-26] MEDS: predniSONE 20 MG TAB PO SCH (10:15)
[2022-04-26] MEDS: DILTIAZEM CD 120 MG CAP.ER.24H PO SCH (10:20)
[2022-04-26] MEDS: POTASSIUM CHLORIDE ER 20 MEQ TAB.ER PO SCH (10:22)
[2022-04-26 12:10] VITALS: BP 182/83; PULSE 117
[2022-04-26] MEDS ORDERED: MORPHINE CONC SOLN 10mg/0.5mL ORAL SYRG PO PRN (12:55)
[2022-04-26] MEDS ORDERED: MORPHINE ORAL SOLN 10 MG/5 ML CUP PO PRN (13:30)
--- NOTE | 2022-04-26 14:57 | P.DS ---
Providers Date of admission: 04/20/22 19:24 Expected date of discharge: 04/26/22 Attending physician: Joseph Thomson MD Consults: 04/20/22 19:24 Consult Physician Routine Consulting Provider: [facility] Consult Reason/Comments: CHF exas, fluid overload Do you want consulting provider notified?: Yes, Notify in am 04/21/22 06:09 Consult Physician Routine Consulting Provider: Yanick Cuevas Consult Reason/Comments: Shortness of breath, pleural fluid in the right lung Do you want consulting provider notified?: Yes, Notify in am 04/25/22 10:09 Consult Physician Routine Consulting Provider: Emerson Ch Consult Reason/Comments: lung Ca, mass, med. adenopathy- Do you want consulting provider notified?: Yes Primary care physician: Sandrita Thomson [facility] Course: Final Diagnoses: Acute on chronic hypoxic respiratory failure, multifactorial, secondary to bronchogenic carcinoma, small cell carcinoma, mediastinal adenopathy, bronchial adenopathy, right lower lobe mass, consolidation and underlying COPD Small cell lung CA Chronic atrial fibrillation, anticoagulated with warfarin, supratherapeutic, decrease dose at DC with close monitoring in a patient with history of mechanical valve History of PE Hospital course:Complaining of chronic back pain, did not sleep well. Continues on IV antibiotics of ceftriaxone, IV steroids, Symbicort and patient's own Yupelri; declines albuterol-state unable to tolerate as it causes her significant tachycardia. Maintaining O2 sats in the high 90s on 3 L nasal cannula. Afebrile. Echo suboptimal, completed yesterday reporting severe LVH with preserved systolic function, paradoxical septal motion. Coumadin dosing as per pharmacy with INR decreased to 1.39. 04/24/2022 initially had planned for discharge yesterday, patient's hypertensive throughout the day and discharge was held. Hydralazine increased the blood pressure better controlled this morning. Maintained on nebulized bronchodilators, Omnicef and prednisone. This morning complains of increased shortness of breath, congested cough, ongoing blood tinged sputum-chronic. Maintaining O2 sats in the 90s on 3 L nasal cannula. Anticoagulated on warfa rin, INR 1.44. 04/25/2022 this morning complaining of generalized body pain reports has pain medication at home that relieves it. Reports hurts to be lifted, turned, positioned. Ongoing shortness of breath. Maintaining O2 sats in the 90s on 3 L nasal cannula. Chest x-ray yesterday reported chronic changes, stable consolidation/atelectasis in the right mid and lower lung, underlying neoplasm and/or metastatic disease suspected on recent PET CT noted, left lung remains clear, no significant change from most recent x-ray. Patient requesting to go home. Patient, family met with hospice last night with hospice initiated as per their requests. Patient and family wishes to proceed home with hospice. Patient will be discharged home today in a stable condition with guarded prognosis. The impression and plan of care has been dictated as directed. : I performed a history and examination of this patient, discussed the same with the dictator. I agree with the dictator's note ,documented as a scribe. Any additional findings or plans will be noted. Patient Condition at Discharge: Stable Plan - Discharge Summary Discharge Rx Participant: Yes New Discharge Prescriptions: New Budesonide-Formot 160-4.5 Mcg [Symbicort 160-4.5 Mcg Inhaler] 2 puff INHALATION RT-BID #1 each Cefdinir [Omnicef] 300 mg PO BID 5 Days #10 cap Continue Levothyroxine Sodium [Synthroid] 75 mcg PO DAILY Furosemide 40 mg PO DAILY Montelukast [Singulair] 10 mg PO DAILY@1200 Metoprolol Succinate (ER) [Toprol XL] 50 mg PO DAILY@1200 lamoTRIgine [LaMICtal] 50 mg PO HS cloNIDine 0.3 MG/24HR PATCH [Catapres-TTS] 1 patch TRANSDERM WE dilTIAZem HCL [dilTIAZem HCL 12Hr ER] 120 mg PO DAILY Potassium Chloride [Potassium Chloride ER] 20 meq PO TID traMADol HCL 50 mg PO Q8H PRN PRN Reason: Pain Acetaminophen [Tylenol Extra Strength] 1,000 mg PO Q8H PRN PRN Reason: Pain Omeprazole 40 mg PO HS LORazepam [Ativan] 0.5 - 1 mg PO TID PRN PRN Reason: Anxiety hydrALAZINE HCL [Apresoline] 50 mg PO BID Yupelri 175mcg/3ml 3 ml INHALATION DAILY PRN PRN Reason: Shortness Of Breath Nitroglycerin Sl Tabs [Nitrostat] 0.4 mg SL Q5M PRN PRN Reason: Chest Pain Tiotropium 18 Mcg/Puff [Spiriva] 1 puff INHALATION DAILY PRN PRN Reason: Shortness Of Breath Ondansetron Odt [Zofran ODT] 8 mg PO Q12HR PRN PRN Reason: Nausea And Vomiting Changed predniSONE See Rx Instructions .ROUTE .COMPLEX #0 Discontinued Simvastatin [Zocor] 40 mg PO SUTUFR@2200 Megestrol [Megace] 40 mg PO DAILY@1200 Ergocalciferol (Vitamin D2) [Drisdol (50,000 Iu)] 1,250 mcg PO SA metFORMIN HCL [Glucophage] 500 mg PO BID PRN PRN Reason: high BS while on prednisone Warfarin Sodium 4 mg PO TUTH@2200 Warfarin Sodium [Jantoven] 2 mg PO SUMOWEFRSA@2200 Discharge Medication List Levothyroxine Sodium [Synthroid] 75 mcg PO DAILY 05/20/14 [History] Furosemide 40 mg PO DAILY 12/19/15 [History] Montelukast [Singulair] 10 mg PO DAILY@1200 10/30/19 [History] LORazepam [Ativan] 0.5 - 1 mg PO TID PRN 09/28/21 [History] Metoprolol Succinate (ER) [Toprol XL] 50 mg PO DAILY@1200 09/28/21 [History] Omeprazole 40 mg PO HS 09/28/21 [History] Yupelri 175mcg/3ml 3 ml INHALATION DAILY PRN 09/28/21 [History] cloNIDine 0.3 MG/24HR PATCH [Catapres-TTS] 1 patch TRANSDERM WE 09/28/21 [History] dilTIAZem HCL [dilTIAZem HCL 12Hr ER] 120 mg PO DAILY 09/28/21 [History] hydrALAZINE HCL [Apresoline] 50 mg PO BID 09/28/21 [History] lamoTRIgine [LaMICtal] 50 mg PO HS 09/28/21 [History] Nitroglycerin Sl Tabs [Nitrostat] 0.4 mg SL Q5M PRN 01/25/22 [History] Potassium Chloride [Potassium Chloride ER] 20 meq PO TID 01/25/22 [History] Tiotropium 18 Mcg/Puff [Spiriva] 1 puff INHALATION DAILY PRN 02/20/22 [History] Acetaminophen [Tylenol Extra Strength] 1,000 mg PO Q8H PRN 04/20/22 [History] Ondansetron Odt [Zofran ODT] 8 mg PO Q12HR PRN 04/20/22 [History] traMADol HCL 50 mg PO Q8H PRN 04/20/22 [History] Budesonide-Formot 160-4.5 Mcg [Symbicort 160-4.5 Mcg Inhaler] 2 puff INHALATION RT-BID #1 each 04/23/22 [Rx] Cefdinir [Omnicef] 300 mg PO BID 5 Days #10 cap 04/23/22 [Rx] predniSONE See Rx Instructions .ROUTE .COMPLEX #0 04/23/22 [Rx] Follow up Appointment(s)/Referral(s): Sandrita Thomson DO [Primary Care Provider] - 3 Days [facility], [NON-STAFF] - 1 Week Hospice,[facility] [NON-STAFF] - 1 Week Ambulatory/Diagnostic Orders: Prothrombin Time INR [LAB.AMB] Time Frame: 04/26/22, Location: None Selected Activity/Diet/Wound Care/Special Instructions: Home with hospice per family's request Discharge Disposition: HOME WITH HOSPICE
[2022-04-26] MEDS ORDERED: WARFARIN 1 MG TAB PO ONE (18:00)
[2022-04-27] MEDS ORDERED: ERGOCALCIFEROL 1,250 MCG (50,000 IU) CAPSULE PO SCH (09:00)
== END 2022-04-26 15:31 | disposition hospice, home (50) | DRG 180 ==
LOC: EC 16:24 → 5NMEDONC 19:24
PROVIDERS: ADMIT Family Medicine; ATTEND Family Medicine
DX: C34.31 Malignant neoplasm of lower lobe, right bronchus or lung (principal); J18.9 Pneumonia, unspecified organism; J96.21 Acute and chronic respiratory failure with hypoxia; E44.0 Moderate protein-calorie malnutrition; Z68.1 Body mass index [BMI] 19.9 or less, adult; J44.0 Chronic obstructive pulmonary disease with (acute) lower respiratory infection; J90 Pleural effusion, not elsewhere classified; I48.20 Chronic atrial fibrillation, unspecified; R64 Cachexia; C50.919 Malignant neoplasm of unspecified site of unspecified female breast; E11.9 Type 2 diabetes mellitus without complications; I11.0 Hypertensive heart disease with heart failure; E86.0 Dehydration; F17.210 Nicotine dependence, cigarettes, uncomplicated; G89.29 Other chronic pain; J44.9 Chronic obstructive pulmonary disease, unspecified; I50.9 Heart failure, unspecified; Z51.5 Encounter for palliative care; Z66 Do not resuscitate; Z99.81 Dependence on supplemental oxygen; Z20.822 Contact with and (suspected) exposure to COVID-19; Z71.3 Dietary counseling and surveillance; R59.0 Localized enlarged lymph nodes; I49.3 Ventricular premature depolarization; Z79.01 Long term (current) use of anticoagulants; M79.7 Fibromyalgia; M81.0 Age-related osteoporosis without current pathological fracture; N28.1 Cyst of kidney, acquired; K21.9 Gastro-esophageal reflux disease without esophagitis; R79.1 Abnormal coagulation profile; G62.9 Polyneuropathy, unspecified; F40.240 Claustrophobia; H91.90 Unspecified hearing loss, unspecified ear; E78.5 Hyperlipidemia, unspecified; Z91.041 Radiographic dye allergy status; Z91.040 Latex allergy status; Z79.51 Long term (current) use of inhaled steroids; Z91.030 Bee allergy status; Z79.52 Long term (current) use of systemic steroids; Z79.84 Long term (current) use of oral hypoglycemic drugs; Z79.890 Hormone replacement therapy; Z79.899 Other long term (current) drug therapy; Z80.3 Family history of malignant neoplasm of breast; Z82.5 Family history of asthma and other chronic lower respiratory diseases; Z85.118 Personal history of other malignant neoplasm of bronchus and lung; Z85.3 Personal history of malignant neoplasm of breast; Z86.711 Personal history of pulmonary embolism; Z90.13 Acquired absence of bilateral breasts and nipples; Z95.2 Presence of prosthetic heart valve; Z98.82 Breast implant status; Z86.19 Personal history of other infectious and parasitic diseases
CPT/HCPCS: 36415; 71045; 71275; 76604; 80048; 80053; 82803; 83880; 84145; 84484; 85025; 85610; 87635; 93005; 93306; 94640; 94760; 96374; 96375; 99291